=== PATIENT | male | born 1945 | race Caucasian/White ===

== ENCOUNTER 2016-07-08 08:44 | Inpatient (IN) | payer MEDICARE, MEDICAID ==
[~2016-07-08] VITALS: Ht 185.4 cm; Wt 68.0 kg
[2016-07-08 09:13] VITALS: BP 100/69
[2016-07-08 09:54] LABS: APPEARANCE,URINE CLEAR; KETONES,URINE NEGATIVE (NEGATIVE); NITRITE,URINE NEGATIVE (NEGATIVE); PH,URINE 6.5 (4.5-8.0); UROBILINOGEN,URINE 1 MG/DL (0.0-1.0)
[2016-07-08 09:57] LABS: MEAN CORPUSCULAR HEMOGLOBIN 32.7 PG (27.0-31.0); MEAN CORPUSCULAR VOLUME 99 FL (80-99); MEAN PLATELET VOLUME 7.4 FL (6.5-10.1); PLATELET COUNT 296 K/UL (150-450); RED BLOOD COUNT 4.84 M/UL (4.70-6.10); RED CELL DISTRIBUTION WIDTH 12.9 % (11.6-14.8); WHITE BLOOD COUNT 16.7 K/UL (4.8-10.8)
[2016-07-08 10:07] LABS: LEUKOCYTE ESTERASE ,URINE 1+ (NEGATIVE); PROTEIN,URINE 2+ (NEGATIVE)
[2016-07-08 10:08] LABS: ALANINE AMINOTRANSFERASE 11 U/L (3-41); ALBUMIN/GLOBULIN RATIO 1.1 (1.0-2.7); ANION GAP 20 (5-15); ASPARTATE AMINO TRANSFERASE 17 U/L (5-40); CARBON DIOXIDE 23 mEQ/L (20-30); CHLORIDE 99 mEQ/L (98-107); CREATININE 1.2 mg/dL (0.7-1.2); GLOMERULAR FILTRATION RATE > 60 mL/min (>60); HEMOLYSIS 62; POTASSIUM 4.2 mEQ/L (3.4-4.9); SODIUM 142 mEQ/L (135-145); VALPROIC ACID 16 ug/mL (50-100)
[2016-07-08 10:08] LABS: TROPONIN I < 0.30 ng/mL (<=0.30)
[2016-07-08 10:10] LABS: BACTERIA,URINE FEW /HPF; MUCUS,URINE FEW /LPF (NONE/OCC); REFLEX LACTIC ACID YES OR NO YES; SQUAMOUS EPITHELIAL CELL,UR OCCASIONAL /LPF (NONE/OCC)
[2016-07-08 10:11] LABS: HYALINE CASTS, URINE 0-2 /LPF
[2016-07-08] MEDS ORDERED: Valproate Sodium INJ 500 MG in NS 55 ML IV ONE (10:15)
[2016-07-08] MEDS ORDERED: Azithromycin 500 MG in NS 275 ML IV ONE (10:15)
[2016-07-08] MEDS ORDERED: Cefepime HCl 1 GM in NS 55 ML IV ONE (10:15)
--- NOTE | 2016-07-08 10:23 | Diagnostic Imaging Report ---
Indication: Shortness of breath Technique: Single portable AP view of the chest. Findings: Comparison: None. Linear density right lung base. Left lung clear. Aortic arch mildly calcified. The bones and extra pulmonary soft tissues, remainder of the cardiomediastinal silhouette, pulmonary vasculature, and pleural surfaces are unremarkable. IMPRESSION: Subsegmental atelectasis versus scarring right lung base Aortosclerosis Otherwise negative portable AP chest.
[2016-07-08] MEDS ORDERED: Cefepime 1gm vial ONE (10:39)
--- NOTE | 2016-07-08 10:45 | Emergency Room Report ---
History of Present Illness General Chief Complaint: Seizure Source: EMS Present Illness HPI 70-year-old male presents to ED for evaluation of seizure. Patient has history of seizures. Had a witnessed seizure at this facility today which lasted for several minutes. Given Versed with resolution of seizure. Upon arrival patient is lethargic and postictal. Unable to provide any additional history at this time. Patient takes Depakote and Dilantin for seizures. No reported fevers or chills. No reported cough. No reported chest pain shortness of breath. No other aggravating relieving factors. No other associated symptoms Allergies: Coded Allergies: No Known Allergies (Unverified , 07/08/16) Patient History Past Medical History: HTN, seizures Past Surgical History: none Pertinent Family History: none Social History: Denies: alcohol use, drug use, smoking Immunizations: UTD Reviewed Nursing Documentation: PMH: Agreed, PSxH: Agreed Nursing Documentation-PMH Past Medical History Deferred: Pt Cognitively Impaired Past Medical History: No History, Except For Hx Hypertension: Yes Hx Seizures: Yes Review of Systems All Other Systems: negative except mentioned in HPI Physical Exam Vital Signs Date Time Temp Pulse Resp B/P Pulse Ox O2 Delivery O2 Flow Rate FiO2 07/08/16 08:50 97.5 101 16 109/74 99 Room Air 07/08/16 09:15 2.0 Sp02 EP Interpretation: reviewed, normal General Appearance: lethargic, thin Head: normocephalic Eyes: bilateral eye PERRL, bilateral eye normal inspection ENT: normal ENT inspection Neck: normal inspection Respiratory: crackles Cardiovascular #1: regular rate, rhythm, no edema Gastrointestinal: normal bowel sounds, non tender, soft, non-distended, no guarding, no rebound Rectal: deferred Genitourinary: no CVA tenderness Musculoskeletal: normal inspection Neurologic: other - lethargic Psychiatric: other - lethargic Skin: normal inspection Lymphatic: normal inspection Medical Decision Making Diagnostic Impression: Primary Impression: Seizures Additional Impressions: Sepsis Qualified Codes: A41.9 - Sepsis, unspecified organism Pneumonia Qualified Codes: J18.9 - Pneumonia, unspecified organism ER Course Hospital Course 70-year-old M presents to ED status post seizure. Differential diagnosis includes- breakthrough seizure, alcohol abuse, noncompliance with medication Clinical course Patient placed on stretcher. Initial history and physical I ordered labs, IV fluids, EKG Labs-electrolytes okay, leukocytosis noted, hemoglobin/hematocrit stable. dilantin level therapeutic, depakote level low. lactate 5.9 EKG - NSR, no ischemic changes CXR - RLL atelectasis vs infiltrate Given loading dose of depakote. Given 30 mL per KG fluid bolus. Given antibiotics. Case discussed with Dr. Alston and he agreed to accept the patient to his service for further care and support. i. I feel this is a highly complex case requiring extensive working including EKG/Rhythm strip, Xray/CT/US, Blood/urine lab work, repeat exams while in ED, and administration of strong opiates/narcotics for pain control, admission to hospital or close patient follow up. Diagnosis - seizure, sepsis, pneumonia admitted to telemetry in serious condition Labs Test 07/08/16 09:15 07/08/16 09:30 White Blood Count 16.7 K/UL (4.8-10.8) Red Blood Count 4.84 M/UL (4.70-6.10) Hemoglobin 15.8 G/DL (14.2-18.0) Hematocrit 47.9 % (42.0-52.0) Mean Corpuscular Volume 99 FL (80-99) Mean Corpuscular Hemoglobin 32.7 PG (27.0-31.0) Mean Corpuscular Hemoglobin Concent 33.0 G/DL (32.0-36.0) Red Cell Distribution Width 12.9 % (11.6-14.8) Platelet Count 296 K/UL (150-450) Mean Platelet Volume 7.4 FL (6.5-10.1) Neutrophils (%) (Auto) % (45.0-75.0) Lymphocytes (%) (Auto) % (20.0-45.0) Monocytes (%) (Auto) % (1.0-10.0) Eosinophils (%) (Auto) % (0.0-3.0) Basophils (%) (Auto) % (0.0-2.0) Urine Color Yellow Urine Appearance Clear Urine pH 6.5 (4.5-8.0) Urine Specific [place] 1.015 (1.005-1.035) Urine Protein 2+ (NEGATIVE) Urine Glucose (UA) Negative (NEGATIVE) Urine Ketones Negative (NEGATIVE) Urine Occult Blood 1+ (NEGATIVE) Urine Nitrite Negative (NEGATIVE) Urine Bilirubin Negative (NEGATIVE) Urine Urobilinogen 1 MG/DL (0.0-1.0) Urine Leukocyte Esterase 1+ (NEGATIVE) Urine RBC 2-4 /HPF (0 - 0) Urine WBC 2-4 /HPF (0 - 0) Urine Squamous Epithelial Cells Occasional /LPF Urine Bacteria Few /HPF (NONE) Urine Hyaline Casts 0-2 /LPF (NONE) Urine Mucus Few /LPF (NONE/OCC) Sodium Level 142 mEQ/L (135-145) Potassium Level 4.2 mEQ/L (3.4-4.9) Chloride Level 99 mEQ/L (98-107) Carbon Dioxide Level 23 mEQ/L (20-30) Anion Gap 20 (5-15) Blood Urea Nitrogen 22 mg/dL (7-23) Creatinine 1.2 mg/dL (0.7-1.2) Estimat Glomerular Filtration Rate > 60 mL/min (>60) Glucose Level 125 mg/dL (74-106) Lactic Acid Level 5.90 mmol/L (0.66-2.22) Calcium Level 9.0 mg/dL (8.6-10.2) Total Bilirubin 0.3 mg/dL (0.0-1.2) Aspartate Amino Transf (AST/SGOT) 17 U/L (5-40) Alanine Aminotransferase (ALT/SGPT) 11 U/L (3-41) Alkaline Phosphatase 114 U/L (40-129) Total Creatine Kinase 70 U/L (38-174) Total Protein 7.0 g/dL (6.6-8.7) Albumin 3.8 g/dL (3.5-5.2) Globulin 3.2 g/dL Albumin/Globulin Ratio 1.1 (1.0-2.7) Phenytoin (Dilantin) Level 18.2 ug/mL (10-20) Valproic Acid (Depakene) Level 16 ug/mL (50-100) Troponin I < 0.30 ng/mL (<=0.30) EKG Diagnostic Results Rate: normal Rhythm: NSR ST Segments: no acute changes ASA given to the pt in ED: No Rhythm Strip Diag. Results EP Interpretation: yes Rhythm: NSR, no PVC's, no ectopy Chest X-Ray Diagnostic Results EP Interpretation: No Findings: no effusion, no pneumothorax, no acute cardiopulmonary disease, other - atelectasis vs infiltrate RLL Number of Views: 1 Last Vital Signs Date Time Temp Pulse Resp B/P Pulse Ox O2 Delivery O2 Flow Rate FiO2 07/08/16 09:15 24 97 Nasal Cannula 2.0 07/08/16 09:15 98.6 07/08/16 09:13 78 100/69 Status: improved Disposition: ADMITTED INPATIENT Condition: Serious Referrals: AMA ALSTON (PCP) OLE CABRERA M.D. Jul 08, 2016 10:45
[2016-07-08 10:55] LABS: BAND NEUTROPHILS % (MANUAL) 0 % (0-8); BASOPHILS % (MANUAL) 0 % (0-2); EOSINOPHILS % (MANUAL) 1 % (0-3); LYMPHOCYTES % (MANUAL) 2 % (20-45); NEUTROPHILS % (MANUAL) 94 % (45-75); PLATELET ESTIMATE ADEQUATE; PLATELET MORPHOLOGY NORMAL; TOTAL CELLS COUNTED 100
[2016-07-08 10:56] LABS: MACROCYTES 1+
[2016-07-08 10:58] LABS: CKMB 2.1 ng/mL (< 6.7)
[2016-07-08] MEDS ORDERED: LORazepam Inj 2mg/ml 1ml IV ONE (11:15)
[2016-07-08] MEDS ORDERED: Azithromycin Inj IV ONE (12:21)
[2016-07-08 14:00] VITALS: BP 125/75
[2016-07-08] MEDS ORDERED: PROMOD946 ML PO (14:27)
[2016-07-08] MEDS ORDERED: MULTIVITAMINS1 EAC8 ORAL (14:27)
[2016-07-08] MEDS ORDERED: LIPITOR20 MG ORAL (14:27)
[2016-07-08] MEDS ORDERED: PLAVIX75 MG ORAL (14:27)
[2016-07-08] MEDS ORDERED: DOCUSATE SODIU100 M2 ORAL (14:27)
[2016-07-08] MEDS ORDERED: QUETIAPINE FUMA25 MG ORAL (14:27)
[2016-07-08] MEDS ORDERED: BISACODYL10 M1 RC (14:27)
[2016-07-08] MEDS ORDERED: CRANBERRY425 MG PO (14:27)
[2016-07-08] MEDS ORDERED: FLEET ENEMA133 M1 RC (14:27)
[2016-07-08] MEDS ORDERED: VALPROIC A250 MG/5 M PO (14:27)
[2016-07-08] MEDS ORDERED: DILANTIN100 MG ORAL ×2 (14:27)
[2016-07-08] MEDS ORDERED: METOPROLOL SUCC50 MG ORAL (14:27)
[2016-07-08] MEDS ORDERED: MOM30 ML ORAL (14:27)
[2016-07-08] MEDS ORDERED: ISOSORBIDE MONO30 M1 PO (14:27)
[2016-07-08] MEDS ORDERED: Milk of Magnesia 30ml Ud ORAL PRN (14:30)
[2016-07-08] MEDS ORDERED: LORazepam Inj 2mg/ml 1ml IV PRN (14:30)
[2016-07-08] MEDS ORDERED: Fleet's Enema 133ml RECTAL PRN (14:30)
[2016-07-08] MEDS ORDERED: Vancomycin 1gm/D5W 275ml IVPB ONE ×2 (16:00)
[2016-07-08 16:01] VITALS: BP 120/77
[2016-07-08] MEDS: D5NS 1,000 ML IV SCH (16:48)
[2016-07-08 20:32] VITALS: BP 130/80
[2016-07-08] MEDS: Valproic Acid 250mg/5ml Liquid NG SCH (21:00)
[2016-07-08] MEDS ORDERED: Phenytoin 100mg cap ORAL SCH (21:00)
[2016-07-08] MEDS ORDERED: Piperacillin/Tazobactam 3.375 GM in D5W 110 ML IVPB SCH (22:00)
[2016-07-08] MEDS: Heparin 5000 units/ml inj SUBQ SCH (22:00)
[2016-07-08] MEDS: Phenytoin 100 MG in NS 55 ML IVPB SCH (23:38)
[2016-07-09] VITALS: BP 128/74
[2016-07-09] MEDS: Piperacillin/Tazobactam 3.375 GM in D5W 110 ML IVPB SCH ×3 (00:42→18:54)
[2016-07-09] MEDS ORDERED: Vancomycin 750mg Inj IVPB ONE (01:55)
[2016-07-09] MEDS: Vancomycin 750mg/D5W 275ml IVPB SCH ×4 (05:27→17:34)
--- NOTE | 2016-07-09 06:28 | History and Physical Report ---
DATE OF ADMISSION: 07/08/2016 DATE OF EVALUATION: This is a visit that was done on 07/08/2016. The patient was evaluated in the emergency room. HISTORY OF PRESENT ILLNESS: The patient is a 70-year-old male well known to me. He has a history of encephalopathy, seizure disorder, hypertension, anemia, chronic kidney disease, and stroke. He was transferred from a senior living facility and complaints of intractable seizures. The patient is confused at baseline. He is unable to provide any history. According to staff, he had been compliant with medications. On the day of transfer here was having recurrent seizures on evaluation in the emergency room. The patient received a dose of intravenous valproic acid. He was noted to have elevated white count of 16,000 and lactic acid level of 6. Initial workup for infection including a UA was unremarkable. Chest x-ray did show a possible left basilar infiltrate. The patient has been started on broad-spectrum IV antibiotics and intravenous fluids. He is now admitted for further evaluation and care. PAST MEDICAL HISTORY: As above. PAST SURGICAL HISTORY: None. CURRENT MEDICATIONS: Reconciled and reviewed. ALLERGIES: None. FAMILY HISTORY: Unknown. SOCIAL HISTORY: There is no known history of tobacco, ethanol, or drugs. REVIEW OF SYSTEMS: From the patient is unobtainable. PHYSICAL EXAMINATION: VITAL SIGNS: Temperature 97.5 degrees, blood pressure 109/74, pulse of 101, and respirations 16. GENERAL: The patient is a chronically ill-appearing male, in no apparent distress. He is somewhat combative and confused, but this is his baseline. NECK: Supple. There is no jugular venous distention. HEART: Regular rate and rhythm. LUNGS: Lungs are clear. ABDOMEN: Soft, nontender, and nondistended. EXTREMITIES: Without clubbing, cyanosis, or edema. The patient moves all four extremities. LABORATORY DATA: Showed a Dilantin level 18. Valproic acid level of 16. White count of 17,000, hemoglobin 15, lactic acid level 6. ASSESSMENT: This is an elderly male admitted with status epilepticus, sepsis, leukocytosis, acute on chronic encephalopathy, ischemic cardiomyopathy, and stroke. PLAN: So, the plan admit to monitored bed. Intravenous hydration and intravenous seizure medications. We will titrate as needed. Neurologic consultation will be obtained. Continue antiplatelet therapy. Broad-spectrum intravenous antibiotics. ID and Cardiology consultations. We will follow up cultures. As the patient's status is currently guarded. Jcarlos David M.D. DR: RUSLAN JOB#: [id number] CC:
[2016-07-09] MEDS: D5NS 1,000 ML IV SCH ×2 (06:32→18:10)
[2016-07-09 07:54] VITALS: BP 144/80
[2016-07-09] MEDS: Phenytoin 100 MG in NS 55 ML IVPB SCH ×2 (08:48→18:54)
[2016-07-09] MEDS: Multivitamin w/Minerals tab ORAL SCH ×2 (08:48→09:09)
[2016-07-09] MEDS: Imdur 30mg tab ORAL SCH ×2 (08:49→09:08)
[2016-07-09] MEDS: Docusate 100mg cap ORAL SCH ×2 (08:49→09:08)
[2016-07-09] MEDS: Valproic Acid 250mg/5ml Liquid NG SCH ×2 (08:49→09:10)
[2016-07-09 08:55] LABS: BASOPHILS % (AUTO) 0.6 % (0.0-2.0); EOSINOPHILS % (AUTO) 2.5 % (0.0-3.0); LYMPHOCYTES % (AUTO) 12.1 % (20.0-45.0); MEAN CORPUSCULAR HEMOGLOBIN 32.7 PG (27.0-31.0); MEAN CORPUSCULAR HGB CONC 33.9 G/DL (32.0-36.0); MEAN CORPUSCULAR VOLUME 97 FL (80-99); MEAN PLATELET VOLUME 7.2 FL (6.5-10.1); MONOCYTES % (AUTO) 5.6 % (1.0-10.0); NEUTROPHILS % (AUTO) 79.3 % (45.0-75.0); PLATELET COUNT 286 K/UL (150-450); RED BLOOD COUNT 4.53 M/UL (4.70-6.10); RED CELL DISTRIBUTION WIDTH 12.6 % (11.6-14.8); WHITE BLOOD COUNT 15.5 K/UL (4.8-10.8)
[2016-07-09] MEDS: Heparin 5000 units/ml inj SUBQ SCH ×2 (08:55→21:00)
[2016-07-09] MEDS ORDERED: Phenytoin 100mg cap ORAL SCH (09:00)
[2016-07-09 09:32] LABS: ALANINE AMINOTRANSFERASE 10 U/L (3-41); ALBUMIN/GLOBULIN RATIO 1.5 (1.0-2.7); ANION GAP 14 (5-15); ASPARTATE AMINO TRANSFERASE 17 U/L (5-40); CARBON DIOXIDE 26 mEQ/L (20-30); CHLORIDE 100 mEQ/L (98-107); CREATININE 0.9 mg/dL (0.7-1.2); GLOMERULAR FILTRATION RATE > 60 mL/min (>60); HEMOLYSIS 9; POTASSIUM 4.2 mEQ/L (3.4-4.9); SODIUM 140 mEQ/L (135-145); TOTAL PROTEIN 6.3 g/dL (6.6-8.7)
[2016-07-09] MEDS: LORazepam Inj 2mg/ml 1ml IV PRN ×2 (10:18→14:49)
[2016-07-09 11:23] VITALS: BP 107/69
--- NOTE | 2016-07-09 12:26 | General Progress Note ---
Assessment/Plan Problem List: (1) Acute encephalopathy ICD Codes: G93.40 - Encephalopathy, unspecified SNOMED: 9667199 (2) Seizure ICD Codes: R56.9 - Unspecified convulsions SNOMED: 87020051 (3) Sepsis ICD Codes: A41.9 - Sepsis, unspecified organism SNOMED: 38178257 Status: stable Assessment/Plan sz precautions monitor for szs sz rx neuro eval abx per id follow up cultures check swallow Subjective ROS Limited/Unobtainable: Yes Constitutional: Reports: malaise, weakness HEENT: Reports: no symptoms Cardiovascular: Reports: no symptoms Respiratory: Reports: no symptoms Gastrointestinal/Abdominal: Reports: difficulty swallowing Genitourinary: Reports: no symptoms Neurologic/Psychiatric: Reports: pre-existing deficit, seizure Endocrine: Reports: no symptoms Hematologic/Lymphatic: Reports: no symptoms Allergies: Coded Allergies: No Known Allergies (Unverified , 07/08/16) All Systems: reviewed and negative except above Subjective no szs noted by staff. remains confused. difficulty with taking po meds. on iv abx. cultures pending. appears nontoxic Objective Last 24 Hour Vital Signs Date Time Temp Pulse Resp B/P Pulse Ox O2 Delivery O2 Flow Rate FiO2 07/09/16 11:23 96.1 75 20 107/69 07/09/16 09:08 144/80 07/09/16 09:00 80 144/80 07/09/16 07:54 96.3 80 20 144/80 07/09/16 04:00 80 07/09/16 00:00 87 07/09/16 00:00 97.2 71 18 128/74 100 Room Air 07/08/16 20:32 98.1 60 18 130/80 97 Room Air 07/08/16 20:00 86 07/08/16 16:01 97.9 62 19 120/77 98 Room Air 07/08/16 16:00 83 07/08/16 14:00 97.7 82 20 125/75 98 Room Air 07/08/16 13:16 98.6 83 20 100/69 97 Nasal Cannula 2.0 Intake and Output 07/08/16 07/09/16 19:00 07:00 Intake Total 367.416 ml 802.0 ml Output Total 620 ml 300 ml Balance -252.584 ml 502.0 ml Intake Oral 0 ml IV Total 367.416 ml 802.0 ml Output Urine Total 620 ml 300 ml # Bowel Movements 1 3 Laboratory Tests 07/09/16 08:20: White Blood Count 15.5H, Red Blood Count 4.53L, Hemoglobin 14.8, Hematocrit 43.8 , Mean Corpuscular Volume 97, Mean Corpuscular Hemoglobin 32.7H, Mean Corpuscular Hemoglobin Concent 33.9, Red Cell Distribution Width 12.6, Platelet Count 286, Mean Platelet Volume 7.2, Neutrophils (%) (Auto) 79.3H, Lymphocytes ( %) (Auto) 12.1L, Monocytes (%) (Auto) 5.6, Eosinophils (%) (Auto) 2.5, Basophils (%) (Auto) 0.6, Sodium Level 140, Potassium Level 4.2, Chloride Level 100, Carbon Dioxide Level 26, Anion Gap 14, Blood Urea Nitrogen 19, Creatinine 0.9, Estimat Glomerular Filtration Rate > 60, Glucose Level 89, Calcium Level 9.0, Total Bilirubin 0.6, Aspartate Amino Transf (AST/SGOT) 17, Alanine Aminotransferase (ALT/SGPT) 10, Alkaline Phosphatase 109, Pro-B-Type Natriuretic Peptide 1246H, Total Protein 6.3L, Albumin 3.8, Globulin 2.5, Albumin/Globulin Ratio 1.5, Thyroid Stimulating Hormone (TSH) 1.760, Phenytoin ( Dilantin) Level 15.5, Valproic Acid (Depakene) Level 11L Height (Feet): 6 Height (Inches): 1.00 Weight (Pounds): 150 General Appearance: WD/WN, confused Neck: supple Cardiovascular: normal peripheral pulses, normal rate, regular rhythm Respiratory/Chest: chest wall non-tender, lungs clear, normal breath sounds, no respiratory distress, no accessory muscle use Abdomen: normal bowel sounds, non tender, soft, no organomegaly, no mass Edema: no edema noted Arm (L), no edema noted Arm (R), no edema noted Leg (L), no edema noted Leg (R), no edema noted Pedal (L), no edema noted Pedal (R), no edema noted Generalized Neurologic: responsive, disoriented, aphasia AMA ALSTON Jul 09, 2016 12:25
[2016-07-09 16:00] VITALS: BP 118/72
--- NOTE | 2016-07-09 17:28 | Consultation ---
DATE OF CONSULTATION: 07/09/2016 INFECTIOUS DISEASES CONSULTATION CONSULTING PHYSICIAN: Shawn Conteh M.D. REFERRING PHYSICIAN: Jcarlos David M.D. REASON FOR CONSULTATION: Leukocytosis. HISTORY OF PRESENTING ILLNESS: This is a 70-year-old gentleman with history of hypertension, chronic kidney disease, CVA, and seizures, who was transferred from a correction facility with recurrent seizures. He was found to have a leukocytosis and chest x-ray showed a pneumonia and Infectious Diseases consultation has been obtained for antibiotics. PAST MEDICAL HISTORY: 1. History of hypertension. 2. Seizure disorder. 3. Encephalopathy. 4. Anemia. 5. Chronic kidney disease. 6. CVA. MEDICATIONS: As an inpatient, the patient is on Plavix, Colace, Imdur, metoprolol, multivitamin, Ativan, vancomycin, Zosyn, Dilantin, subcutaneous heparin, atorvastatin, valproic acid, Seroquel, Dulcolax, and milk of magnesia. ALLERGIES: No known drug allergies. SOCIAL HISTORY: He does not smoke, drink, or use drugs. FAMILY HISTORY: Unknown. REVIEW OF SYSTEMS: Unable to obtain currently. PHYSICAL EXAMINATION: VITAL SIGNS: Temperature of 96.3 degrees, T-max of 98.6 degrees, pulse of 80, respiratory rate 20, blood pressure 144/80, and O2 saturation of 100%. HEENT: Pupils equally reactive to light and accommodation. Mouth appears clean without thrush. NECK: Supple. No adenopathy. No JVD. CARDIOVASCULAR: Regular rate and rhythm. No murmurs. LUNGS: Clear to auscultation bilaterally. No crackles. No wheezes. ABDOMEN: Soft and nontender. No organomegaly. EXTREMITIES: No cyanosis, no clubbing, and no edema. SKIN: Erythematous scratch zacarias noted. LABORATORY DATA: White count of 16.7 yesterday, white count of 15.5 today, hemoglobin 14.8, hematocrit 43.8, MCV 97, and platelet count of 286,000 with neutrophils of 79%. Sodium 140, potassium 4.2, chloride 100, bicarbonate 26, BUN 19, creatinine 0.9, glucose 89, and calcium 9. Total bilirubin 0.6. AST 17, ALT 10, and alkaline phosphatase 109. Beta natriuretic peptide 1246. Total protein 6.3. Albumin 3.8. UA is showing 2 to 4 white cells. Blood cultures are pending. Chest x-ray is showing subsegmental atelectasis versus scarring in the right lung base. ASSESSMENT: 1. This is a 70-year-old gentleman with history of seizures and encephalopathy, who comes in with leukocytosis and is found to have a possible aspiration pneumonia. 2. We would like to rule out sepsis as a possibility. 3. Seizures. 4. Hypertension. 5. We would like to rule out scabies as a possibility. PLAN: 1. Continue vancomycin and Zosyn. 2. We will order sputum for Gram stain and culture. 3. We will start the patient on permethrin. 4. Contact isolation. I would like to thank, Dr. David, for this consultation. Shawn Conteh M.D. DR: DIANE JOB#: [id number] CC: Jcarlos David M.D.
[2016-07-09 20:00] VITALS: BP 139/82
[2016-07-10 00:20] VITALS: BP 124/69
[2016-07-10] MEDS: Phenytoin 100 MG in NS 55 ML IVPB SCH ×3 (00:30→18:55)
[2016-07-10] MEDS: Piperacillin/Tazobactam 3.375 GM in D5W 110 ML IVPB SCH ×2 (01:55→10:29)
--- NOTE | 2016-07-10 03:38 | Progress Note ---
DATE: 07/09/2016 CARDIOLOGY PROGRESS NOTE SUBJECTIVE: The patient remains withdrawn and lethargic at times. Minimally interactive. He has not had any seizures. Monitored rhythm, sinus. OBJECTIVE: VITAL SIGNS: Blood pressure 118/72, pulse 56, and respirations 21. NECK: Supple. LUNGS: With coarse breath sounds and rhonchi. CARDIAC: Regular rhythm and rate. Normal S1 and S2. ABDOMEN: Soft. No edema. NEURO: right weakness LABORATORY AND DIAGNOSTIC DATA: Sodium 140 and potassium 4.2. Lactic acid is 2. BUN 19 and creatinine 0.9. TSH is 1.7. Pro-natriuretic peptide is 1246. White count 15.5 and hemoglobin 14.8. Dilantin level is 15.5. IMPRESSIONS: 1. Toxic metabolic encephalopathy. 2. Seizure disorder. 3. Abnormal electrocardiogram. 4. acute diastolic congestive heart failure. 5. Hypertensive heart disease. 6. Cerebrovascular disease. 7. Aspiration risk. 8. Asymptomatic sinus bradycardia on beta-xi therapy. PLAN: 1. Antibiotics. 2. Respiratory hygiene. 3. Antiplatelet therapy. 4. Titrate antihypertensives. 5. Decrease beta-xi if bradycardia is asymptomatic and progressive. 6. DVT prophylaxis. Augustus Gooden M.D. DR: RODERICK JOB#: [id number] CC: KELBY
[2016-07-10 04:21] VITALS: BP 122/75
[2016-07-10] MEDS: Vancomycin 750mg/D5W 275ml IVPB SCH ×4 (04:52→16:55)
[2016-07-10] MEDS: D5NS 1,000 ML IV SCH ×2 (05:00→20:50)
--- NOTE | 2016-07-10 05:08 | Consultation ---
DATE OF CONSULTATION: 07/08/2016 CARDIOLOGY CONSULTATION CONSULTING PHYSICIAN: Augustus Gooden M.D. REFERRING PHYSICIAN: Jcarlos David M.D. REASON FOR CONSULTATION: Abnormal electrocardiogram and bradycardia. HISTORY OF PRESENT ILLNESS: This is a 70-year-old male with underlying seizure disorder and cerebrovascular disease with prior cerebrovascular accident. He resides at a long-term facility and was transferred for evaluation of intractable seizures. He does have a baseline dementia and has been receiving medications regularly with compliance. In the emergency room, the patient was given intravenous valproic acid because of active seizures. He was noted to have an abnormal white blood count, lactic acid level, and an electrocardiogram. I have been asked to assist with further cardiovascular care. PAST MEDICAL HISTORY: Seizure disorder, cerebrovascular disease with cerebrovascular accident, hypertension, chronic anemia, and chronic kidney disease. ALLERGIES: None. FAMILY HISTORY: Not known. SOCIAL HISTORY: No record of smoking or alcohol use available. MEDICATIONS: Medications prior to admission were reviewed and reconciled. REVIEW OF SYSTEMS: Not obtainable from the patient. PHYSICAL EXAMINATION: VITAL SIGNS: Afebrile, blood pressure 109/74, pulse 101, and respirations 16. GENERAL: Ill appearing, confused, withdrawn, and lethargic. NECK: Jugular venous pressure is normal. HEENT: Dry mucous membranes. CARDIOVASCULAR: Regular rhythm and rate. Normal S1 and S2 with a fourth heart sound. LUNGS: Clear. ABDOMEN: Soft with no guarding or rebound. EXTREMITIES: Without edema. NEURO: right sided weakness. LABORATORY AND DIAGNOSTIC DATA: Monitored rhythm, sinus tachycardia with episodes of sinus bradycardia. Dilantin level 18. Lactic acid 6. Chest x-ray with left basilar infiltrates. EKG with sinus rhythm. Septal infarction of indeterminate age. Nonspecific ST changes. IMPRESSION: 1. Encephalopathy, multifactorial. 2. Probable sepsis. 3. Pneumonia. 4. Ischemic and hypertensive cardiomyopathy. 5. Beta-xi associated bradyarrhythmia. 6. Hemodynamically appropriate sinus tachycardia. 7. Status epilepticus, possibly precipitated by sepsis or acute cerebrovascular insult. CONDITION: Serious. PROGNOSIS: Guarded. PLAN: 1. Cardiac monitoring. 2. Saline hydration. 3. Panculture. 4. Broad-spectrum antibiotics. 5. Follow up lactic acid levels. 6. Respiratory hygiene. 7. Titrate antiseizure regimen. 8. DVT prophylaxis. 9. Titrate beta-xi dose based on cardiac monitoring and vitals. 10. Further cardiovascular workup depending on clinical course. Augustus Gooden M.D. DR: HEBERT JOB#: [id number] CC: KELBY
--- NOTE | 2016-07-10 08:25 | General Progress Note ---
Assessment/Plan Problem List: (1) Acute encephalopathy ICD Codes: G93.40 - Encephalopathy, unspecified SNOMED: 2283979 (2) Seizure ICD Codes: R56.9 - Unspecified convulsions SNOMED: 72333205 (3) Sepsis ICD Codes: A41.9 - Sepsis, unspecified organism SNOMED: 94073074 Status: stable, not improved Assessment/Plan sz precautions iv sz meds until able to take pos monitor for szs sz rx neuro eval pending abx per id follow up cultures check swallow haldol for agitation tele Subjective ROS Limited/Unobtainable: Yes Constitutional: Reports: weakness HEENT: Reports: no symptoms Cardiovascular: Reports: no symptoms Respiratory: Reports: no symptoms Gastrointestinal/Abdominal: Reports: difficulty swallowing Genitourinary: Reports: no symptoms Neurologic/Psychiatric: Reports: pre-existing deficit, seizure Endocrine: Reports: no symptoms Hematologic/Lymphatic: Reports: no symptoms Allergies: Coded Allergies: No Known Allergies (Unverified , 07/08/16) All Systems: reviewed and negative except above Subjective no szs noted by staff. remains confused. difficulty with taking po meds. on iv abx. combative with staff. Objective Last 24 Hour Vital Signs Date Time Temp Pulse Resp B/P Pulse Ox O2 Delivery O2 Flow Rate FiO2 07/10/16 04:21 98.7 80 19 122/75 98 Room Air 07/10/16 03:47 75 07/10/16 00:20 98.8 71 20 124/69 97 Room Air 07/10/16 00:02 57 07/09/16 20:00 98.1 66 21 139/82 96 Room Air 07/09/16 20:00 54 07/09/16 16:00 56 07/09/16 16:00 97.6 56 21 118/72 96 Room Air 07/09/16 12:03 58 07/09/16 12:00 63 07/09/16 11:23 96.1 75 20 107/69 07/09/16 09:08 144/80 07/09/16 09:00 80 144/80 Intake and Output 07/09/16 07/10/16 19:00 07:00 Intake Total 299.03 ml 802 ml Output Total 200 ml 400 ml Balance 99.03 ml 402 ml IV Total 299.03 ml 802 ml Output Urine Total 200 ml 400 ml # Bowel Movements 1 4 Laboratory Tests 3/1/17 03:20: Vancomycin Level Trough 16.0H Height (Feet): 6 Height (Inches): 1.00 Weight (Pounds): 150 General Appearance: WD/WN, alert, confused Neck: supple Cardiovascular: regular rhythm Respiratory/Chest: chest wall non-tender, lungs clear, normal breath sounds, no respiratory distress, no accessory muscle use Abdomen: normal bowel sounds, non tender, soft, no organomegaly Edema: no edema noted Arm (L), no edema noted Arm (R), no edema noted Leg (L), no edema noted Leg (R), no edema noted Pedal (L), no edema noted Pedal (R), no edema noted Generalized Neurologic: disoriented, aphasia Skin: normal pigmentation AMA ALSTON Jul 10, 2016 08:25
[2016-07-10] MEDS ORDERED: Haloperidol 5mg/ml Inj IM PRN (08:30)
[2016-07-10] MEDS: Heparin 5000 units/ml inj SUBQ SCH ×2 (09:10→22:37)
[2016-07-10] MEDS ORDERED: Valproate Sodium INJ 250 MG in D5W 55 ML IVPB SCH (10:00)
[2016-07-10 12:39] VITALS: BP 132/79
--- NOTE | 2016-07-10 15:00 | Infectious Diseases Prog Note ---
Assessment/Plan Assessment/Plan A: Pneumonia Seizure disorder Encephalopathy lactic acidosis MRSA colonization P; Continue Vancomycin & Zosyn will f/u cultures Subjective ROS Limited/Unobtainable: Yes Neurologic: Reports: confusion Allergies: Coded Allergies: No Known Allergies (Unverified , 07/08/16) Objective Vital Signs Last 24 Hour Vital Signs Date Time Temp Pulse Resp B/P Pulse Ox O2 Delivery O2 Flow Rate FiO2 07/10/16 12:39 98.0 72 20 132/79 95 Room Air 07/10/16 12:00 69 07/10/16 09:06 80 122/75 07/10/16 08:00 76 07/10/16 04:21 98.7 80 19 122/75 98 Room Air 07/10/16 03:47 75 07/10/16 00:20 98.8 71 20 124/69 97 Room Air 07/10/16 00:02 57 07/09/16 20:00 98.1 66 21 139/82 96 Room Air 07/09/16 20:00 54 07/09/16 16:00 56 07/09/16 16:00 97.6 56 21 118/72 96 Room Air Height (Feet): 6 Height (Inches): 1.00 Weight (Pounds): 150 General Appearance: no acute distress HEENT: mucous membranes moist Respiratory/Chest: lungs clear Cardiovascular: normal rate Abdomen: soft, non tender Extremities: no edema Neurologic/Psychiatric: alert, responsive Microbiology Date/Time Source Procedure Growth Status 07/08/16 09:30 Blood Blood Culture - Preliminary NO GROWTH AFTER 24 HOURS Resulted 07/08/16 09:15 Blood Blood Culture - Preliminary NO GROWTH AFTER 24 HOURS Resulted 07/08/16 09:15 Nasal Nares MRSA Culture - Final Staphylococcus Aureus - Mrsa Complete 07/08/16 09:15 Rectum VRE Culture - Final NO VANCOMYCIN RESISTANT ENTEROCOCCUS ... Complete Laboratory Tests Test 07/10/16 03:20 Vancomycin Level Trough 16.0 ug/mL (5.0-12.0) H Current Medications Medications (Trade) Dose Ordered Sig/Josephine Route PRN Reason Start Time Stop Time Status Last Admin Dose Admin Atorvastatin Calcium (Lipitor) 20 mg QHS ORAL 07/10/16 21:00 08/09/16 20:59 Bisacodyl (Dulcolax) 10 mg DAILYPRN PRN RECTAL Constipation 07/08/16 14:30 08/07/16 14:29 Clopidogrel Bisulfate (Plavix) 75 mg DAILY ORAL 07/09/16 09:00 08/08/16 08:59 Dextrose/Sodium Chloride (D5ns) 1,000 ml @ 75 mls/hr [id number] IV 07/08/16 15:30 08/07/16 15:29 07/10/16 05:00 Docusate Sodium (Colace) 100 mg DAILY ORAL 07/09/16 09:00 08/08/16 08:59 Haloperidol Lactate (Haldol) 1 mg Q6H PRN IM Agitation 07/10/16 08:30 08/09/16 08:29 07/10/16 09:04 Heparin Sodium (Porcine) 5000 units 5,000 units EVERY 12 HOURS SUBQ 07/08/16 22:00 08/07/16 21:59 07/10/16 09:10 Isosorbide Mononitrate (Imdur) 30 mg DAILY ORAL 07/09/16 09:00 08/08/16 08:59 Lorazepam 1 mg 1 mg Q4H PRN IV for seizure or agitiation 07/09/16 06:30 07/16/16 06:29 07/09/16 14:49 Magnesium Hydroxide (Mom) 30 ml TIDPRN PRN ORAL Constipation 07/08/16 14:30 08/07/16 14:29 Metoprolol Succinate (Toprol XL) 50 mg DAILY ORAL 07/09/16 09:00 08/08/16 08:59 07/10/16 09:06 Multivitamins Therapeutic (Therapeutic Multivitamin) 1 ea DAILY ORAL 07/09/16 09:00 08/08/16 08:59 Phenytoin 100 mg/ Sodium Chloride 57 ml @ 114 mls/hr Q8HR@0000,0800,1600 IVPB 07/09/16 00:00 08/08/16 00:00 07/10/16 09:03 Piperacillin Sod/ Tazobactam Sod/ Dextrose (Zosyn/D5W) 110 ml @ 27.5 mls/hr Q8HR@0100,0900,1700 IVPB 07/09/16 01:00 07/15/16 21:59 07/10/16 10:29 Quetiapine Fumarate 25 mg 25 mg BID ORAL 07/08/16 18:00 08/07/16 17:59 07/10/16 09:06 Sodium Phosphate (Fleet's Sodium Phosl Enema) 133 ml DAILYPRN PRN RECTAL Constipation 07/08/16 14:30 08/07/16 14:29 Valproate Sodium/ Dextrose (Depacon Inj/D5W) 57.5 ml @ 57.5 mls/hr Q12HR IVPB 07/10/16 10:00 08/09/16 09:59 07/10/16 11:06 Vancomycin HCl (Vanco rx to dose) 1 ea DAILY PRN MISC Per rx protocol 07/08/16 14:30 08/07/16 14:29 Vancomycin HCl/ Dextrose (Vancomycin/D5W) 275 ml @ 183.708 mls/hr Q12HR@0400,1600 IVPB 07/09/16 04:00 07/14/16 03:59 07/10/16 04:52 TRACY WOLF Jul 10, 2016 15:00
[2016-07-10 16:08] VITALS: BP 93/58
--- NOTE | 2016-07-10 18:47 | Neurology Progress Note ---
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 (3) Conjunctiva disorder Status: stable, not improved Recommendations #[id number] RANDAL GARSIA Jul 10, 2016 18:47
[2016-07-10 20:11] VITALS: BP 115/80
[2016-07-10] MEDS ORDERED: Atorvastatin 20mg tab ORAL SCH (21:00)
[2016-07-10] MEDS: Valproate Sodium INJ 1,000 MG in D5W 55 ML IVPB SCH (22:37)
--- NOTE | 2016-07-10 23:08 | Consultation ---
DATE OF CONSULTATION: 07/10/2016 NEUROLOGIC CONSULTATION REQUESTING PHYSICIAN: Jcarlos David M.D. HISTORY OF PRESENT ILLNESS: This is a 70-year-old man resident of a convalescent home with multiple medical issues and presented with exacerbation of seizure activities. The patient who has a chronic seizure disorder, was witnessed to have generalized clonic tonic activities. Paramedics were called to the scene. Versed was given and the seizure stopped, but he became lethargic. On arrival, vital signs included blood pressure 109/74 and temperature 97.9 degrees. His diagnostic studies include EKG, normal sinus rhythm. Chest x-ray, a right lower lobe infiltrate. Lab work was obtained revealing WBC of 16.7. Chemistry panel with glucose 125 and anion gap of 20. Elevated BNP at 1246. Normal TSH and liver function. Elevated lactic acid is 5.90. Toxicology panel, valproic acid on admission is 16, blood phenytoin 18.2. Following admission to present, there was no further seizure activities. The patient was reloaded with Depakote. PAST MEDICAL HISTORY: The patient has a history of dementia, previous strokes, chronic seizure disorder, and hypertension. MEDICATIONS: The patient's treatment includes Depakote 250 mg b.i.d., Seroquel 25 mg b.i.d., phenytoin 300 mg at bedtime, metoprolol, isosorbide, Plavix 75 mg daily and Lipitor 25 mg daily. ALLERGIES: None reported. SOCIAL HISTORY: The patient is a resident of nursing care facility. FAMILY HISTORY: Unavailable. REVIEW OF SYMPTOMS: Unable to obtain due to the patient's status. PHYSICAL EXAMINATION: GENERAL: Well-developed, ill-appearing and cachectic appearing man, not in acute distress. VITAL SIGNS: Stable. He is afebrile. Blood pressure 93/58 and respiration 18. HEENT: Head is normocephalic. There is a redness conjunctivitis and pus from the right eye and less so from the left eye. SKIN EXAMINATION: Scratches in his right shoulder. NECK: Supple. No neck rigidity in all directions. MUSCULOSKELETAL: Unremarkable except redness at distal aspect of both lower extremities. Peripheral pulses 1+. MENTAL STATUS: The patient is drowsy, but arousable. Mumbling and mostly incoherent. He follows only few simple commands. CRANIAL NERVE II: Pupils both responding to light and accommodation. Extraocular movement in full range. CRANIAL NERVE V: Normal corneal responses. CRANIAL NERVE VII: Droop right nasolabial fold. CRANIAL NERVE VIII: Decreased hearing. CRANIAL NERVE IX THROUGH XII: Tongue is in midline. MOTOR EXAMINATION: Spasticity in all limbs, but more mainly on the right side, able to lift left upper and left lower extremity against the gravity. Limited lifting. Limited flexion in the right upper and right lower extremity. Deep reflexes brisk 3+ on the right. Positive Babinski on the right. SENSORY EXAMINATION: Withdrawing to pin stimulation in both upper and lower extremities. Gait not tested. IMPRESSION: 1. This is a 70-year-old male with a history of strokes now presenting with a right hemiparesis, vascular dementia, and exacerbation of chronic seizure disorder probably breakthrough episode. 2. Conjunctivitis. 3. Rule out pneumonia. 4. Leukocytosis rule out sepsis. 5. Hypertension. RECOMMENDATION: 1. Get a CAT scan of the brain without contrast for baseline. 2. EEG. 3. Depakote increase to 1000 mg b.i.d. 4. Recheck blood level. Ativan 1 mg q.1 hour p.r.n. for breakthrough seizure. Get a vitamin D level, B12, folate TSH, and lipid panel. 5. Continue with IV fluids, antibiotics for underlying infection, and need antibiotic eyedrops. Thank you for allowing me to see this interesting patient in neurological consultation. Roc Zavala M.D. DR: ESTER JOB#: [id number] CC:
[2016-07-11] VITALS (8 sets, daily range): BP systolic 87–131; BP diastolic 51–80
[2016-07-11] MEDS: Piperacillin/Tazobactam 3.375 GM in D5W 110 ML IVPB SCH ×4 (00:35→20:50)
[2016-07-11] MEDS: Phenytoin 100 MG in NS 55 ML IVPB SCH ×3 (01:36→18:40)
--- NOTE | 2016-07-11 02:28 | Progress Note ---
DATE: 07/10/2016 CARDIOLOGY PROGRESS NOTE SUBJECTIVE: The patient remains agitated, confused, and unable to tolerate oral intake. His therapy remains and continues to be given by IV route. No new seizures noted. OBJECTIVE: VITAL SIGNS: Blood pressure 122/75, pulse 80, and respirations 19. LUNGS: Bilateral breath sounds. HEART: Regular rhythm and rate. Normal S1 and S2 with a fourth heart sound. ABDOMEN: Soft. EXTREMITIES: No edema. Slight right-sided weakness. IMPRESSION: 1. Status epilepticus. 2. Breakthrough seizure. 3. Possible acute cerebrovascular accident. 4. Hypertensive heart disease. 5. Atherosclerotic cardiovascular disease. 6. Urinary tract infection. 7. Bradyarrhythmias due to beta-xi, stable. PLAN: 1. Antibiotics. 2. Antiseizure therapy. 3. Imaging of the brain planned. 4. Anti-platelet therapy. 5. Titrate antihypertensive and anti-failure drugs. Augustus Gooden M.D. DR: RODERICK JOB#: [id number] CC:
[2016-07-11] MEDS: Vancomycin 750mg/D5W 275ml IVPB SCH ×4 (04:30→18:09)
[2016-07-11] MEDS: D5NS 1,000 ML IV SCH ×2 (06:21→12:20)
[2016-07-11 08:27] LABS: BASOPHILS % (AUTO) 0.6 % (0.0-2.0); EOSINOPHILS % (AUTO) 7.6 % (0.0-3.0); LYMPHOCYTES % (AUTO) 21.4 % (20.0-45.0); MEAN CORPUSCULAR HEMOGLOBIN 32.6 PG (27.0-31.0); MEAN CORPUSCULAR HGB CONC 33.8 G/DL (32.0-36.0); MEAN CORPUSCULAR VOLUME 97 FL (80-99); MEAN PLATELET VOLUME 7.7 FL (6.5-10.1); MONOCYTES % (AUTO) 9.1 % (1.0-10.0); NEUTROPHILS % (AUTO) 61.4 % (45.0-75.0); PLATELET COUNT 265 K/UL (150-450); RED BLOOD COUNT 4.24 M/UL (4.70-6.10); RED CELL DISTRIBUTION WIDTH 12.5 % (11.6-14.8)
--- NOTE | 2016-07-11 08:29 | Cardiology Report ---
APPROVED REPORT EKG Measurement Heart [id number] CO [id number] Sinus rhythm with 1st degree AV block Anterior infarct, age undetermined Abnormal ECG
[2016-07-11 08:44] LABS: ALANINE AMINOTRANSFERASE 11 U/L (3-41); ALBUMIN/GLOBULIN RATIO 1.1 (1.0-2.7); ANION GAP 14 (5-15); ASPARTATE AMINO TRANSFERASE 19 U/L (5-40); CALCIUM 8.2 mg/dL (8.6-10.2); CARBON DIOXIDE 28 mEQ/L (20-30); CHLORIDE 98 mEQ/L (98-107); CREATININE 0.8 mg/dL (0.7-1.2); GLOMERULAR FILTRATION RATE > 60 mL/min (>60); HEMOLYSIS 4; MAGNESIUM 1.8 mg/dL (1.7-2.5); POTASSIUM 3.2 mEQ/L (3.4-4.9); SODIUM 140 mEQ/L (135-145); TOTAL PROTEIN 6.3 g/dL (6.6-8.7)
--- NOTE | 2016-07-11 09:44 | Infectious Diseases Prog Note ---
Assessment/Plan Assessment/Plan A: Pneumonia Seizure disorder Encephalopathy lactic acidosis MRSA colonization P; Continue Vancomycin & Zosyn will f/u cultures Subjective ROS Limited/Unobtainable: Yes Neurologic: Reports: other - seizure decreased Allergies: Coded Allergies: No Known Allergies (Unverified , 07/08/16) Objective Vital Signs Last 24 Hour Vital Signs Date Time Temp Pulse Resp B/P Pulse Ox O2 Delivery O2 Flow Rate FiO2 07/11/16 07:25 97.2 80 20 97/56 94 Room Air 07/11/16 04:24 98.8 79 19 131/71 98 Room Air 07/11/16 04:14 72 07/11/16 00:41 97.8 81 20 114/80 96 Room Air 07/11/16 00:14 70 07/10/16 20:11 97.0 60 19 115/80 95 Room Air 07/10/16 16:08 97.9 65 18 93/58 98 Room Air 07/10/16 12:39 98.0 72 20 132/79 95 Room Air 07/10/16 12:00 69 Height (Feet): 6 Height (Inches): 1.00 Weight (Pounds): 150 General Appearance: no acute distress HEENT: mucous membranes moist Respiratory/Chest: lungs clear Cardiovascular: normal rate Abdomen: soft, non tender Extremities: no edema Neurologic/Psychiatric: responsive Laboratory Tests Test 07/11/16 07:35 White Blood Count 9.0 K/UL (4.8-10.8) Red Blood Count 4.24 M/UL (4.70-6.10) L Hemoglobin 13.8 G/DL (14.2-18.0) L Hematocrit 40.9 % (42.0-52.0) L Mean Corpuscular Volume 97 FL (80-99) Mean Corpuscular Hemoglobin 32.6 PG (27.0-31.0) H Mean Corpuscular Hemoglobin Concent 33.8 G/DL (32.0-36.0) Red Cell Distribution Width 12.5 % (11.6-14.8) Platelet Count 265 K/UL (150-450) Mean Platelet Volume 7.7 FL (6.5-10.1) Neutrophils (%) (Auto) 61.4 % (45.0-75.0) Lymphocytes (%) (Auto) 21.4 % (20.0-45.0) Monocytes (%) (Auto) 9.1 % (1.0-10.0) Eosinophils (%) (Auto) 7.6 % (0.0-3.0) H Basophils (%) (Auto) 0.6 % (0.0-2.0) Sodium Level 140 mEQ/L (135-145) Potassium Level 3.2 mEQ/L (3.4-4.9) L Chloride Level 98 mEQ/L (98-107) Carbon Dioxide Level 28 mEQ/L (20-30) Anion Gap 14 (5-15) Blood Urea Nitrogen 8 mg/dL (7-23) Creatinine 0.8 mg/dL (0.7-1.2) Estimat Glomerular Filtration Rate > 60 mL/min (>60) Glucose Level 98 mg/dL (74-106) Calcium Level 8.2 mg/dL (8.6-10.2) L Magnesium Level 1.8 mg/dL (1.7-2.5) Total Bilirubin 0.4 mg/dL (0.0-1.2) Aspartate Amino Transf (AST/SGOT) 19 U/L (5-40) Alanine Aminotransferase (ALT/SGPT) 11 U/L (3-41) Alkaline Phosphatase 103 U/L (40-129) Pro-B-Type Natriuretic Peptide 585 pg/mL (0-125) H Total Protein 6.3 g/dL (6.6-8.7) L Albumin 3.4 g/dL (3.5-5.2) L Globulin 2.9 g/dL Albumin/Globulin Ratio 1.1 (1.0-2.7) Phenytoin (Dilantin) Level 13.8 ug/mL (10-20) Valproic Acid (Depakene) Level 35 ug/mL (50-100) L Current Medications Medications (Trade) Dose Ordered Sig/Josephine Route PRN Reason Start Time Stop Time Status Last Admin Dose Admin Atorvastatin Calcium (Lipitor) 20 mg QHS ORAL 07/10/16 21:00 08/09/16 20:59 07/10/16 22:38 Bisacodyl (Dulcolax) 10 mg DAILYPRN PRN RECTAL Constipation 07/08/16 14:30 08/07/16 14:29 Clopidogrel Bisulfate (Plavix) 75 mg DAILY ORAL 07/09/16 09:00 08/08/16 08:59 Dextrose/Sodium Chloride (D5ns) 1,000 ml @ 75 mls/hr [id number] IV 07/08/16 15:30 08/07/16 15:29 07/10/16 05:00 Docusate Sodium (Colace) 100 mg DAILY ORAL 07/09/16 09:00 08/08/16 08:59 Haloperidol Lactate 1 mg 1 mg Q6H PRN IM Agitation 07/10/16 08:30 08/09/16 08:29 07/10/16 09:04 Heparin Sodium (Porcine) 5000 units 5,000 units EVERY 12 HOURS SUBQ 07/08/16 22:00 08/07/16 21:59 07/10/16 22:37 Isosorbide Mononitrate (Imdur) 30 mg DAILY ORAL 07/09/16 09:00 08/08/16 08:59 Lorazepam (Ativan 2mg/ml 1ml) 1 mg Q4H PRN IV for seizure or agitiation 07/09/16 06:30 07/16/16 06:29 07/09/16 14:49 Magnesium Hydroxide (Mom) 30 ml TIDPRN PRN ORAL Constipation 07/08/16 14:30 08/07/16 14:29 Metoprolol Succinate (Toprol XL) 50 mg DAILY ORAL 07/09/16 09:00 08/08/16 08:59 07/10/16 09:06 Multivitamins Therapeutic (Therapeutic Multivitamin) 1 ea DAILY ORAL 07/09/16 09:00 08/08/16 08:59 Phenytoin/Sodium Chloride (Dilantin/Sodium Chloride) 57 ml @ 114 mls/hr Q8HR@0000,0800,1600 IVPB 07/09/16 00:00 08/08/16 00:00 07/11/16 01:36 Piperacillin Sod/ Tazobactam Sod 3.375 gm/Dextrose 110 ml @ 220 mls/hr Q6H IVPB 07/10/16 21:00 07/17/16 20:59 07/11/16 03:30 Quetiapine Fumarate 25 mg 25 mg BID ORAL 07/08/16 18:00 08/07/16 17:59 07/10/16 18:55 Sodium Phosphate (Fleet's Sodium Phosl Enema) 133 ml DAILYPRN PRN RECTAL Constipation 07/08/16 14:30 08/07/16 14:29 Valproate Sodium/ Dextrose (Depacon Inj/D5W) 65 ml @ 57.5 mls/hr Q12HR@1000,2200 IVPB 07/10/16 22:00 08/09/16 21:59 07/10/16 22:37 Vancomycin HCl (Vanco rx to dose) 1 ea DAILY PRN MISC Per rx protocol 07/08/16 14:30 08/07/16 14:29 Vancomycin HCl/ Dextrose (Vancomycin/D5W) 275 ml @ 183.708 mls/hr Q12HR@0400,1600 IVPB 07/09/16 04:00 07/14/16 03:59 07/11/16 04:30 TRACY WOLF Jul 11, 2016 09:44
[2016-07-11] MEDS: Multivitamin w/Minerals tab ORAL SCH (10:02)
[2016-07-11] MEDS: Docusate 100mg cap ORAL SCH (10:02)
[2016-07-11] MEDS: Heparin 5000 units/ml inj SUBQ SCH ×2 (10:04→20:55)
[2016-07-11] MEDS: Imdur 30mg tab ORAL SCH (10:08)
--- NOTE | 2016-07-11 11:56 | Neurology Progress Note ---
Interim History Interim History ROS Limited/Unobtainable: Yes Complaints: nonverbal Events: 87/56, noted brief episode of arm shaking Objective Physical Exam Last Vital Signs Date Time Temp Pulse Resp B/P Pulse Ox O2 Delivery O2 Flow Rate FiO2 07/11/16 10:08 85 99/66 07/11/16 07:25 97.2 20 94 Room Air 07/08/16 13:16 2.0 Laboratory Tests Test 07/11/16 07:35 White Blood Count 9.0 K/UL (4.8-10.8) Red Blood Count 4.24 M/UL (4.70-6.10) L Hemoglobin 13.8 G/DL (14.2-18.0) L Hematocrit 40.9 % (42.0-52.0) L Mean Corpuscular Volume 97 FL (80-99) Mean Corpuscular Hemoglobin 32.6 PG (27.0-31.0) H Mean Corpuscular Hemoglobin Concent 33.8 G/DL (32.0-36.0) Red Cell Distribution Width 12.5 % (11.6-14.8) Platelet Count 265 K/UL (150-450) Mean Platelet Volume 7.7 FL (6.5-10.1) Neutrophils (%) (Auto) 61.4 % (45.0-75.0) Lymphocytes (%) (Auto) 21.4 % (20.0-45.0) Monocytes (%) (Auto) 9.1 % (1.0-10.0) Eosinophils (%) (Auto) 7.6 % (0.0-3.0) H Basophils (%) (Auto) 0.6 % (0.0-2.0) Sodium Level 140 mEQ/L (135-145) Potassium Level 3.2 mEQ/L (3.4-4.9) L Chloride Level 98 mEQ/L (98-107) Carbon Dioxide Level 28 mEQ/L (20-30) Anion Gap 14 (5-15) Blood Urea Nitrogen 8 mg/dL (7-23) Creatinine 0.8 mg/dL (0.7-1.2) Estimat Glomerular Filtration Rate > 60 mL/min (>60) Glucose Level 98 mg/dL (74-106) Calcium Level 8.2 mg/dL (8.6-10.2) L Magnesium Level 1.8 mg/dL (1.7-2.5) Total Bilirubin 0.4 mg/dL (0.0-1.2) Aspartate Amino Transf (AST/SGOT) 19 U/L (5-40) Alanine Aminotransferase (ALT/SGPT) 11 U/L (3-41) Alkaline Phosphatase 103 U/L (40-129) Pro-B-Type Natriuretic Peptide 585 pg/mL (0-125) H Total Protein 6.3 g/dL (6.6-8.7) L Albumin 3.4 g/dL (3.5-5.2) L Globulin 2.9 g/dL Albumin/Globulin Ratio 1.1 (1.0-2.7) Phenytoin (Dilantin) Level 13.8 ug/mL (10-20) Valproic Acid (Depakene) Level 35 ug/mL (50-100) L General: other - cachectic ill appearing Head: normocophalic Neck: other - rigid Neurologic Exam Mental Status: other - lethargy, mute Speech: other Language: other Cranial Nerve II: other Cranial Nerves III, IV, : EOMI, pupils Cranial Nerve V: normal facial sensations Cranial Nerve VII: no facial asymmetry Cranial Nerve VIII: no nystagmus Cranial Nerve IX: other - poor gag Cranial Nerve XI: other Motor System: other - R>L Sensory: other Deep Tendon Reflexes: 0 ankle (L), 0 ankle (R), 0 bicep (L), 0 bicep (R), 0 brachioradialis (L), 0 brachioradialis (R), 0 knee (L), 0 knee (R), 0 tricep (L) , 0 tricep (R) Reflexes: mute plantar (L), mute plantar (R) Impression/Recommendations Problems: (1) chronic seizure disorder, breakthru exacerbation (2) 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 (3) Conjunctiva disorder (4) Sepsis Status: stable, not improved Recommendations #[id number] depakote 1000 mg bid DPH 200mg bid cont iv f. RANDAL Ricardo Jul 11, 2016 11:56
[2016-07-11] MEDS: Valproate Sodium INJ 1,000 MG in D5W 55 ML IVPB SCH (12:15)
--- NOTE | 2016-07-11 14:28 | General Progress Note ---
Assessment/Plan Problem List: (1) Acute encephalopathy ICD Codes: G93.40 - Encephalopathy, unspecified SNOMED: 0914678 (2) Seizure ICD Codes: R56.9 - Unspecified convulsions SNOMED: 34261824 (3) Sepsis ICD Codes: A41.9 - Sepsis, unspecified organism SNOMED: 70306663 Status: stable, progressing Assessment/Plan sz precautions iv sz meds until able to take pos. will consider switching if compliant with po meds. monitor for szs sz rx neuro eval appreciated abx per id follow up cultures haldol for agitation Subjective ROS Limited/Unobtainable: Yes HEENT: Reports: no symptoms Cardiovascular: Reports: no symptoms Respiratory: Reports: no symptoms Gastrointestinal/Abdominal: Reports: no symptoms Genitourinary: Reports: no symptoms Neurologic/Psychiatric: Reports: pre-existing deficit, seizure Endocrine: Reports: no symptoms Hematologic/Lymphatic: Reports: no symptoms Allergies: Coded Allergies: No Known Allergies (Unverified , 07/08/16) All Systems: reviewed and negative except above Subjective ?arm shaking this am. remains confused and intermittently agitated. difficulty with taking po meds. on iv abx. combative with staff. has sitter. neuro noted. Objective Last 24 Hour Vital Signs Date Time Temp Pulse Resp B/P Pulse Ox O2 Delivery O2 Flow Rate FiO2 07/11/16 13:38 74 116/68 07/11/16 11:53 97.3 73 20 87/51 95 Room Air 07/11/16 10:08 85 99/66 07/11/16 10:08 80 97/56 07/11/16 10:08 97/56 07/11/16 07:25 97.2 80 20 97/56 94 Room Air 07/11/16 04:24 98.8 79 19 131/71 98 Room Air 07/11/16 04:14 72 07/11/16 00:41 97.8 81 20 114/80 96 Room Air 07/11/16 00:14 70 07/10/16 20:11 97.0 60 19 115/80 95 Room Air 07/10/16 16:08 97.9 65 18 93/58 98 Room Air Intake and Output 07/10/16 07/11/16 19:00 07:00 Intake Total 464.5 ml 1093 ml Output Total 300 ml 2300 ml Balance 164.5 ml -1207 ml Intake Oral 240 ml 240 ml IV Total 224.5 ml 853 ml Output Urine Total 300 ml 2300 ml # Bowel Movements 1 3 Laboratory Tests 07/11/16 07:35: White Blood Count 9.0, Red Blood Count 4.24L, Hemoglobin 13.8L, Hematocrit 40.9L , Mean Corpuscular Volume 97, Mean Corpuscular Hemoglobin 32.6H, Mean Corpuscular Hemoglobin Concent 33.8, Red Cell Distribution Width 12.5, Platelet Count 265, Mean Platelet Volume 7.7, Neutrophils (%) (Auto) 61.4, Lymphocytes (% ) (Auto) 21.4, Monocytes (%) (Auto) 9.1, Eosinophils (%) (Auto) 7.6H, Basophils (%) (Auto) 0.6, Sodium Level 140, Potassium Level 3.2L, Chloride Level 98, Carbon Dioxide Level 28, Anion Gap 14, Blood Urea Nitrogen 8, Creatinine 0.8, Estimat Glomerular Filtration Rate > 60, Glucose Level 98, Calcium Level 8.2L, Magnesium Level 1.8, Total Bilirubin 0.4, Aspartate Amino Transf (AST/SGOT) 19, Alanine Aminotransferase (ALT/SGPT) 11, Alkaline Phosphatase 103, Pro-B-Type Natriuretic Peptide 585H, Total Protein 6.3L, Albumin 3.4L, Globulin 2.9, Albumin/Globulin Ratio 1.1, Phenytoin (Dilantin) Level 13.8, Valproic Acid ( Depakene) Level 35L Height (Feet): 6 Height (Inches): 1.00 Weight (Pounds): 150 AMA ALSTON Jul 11, 2016 14:28
[2016-07-11] MEDS ORDERED: Haloperidol 5mg/ml Inj IM PRN (18:00)
[2016-07-11] MEDS ORDERED: Milk of Magnesia 30ml Ud ORAL PRN (18:00)
[2016-07-11] MEDS ORDERED: Fleet's Enema 133ml RECTAL PRN (18:00)
[2016-07-11] MEDS ORDERED: D5NS 1,000 ML IV SCH (18:00)
[2016-07-11] MEDS: LORazepam Inj 2mg/ml 1ml IV PRN (18:10)
[2016-07-11] MEDS ORDERED: Piperacillin/Tazobactam 3.375 GM in D5W 110 ML IVPB SCH (19:30)
[2016-07-11] MEDS: Depakote 500mg tab ORAL SCH (20:55)
[2016-07-11] MEDS ORDERED: Depakote 500mg tab ORAL SCH (21:00)
[2016-07-11] MEDS ORDERED: Atorvastatin 20mg tab ORAL SCH (21:00)
[2016-07-11] MEDS ORDERED: Valproate Sodium INJ 1,000 MG in D5W 55 ML IVPB PRN ×4 (21:00)
[2016-07-12] VITALS: BP 117/73
[2016-07-12] MEDS: Piperacillin/Tazobactam 3.375 GM in D5W 110 ML IVPB SCH ×2 (01:16→06:27)
[2016-07-12] MEDS ORDERED: Vancomycin 750mg/D5W 275ml IVPB SCH ×2 (02:00)
[2016-07-12] MEDS ORDERED: Vancomycin 750 MG in D5W 275 ML IVPB SCH ×2 (02:00→04:00)
[2016-07-12 04:00] VITALS: BP 110/70
[2016-07-12 07:26] LABS: ALANINE AMINOTRANSFERASE 8 U/L (3-41); ALBUMIN/GLOBULIN RATIO 1.1 (1.0-2.7); ANION GAP 14 (5-15); ASPARTATE AMINO TRANSFERASE 14 U/L (5-40); CALCIUM 8.2 mg/dL (8.6-10.2); CARBON DIOXIDE 26 mEQ/L (20-30); CHLORIDE 103 mEQ/L (98-107); CREATININE 0.7 mg/dL (0.7-1.2); GLOMERULAR FILTRATION RATE > 60 mL/min (>60); HEMOLYSIS 5; MAGNESIUM 1.8 mg/dL (1.7-2.5); POTASSIUM 3.8 mEQ/L (3.4-4.9); SODIUM 143 mEQ/L (135-145); TOTAL PROTEIN 5.4 g/dL (6.6-8.7)
[2016-07-12 08:00] VITALS: BP 136/73
--- NOTE | 2016-07-12 08:34 | General Progress Note ---
Assessment/Plan Problem List: (1) Acute encephalopathy ICD Codes: G93.40 - Encephalopathy, unspecified SNOMED: 9400057 (2) Seizure ICD Codes: R56.9 - Unspecified convulsions SNOMED: 46368809 (3) Sepsis ICD Codes: A41.9 - Sepsis, unspecified organism SNOMED: 98647676 Status: stable, progressing Assessment/Plan sz precautions iv sz meds until able to take pos. will consider switching if compliant with po meds. monitor for szs sz rx neuro eval appreciated abx per id follow up cultures haldol for agitation dc planning if taking po meds and compliant with care and no more szs Subjective ROS Limited/Unobtainable: Yes Constitutional: Reports: malaise, weakness HEENT: Reports: no symptoms Cardiovascular: Reports: no symptoms Respiratory: Reports: no symptoms Gastrointestinal/Abdominal: Reports: no symptoms Genitourinary: Reports: no symptoms Neurologic/Psychiatric: Reports: pre-existing deficit, seizure Endocrine: Reports: no symptoms Hematologic/Lymphatic: Reports: no symptoms Allergies: Coded Allergies: No Known Allergies (Unverified , 07/08/16) All Systems: reviewed and negative except above Subjective remains confused and intermittently agitated. difficulty with taking po meds. on iv abx. combative with staff. refused vitals this am. has sitter. neuro noted. Objective Last 24 Hour Vital Signs Date Time Temp Pulse Resp B/P Pulse Ox O2 Delivery O2 Flow Rate FiO2 07/12/16 04:00 96.4 81 20 110/70 98 Room Air 07/12/16 00:00 96.3 61 20 117/73 100 Room Air 07/11/16 20:00 97.3 59 16 96/58 98 Room Air 07/11/16 15:32 97.3 73 15 109/58 96 07/11/16 13:38 74 116/68 07/11/16 11:53 97.3 73 20 87/51 95 Room Air 07/11/16 10:08 85 99/66 07/11/16 10:08 80 97/56 07/11/16 10:08 97/56 Intake and Output 07/11/16 07/12/16 19:00 07:00 Intake Total 1058.208 ml 298.292 ml Output Total 800 ml 865 ml Balance 258.208 ml -566.708 ml Intake Oral 575 ml IV Total 483.208 ml 298.292 ml Output Urine Total 800 ml 865 ml # Bowel Movements 2 Laboratory Tests 07/12/16 05:35: Sodium Level 143, Potassium Level 3.8, Chloride Level 103, Carbon Dioxide Level 26, Anion Gap 14, Blood Urea Nitrogen 6L, Creatinine 0.7, Estimat Glomerular Filtration Rate > 60, Glucose Level 109H, Calcium Level 8.2L, Magnesium Level 1.8, Total Bilirubin 0.3, Aspartate Amino Transf (AST/SGOT) 14, Alanine Aminotransferase (ALT/SGPT) 8, Alkaline Phosphatase 86, Total Protein 5.4L, Albumin 2.9L, Globulin 2.5, Albumin/Globulin Ratio 1.1 Height (Feet): 6 Height (Inches): 1.00 Weight (Pounds): 150 AMA ALSTON Jul 12, 2016 08:34
[2016-07-12] MEDS: Phenytoin 100 MG in NS 55 ML IVPB SCH ×4 (08:49→17:04)
[2016-07-12] MEDS ORDERED: Multivitamin w/Minerals tab ORAL SCH (09:00)
[2016-07-12] MEDS ORDERED: Docusate 100mg cap ORAL SCH (09:00)
[2016-07-12] MEDS ORDERED: Imdur 30mg tab ORAL SCH (09:00)
--- NOTE | 2016-07-12 09:00 | Progress Note ---
DATE: 07/11/2016 CARDIOLOGY PROGRESS NOTE SUBJECTIVE: Some parts of the arm shaking this morning is described. Neurology has increased therapy. The patient's blood pressure range has been low throughout the day. The patient is confused and agitated at times. OBJECTIVE: VITAL SIGNS: Blood pressure 87/51 and 115/68, pulse 74, respirations 18, afebrile, room air oxygen saturation 95% to 98%. LUNGS: Clear. HEART: Regular. No murmur. ABDOMEN: Soft. EXTREMITIES: No edema. LABORATORY AND DIAGNOSTIC DATA: White count 9 and hemoglobin 13.8. Potassium is 3.2, BUN 8, and creatinine 0.8. Pro-natriuretic peptide decreased to 585. IMPRESSION: 1. Seizure. 2. Cerebrovascular disease. 3. Cerebrovascular accident. 4. Urinary tract infection. 5. Sepsis. 6. Toxic and metabolic encephalopathy. 7. Hypertension. 8. Hypokalemia. PLAN: 1. Continue volume support. 2. Replace potassium, check magnesium. 3. Discontinue on antihypertensives. 4. Titration of anti therapy. Augustus Gooden M.D. DR: Enrique JOB#: [id number] CC:
[2016-07-12] MEDS: Depakote 500mg tab ORAL SCH (09:54)
[2016-07-12] MEDS: Heparin 5000 units/ml inj SUBQ SCH (10:09)
--- NOTE | 2016-07-12 11:47 | Infectious Diseases Prog Note ---
Assessment/Plan Assessment/Plan antibiotics : vancomycin iv, zosyn A 1. pneumonia 2. seizures 3. scabies s/p rx 4. MRSA nasal colonization P 1. d/c vancomycin iv, zosyn 2. start and continue po doxycycline 2 more days 3. will follow up cultures Subjective ROS Limited/Unobtainable: Yes Allergies: Coded Allergies: No Known Allergies (Unverified , 07/08/16) Objective Vital Signs Last 24 Hour Vital Signs Date Time Temp Pulse Resp B/P Pulse Ox O2 Delivery O2 Flow Rate FiO2 07/12/16 10:06 82 136/73 07/12/16 10:06 136/73 07/12/16 04:00 96.4 81 20 110/70 98 Room Air 07/12/16 00:00 96.3 61 20 117/73 100 Room Air 07/11/16 20:00 97.3 59 16 96/58 98 Room Air 07/11/16 15:32 97.3 73 15 109/58 96 07/11/16 13:38 74 116/68 07/11/16 11:53 97.3 73 20 87/51 95 Room Air Height (Feet): 6 Height (Inches): 1.00 Weight (Pounds): 150 Respiratory/Chest: lungs clear Cardiovascular: normal rate, regular rhythm, no gallop/murmur Abdomen: soft, non tender Extremities: no edema Skin: rash - decreasing Laboratory Tests Test 07/12/16 05:35 Sodium Level 143 mEQ/L (135-145) Potassium Level 3.8 mEQ/L (3.4-4.9) Chloride Level 103 mEQ/L (98-107) Carbon Dioxide Level 26 mEQ/L (20-30) Anion Gap 14 (5-15) Blood Urea Nitrogen 6 mg/dL (7-23) L Creatinine 0.7 mg/dL (0.7-1.2) Estimat Glomerular Filtration Rate > 60 mL/min (>60) Glucose Level 109 mg/dL (74-106) H Calcium Level 8.2 mg/dL (8.6-10.2) L Magnesium Level 1.8 mg/dL (1.7-2.5) Total Bilirubin 0.3 mg/dL (0.0-1.2) Aspartate Amino Transf (AST/SGOT) 14 U/L (5-40) Alanine Aminotransferase (ALT/SGPT) 8 U/L (3-41) Alkaline Phosphatase 86 U/L (40-129) Total Protein 5.4 g/dL (6.6-8.7) L Albumin 2.9 g/dL (3.5-5.2) L Globulin 2.5 g/dL Albumin/Globulin Ratio 1.1 (1.0-2.7) MIGDALIA GEORGE Jul 12, 2016 11:47
[2016-07-12 12:00] VITALS: BP 132/64
[2016-07-12] MEDS ORDERED: LORAZEPAM2 MG/1 M3 IV (18:01)
[2016-07-12] MEDS ORDERED: HALOPERIDOL1 MG IM (18:03)
[2016-07-12] MEDS ORDERED: HALOPERIDOL1 MG IVP (18:03)
[2016-07-12] MEDS ORDERED: DEPAKOTE250 MG PO (18:05)
[2016-07-12] MEDS ORDERED: PHENYTOIN IV (18:11)
[2016-07-12] MEDS ORDERED: MOM30 ML ORAL (18:13)
[2016-07-12] MEDS ORDERED: HEPARIN SO5000 UNIT2 SUBQ (18:16)
[2016-07-12] MEDS ORDERED: DULCOLAX10 MG RC (18:18)
[2016-07-12] MEDS ORDERED: VALPROATE500 MG/5 M IVPB (18:21)
[2016-07-12] MEDS ORDERED: DILANTIN100 MG ORAL (18:33)
[2016-07-12] MEDS ORDERED: DIVALPROEX SOD500 MG PO (18:36)
[2016-07-12] MEDS ORDERED: VIBRAMYCIN100 MG ORAL ×2 (18:39→18:40)
[2016-07-12] MEDS: LORazepam Inj 2mg/ml 1ml IV PRN (19:13)
[2016-07-12] MEDS ORDERED: D5W 275ml ONE (19:29)
[2016-07-12] MEDS ORDERED: NS 550ML IV ONE ×2 (19:29→22:42)
[2016-07-12] MEDS ORDERED: NS 275ml ONE (19:29)
[2016-07-12] MEDS ORDERED: Tubing IV Secondary IV ONE (19:29)
[2016-07-12] MEDS ORDERED: D5NS 1000ml IV ONE ×3 (19:29→22:42)
[2016-07-12 20:07] VITALS: BP 117/72
--- NOTE | 2016-07-12 23:08 | Progress Note ---
Cardiology Progress Note July 12, 2016 SUBJECTIVE: The patient still has episodes of agitation and noncompliance with oral medications. He remains on IV antiseizure therapy at this time. No new seizures noted over the past 24 hours. Monitored rhythm sinus. OBJECTIVE: LUNGS: Bilateral breath sounds. Scattered rhonchi. HEART: Regular rhythm and rate. Normal S1, S2. No edema. weakness. VITAL SIGNS: Blood pressure 110/70, heart rate 81, respiratory rate 20, and no fever LABORATORY DATA: Potassium 3.8, BUN 6, creatinine 0.7, and albumin 2.9. IMPRESSION: 1. Seizure disorder. 2. Cerebrovascular disease with prior cerebrovascular accident. 3. Severe protein-calorie malnutrition. 4. Hypotension. 5. Recovering hypovolemic shock. 6. Pneumonia. 7. Sepsis. 8. Acute on chronic diastolic congestive heart failure, improved. PLAN: 1. Antibiotics. 2. Bronchodilators. 3. Antiseizure therapy. 4. Continue hydration. 5. Monitor volume status and cardiorenal parameters. Augustus Gooden M.D. DR: JOCELYNE JOB#: [id number] CC: KELBY
--- NOTE | 2016-07-15 10:58 | Discharge Summary ---
Discharge Summary Hospital Course Date of Admission Jul 08, 2016 at 09:21 Date of Discharge Jul 12, 2016 at 19:30 Admitting Diagnosis SEIZURE, SEPSIS HPI Martínez Dunham is a 70 year old male who was admitted on Jul 08, 2016 at 09:21 for Seizure, Sepsis Hospital Course dc summary #[id number] Discharge Medications Continued Medications: Atorvastatin Calcium* (Lipitor*) 20 Mg Tablet 20 MG ORAL DAILY, #30 TAB 0 Refills Bisacodyl (Bisacodyl) 10 Mg Supp.rect 10 MG RC DAILY PRN for Constipation, SUPP Clopidogrel Bisulfate* (Plavix*) 75 Mg Tablet 75 MG ORAL DAILY, TAB Divalproex Sodium (Divalproex Sodium) 500 Mg Tablet.dr 1000 MG PO Q12HR, TAB Docusate Sodium (Docusate Sodium) 100 Mg Tablet 100 MG ORAL DAILY, #30 TAB 0 Refills Doxycycline Hyclate* (Vibramycin*) 100 Mg Capsule 100 MG ORAL EVERY 12 HOURS for 2 Days, #14 CAP 0 Refills Haloperidol* (Haldol*) 1 Mg Tablet 1 MG IM EVERY 6 HOURS PRN for Agitation, #20 TAB 0 Refills Heparin Sod (Porcine) (Heparin Sodium*) 5 000/1 Ml Vial 5000 UNITS SUBQ EVERY 12 HOURS, VIAL Lorazepam (Lorazepam) 2 Mg/1 Ml Syringe 1 MG IV Q4H PRN for Agitation, EA Magnesium Hydroxide (Milk of Magnesia) 400 Mg/5 Ml Oral.susp 30 ML ORAL HS PRN for Constipation, ML Multivitamin With Minerals (Multivitamins With Minerals*) 1 Each Tablet 1 TAB ORAL DAILY, TAB Na Phos,M-B/Na Phos,Di-Ba (Fleet Enema) 133 Ml Enema 133 ML RC PRN PRN for Constipation, EA Phenytoin Sodium Extended* (Dilantin*) 100 Mg Capsule 100 MG ORAL Q8HR, #90 CAP 0 Refills Quetiapine Fumarate* (Seroquel*) 25 Mg Tablet 25 MG ORAL BID, TAB Discharge Condition Upon Discharge: stable Discharge Disposition Patient was discharged to SNF/Subacute Facility(03) Discharge Diagnoses: Discharge Instructions Discharge Instructions Special Instructions I have been assigned to complete a D/C Summary on this account. I was not involved in the patient management Tana Cespedes NP ([facility]) Jul 15, 2016 10:58
--- NOTE | 2016-07-16 02:28 | Discharge Summary 2 SIG ---
DATE OF ADMISSION: 07/08/2016 DATE OF DISCHARGE: 07/12/2016 REASON FOR ADMISSION: 70-year-old male was brought to the emergency room for evaluation of seizure. The patient had an underlying history of seizure and was witnessed seizure episode at the facility, which lasted few minutes. He was giving Versed and seizure subsided. Upon arrival to the emergency department, the patient was postictal and lethargic and unable to provide any information. The patient usually on Depakote and Dilantin for seizures. No reported fevers or chills. No reported cough. No reported chest pain or shortness of breath. Workup in the emergency department revealed leukocytosis, elevated lactic acid, low Depakote level, Dilantin level was stable. EKG showed normal sinus rhythm. No ischemic changes. Chest x-ray with atelectasis versus infiltrate, right lower lobe. Urinalysis, no evidence of infection. The patient was admitted for further management. ADMITTING DIAGNOSES: 1. Acute on chronic encephalopathy. 2. Possible pneumonia. 3. Sepsis. 4. History of cerebrovascular accident. HOSPITAL STAY: The patient admitted to telemetry floor. Cardiology consult, Infectious Disease consult, and Neurology consult were requested. The patient started on IV fluids and empiric antibiotics. Seizure precautions were maintained. Neurologist followed. Neurologist increased dose of Depakote. Continue current dose of Dilantin. TSH was within normal limits. Troponin was negative. Ativan as needed for seizure as ordered by neurologist. No further episodes of seizures. Initially the patient was lethargic and was unable to take seizure medication by oral route , therefore was on the IV antiepileptics. Repeated Depakote level showed improvement , still at the low side. EEG revealed evidence of encephalopathy. Leukocytosis resolved. The patient was on empiric antibiotics for pneumonia. Infectious Disease doctor followed. Urine analysis negative for evidence of urinary tract infection. Blood cultures were negative. Economic Consultant followed. Continue antiplatelets and statin . Potassium was replaced. Magnesium stable. Volume support provided. All antihypertensive medications were discontinued. Currently, prior to discharge was off of all antihypertensive, blood pressure was stable. Closely monitor blood pressure at the facility and resume antihypertensive only per MD decision, currently on hold. The patient noted to have scabies, status post treatment. Treatment needs to be repeated in seven days at the [facility] facility. All consultants cleared for discharge. DISCHARGE DIAGNOSES: 1. Exacerbation of chronic seizure disorder, likely breakthrough episode. 2. Acute toxic and metabolic encephalopathy on chronic dementia, improved. 3. Sepsis. 4. Pneumonia, likely aspiration pneumonia. 5. Hypovolemic shock-resolved 6. Scabies, status post treatment. 7. Hypokalemia, resolved 8. History of cerebrovascular accident. DISCHARGE MEDICATIONS: See medication reconciliation list. DISCHARGE INSTRUCTIONS: The patient discharged to the [facility] facility. FOLLOWUP: Follow up with medical doctor at the facility. Repeat treatment for scabies in seven days after initial treatment. Resume antihypertensive medication when cleared by primary medical doctor. Check Depakote level at [facility]. Jcarlos David M.D. I have been assigned to dictate discharge summary on this account and I was not involved in the patient's management. Tana Cespedes ([facility]) N.PImani DR: DELANO JOB#: [id number] CC: KELBY
--- NOTE | 2016-07-17 22:38 | Electroencephalogram ---
DATE OF PROCEDURE: 07/11/2016 ELECTROENCEPHALOGRAPHY REPORT: REQUESTING PHYSICIAN: Jcarlos David M.D. HISTORY: This is a 70 years old man with a history of chronic seizure disorder, presenting with exacerbation of seizure activities in presence of anticonvulsant, Depakote. The patient's current treatment include Haldol and vancomycin. The patient has old strokes, vascular dementia, sepsis, and hypertension. TECHNIQUE: During the recording, the patient described as being drowsy or asleep, but poorly cooperative. EEG was done using 18 electrodes, placed [id number], [id number] montages, according to 10/20 [employer] System. There were most wakeful portions of recording, background activity consists of well regulated 8 cycles per second, alpha activity, often over-rided by fast or low voltage beta-activities, intermittently appearance of left frontal central areas, polymorphic delta transients noted. There was no significant amplitude asymmetry. No spike or wave activities. IMPRESSION: Abnormal EEG in presence of generalized slowing with intermittent polymorphic delta activity, left frontal central area. COMMENT: Above abnormality indicate underlying structural abnormality in the left frontal central area. There is a mild global cerebral dysfunction as well. No ongoing epileptiform activity noted. Clinical correlation is necessary. Roc Zavala M.D. DR: Azul JOB#: [id number] CC:
== END 2016-07-12 19:30 | DRG 871 ==
LOC: EDBD 08:44 → EMR 09:04 → EDBEDREQ 09:18 → 2E 09:21 → EMR 13:18 → 4W 07-11 17:44
DX: A41.9 Sepsis, unspecified organism (principal); J18.9 Pneumonia, unspecified organism; I50.33 Acute on chronic diastolic (congestive) heart failure; G40.911 Epilepsy, unspecified, intractable, with status epilepticus; G92 Toxic encephalopathy; I69.351 Hemiplegia and hemiparesis following cerebral infarction affecting right dominant side; I13.0 Hypertensive heart and chronic kidney disease with heart failure and stage 1 through stage 4 chronic kidney disease, or unspecified chronic kidney disease; B86 Scabies; I25.5 Ischemic cardiomyopathy; E87.6 Hypokalemia; N18.9 Chronic kidney disease, unspecified; R00.1 Bradycardia, unspecified; F01.50 Vascular dementia, unspecified severity, without behavioral disturbance, psychotic disturbance, mood disturbance, and anxiety; H10.9 Unspecified conjunctivitis; Z22.322 Carrier or suspected carrier of Methicillin resistant Staphylococcus aureus
CPT/HCPCS: 36415; 71010; 80053; 80164; 80185; 80202; 81003; 82550; 82553; 83605; 83735; 83880; 84443; 84484; 85007; 85025; 87040; 87081; 93005; 95819; J1165; J8499

== ENCOUNTER 2017-12-22 15:27 | Inpatient (IN) | payer MEDICARE, MEDICAID ==
[~2017-12-22] VITALS: Ht 180.3 cm; Wt 70.8 kg
[~2017-12-22 15:27] MED LIST: BISACODYL10 M1 RC; CRANBERRY425 MG PO; DEPAKOTE250 MG PO; DILANTIN100 MG ORAL; DIVALPROEX SOD500 MG PO; DOCUSATE SODIU100 M2 ORAL; DULCOLAX10 MG RC; FLEET ENEMA133 M1 RC; HALOPERIDOL1 MG IM; HALOPERIDOL1 MG IVP; HEPARIN SO5000 UNIT2 SUBQ; ISOSORBIDE MONO30 M1 PO; LIPITOR20 MG ORAL; LORAZEPAM2 MG/1 M3 IV; METOPROLOL SUCC50 MG ORAL; MOM30 ML ORAL; MULTIVITAMINS1 EAC8 ORAL; PHENYTOIN IV; PLAVIX75 MG ORAL; PROMOD946 ML PO; QUETIAPINE FUMA25 MG ORAL; VALPROATE500 MG/5 M IVPB; VALPROIC A250 MG/5 M PO; VIBRAMYCIN100 MG ORAL
[2017-12-22] MEDS ORDERED: Vancomycin 1 GM in D5W 275 ML IVPB ONE (16:15)
[2017-12-22 16:21] VITALS: BP 94/54
[2017-12-22] MEDS ORDERED: LORazepam Inj 2mg/ml 1ml IM ONE (18:15)
[2017-12-22] MEDS ORDERED: LORazepam Inj 2mg/ml 1ml IV ONE (18:15)
[2017-12-22 18:28] LABS: ANION GAP 8 mmol/L (5-15); BASOPHILS % (AUTO) 1.1 % (0.0-2.0); BLOOD UREA NITROGEN 22 mg/dL (7-18); CALCIUM 8.3 MG/DL (8.5-10.1); CARBON DIOXIDE 32 MMOL/L (21-32); CHLORIDE 105 MMOL/L (98-107); CREATININE 0.7 MG/DL (0.55-1.30); EOSINOPHILS % (AUTO) 16.5 % (0.0-3.0); HEMOGLOBIN 12.3 G/DL (14.2-18.0); LYMPHOCYTES % (AUTO) 14.9 % (20.0-45.0); MEAN CORPUSCULAR VOLUME 99 FL (80-99); MONOCYTES % (AUTO) 10.7 % (1.0-10.0); NEUTROPHILS % (AUTO) 56.7 % (45.0-75.0); PLATELET COUNT 321 K/UL (150-450); POTASSIUM 4.3 MMOL/L (3.5-5.1); RED BLOOD COUNT 3.65 M/UL (4.70-6.10); RED CELL DISTRIBUTION WIDTH 12.3 % (11.6-14.8); SODIUM 145 MMOL/L (136-145); WHITE BLOOD COUNT 14.3 K/UL (4.8-10.8)
[2017-12-22 18:32] LABS: ALANINE AMINOTRANSFERASE 32 U/L (12-78); ALBUMIN 2.2 G/DL (3.4-5.0); ALBUMIN/GLOBULIN RATIO 0.5 (1.0-2.7); ALKALINE PHOSPHATASE 117 U/L (46-116); ASPARTATE AMINO TRANSFERASE 34 U/L (15-37); BILIRUBIN,TOTAL 0.3 MG/DL (0.2-1.0)
[2017-12-22 19:20] VITALS: BP 132/73
[2017-12-22] MEDS ORDERED: VITAMIN C500 M1 GT (19:34)
[2017-12-22] MEDS ORDERED: TYLENOL EXTRA500 MG ORAL (19:34)
[2017-12-22] MEDS ORDERED: LORAZEPAM1 MG GT (19:34)
[2017-12-22] MEDS ORDERED: ACETAMINOPHEN325 M1 GT (19:34)
[2017-12-22] MEDS ORDERED: KEPPRA1000 MG GT (19:34)
[2017-12-22] MEDS ORDERED: PHENYTOIN100 MG/4 M GT (19:34)
[2017-12-22] MEDS ORDERED: METOPROLOL TART50 MG ORAL (19:34)
[2017-12-22] MEDS ORDERED: Haloperidol 1mg tab GT PRN (20:00)
[2017-12-22] MEDS ORDERED: Fleet's Enema 133ml RECTAL PRN ×2 (20:00→20:28)
[2017-12-22] MEDS ORDERED: LORazepam Inj 2mg/ml 1ml IV PRN (20:00)
[2017-12-22] MEDS ORDERED: Milk of Magnesia 30ml Ud ORAL PRN (20:00)
[2017-12-22] MEDS ORDERED: Imdur 30mg tab ORAL PRN (20:00)
[2017-12-22 20:15] VITALS: BP 152/83
[2017-12-22 21:45] VITALS: BP 144/91
--- NOTE | 2017-12-22 21:52 | Emergency Room Report ---
History of Present Illness General Chief Complaint: Skin Rash/Abscess Present Illness HPI Mr. Dunham is a 72 yo patient with multiple co-morbidities. I did review electronic record. He presents with left upper back cellulitis and abscess. Patient was unable to give history. Allergies: Coded Allergies: No Known Allergies (Unverified , 07/08/16) Patient History Limited by: medical condition Past Medical History: old chart reviewed Past Surgical History: unable to obtain Nursing Documentation-PMH Hx Hypertension: Yes - CAD Hx Diabetes: Yes Hx Cancer: No Hx Cerebrovascular Accident: Yes - right side Hx Dementia: Yes Hx Seizures: Yes Review of Systems All Other Systems: limited - nonverbal status Physical Exam Vital Signs Date Time Temp Pulse Resp B/P (MAP) Pulse Ox O2 Delivery O2 Flow Rate FiO2 12/22/17 15:22 97.3 74 18 94/54 96 Room Air 97.3 Sp02 EP Interpretation: reviewed, normal General Appearance: no apparent distress, alert, GCS 15, non-toxic Head: normocephalic, atraumatic Eyes: bilateral eye normal inspection, bilateral eye PERRL ENT: hearing grossly normal, normal pharynx, no angioedema Neck: full range of motion, supple/symm/no masses Respiratory: chest non-tender, lungs clear, normal breath sounds, no respiratory distress, speaking full sentences Cardiovascular #1: regular rate, rhythm, no murmur Gastrointestinal: normal bowel sounds, non tender, soft, non-distended, no guarding Musculoskeletal: other - large indurated absess with cellulitis > 15 cm in diameter, no fluctuance Neurologic: alert, responsive - to pain, motor strength/tone normal Psychiatric: other - flat affect, agitated nonverbal Skin: rash - as above Medical Decision Making Diagnostic Impression: Primary Impression: Cellulitis Additional Impression: Abscess ER Course Mr. Dunham has large indurated area of cellulitis with likely abscess. Admitted for IV antibiotic therapy and further treatment. Labs Test 12/22/17 17:30 White Blood Count 14.3 K/UL (4.8-10.8) Red Blood Count 3.65 M/UL (4.70-6.10) Hemoglobin 12.3 G/DL (14.2-18.0) Hematocrit 36.0 % (42.0-52.0) Mean Corpuscular Volume 99 FL (80-99) Mean Corpuscular Hemoglobin 33.6 PG (27.0-31.0) Mean Corpuscular Hemoglobin Concent 34.1 G/DL (32.0-36.0) Red Cell Distribution Width 12.3 % (11.6-14.8) Platelet Count 321 K/UL (150-450) Mean Platelet Volume 7.5 FL (6.5-10.1) Neutrophils (%) (Auto) 56.7 % (45.0-75.0) Lymphocytes (%) (Auto) 14.9 % (20.0-45.0) Monocytes (%) (Auto) 10.7 % (1.0-10.0) Eosinophils (%) (Auto) 16.5 % (0.0-3.0) Basophils (%) (Auto) 1.1 % (0.0-2.0) Sodium Level 145 MMOL/L (136-145) Potassium Level 4.3 MMOL/L (3.5-5.1) Chloride Level 105 MMOL/L (98-107) Carbon Dioxide Level 32 MMOL/L (21-32) Anion Gap 8 mmol/L (5-15) Blood Urea Nitrogen 22 mg/dL (7-18) Creatinine 0.7 MG/DL (0.55-1.30) Estimat Glomerular Filtration Rate mL/min (>60) Glucose Level 81 MG/DL (74-106) Calcium Level 8.3 MG/DL (8.5-10.1) Total Bilirubin 0.3 MG/DL (0.2-1.0) Aspartate Amino Transf (AST/SGOT) 34 U/L (15-37) Alanine Aminotransferase (ALT/SGPT) 32 U/L (12-78) Alkaline Phosphatase 117 U/L (46-116) Total Protein 6.8 G/DL (6.4-8.2) Albumin 2.2 G/DL (3.4-5.0) Globulin 4.6 g/dL Albumin/Globulin Ratio 0.5 (1.0-2.7) Lab Results Impression elevated WBC Last Vital Signs Date Time Temp Pulse Resp B/P (MAP) Pulse Ox O2 Delivery O2 Flow Rate FiO2 12/22/17 20:15 97.3 80 16 152/83 96 Room Air 97.3 Disposition: ADMITTED INPATIENT Condition: Serious Referrals: Jcarlos David MD (PCP) NATALIE NAJERA Dec 22, 2017 21:52
[2017-12-22] MEDS: Piperacillin/Tazobactam 3.375 GM in D5W 110 ML IVPB SCH (22:57)
[2017-12-22] MEDS: levETIRAcetam 500mg/5ml Liquid GT SCH (23:03)
[2017-12-22] MEDS: Depakote 500mg tab ORAL SCH (23:03)
[2017-12-22] MEDS: Heparin 5000 units/ml inj SUBQ SCH (23:24)
[2017-12-23] VITALS: BP 128/75
[2017-12-23 04:00] VITALS: BP 118/71
[2017-12-23] MEDS: Vancomycin 750mg/NS 250ml IVPB SCH ×2 (05:29→17:15)
[2017-12-23 05:53] VITALS: BP 118/71
[2017-12-23 07:16] LABS: BASOPHILS % (AUTO) 0.7 % (0.0-2.0); EOSINOPHILS % (AUTO) 19.6 % (0.0-3.0); HEMATOCRIT 35.3 % (42.0-52.0); HEMOGLOBIN 12.1 G/DL (14.2-18.0); LYMPHOCYTES % (AUTO) 14.2 % (20.0-45.0); MEAN CORPUSCULAR VOLUME 97 FL (80-99); MONOCYTES % (AUTO) 8.5 % (1.0-10.0); PLATELET COUNT 304 K/UL (150-450); RED BLOOD COUNT 3.64 M/UL (4.70-6.10); WHITE BLOOD COUNT 10.9 K/UL (4.8-10.8)
[2017-12-23 07:25] LABS: ALANINE AMINOTRANSFERASE 24 U/L (12-78); ALBUMIN 2.1 G/DL (3.4-5.0); ALBUMIN/GLOBULIN RATIO 0.5 (1.0-2.7); ALKALINE PHOSPHATASE 114 U/L (46-116); ANION GAP 6 mmol/L (5-15); ASPARTATE AMINO TRANSFERASE 25 U/L (15-37); BILIRUBIN,TOTAL 0.3 MG/DL (0.2-1.0); BLOOD UREA NITROGEN 18 mg/dL (7-18); CARBON DIOXIDE 32 MMOL/L (21-32); CHLORIDE 103 MMOL/L (98-107); CREATININE 0.7 MG/DL (0.55-1.30); POTASSIUM 3.2 MMOL/L (3.5-5.1); SODIUM 141 MMOL/L (136-145)
[2017-12-23 09:00] VITALS: BP 133/76
[2017-12-23] MEDS: Piperacillin/Tazobactam 3.375 GM in D5W 110 ML IVPB SCH ×3 (11:38→21:13)
[2017-12-23] MEDS: Docusate 100mg cap ORAL SCH (11:38)
[2017-12-23] MEDS: Atorvastatin 20mg tab ORAL SCH (11:39)
[2017-12-23] MEDS: levETIRAcetam 500mg/5ml Liquid GT SCH ×2 (11:39→20:59)
[2017-12-23] MEDS: Metoprolol Tartrate 50mg tab ORAL SCH (11:39)
[2017-12-23] MEDS: Multivitamin w/Minerals tab ORAL SCH (11:39)
[2017-12-23] MEDS: Phenytoin Susp 100mg/4ml GT SCH ×2 (11:40→17:15)
[2017-12-23] MEDS: Ascorbic Acid 500mg tab GT SCH (11:40)
[2017-12-23] MEDS: Depakote 500mg tab ORAL SCH ×2 (11:40→21:00)
[2017-12-23] MEDS: Heparin 5000 units/ml inj SUBQ SCH ×2 (11:48→21:21)
--- NOTE | 2017-12-23 13:02 | Consultation ---
History of Present Illness General Date patient seen: Dec 23, 2017 Chief Complaint: Skin Rash/Abscess Reason for Consultation: back abscess Present Illness HPI 72 year old male with multiple medical comorbidities presented to ED from [facility] for evaluation of back abscess. Patient has history of CVA, seizures, HTN and is currently non communicative. He does follow commands but does not communicate verbally. upon admission noted to have back abscess and skin rash. surgery called to evaluate back abscess. patient seen, chart reviewed, patient examined. Allergies: Coded Allergies: No Known Allergies (Unverified , 07/08/16) Medication History Scheduled Acetaminophen* (Acetaminophen 325MG Tablet*), 650 MG GT DAILY, (Reported) Ascorbic Acid* (Vitamin C*), 500 MG GT DAILY, (Reported) Atorvastatin Calcium* (Lipitor*), 20 MG ORAL DAILY, (Reported) Clopidogrel Bisulfate* (Plavix*), 75 MG ORAL DAILY, (Reported) Cranberry Extract (Cranberry), 425 MG PO DAILY, (Reported) Divalproex Sodium (Divalproex Sodium), 1,000 MG PO Q12HR, (Reported) Divalproex Sodium* (Depakote*), 1,000 MG PO Q12HR, (Reported) Docusate Sodium (Docusate Sodium), 100 MG ORAL DAILY, (Reported) Doxycycline Hyclate* (Vibramycin*), 100 MG ORAL EVERY 12 HOURS, (Reported) Doxycycline Hyclate* (Vibramycin*), 100 MG ORAL EVERY 12 HOURS, (Reported) Heparin Sod (Porcine) (Heparin Sodium*), 5,000 UNITS SUBQ EVERY 12 HOURS, ( Reported) Levetiracetam (Keppra), 1,000 MG GT BID, (Reported) Lorazepam* (Lorazepam*), 1 MG GT EVERY 4 HOURS, (Reported) Metoprolol Tartrate* (Metoprolol Tartrate*), 50 MG ORAL DAILY, (Reported) Multivitamin With Minerals (Multivitamins With Minerals*), 1 TAB ORAL DAILY, ( Reported) Phenytoin (Phenytoin*), 300 MG GT BID, (Reported) Phenytoin Sodium (Phenytoin Sodium), 100 MG IV Q8HR, (Reported) Phenytoin Sodium Extended* (Dilantin*), 200 MG ORAL DAILY, (Reported) Phenytoin Sodium Extended* (Dilantin*), 300 MG ORAL BEDTIME, (Reported) Phenytoin Sodium Extended* (Dilantin*), 100 MG ORAL Q8HR, (Reported) Protein Supplement (Promod), 30 ML PO DAILY, (Reported) Quetiapine Fumarate* (Seroquel*), 25 MG ORAL BID, (Reported) Valproate Sodium (Valproic Acid), 250 MG PO EVERY 12 HOURS, (Reported) Valproate Sodium (Valproate Sodium), 1,000 MG IVPB EVERY 12 HOURS, (Reported) Scheduled PRN Acetaminophen* (Tylenol Extra Strength*), 1,000 MG ORAL Q4HR PRN for Mild Pain/ Temp > 100.5, (Reported) Bisacodyl (Bisacodyl), 10 MG RC DAILY PRN for Constipation, (Reported) Bisacodyl (Dulcolax), 10 MG RC DAILY PRN for Constipation, (Reported) Haloperidol* (Haldol*), 1 MG IVP EVERY 6 HOURS PRN for Agitation, (Reported) Haloperidol* (Haldol*), 1 MG IM EVERY 6 HOURS PRN for Agitation, (Reported) Isosorbide Mononitrate (Isosorbide Mononitrate Er), 30 MG PO DAILY PRN for For Pain, (Reported) Lorazepam (Lorazepam), 1 MG IV Q4H PRN for Agitation, (Reported) Magnesium Hydroxide (Milk of Magnesia), 30 ML ORAL HS PRN for Constipation, ( Reported) Magnesium Hydroxide (Milk of Magnesia), 30 ML ORAL PRN PRN for Constipation, ( Reported) Na Phos,M-B/Na Phos,Di-Ba (Fleet Enema), 133 ML RC PRN PRN for Constipation, ( Reported) Patient History Limited by: medical condition History Provided By: Medical Record, PMD Healthcare decision maker Resuscitation status Full Code Advanced Directive on File Past Medical/Surgical History Past Medical/Surgical History: (1) Seizure (2) Sepsis (3) Acute encephalopathy (4) Conjunctiva disorder (5) chronic seizure disorder, breakthru exacerbation (6) 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 (7) Abscess (8) Cellulitis Review of Systems ROS Narrative cannot obtain given medical condition Physical Exam General Appearance: no apparent distress Lines, tubes and drains: peripheral HEENT: normocephalic, atraumatic, mucous membranes moist Neck: normal inspection Respiratory/Chest: normal breath sounds, no respiratory distress, no accessory muscle use Cardiovascular/Chest: normal peripheral pulses, normal rate Abdomen: normal bowel sounds, non tender, soft, no organomegaly Extremities: non-tender, normal inspection Skin Exam: normal pigmentation, other - see below Neurologic: alert Physical Exam Narrative right mid back area of prior abscess noted with what seems to be incision for drainage done prior. wound healing slowly. no purulent drainage. mild cellulitis. left upper back with chronic skin rash Last 24 Hour Vital Signs Date Time Temp Pulse Resp B/P (MAP) Pulse Ox O2 Delivery O2 Flow Rate FiO2 12/23/17 11:39 70 138/76 12/23/17 09:00 97.6 70 20 133/76 (95) 96 97.6 12/23/17 04:00 97.8 70 18 118/71 (87) 93 97.8 12/23/17 00:00 98.9 79 20 128/75 (92) 97 98.9 12/22/17 23:53 Room Air 12/22/17 21:45 99.0 79 19 144/91 (108) 96 99.0 12/22/17 20:15 97.3 80 16 152/83 96 Room Air 97.3 12/22/17 20:15 97.3 80 16 152/83 96 Room Air 207.1 12/22/17 19:20 80 16 132/73 97 Room Air 12/22/17 16:21 97.3 18 94/54 96 Room Air 97.3 12/22/17 15:22 97.3 74 18 94/54 96 Room Air 97.3 Intake and Output 12/22/17 12/23/17 19:00 07:00 Intake Total 130 ml Balance 130 ml Intake Oral 0 ml Free Water 40 ml Tube Feeding 90 ml # Voids 5 # Bowel Movements 3 Laboratory Tests Test 12/22/17 17:30 12/23/17 05:50 White Blood Count 14.3 K/UL (4.8-10.8) H 10.9 K/UL (4.8-10.8) H Red Blood Count 3.65 M/UL (4.70-6.10) L 3.64 M/UL (4.70-6.10) L Hemoglobin 12.3 G/DL (14.2-18.0) L 12.1 G/DL (14.2-18.0) L Hematocrit 36.0 % (42.0-52.0) L 35.3 % (42.0-52.0) L Mean Corpuscular Volume 99 FL (80-99) 97 FL (80-99) Mean Corpuscular Hemoglobin 33.6 PG (27.0-31.0) H 33.3 PG (27.0-31.0) H Mean Corpuscular Hemoglobin Concent 34.1 G/DL (32.0-36.0) 34.3 G/DL (32.0-36.0) Red Cell Distribution Width 12.3 % (11.6-14.8) 12.0 % (11.6-14.8) Platelet Count 321 K/UL (150-450) 304 K/UL (150-450) Mean Platelet Volume 7.5 FL (6.5-10.1) 8.1 FL (6.5-10.1) Neutrophils (%) (Auto) 56.7 % (45.0-75.0) 57.0 % (45.0-75.0) Lymphocytes (%) (Auto) 14.9 % (20.0-45.0) L 14.2 % (20.0-45.0) L Monocytes (%) (Auto) 10.7 % (1.0-10.0) H 8.5 % (1.0-10.0) Eosinophils (%) (Auto) 16.5 % (0.0-3.0) H 19.6 % (0.0-3.0) H Basophils (%) (Auto) 1.1 % (0.0-2.0) 0.7 % (0.0-2.0) Sodium Level 145 MMOL/L (136-145) 141 MMOL/L (136-145) Potassium Level 4.3 MMOL/L (3.5-5.1) 3.2 MMOL/L (3.5-5.1) L Chloride Level 105 MMOL/L (98-107) 103 MMOL/L (98-107) Carbon Dioxide Level 32 MMOL/L (21-32) 32 MMOL/L (21-32) Anion Gap 8 mmol/L (5-15) 6 mmol/L (5-15) Blood Urea Nitrogen 22 mg/dL (7-18) H 18 mg/dL (7-18) Creatinine 0.7 MG/DL (0.55-1.30) 0.7 MG/DL (0.55-1.30) Estimat Glomerular Filtration Rate mL/min (>60) mL/min (>60) Glucose Level 81 MG/DL (74-106) 89 MG/DL (74-106) Calcium Level 8.3 MG/DL (8.5-10.1) L 8.0 MG/DL (8.5-10.1) L Total Bilirubin 0.3 MG/DL (0.2-1.0) 0.3 MG/DL (0.2-1.0) Aspartate Amino Transf (AST/SGOT) 34 U/L (15-37) 25 U/L (15-37) Alanine Aminotransferase (ALT/SGPT) 32 U/L (12-78) 24 U/L (12-78) Alkaline Phosphatase 117 U/L (46-116) H 114 U/L (46-116) Total Protein 6.8 G/DL (6.4-8.2) 6.5 G/DL (6.4-8.2) Albumin 2.2 G/DL (3.4-5.0) L 2.1 G/DL (3.4-5.0) L Globulin 4.6 g/dL 4.4 g/dL Albumin/Globulin Ratio 0.5 (1.0-2.7) L 0.5 (1.0-2.7) L Phenytoin (Dilantin) Level 1.7 ug/mL (10-20) L Valproic Acid (Depakene) Level 31 MCG/ML (50-100) L Microbiology Date/Time Source Procedure Growth Status 12/22/17 18:55 Rectum Received Height (Feet): 5 Height (Inches): 11.00 Weight (Pounds): 145 Medications Current Medications Medications (Trade) Dose Ordered Sig/Josephine Route PRN Reason Start Time Stop Time Status Last Admin Dose Admin Acetaminophen (Tylenol) 650 mg Q4H PRN ORAL Prn Headache/Temp > 101 12/22/17 20:00 01/21/18 19:59 Ascorbic Acid (Vitamin C) 500 mg DAILY GT 12/23/17 09:00 01/22/18 08:59 12/23/17 11:40 Atorvastatin Calcium (Lipitor) 20 mg DAILY ORAL 12/23/17 09:00 01/22/18 08:59 12/23/17 11:39 Bisacodyl (Dulcolax) 10 mg DAILYPRN PRN RECTAL Constipation 12/22/17 20:00 01/21/18 19:59 Clopidogrel Bisulfate (Plavix) 75 mg DAILY ORAL 12/23/17 09:00 01/22/18 08:59 12/23/17 11:38 Divalproex Sodium (Depakote) 1,000 mg Q12HR ORAL 12/22/17 21:00 01/21/18 20:59 12/23/17 11:40 Docusate Sodium (Colace) 100 mg DAILY ORAL 12/23/17 09:00 01/22/18 08:59 12/23/17 11:38 Haloperidol (Haldol) 1 mg Q6H PRN GT Agitation 12/22/17 20:48 01/21/18 19:59 Heparin Sodium (Porcine) (Heparin 5000 units/ml) 5,000 units EVERY 12 HOURS SUBQ 12/22/17 21:00 01/21/18 20:59 12/23/17 11:48 Levetiracetam (Keppra) 1,000 mg Q12HR GT 12/22/17 21:00 01/21/18 20:59 12/23/17 11:39 Lorazepam (Ativan 2mg/ml 1ml) 1 mg Q4H PRN IV Agitation 12/22/17 20:48 12/29/17 19:59 Magnesium Hydroxide (Mom) 30 ml TIDPRN PRN ORAL Constipation 12/22/17 20:00 01/21/18 19:59 Metoprolol Tartrate (Lopressor) 50 mg DAILY ORAL 12/23/17 09:00 01/22/18 08:59 12/23/17 11:39 Multivitamins Therapeutic (Therapeutic Multivitamin) 1 ea DAILY ORAL 12/23/17 09:00 01/22/18 08:59 12/23/17 11:39 Phenytoin (Dilantin) 300 mg BID GT 12/23/17 09:00 01/22/18 08:59 12/23/17 11:40 Piperacillin Sod/ Tazobactam Sod 3.375 gm/Dextrose 110 ml @ 27.5 mls/hr EVERY 8 HOURS IVPB 12/22/17 22:00 12/27/17 21:59 12/23/17 11:38 Quetiapine Fumarate (SEROquel) 25 mg BID ORAL 12/23/17 09:00 01/22/18 08:59 12/23/17 11:40 Sodium Phosphate (Fleet's Sodium Phosl Enema) 133 ml PRN PRN RECTAL Constipation 12/22/17 20:28 01/21/18 19:59 Vancomycin HCl (Vanco rx to dose) 1 ea DAILY PRN MISC Per rx protocol 12/22/17 20:00 01/21/18 19:59 Vancomycin/Sodium Chloride 250 ml @ 166.667 mls/hr Q12H IVPB 12/23/17 05:00 12/28/17 04:59 12/23/17 05:29 Assessment/Plan Problem List: (1) Abscess Assessment & Plan: right mid back area of prior abscess noted with what seems to be incision for drainage done prior. wound healing slowly. no purulent drainage. mild cellulitis. ICD Codes: L02.91 - Cutaneous abscess, unspecified SNOMED: [id number] (2) Cellulitis Assessment & Plan: right mid back area of prior abscess noted with what seems to be incision for drainage done prior. wound healing slowly. no purulent drainage. mild cellulitis. ICD Codes: L03.90 - Cellulitis, unspecified SNOMED: 068146910 (3) Sepsis Assessment & Plan: possibly related to cellulitis from back. prior drainage adequate and cellulitis improving. cont with IV Abx wound care with dressings. wound too small for packing needs nutritional optimization. likely etiology of slow wound healing. will monitor while in hospital. thank you for this consultation. ICD Codes: A41.9 - Sepsis, unspecified organism SNOMED: [id number] Status: stable Merlin Mckinley Dec 23, 2017 13:02
[2017-12-23 20:00] VITALS: BP 140/86
--- NOTE | 2017-12-23 20:16 | History and Physical Report ---
DATE OF ADMISSION: 12/22/2017 CHIEF COMPLAINT: Back cellulitis, possible abscess. HISTORY OF PRESENT ILLNESS: The patient is a 72-year-old male with a history of seizure disorder, dementia, and prior stroke. He has a history of dysphagia and status post G-tube placement. He has a history of severe schizophrenia. He was transferred from a shelter facility with complaints of cellulitis involving the right upper back. He has been on antibiotic therapy, but had no improvement. In light of his failure to respond to outpatient antibiotics, he is now admitted for further evaluation and care. The patient is confused at baseline and is unable to provide any history. PAST MEDICAL HISTORY: As above. PAST SURGICAL HISTORY: Prior history of G-tube. CURRENT MEDICATIONS: Reconciled and reviewed. ALLERGIES: None. FAMILY HISTORY: None. SOCIAL HISTORY: There is no known history of tobacco, ethanol, or drugs. REVIEW OF SYSTEMS: From the patient is unobtainable, as he is confused at baseline. PHYSICAL EXAMINATION: VITAL SIGNS: Temperature 99 degrees, pulse was 79, respirations 19, and blood pressure 144/91. GENERAL: The patient is a chronically ill-appearing male, in no apparent distress. HEART: Regular rate and rhythm. LUNGS: Clear. ABDOMEN: Soft, nontender, and nondistended. EXTREMITIES: Without clubbing, cyanosis, or edema. BACK: Over the left back, the skin is red, warm, and indurated and hard to touch. LABORATORY DATA: White count of 14,000, hemoglobin 12, hematocrit 36, and platelets of 321. Sodium 145, potassium 4.3, and creatinine is 0.7. ASSESSMENT: This is an unfortunate elderly male with a history of stroke, seizure disorder, encephalopathy, and schizophrenia, admitted with cellulitis and possible abscess involving the back. PLAN: Continue broad-spectrum IV antibiotic therapy. ID and Surgical consultations. We will consider CT scan and imaging of the back to rule out abscess. Continue seizure medications. Antiplatelet therapy. Continue G-tube feeds. Jcarlos David M.D. DR: YAEL JOB#: [id number] CC:
[2017-12-24] VITALS: BP_SYST 121; BP_SYST 133; BP_DIAS 64; BP_DIAS 78
[2017-12-24 04:00] VITALS: BP 138/79
[2017-12-24 04:38] LABS: HEMATOCRIT 40.5 % (42.0-52.0); HEMOGLOBIN 13.4 G/DL (14.2-18.0); MEAN CORPUSCULAR VOLUME 96 FL (80-99); PLATELET COUNT 338 K/UL (150-450); RED BLOOD COUNT 4.22 M/UL (4.70-6.10); RED CELL DISTRIBUTION WIDTH 12.2 % (11.6-14.8); WHITE BLOOD COUNT 9.2 K/UL (4.8-10.8)
[2017-12-24 04:56] LABS: ALANINE AMINOTRANSFERASE 22 U/L (12-78); ALBUMIN 2.3 G/DL (3.4-5.0); ALBUMIN/GLOBULIN RATIO 0.5 (1.0-2.7); ALKALINE PHOSPHATASE 132 U/L (46-116); ANION GAP 5 mmol/L (5-15); BILIRUBIN,TOTAL 0.3 MG/DL (0.2-1.0); BLOOD UREA NITROGEN 16 mg/dL (7-18); CALCIUM 8.2 MG/DL (8.5-10.1); CARBON DIOXIDE 32 MMOL/L (21-32); CHLORIDE 105 MMOL/L (98-107); CREATININE 0.6 MG/DL (0.55-1.30); POTASSIUM 3.2 MMOL/L (3.5-5.1); SODIUM 142 MMOL/L (136-145)
[2017-12-24] MEDS: Vancomycin 750mg/NS 250ml IVPB SCH (05:00)
[2017-12-24] MEDS: Vancomycin 1.5gm/D5W 250ml 250 ML IVPB SCH ×2 (05:47→18:27)
[2017-12-24 06:06] LABS: ASPARTATE AMINO TRANSFERASE 22 U/L (15-37)
[2017-12-24 08:00] VITALS: BP 153/85
--- NOTE | 2017-12-24 08:39 | General Progress Note ---
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 Status: stable, progressing Assessment/Plan iv abx wound/skin care sz rx Subjective ROS Limited/Unobtainable: No Constitutional: Reports: malaise, weakness HEENT: Reports: no symptoms Cardiovascular: Reports: no symptoms Respiratory: Reports: no symptoms Gastrointestinal/Abdominal: Reports: no symptoms Genitourinary: Reports: no symptoms Neurologic/Psychiatric: Reports: no symptoms Endocrine: Reports: no symptoms Hematologic/Lymphatic: Reports: no symptoms Allergies: Coded Allergies: No Known Allergies (Unverified , 07/08/16) All Systems: reviewed and negative except above Subjective no events. w/o complaints. confused. cellulitis improving. very confused. intermittently agitated. Objective Last 24 Hour Vital Signs Date Time Temp Pulse Resp B/P (MAP) Pulse Ox O2 Delivery O2 Flow Rate FiO2 12/24/17 04:00 97.4 68 18 138/79 (98) 99 97.4 12/24/17 00:00 97.7 75 19 133/78 (96) 100 97.7 12/23/17 21:00 Room Air 12/23/17 20:00 98.8 73 20 140/86 (104) 93 98.8 12/23/17 11:39 70 138/76 12/23/17 09:00 97.6 70 20 133/76 (95) 96 97.6 12/23/17 09:00 Room Air Intake and Output 12/23/17 12/24/17 19:00 07:00 Intake Total 589.047 ml 843.334 ml Balance 589.047 ml 843.334 ml Free Water 80 ml 100 ml IV Total 359.047 ml 443.334 ml Tube Feeding 150 ml 300 ml # Voids 2 2 # Bowel Movements 1 Laboratory Tests 12/24/17 04:00: White Blood Count 9.2, Red Blood Count 4.22L, Hemoglobin 13.4L, Hematocrit 40.5L , Mean Corpuscular Volume 96, Mean Corpuscular Hemoglobin 31.8H, Mean Corpuscular Hemoglobin Concent 33.1, Red Cell Distribution Width 12.2, Platelet Count 338, Mean Platelet Volume 7.8, Neutrophils (%) (Auto) , Lymphocytes (%) ( Auto) , Monocytes (%) (Auto) , Eosinophils (%) (Auto) , Basophils (%) (Auto) , Differential Total Cells Counted 100, Neutrophils % (Manual) 53, Lymphocytes % ( Manual) 14L, Monocytes % (Manual) 11H, Eosinophils % (Manual) 21H, Basophils % ( Manual) 0, Band Neutrophils 1, Platelet Estimate Adequate, Platelet Morphology Normal, Red Blood Cell Morphology Normal, Sodium Level 142, Potassium Level 3.2L , Chloride Level 105, Carbon Dioxide Level 32, Anion Gap 5, Blood Urea Nitrogen 16, Creatinine 0.6, Estimat Glomerular Filtration Rate , Glucose Level 83, Calcium Level 8.2L, Total Bilirubin 0.3, Aspartate Amino Transf (AST/SGOT) 22, Alanine Aminotransferase (ALT/SGPT) 22, Alkaline Phosphatase 132H, Total Protein 6.9, Albumin 2.3L, Globulin 4.6, Albumin/Globulin Ratio 0.5L, Vancomycin Level Trough 5.6 Height (Feet): 5 Height (Inches): 11.00 Weight (Pounds): 156 General Appearance: WD/WN, alert Neck: normal alignment, supple Cardiovascular: normal rate, regular rhythm Respiratory/Chest: chest wall non-tender, lungs clear, normal breath sounds Abdomen: normal bowel sounds, non tender, soft, no organomegaly Edema: no edema noted Arm (L), no edema noted Arm (R), no edema noted Leg (L), no edema noted Leg (R), no edema noted Pedal (L), no edema noted Pedal (R), no edema noted Generalized Neurologic: alert, disoriented Jcarlos David MD Dec 24, 2017 08:39
[2017-12-24] MEDS: Piperacillin/Tazobactam 3.375 GM in D5W 110 ML IVPB SCH ×3 (08:59→22:00)
[2017-12-24] MEDS: levETIRAcetam 500mg/5ml Liquid GT SCH ×2 (08:59→21:20)
[2017-12-24] MEDS: Phenytoin Susp 100mg/4ml GT SCH ×2 (09:00→18:27)
[2017-12-24] MEDS: Metoprolol Tartrate 50mg tab ORAL SCH (09:00)
[2017-12-24] MEDS: Ascorbic Acid 500mg tab GT SCH (09:01)
[2017-12-24] MEDS: Atorvastatin 20mg tab ORAL SCH (09:01)
[2017-12-24] MEDS: Multivitamin w/Minerals tab ORAL SCH (09:01)
[2017-12-24] MEDS: Docusate 100mg cap ORAL SCH (09:01)
[2017-12-24] MEDS: Depakote 500mg tab ORAL SCH ×2 (09:01→21:20)
[2017-12-24] MEDS: Heparin 5000 units/ml inj SUBQ SCH ×2 (09:06→21:20)
[2017-12-24 12:00] VITALS: BP 137/87
[2017-12-24 16:00] VITALS: BP 146/63
[2017-12-24 20:00] VITALS: BP 138/84
--- NOTE | 2017-12-24 23:59 | General Surgery Progress Note ---
General Surgery-Progress Note Subjective Symptoms: improved Additional Comments no acute events. comfortable. no n/v/f/c. more responsive today Objective Last 24 Hour Vital Signs Date Time Temp Pulse Resp B/P (MAP) Pulse Ox O2 Delivery O2 Flow Rate FiO2 12/24/17 21:48 Room Air 12/24/17 20:00 98.1 74 20 138/84 (102) 92 98.1 12/24/17 16:00 97.0 75 20 146/63 (90) 97 97.0 12/24/17 12:00 97.1 106 20 137/87 (104) 95 97.1 12/24/17 09:00 Room Air 12/24/17 09:00 87 153/85 12/24/17 08:00 96.6 68 18 153/85 (107) 100 96.6 12/24/17 04:00 97.4 68 18 138/79 (98) 99 97.4 12/24/17 00:00 97.7 75 19 133/78 (96) 100 97.7 I&O Intake and Output 12/23/17 12/24/17 19:00 07:00 Intake Total 589.047 ml 843.334 ml Balance 589.047 ml 843.334 ml Free Water 80 ml 100 ml IV Total 359.047 ml 443.334 ml Tube Feeding 150 ml 300 ml # Voids 2 2 # Bowel Movements 1 Wound: clean, dry Drains: other Cardiovascular: RSR Respiratory: clear Abdomen: soft, flat, non-tender, present bowel sounds Extremities: no tenderness Laboratory Tests Test 12/24/17 04:00 White Blood Count 9.2 K/UL (4.8-10.8) Red Blood Count 4.22 M/UL (4.70-6.10) L Hemoglobin 13.4 G/DL (14.2-18.0) L Hematocrit 40.5 % (42.0-52.0) L Mean Corpuscular Volume 96 FL (80-99) Mean Corpuscular Hemoglobin 31.8 PG (27.0-31.0) H Mean Corpuscular Hemoglobin Concent 33.1 G/DL (32.0-36.0) Red Cell Distribution Width 12.2 % (11.6-14.8) Platelet Count 338 K/UL (150-450) Mean Platelet Volume 7.8 FL (6.5-10.1) Neutrophils (%) (Auto) % (45.0-75.0) Lymphocytes (%) (Auto) % (20.0-45.0) Monocytes (%) (Auto) % (1.0-10.0) Eosinophils (%) (Auto) % (0.0-3.0) Basophils (%) (Auto) % (0.0-2.0) Differential Total Cells Counted 100 Neutrophils % (Manual) 53 % (45-75) Lymphocytes % (Manual) 14 % (20-45) L Monocytes % (Manual) 11 % (1-10) H Eosinophils % (Manual) 21 % (0-3) H Basophils % (Manual) 0 % (0-2) Band Neutrophils 1 % (0-8) Platelet Estimate Adequate Platelet Morphology Normal Red Blood Cell Morphology Normal Sodium Level 142 MMOL/L (136-145) Potassium Level 3.2 MMOL/L (3.5-5.1) L Chloride Level 105 MMOL/L (98-107) Carbon Dioxide Level 32 MMOL/L (21-32) Anion Gap 5 mmol/L (5-15) Blood Urea Nitrogen 16 mg/dL (7-18) Creatinine 0.6 MG/DL (0.55-1.30) Estimat Glomerular Filtration Rate mL/min (>60) Glucose Level 83 MG/DL (74-106) Calcium Level 8.2 MG/DL (8.5-10.1) L Total Bilirubin 0.3 MG/DL (0.2-1.0) Aspartate Amino Transf (AST/SGOT) 22 U/L (15-37) Alanine Aminotransferase (ALT/SGPT) 22 U/L (12-78) Alkaline Phosphatase 132 U/L (46-116) H Total Protein 6.9 G/DL (6.4-8.2) Albumin 2.3 G/DL (3.4-5.0) L Globulin 4.6 g/dL Albumin/Globulin Ratio 0.5 (1.0-2.7) L Vancomycin Level Trough 5.6 ug/mL (5.0-12.0) Plan Problems: (1) Abscess Assessment & Plan: right mid back area of prior abscess noted with what seems to be incision for drainage done prior. wound healing slowly. no purulent drainage. mild cellulitis. improving (2) Cellulitis Assessment & Plan: right mid back area of prior abscess noted with what seems to be incision for drainage done prior. wound healing slowly. no purulent drainage. mild cellulitis. improving (3) Sepsis Assessment & Plan: possibly related to cellulitis from back. prior drainage adequate and cellulitis improving. cont with IV Abx wound care with dressings. wound too small for packing needs nutritional optimization. likely etiology of slow wound healing. will monitor while in hospital. thank you for this consultation. Merlin Mckinley Dec 24, 2017 23:58
[2017-12-25 00:22] VITALS: BP 135/77
[2017-12-25] MEDS: Piperacillin/Tazobactam 3.375 GM in D5W 110 ML IVPB SCH ×3 (02:05→18:12)
[2017-12-25 04:49] VITALS: BP 140/78
[2017-12-25] MEDS: Vancomycin 1.5gm/D5W 250ml 250 ML IVPB SCH (06:16)
[2017-12-25 07:27] LABS: HEMATOCRIT 37.9 % (42.0-52.0); MEAN CORPUSCULAR VOLUME 94 FL (80-99); PLATELET COUNT 371 K/UL (150-450); RED BLOOD COUNT 4.01 M/UL (4.70-6.10); RED CELL DISTRIBUTION WIDTH 12.1 % (11.6-14.8); WHITE BLOOD COUNT 8.1 K/UL (4.8-10.8)
[2017-12-25 07:41] LABS: ANION GAP 4 mmol/L (5-15); BLOOD UREA NITROGEN 14 mg/dL (7-18); CALCIUM 8.6 MG/DL (8.5-10.1); CARBON DIOXIDE 32 MMOL/L (21-32); CHLORIDE 105 MMOL/L (98-107); CREATININE 0.7 MG/DL (0.55-1.30); POTASSIUM 3.4 MMOL/L (3.5-5.1); SODIUM 141 MMOL/L (136-145)
[2017-12-25 08:00] VITALS: BP 128/82
[2017-12-25] MEDS: levETIRAcetam 500mg/5ml Liquid GT SCH ×2 (09:48→21:18)
[2017-12-25] MEDS: Phenytoin Susp 100mg/4ml GT SCH ×2 (09:49→18:11)
[2017-12-25] MEDS: Depakote 500mg tab ORAL SCH (09:49)
[2017-12-25] MEDS: Metoprolol Tartrate 50mg tab ORAL SCH (09:50)
[2017-12-25] MEDS: Ascorbic Acid 500mg tab GT SCH (09:50)
[2017-12-25] MEDS: Multivitamin w/Minerals tab ORAL SCH (09:50)
[2017-12-25] MEDS: Atorvastatin 20mg tab ORAL SCH (09:50)
[2017-12-25] MEDS: Docusate 100mg cap ORAL SCH (09:50)
[2017-12-25] MEDS: Heparin 5000 units/ml inj SUBQ SCH ×2 (09:51→21:19)
[2017-12-25 12:00] VITALS: BP 112/76
--- NOTE | 2017-12-25 14:56 | General Surgery Progress Note ---
General Surgery-Progress Note Subjective Symptoms: improved, pain absent Additional Comments wound improving. Objective Last 24 Hour Vital Signs Date Time Temp Pulse Resp B/P (MAP) Pulse Ox O2 Delivery O2 Flow Rate FiO2 12/25/17 12:00 97.2 76 20 112/76 (88) 92 97.2 12/25/17 09:50 86 128/82 12/25/17 09:00 Room Air 12/25/17 08:00 97.9 86 20 128/82 (97) 92 97.9 12/25/17 04:49 98.7 70 20 140/78 (98) 92 98.7 12/25/17 00:22 98.4 75 19 135/77 (96) 94 98.4 12/24/17 21:48 Room Air 12/24/17 20:00 98.1 74 20 138/84 (102) 92 98.1 12/24/17 16:00 97.0 75 20 146/63 (90) 97 97.0 I&O Intake and Output 12/24/17 12/25/17 19:00 07:00 Intake Total 333.333 ml 417.5 ml Balance 333.333 ml 417.5 ml Free Water 60 ml IV Total 303.333 ml 27.5 ml Tube Feeding 30 ml 330 ml # Voids 5 Dressing: dry Wound: clean, dry Drains: none Cardiovascular: RSR Respiratory: clear Abdomen: soft, flat, non-tender, present bowel sounds Extremities: no edema, no tenderness, no cyanosis Laboratory Tests Test 12/25/17 07:15 White Blood Count 8.1 K/UL (4.8-10.8) Red Blood Count 4.01 M/UL (4.70-6.10) L Hemoglobin 13.0 G/DL (14.2-18.0) L Hematocrit 37.9 % (42.0-52.0) L Mean Corpuscular Volume 94 FL (80-99) Mean Corpuscular Hemoglobin 32.4 PG (27.0-31.0) H Mean Corpuscular Hemoglobin Concent 34.3 G/DL (32.0-36.0) Red Cell Distribution Width 12.1 % (11.6-14.8) Platelet Count 371 K/UL (150-450) Mean Platelet Volume 7.5 FL (6.5-10.1) Neutrophils (%) (Auto) % (45.0-75.0) Lymphocytes (%) (Auto) % (20.0-45.0) Monocytes (%) (Auto) % (1.0-10.0) Eosinophils (%) (Auto) % (0.0-3.0) Basophils (%) (Auto) % (0.0-2.0) Differential Total Cells Counted 100 Neutrophils % (Manual) 44 % (45-75) L Lymphocytes % (Manual) 22 % (20-45) Monocytes % (Manual) 7 % (1-10) Eosinophils % (Manual) 26 % (0-3) H Basophils % (Manual) 1 % (0-2) Band Neutrophils 0 % (0-8) Platelet Estimate Adequate Platelet Morphology Normal Red Blood Cell Morphology Normal Sodium Level 141 MMOL/L (136-145) Potassium Level 3.4 MMOL/L (3.5-5.1) L Chloride Level 105 MMOL/L (98-107) Carbon Dioxide Level 32 MMOL/L (21-32) Anion Gap 4 mmol/L (5-15) L Blood Urea Nitrogen 14 mg/dL (7-18) Creatinine 0.7 MG/DL (0.55-1.30) Estimat Glomerular Filtration Rate mL/min (>60) Glucose Level 108 MG/DL (74-106) H Calcium Level 8.6 MG/DL (8.5-10.1) Plan Problems: (1) Abscess Assessment & Plan: right mid back area of prior abscess noted with what seems to be incision for drainage done prior. wound healing slowly. no purulent drainage. mild cellulitis. improving (2) Cellulitis Assessment & Plan: right mid back area of prior abscess noted with what seems to be incision for drainage done prior. wound healing slowly. no purulent drainage. mild cellulitis. improving (3) Sepsis Assessment & Plan: possibly related to cellulitis from back. prior drainage adequate and cellulitis improving. cont with IV Abx wound care with dressings. wound too small for packing needs nutritional optimization. likely etiology of slow wound healing. will monitor while in hospital. thank you for this consultation. Merlin Mckinley Dec 25, 2017 14:56
[2017-12-25 15:41] VITALS: BP 127/86
[2017-12-25] MEDS ORDERED: VANCOMYCIN1 GM/200 M IV (16:32)
[2017-12-25] MEDS: LORazepam Inj 2mg/ml 1ml IV PRN (18:13)
[2017-12-25 20:00] VITALS: BP 144/83
--- NOTE | 2017-12-25 21:47 | General Progress Note ---
Assessment/Plan Assessment/Plan GI CONSULT ATSP for dislodged GT Unable to replace at bedside - site closed Will contact family re new PEG placement Thank you Mackenzie Carlos MD Subjective Allergies: Coded Allergies: No Known Allergies (Unverified , 07/08/16) Objective Last 24 Hour Vital Signs Date Time Temp Pulse Resp B/P (MAP) Pulse Ox O2 Delivery O2 Flow Rate FiO2 12/25/17 20:00 97.3 66 16 144/83 (103) 99 97.3 12/25/17 15:41 98.6 82 20 127/86 (100) 92 98.6 12/25/17 12:00 97.2 76 20 112/76 (88) 92 97.2 12/25/17 09:50 86 128/82 12/25/17 09:00 Room Air 12/25/17 08:00 97.9 86 20 128/82 (97) 92 97.9 12/25/17 04:49 98.7 70 20 140/78 (98) 92 98.7 12/25/17 00:22 98.4 75 19 135/77 (96) 94 98.4 12/24/17 21:48 Room Air Intake and Output 12/24/17 12/25/17 19:00 07:00 Intake Total 333.333 ml 417.5 ml Balance 333.333 ml 417.5 ml Free Water 60 ml IV Total 303.333 ml 27.5 ml Tube Feeding 30 ml 330 ml # Voids 5 Laboratory Tests 12/25/17 07:15: White Blood Count 8.1, Red Blood Count 4.01L, Hemoglobin 13.0L, Hematocrit 37.9L , Mean Corpuscular Volume 94, Mean Corpuscular Hemoglobin 32.4H, Mean Corpuscular Hemoglobin Concent 34.3, Red Cell Distribution Width 12.1, Platelet Count 371, Mean Platelet Volume 7.5, Neutrophils (%) (Auto) , Lymphocytes (%) ( Auto) , Monocytes (%) (Auto) , Eosinophils (%) (Auto) , Basophils (%) (Auto) , Differential Total Cells Counted 100, Neutrophils % (Manual) 44L, Lymphocytes % (Manual) 22, Monocytes % (Manual) 7, Eosinophils % (Manual) 26H, Basophils % ( Manual) 1, Band Neutrophils 0, Platelet Estimate Adequate, Platelet Morphology Normal, Red Blood Cell Morphology Normal, Sodium Level 141, Potassium Level 3.4L , Chloride Level 105, Carbon Dioxide Level 32, Anion Gap 4L, Blood Urea Nitrogen 14, Creatinine 0.7, Estimat Glomerular Filtration Rate , Glucose Level 108H, Calcium Level 8.6 12/25/17 16:10: Vancomycin Level Trough 26.6H Height (Feet): 5 Height (Inches): 11.00 Weight (Pounds): 156 Yuridia Carlos MD Dec 25, 2017 21:47
[2017-12-25] MEDS ORDERED: Depakote 125mg Sprinkles GT SCH (22:00)
[2017-12-25] MEDS: Valproic Acid 500mg/10ml liquid GT SCH (23:14)
[2017-12-25] MEDS: D5 1/2NS 1,000 ML IV SCH (23:15)
[2017-12-26] VITALS: BP 143/86
--- NOTE | 2017-12-26 00:15 | Discharge Summary ---
DATE OF ADMISSION: 12/22/2017 DATE OF DISCHARGE: 12/25/2017 ADMISSION DIAGNOSES: 1. Cellulitis. 2. Back abscess, status post incision and drainage. 3. Encephalopathy. 4. Sepsis. 5. Stroke. DISCHARGE DIAGNOSES: 1. Cellulitis. 2. Back abscess, status post incision and drainage. 3. Encephalopathy. 4. Sepsis. 5. Stroke. HOSPITAL COURSE: The patient is an unfortunate male with a history of encephalopathy, CVA, stroke, and seizure disorder. He was admitted with complaints of cellulitis and abscess to the back. The abscess drained spontaneously. Surgery was consulted. No I and D was required. He received broad-spectrum IV antibiotic therapy. Cultures grew out MRSA. He will be discharged back to snf facility to complete intravenous antibiotic therapy. DISCHARGE MEDICATIONS: Please see discharge medication list for discharge medications. DIET: G-tube feedings. ACTIVITIES: Ad-nilda. FOLLOWUP: The patient will follow up in one to two days in the snf facility. Jcarlos David M.D. DR: LUIS JOB#: [id number] CC:
[2017-12-26] MEDS: Haloperidol 1mg tab GT PRN (02:19)
[2017-12-26] MEDS: Piperacillin/Tazobactam 3.375 GM in D5W 110 ML IVPB SCH ×3 (02:57→17:12)
[2017-12-26 04:00] VITALS: BP 140/90
[2017-12-26 08:00] VITALS: BP 130/87
[2017-12-26] MEDS: D5 1/2NS 1,000 ML IV SCH ×2 (08:35→18:05)
[2017-12-26] MEDS: Atorvastatin 20mg tab ORAL SCH (08:35)
[2017-12-26] MEDS: Metoprolol Tartrate 50mg tab ORAL SCH (08:36)
[2017-12-26] MEDS: Ascorbic Acid 500mg tab GT SCH (08:36)
[2017-12-26] MEDS: levETIRAcetam 500mg/5ml Liquid GT SCH ×2 (08:36→20:50)
[2017-12-26] MEDS: Phenytoin Susp 100mg/4ml GT SCH ×2 (08:36→20:50)
[2017-12-26] MEDS: Multivitamin w/Minerals tab ORAL SCH (08:36)
[2017-12-26] MEDS: Valproic Acid 500mg/10ml liquid GT SCH ×2 (08:36→20:50)
[2017-12-26] MEDS: LORazepam Inj 2mg/ml 1ml IV PRN ×2 (08:37→17:12)
[2017-12-26] MEDS: Docusate 100mg cap ORAL SCH (08:37)
[2017-12-26] MEDS: Heparin 5000 units/ml inj SUBQ SCH ×2 (08:37→20:51)
--- NOTE | 2017-12-26 11:13 | General Surgery Progress Note ---
General Surgery-Progress Note Subjective Symptoms: improved, pain absent, tolerating diet, passing flatus Objective Last 24 Hour Vital Signs Date Time Temp Pulse Resp B/P (MAP) Pulse Ox O2 Delivery O2 Flow Rate FiO2 12/26/17 08:36 82 130/87 12/26/17 08:00 98.0 82 17 130/87 (101) 98 98.0 12/26/17 04:00 97.7 69 17 140/90 (107) 98 97.7 12/26/17 00:00 97.6 73 18 143/86 (105) 98 97.6 12/25/17 21:00 Room Air 12/25/17 20:00 97.3 66 16 144/83 (103) 99 97.3 12/25/17 15:41 98.6 82 20 127/86 (100) 92 98.6 12/25/17 12:00 97.2 76 20 112/76 (88) 92 97.2 I&O Intake and Output 12/25/17 12/26/17 19:00 07:00 Intake Total 417.5 ml 465.0 ml Balance 417.5 ml 465.0 ml IV Total 27.5 ml 465.0 ml Tube Feeding 390 ml # Voids 4 3 Wound: clean, dry Drains: none Cardiovascular: RSR Respiratory: clear Abdomen: soft, flat, non-tender Extremities: no edema, no tenderness, no cyanosis Laboratory Tests Test 12/25/17 16:10 12/26/17 06:30 Vancomycin Level Trough 26.6 ug/mL (5.0-12.0) H Random Vancomycin Level 15.0 ug/mL Plan Problems: (1) Abscess Assessment & Plan: right mid back area of prior abscess noted with what seems to be incision for drainage done prior. wound healing slowly. no purulent drainage. mild cellulitis. improving (2) Cellulitis Assessment & Plan: right mid back area of prior abscess noted with what seems to be incision for drainage done prior. wound healing slowly. no purulent drainage. mild cellulitis. improving (3) Sepsis Assessment & Plan: possibly related to cellulitis from back. prior drainage adequate and cellulitis improving. cont with IV Abx wound care with dressings. wound too small for packing needs nutritional optimization. likely etiology of slow wound healing. will monitor while in hospital. thank you for this consultation. Merlin Mckinley Dec 26, 2017 11:13
[2017-12-26 12:00] VITALS: BP 125/72
[2017-12-26] MEDS: Vancomycin 1gm in D5W 275ml IVPB SCH ×2 (12:34→23:45)
[2017-12-26 16:00] VITALS: BP 118/72
--- NOTE | 2017-12-26 16:09 | General Progress Note ---
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 Status: stable, progressing Assessment/Plan iv abx wound/skin care sz rx ivf pt needs urgent gt replacement. unable to reach family. patient is noncompliant with meds and diet. pt is at risk for dehydration and seizures(due to refusal to take po meds.) Subjective ROS Limited/Unobtainable: No Constitutional: Reports: malaise, weakness HEENT: Reports: no symptoms Cardiovascular: Reports: no symptoms Respiratory: Reports: no symptoms Gastrointestinal/Abdominal: Reports: difficulty swallowing Genitourinary: Reports: no symptoms Neurologic/Psychiatric: Reports: pre-existing deficit, seizure Endocrine: Reports: no symptoms Hematologic/Lymphatic: Reports: no symptoms Allergies: Coded Allergies: No Known Allergies (Unverified , 07/08/16) All Systems: reviewed and negative except above Subjective w/o complaints. confused. cellulitis improving. very confused/agitated. pt pulled out gt. given plavix so cannot be safely replaced until Friday per GI Objective Last 24 Hour Vital Signs Date Time Temp Pulse Resp B/P (MAP) Pulse Ox O2 Delivery O2 Flow Rate FiO2 12/26/17 12:00 97.9 89 17 125/72 (89) 98 97.9 12/26/17 09:00 Room Air 12/26/17 08:36 82 130/87 12/26/17 08:00 98.0 82 17 130/87 (101) 98 98.0 12/26/17 04:00 97.7 69 17 140/90 (107) 98 97.7 12/26/17 00:00 97.6 73 18 143/86 (105) 98 97.6 12/25/17 21:00 Room Air 12/25/17 20:00 97.3 66 16 144/83 (103) 99 97.3 Intake and Output 12/25/17 12/26/17 19:00 07:00 Intake Total 417.5 ml 465.0 ml Balance 417.5 ml 465.0 ml IV Total 27.5 ml 465.0 ml Tube Feeding 390 ml # Voids 4 3 Laboratory Tests 12/25/17 16:10: Vancomycin Level Trough 26.6H 12/26/17 06:30: Random Vancomycin Level 15.0 Height (Feet): 5 Height (Inches): 11.00 Weight (Pounds): 156 Objective General Appearance: WD/WN, alert Neck: normal alignment, supple Cardiovascular: normal rate, regular rhythm Respiratory/Chest: chest wall non-tender, lungs clear, normal breath sounds Abdomen: normal bowel sounds, non tender, soft, no organomegaly Edema: no edema noted Arm (L), no edema noted Arm (R), no edema noted Leg (L), no edema noted Leg (R), no edema noted Pedal (L), no edema noted Pedal (R), no edema noted Generalized Neurologic: alert, disoriented Jcarlos David MD Dec 26, 2017 16:09
--- NOTE | 2017-12-26 17:15 | Consultation ---
DATE OF CONSULTATION: 12/25/2017 NOTE: POOR AUDIO/MULTIPLE BLANKS GASTROLOGY CONSULTATION CONSULTING PHYSICIAN: Yuridia Carlos M.D. CHIEF COMPLAINT: I was asked to see this patient by Dr. Jcarlos David for the gastrostomy tube dysfunction. HISTORY OF PRESENT ILLNESS: The patient is an unfortunate 72-year-old white man with a history of stroke, dementia and agitation, who has a long-term gastrostomy tube for nutritional support, who is in the hospital for treatment of cellulitis. The gastrostomy tube fell out earlier today and I was called to replace it. In examining the patient, the nursing staff supports and despite multiple times both with a Enriquez catheter, the gastrostomy catheter replacement was not possible. The tract appeared to be closed. The patient is rather confused and unable to provide any history. Most of the information is only available from the chart. PAST MEDICAL HISTORY: Dementia, seizure disorder, history of prior stroke, agitation and confusion, dysphasia status post gastrostomy tube placement, history of schizophrenia and cellulitis on back and diffuse recurring rash. ALLERGIES: None. MEDICATIONS: See chart list for details. FAMILY HISTORY: Unavailable. SOCIAL HISTORY: The patient is from a detention and has had no recent history of smoking or drinking. REVIEW OF SYSTEMS: Unobtainable. PHYSICAL EXAMINATION: GENERAL: Elderly white man, who was seen in his room. HEENT: Normocephalic and atraumatic. Dentition is poor. NECK: Supple. CHEST: Clear to auscultation. CARDIOVASCULAR: Revealed regular rate. ABDOMEN: Soft with a closed gastrostomy site. EXTREMITIES: Revealed no edema. NEUROLOGIC: Notable for confusion and dementia. SKIN: Revealed diffuse rash and tenderness as well as cellulitis in the back. ASSESSMENT: The patient's gastrostomy site is closed. Catheter could not be replaced. I have tried to contact the patient's family at the available numbers on the case sheet, but there is no one to sweet pickled fruit maker and I am unable leave a message to this number. I asked the addiction social worker to find location of the family members as I can discuss with them the procedure of placing a new gastrostomy tube. In the meantime, the patient can be given IV fluids for hydration and antibiotics can be given intravenously. Should the patient require oral medication, then nasogastric tube will be necessary, although may not be feasible. RECOMMENDATIONS: 1. Begin IV fluids. 2. Antibiotics. 3. Locate and discuss the options with family members. Thank you for asking me to participate in the care of this patient. Yuridia Carlos M.D. DR: KAYE JOB#: [id number] CC: KELBY
[2017-12-26 20:00] VITALS: BP 153/79
--- NOTE | 2017-12-26 20:52 | General Progress Note ---
Assessment/Plan Assessment/Plan Assessment - dislodged GT, unable to replace due to tract closure - Seizure disorder - h/o refusal to take meds - OBS - skin infection Recommendations - Hold plavix - last dose Friday am - push po diet and meds over weekend - will consider PEG Friday at 0700 if fails to eat and take meds Subjective Allergies: Coded Allergies: No Known Allergies (Unverified , 07/08/16) Subjective d/w Dr. David patient has had no family contacts for several years GT placed due to seizures and his refusal to take seizure meds passed swallow study and ate dinner today Objective Last 24 Hour Vital Signs Date Time Temp Pulse Resp B/P (MAP) Pulse Ox O2 Delivery O2 Flow Rate FiO2 12/26/17 20:00 97.0 61 18 153/79 (103) 94 97.0 12/26/17 16:00 97.9 81 17 118/72 (87) 98 97.9 12/26/17 12:00 97.9 89 17 125/72 (89) 98 97.9 12/26/17 09:00 Room Air 12/26/17 08:36 82 130/87 12/26/17 08:00 98.0 82 17 130/87 (101) 98 98.0 12/26/17 04:00 97.7 69 17 140/90 (107) 98 97.7 12/26/17 00:00 97.6 73 18 143/86 (105) 98 97.6 12/25/17 21:00 Room Air Intake and Output 12/25/17 12/26/17 19:00 07:00 Intake Total 417.5 ml 465.0 ml Balance 417.5 ml 465.0 ml IV Total 27.5 ml 465.0 ml Tube Feeding 390 ml # Voids 4 3 Laboratory Tests 12/26/17 06:30: Random Vancomycin Level 15.0 Height (Feet): 5 Height (Inches): 11.00 Weight (Pounds): 156 Objective confused WM NCAT supple CTA RRR Soft flat no edema OBS Yuridia Carlos MD Dec 26, 2017 20:52
[2017-12-27] VITALS: BP 153/87
[2017-12-27] MEDS: Piperacillin/Tazobactam 3.375 GM in D5W 110 ML IVPB SCH ×3 (01:34→17:36)
[2017-12-27 04:00] VITALS: BP 154/80
[2017-12-27] MEDS: D5 1/2NS 1,000 ML IV SCH ×2 (04:30→14:51)
[2017-12-27 08:00] VITALS: BP 148/80
--- NOTE | 2017-12-27 08:03 | General Progress Note ---
Assessment/Plan Assessment/Plan Assessment - dislodged GT, unable to replace due to tract closure - Seizure disorder - h/o refusal to take meds - OBS - skin infection Recommendations - Hold plavix - last dose Friday am - push po diet and meds over weekend - will consider PEG Friday at 0700 if fails to eat and take meds Subjective ROS Limited/Unobtainable: No Allergies: Coded Allergies: No Known Allergies (Unverified , 07/08/16) Objective Last 24 Hour Vital Signs Date Time Temp Pulse Resp B/P (MAP) Pulse Ox O2 Delivery O2 Flow Rate FiO2 12/27/17 04:00 98.0 73 18 154/80 (104) 94 98.0 12/27/17 00:00 97.7 70 18 153/87 (109) 93 97.7 12/26/17 21:00 Room Air 12/26/17 20:00 97.0 61 18 153/79 (103) 94 97.0 12/26/17 16:00 97.9 81 17 118/72 (87) 98 97.9 12/26/17 12:00 97.9 89 17 125/72 (89) 98 97.9 12/26/17 09:00 Room Air 12/26/17 08:36 82 130/87 Intake and Output 12/26/17 12/27/17 19:00 07:00 Intake Total 260 ml 585.000 ml Balance 260 ml 585.000 ml IV Total 585.000 ml Other 260 ml # Voids 3 2 Height (Feet): 5 Height (Inches): 11.00 Weight (Pounds): 156 General Appearance: no apparent distress EENT: normal ENT inspection Neck: supple Cardiovascular: normal rate Respiratory/Chest: decreased breath sounds Abdomen: normal bowel sounds, non tender, soft Extremities: non-tender Julio Cesar Stone MD Dec 27, 2017 08:03
[2017-12-27] MEDS: Ascorbic Acid 500mg tab GT SCH (09:18)
[2017-12-27] MEDS: Docusate 100mg cap ORAL SCH (09:18)
[2017-12-27] MEDS: Multivitamin w/Minerals tab ORAL SCH (09:18)
[2017-12-27] MEDS: Atorvastatin 20mg tab ORAL SCH (09:19)
[2017-12-27] MEDS: Metoprolol Tartrate 50mg tab ORAL SCH (09:19)
[2017-12-27] MEDS: levETIRAcetam 500mg/5ml Liquid GT SCH ×2 (09:20→20:45)
[2017-12-27] MEDS: Phenytoin Susp 100mg/4ml GT SCH ×2 (09:21→20:45)
[2017-12-27] MEDS: Heparin 5000 units/ml inj SUBQ SCH ×2 (09:23→20:55)
[2017-12-27] MEDS: Valproic Acid 500mg/10ml liquid GT SCH ×2 (09:36→20:45)
[2017-12-27] MEDS ORDERED: Tubing IV Secondary IV ONE (11:26)
[2017-12-27] MEDS ORDERED: NS 275ml ONE (11:26)
--- NOTE | 2017-12-27 11:46 | General Progress Note ---
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 Status: stable, progressing Assessment/Plan iv abx wound/skin care sz rx ivf pt needs urgent gt replacement. unable to reach family. patient is noncompliant with meds and diet. pt is at risk for dehydration and seizures(due to refusal to take po meds.) Subjective ROS Limited/Unobtainable: No Constitutional: Reports: malaise, weakness HEENT: Reports: no symptoms Cardiovascular: Reports: no symptoms Respiratory: Reports: no symptoms Gastrointestinal/Abdominal: Reports: difficulty swallowing Genitourinary: Reports: no symptoms Neurologic/Psychiatric: Reports: seizure Endocrine: Reports: no symptoms Hematologic/Lymphatic: Reports: no symptoms Allergies: Coded Allergies: No Known Allergies (Unverified , 07/08/16) All Systems: reviewed and negative except above Subjective no change. no szs. on iv sz meds. noncompliant with po meds. Objective Last 24 Hour Vital Signs Date Time Temp Pulse Resp B/P (MAP) Pulse Ox O2 Delivery O2 Flow Rate FiO2 12/27/17 09:19 90 148/80 12/27/17 09:00 Room Air 12/27/17 08:00 98.0 90 20 148/80 (102) 94 98.0 12/27/17 04:00 98.0 73 18 154/80 (104) 94 98.0 12/27/17 00:00 97.7 70 18 153/87 (109) 93 97.7 12/26/17 21:00 Room Air 12/26/17 20:00 97.0 61 18 153/79 (103) 94 97.0 12/26/17 16:00 97.9 81 17 118/72 (87) 98 97.9 12/26/17 12:00 97.9 89 17 125/72 (89) 98 97.9 Intake and Output 12/26/17 12/27/17 19:00 07:00 Intake Total 260 ml 585.000 ml Balance 260 ml 585.000 ml IV Total 585.000 ml Other 260 ml # Voids 3 2 Height (Feet): 5 Height (Inches): 11.00 Weight (Pounds): 156 Objective General Appearance: WD/WN, alert Neck: normal alignment, supple Cardiovascular: normal rate, regular rhythm Respiratory/Chest: chest wall non-tender, lungs clear, normal breath sounds Abdomen: normal bowel sounds, non tender, soft, no organomegaly Edema: no edema noted Arm (L), no edema noted Arm (R), no edema noted Leg (L), no edema noted Leg (R), no edema noted Pedal (L), no edema noted Pedal (R), no edema noted Generalized Neurologic: alert, disoriented Jcarlos David MD Dec 27, 2017 11:46
[2017-12-27 12:00] VITALS: BP 142/84
--- NOTE | 2017-12-27 14:25 | General Surgery Progress Note ---
General Surgery-Progress Note Subjective Additional Comments patient refuses to eat. wound stable but needs better nutrition to ensure good healing Objective Last 24 Hour Vital Signs Date Time Temp Pulse Resp B/P (MAP) Pulse Ox O2 Delivery O2 Flow Rate FiO2 12/27/17 12:00 98.3 96 18 142/84 (103) 96 98.3 12/27/17 09:19 90 148/80 12/27/17 09:00 Room Air 12/27/17 08:00 98.0 90 20 148/80 (102) 94 98.0 12/27/17 04:00 98.0 73 18 154/80 (104) 94 98.0 12/27/17 00:00 97.7 70 18 153/87 (109) 93 97.7 12/26/17 21:00 Room Air 12/26/17 20:00 97.0 61 18 153/79 (103) 94 97.0 12/26/17 16:00 97.9 81 17 118/72 (87) 98 97.9 I&O Intake and Output 12/26/17 12/27/17 19:00 07:00 Intake Total 260 ml 585.000 ml Balance 260 ml 585.000 ml IV Total 585.000 ml Other 260 ml # Voids 3 2 Wound: clean, dry Drains: none Cardiovascular: RSR Respiratory: clear Abdomen: soft, flat, non-tender, present bowel sounds Extremities: no cyanosis Plan Problems: (1) Abscess Assessment & Plan: right mid back area of prior abscess noted with what seems to be incision for drainage done prior. wound healing slowly. no purulent drainage. mild cellulitis. improving (2) Cellulitis Assessment & Plan: right mid back area of prior abscess noted with what seems to be incision for drainage done prior. wound healing slowly. no purulent drainage. mild cellulitis. improving (3) Sepsis Assessment & Plan: possibly related to cellulitis from back. prior drainage adequate and cellulitis improving. cont with IV Abx wound care with dressings. wound too small for packing needs nutritional optimization. likely etiology of slow wound healing. will need feeding access -appreciate GI input will monitor while in hospital. thank you for this consultation. Merlin Mckinley Dec 27, 2017 14:25
[2017-12-27] MEDS: Vancomycin 1gm in D5W 275ml IVPB SCH (14:44)
[2017-12-27 16:00] VITALS: BP 154/89
[2017-12-27 20:00] VITALS: BP 149/89
[2017-12-28] VITALS: BP 154/88
[2017-12-28] MEDS: D5 1/2NS 1,000 ML IV SCH ×3 (00:30→22:03)
[2017-12-28] MEDS: Piperacillin/Tazobactam 3.375 GM in D5W 110 ML IVPB SCH ×3 (02:14→18:01)
[2017-12-28 04:00] VITALS: BP 157/79
--- NOTE | 2017-12-28 07:08 | General Progress Note ---
Assessment/Plan Assessment/Plan Assessment - dislodged GT, unable to replace due to tract closure - Seizure disorder - h/o refusal to take meds - OBS - skin infection Recommendations patient eating 100% dc PEG plans resume plavix Subjective ROS Limited/Unobtainable: Yes Allergies: Coded Allergies: No Known Allergies (Unverified , 07/08/16) Objective Last 24 Hour Vital Signs Date Time Temp Pulse Resp B/P (MAP) Pulse Ox O2 Delivery O2 Flow Rate FiO2 12/28/17 04:00 98.3 61 19 157/79 (105) 88 98.3 12/28/17 00:00 99.0 76 20 154/88 (110) 99 99.0 12/27/17 21:00 Room Air 12/27/17 20:00 98.3 76 19 149/89 (109) 94 98.3 12/27/17 16:00 96.0 70 18 154/89 (110) 99 96.0 12/27/17 12:00 98.3 96 18 142/84 (103) 96 98.3 12/27/17 09:19 90 148/80 12/27/17 09:00 Room Air 12/27/17 08:00 98.0 90 20 148/80 (102) 94 98.0 Intake and Output 12/27/17 12/28/17 19:00 07:00 Intake Total 507.5 ml 665.0 ml Balance 507.5 ml 665.0 ml Intake Oral 480 ml IV Total 27.5 ml 665.0 ml # Voids 8 2 Laboratory Tests 12/27/17 23:10: Vancomycin Level Trough 23.2H Height (Feet): 5 Height (Inches): 11.00 Weight (Pounds): 156 General Appearance: no apparent distress EENT: normal ENT inspection Neck: supple Cardiovascular: normal rate Respiratory/Chest: decreased breath sounds Abdomen: normal bowel sounds, non tender, soft Extremities: non-tender Julio Cesar Stone MD Dec 28, 2017 07:08
[2017-12-28 08:00] VITALS: BP 142/86
[2017-12-28] MEDS: Phenytoin Susp 100mg/4ml GT SCH ×2 (10:39→22:02)
[2017-12-28] MEDS: levETIRAcetam 500mg/5ml Liquid GT SCH ×2 (10:40→22:02)
[2017-12-28] MEDS: Multivitamin w/Minerals tab ORAL SCH (10:40)
[2017-12-28] MEDS: Valproic Acid 500mg/10ml liquid GT SCH ×2 (10:40→22:02)
[2017-12-28] MEDS: Atorvastatin 20mg tab ORAL SCH (10:41)
[2017-12-28] MEDS: Metoprolol Tartrate 50mg tab ORAL SCH (10:41)
[2017-12-28] MEDS: Ascorbic Acid 500mg tab GT SCH (10:41)
[2017-12-28] MEDS: Docusate 100mg cap ORAL SCH (10:42)
[2017-12-28] MEDS: Heparin 5000 units/ml inj SUBQ SCH ×2 (10:45→22:06)
[2017-12-28] MEDS: Vancomycin 500mg in D5W 275ml IVPB SCH ×2 (11:02→22:06)
--- NOTE | 2017-12-28 11:34 | General Progress Note ---
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 Status: stable Assessment/Plan iv abx wound/skin care sz rx iv ivf pt needs urgent gt replacement. unable to reach family. patient is noncompliant with meds and diet. pt is at risk for dehydration and seizures(due to refusal to take po meds.) Subjective ROS Limited/Unobtainable: Yes Constitutional: Reports: malaise, weakness HEENT: Reports: no symptoms Cardiovascular: Reports: no symptoms Respiratory: Reports: no symptoms Gastrointestinal/Abdominal: Reports: no symptoms Genitourinary: Reports: no symptoms Neurologic/Psychiatric: Reports: pre-existing deficit, seizure Endocrine: Reports: no symptoms Hematologic/Lymphatic: Reports: no symptoms Allergies: Coded Allergies: No Known Allergies (Unverified , 07/08/16) All Systems: reviewed and negative except above Subjective no change. no szs. on iv sz meds. noncompliant with po meds. Objective Last 24 Hour Vital Signs Date Time Temp Pulse Resp B/P (MAP) Pulse Ox O2 Delivery O2 Flow Rate FiO2 12/28/17 10:41 73 142/86 12/28/17 08:00 96.7 73 18 142/86 (104) 98 96.7 12/28/17 04:00 98.3 61 19 157/79 (105) 88 98.3 12/28/17 00:00 99.0 76 20 154/88 (110) 99 99.0 12/27/17 21:00 Room Air 12/27/17 20:00 98.3 76 19 149/89 (109) 94 98.3 12/27/17 16:00 96.0 70 18 154/89 (110) 99 96.0 12/27/17 12:00 98.3 96 18 142/84 (103) 96 98.3 Intake and Output 12/27/17 12/28/17 19:00 07:00 Intake Total 507.5 ml 665.0 ml Balance 507.5 ml 665.0 ml Intake Oral 480 ml IV Total 27.5 ml 665.0 ml # Voids 8 2 Laboratory Tests 12/27/17 23:10: Vancomycin Level Trough 23.2H Height (Feet): 5 Height (Inches): 11.00 Weight (Pounds): 156 Objective General Appearance: WD/WN, alert Neck: normal alignment, supple Cardiovascular: normal rate, regular rhythm Respiratory/Chest: chest wall non-tender, lungs clear, normal breath sounds Abdomen: normal bowel sounds, non tender, soft, no organomegaly Edema: no edema noted Arm (L), no edema noted Arm (R), no edema noted Leg (L), no edema noted Leg (R), no edema noted Pedal (L), no edema noted Pedal (R), no edema noted Generalized Neurologic: alert, disoriented Jcarlos David MD Dec 28, 2017 11:34
[2017-12-28 12:00] VITALS: BP 140/84
--- NOTE | 2017-12-28 13:08 | General Surgery Progress Note ---
General Surgery-Progress Note Subjective Additional Comments still refusing meds and intake. combative at times. Objective Last 24 Hour Vital Signs Date Time Temp Pulse Resp B/P (MAP) Pulse Ox O2 Delivery O2 Flow Rate FiO2 12/28/17 10:41 73 142/86 12/28/17 08:00 96.7 73 18 142/86 (104) 98 96.7 12/28/17 04:00 98.3 61 19 157/79 (105) 88 98.3 12/28/17 00:00 99.0 76 20 154/88 (110) 99 99.0 12/27/17 21:00 Room Air 12/27/17 20:00 98.3 76 19 149/89 (109) 94 98.3 12/27/17 16:00 96.0 70 18 154/89 (110) 99 96.0 I&O Intake and Output 12/27/17 12/28/17 19:00 07:00 Intake Total 507.5 ml 665.0 ml Balance 507.5 ml 665.0 ml Intake Oral 480 ml IV Total 27.5 ml 665.0 ml # Voids 8 2 Dressing: dry Wound: clean, dry Drains: none Cardiovascular: RSR Respiratory: clear Abdomen: soft, flat, non-tender Extremities: no edema, no tenderness Laboratory Tests Test 12/27/17 23:10 Vancomycin Level Trough 23.2 ug/mL (5.0-12.0) H Plan Problems: (1) Abscess Assessment & Plan: right mid back area of prior abscess noted with what seems to be incision for drainage done prior. wound healing slowly. no purulent drainage. mild cellulitis. improving (2) Cellulitis Assessment & Plan: right mid back area of prior abscess noted with what seems to be incision for drainage done prior. wound healing slowly. no purulent drainage. mild cellulitis. improving (3) Sepsis Assessment & Plan: possibly related to cellulitis from back. prior drainage adequate and cellulitis improving. cont with IV Abx wound care with dressings. wound too small for packing needs nutritional optimization. likely etiology of slow wound healing. will need feeding access -appreciate GI input will monitor while in hospital. thank you for this consultation. Merlin Mckinley Dec 28, 2017 13:08
[2017-12-28 16:00] VITALS: BP 139/91
[2017-12-28] MEDS: Haloperidol 1mg tab GT PRN (18:46)
[2017-12-28 20:00] VITALS: BP 137/78
[2017-12-28] MEDS: LORazepam Inj 2mg/ml 1ml IV PRN (22:10)
[2017-12-29] VITALS: BP 138/83
[2017-12-29] MEDS: Piperacillin/Tazobactam 3.375 GM in D5W 110 ML IVPB SCH ×2 (01:35→11:44)
[2017-12-29 04:00] VITALS: BP 144/84
[2017-12-29] MEDS: D5 1/2NS 1,000 ML IV SCH (06:24)
[2017-12-29 07:42] LABS: HEMATOCRIT 42.6 % (42.0-52.0); HEMOGLOBIN 14.7 G/DL (14.2-18.0); MEAN CORPUSCULAR VOLUME 97 FL (80-99); PLATELET COUNT 363 K/UL (150-450); RED BLOOD COUNT 4.38 M/UL (4.70-6.10); RED CELL DISTRIBUTION WIDTH 12.7 % (11.6-14.8)
[2017-12-29 07:51] LABS: ANION GAP 9 mmol/L (5-15); BLOOD UREA NITROGEN 9 mg/dL (7-18); CARBON DIOXIDE 31 MMOL/L (21-32); CHLORIDE 107 MMOL/L (98-107); CREATININE 0.7 MG/DL (0.55-1.30); SODIUM 146 MMOL/L (136-145)
[2017-12-29 07:53] LABS: POTASSIUM 2.7 MMOL/L (3.5-5.1)
[2017-12-29 08:00] VITALS: BP 158/90
--- NOTE | 2017-12-29 08:34 | General Progress Note ---
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 Status: stable Assessment/Plan iv abx wound/skin care sz rx iv ivf replace lytes patient previously had GT placement due to poor po intake and refusal of meds( prompting multiple hospital admission for seizures) pt needs urgent gt replacement. unable to reach family. patient is noncompliant with meds and diet. pt is at risk for dehydration and seizures(due to refusal to take po meds.) Subjective ROS Limited/Unobtainable: No Constitutional: Reports: malaise, weakness HEENT: Reports: no symptoms Cardiovascular: Reports: no symptoms Respiratory: Reports: no symptoms Gastrointestinal/Abdominal: Reports: no symptoms Genitourinary: Reports: no symptoms Neurologic/Psychiatric: Reports: pre-existing deficit, seizure Endocrine: Reports: no symptoms Hematologic/Lymphatic: Reports: no symptoms Allergies: Coded Allergies: No Known Allergies (Unverified , 07/08/16) All Systems: reviewed and negative except above Subjective no change. no szs. on iv sz meds. noncompliant with po meds. eating OK. low k noted. Objective Last 24 Hour Vital Signs Date Time Temp Pulse Resp B/P (MAP) Pulse Ox O2 Delivery O2 Flow Rate FiO2 12/29/17 04:00 97.0 64 18 144/84 (104) 99 97.0 12/29/17 00:00 97.2 67 19 138/83 (101) 99 97.2 12/28/17 21:00 Room Air 12/28/17 20:00 98.1 73 19 137/78 (97) 98 98.1 12/28/17 16:00 97.9 68 19 139/91 (107) 97 97.9 12/28/17 12:00 97.3 77 18 140/84 (102) 97 97.3 12/28/17 10:41 73 142/86 12/28/17 09:00 Room Air Intake and Output 12/28/17 12/29/17 19:00 07:00 Intake Total 1145.0 ml 785.0 ml Balance 1145.0 ml 785.0 ml Intake Oral 360 ml IV Total 785.0 ml 785.0 ml # Voids 6 3 Laboratory Tests 12/29/17 06:45: White Blood Count 8.0, Red Blood Count 4.38L, Hemoglobin 14.7, Hematocrit 42.6, Mean Corpuscular Volume 97, Mean Corpuscular Hemoglobin 33.6H, Mean Corpuscular Hemoglobin Concent 34.6, Red Cell Distribution Width 12.7, Platelet Count 363, Mean Platelet Volume 6.8, Neutrophils (%) (Auto) , Lymphocytes (%) (Auto) , Monocytes (%) (Auto) , Eosinophils (%) (Auto) , Basophils (%) (Auto) , Differential Total Cells Counted 100, Neutrophils % (Manual) 48, Lymphocytes % ( Manual) 21, Monocytes % (Manual) 6, Eosinophils % (Manual) 25H, Basophils % ( Manual) 0, Band Neutrophils 0, Platelet Estimate Adequate, Platelet Morphology Normal, Red Blood Cell Morphology Normal, Sodium Level 146H, Potassium Level 2.7 *L, Chloride Level 107, Carbon Dioxide Level 31, Anion Gap 9, Blood Urea Nitrogen 9, Creatinine 0.7, Estimat Glomerular Filtration Rate , Glucose Level 86, Calcium Level 9.0 Height (Feet): 5 Height (Inches): 11.00 Weight (Pounds): 156 Objective General Appearance: WD/WN, alert Neck: normal alignment, supple Cardiovascular: normal rate, regular rhythm Respiratory/Chest: chest wall non-tender, lungs clear, normal breath sounds Abdomen: normal bowel sounds, non tender, soft, no organomegaly Edema: no edema noted Arm (L), no edema noted Arm (R), no edema noted Leg (L), no edema noted Leg (R), no edema noted Pedal (L), no edema noted Pedal (R), no edema noted Generalized Neurologic: alert, disoriented [place],Jcarlos M. MD Dec 29, 2017 08:34
[2017-12-29] MEDS: Heparin 5000 units/ml inj SUBQ SCH (08:55)
[2017-12-29] MEDS: Valproic Acid 500mg/10ml liquid GT SCH (09:22)
[2017-12-29] MEDS: Docusate 100mg cap ORAL SCH (09:22)
[2017-12-29] MEDS: Ascorbic Acid 500mg tab GT SCH (09:22)
[2017-12-29] MEDS: Atorvastatin 20mg tab ORAL SCH (09:22)
[2017-12-29] MEDS: levETIRAcetam 500mg/5ml Liquid GT SCH (09:22)
[2017-12-29] MEDS: Phenytoin Susp 100mg/4ml GT SCH (09:22)
[2017-12-29] MEDS: Metoprolol Tartrate 50mg tab ORAL SCH (09:23)
[2017-12-29] MEDS: Multivitamin w/Minerals tab ORAL SCH (09:23)
[2017-12-29] MEDS: Vancomycin 500mg in D5W 275ml IVPB SCH (09:56)
--- NOTE | 2017-12-29 10:13 | General Surgery Progress Note ---
General Surgery-Progress Note Subjective Additional Comments no acute events. Objective Last 24 Hour Vital Signs Date Time Temp Pulse Resp B/P (MAP) Pulse Ox O2 Delivery O2 Flow Rate FiO2 12/29/17 09:23 62 158/90 12/29/17 08:00 97.5 62 18 158/90 (112) 99 97.5 12/29/17 04:00 97.0 64 18 144/84 (104) 99 97.0 12/29/17 00:00 97.2 67 19 138/83 (101) 99 97.2 12/28/17 21:00 Room Air 12/28/17 20:00 98.1 73 19 137/78 (97) 98 98.1 12/28/17 16:00 97.9 68 19 139/91 (107) 97 97.9 12/28/17 12:00 97.3 77 18 140/84 (102) 97 97.3 12/28/17 10:41 73 142/86 I&O Intake and Output 12/28/17 12/29/17 19:00 07:00 Intake Total 1145.0 ml 785.0 ml Balance 1145.0 ml 785.0 ml Intake Oral 360 ml IV Total 785.0 ml 785.0 ml # Voids 6 3 Wound: clean, dry Cardiovascular: RSR Respiratory: clear Abdomen: soft, flat, non-tender, present bowel sounds Extremities: no cyanosis Laboratory Tests Test 12/29/17 06:45 White Blood Count 8.0 K/UL (4.8-10.8) Red Blood Count 4.38 M/UL (4.70-6.10) L Hemoglobin 14.7 G/DL (14.2-18.0) Hematocrit 42.6 % (42.0-52.0) Mean Corpuscular Volume 97 FL (80-99) Mean Corpuscular Hemoglobin 33.6 PG (27.0-31.0) H Mean Corpuscular Hemoglobin Concent 34.6 G/DL (32.0-36.0) Red Cell Distribution Width 12.7 % (11.6-14.8) Platelet Count 363 K/UL (150-450) Mean Platelet Volume 6.8 FL (6.5-10.1) Neutrophils (%) (Auto) % (45.0-75.0) Lymphocytes (%) (Auto) % (20.0-45.0) Monocytes (%) (Auto) % (1.0-10.0) Eosinophils (%) (Auto) % (0.0-3.0) Basophils (%) (Auto) % (0.0-2.0) Differential Total Cells Counted 100 Neutrophils % (Manual) 48 % (45-75) Lymphocytes % (Manual) 21 % (20-45) Monocytes % (Manual) 6 % (1-10) Eosinophils % (Manual) 25 % (0-3) H Basophils % (Manual) 0 % (0-2) Band Neutrophils 0 % (0-8) Platelet Estimate Adequate Platelet Morphology Normal Red Blood Cell Morphology Normal Sodium Level 146 MMOL/L (136-145) H Potassium Level 2.7 MMOL/L (3.5-5.1) *L Chloride Level 107 MMOL/L (98-107) Carbon Dioxide Level 31 MMOL/L (21-32) Anion Gap 9 mmol/L (5-15) Blood Urea Nitrogen 9 mg/dL (7-18) Creatinine 0.7 MG/DL (0.55-1.30) Estimat Glomerular Filtration Rate mL/min (>60) Glucose Level 86 MG/DL (74-106) Calcium Level 9.0 MG/DL (8.5-10.1) Plan Problems: (1) Abscess Assessment & Plan: right mid back area of prior abscess noted with what seems to be incision for drainage done prior. wound healing slowly. no purulent drainage. mild cellulitis. improving (2) Cellulitis Assessment & Plan: right mid back area of prior abscess noted with what seems to be incision for drainage done prior. wound healing slowly. no purulent drainage. mild cellulitis. improving (3) Sepsis Assessment & Plan: possibly related to cellulitis from back. prior drainage adequate and cellulitis improving. cont with IV Abx wound care with dressings. wound too small for packing needs nutritional optimization. likely etiology of slow wound healing. will need feeding access -appreciate GI input will monitor while in hospital. thank you for this consultation. Merlin Mckinley Dec 29, 2017 10:13
--- NOTE | 2017-12-29 11:18 | General Progress Note ---
Assessment/Plan Assessment/Plan Assessment - dislodged GT, unable to replace due to tract closure - Seizure disorder - h/o refusal to take meds - OBS - skin infection Recommendations - resume plavix - push po diet and meds - d/c planning - will consider PEG placement if fails po trial Subjective Allergies: Coded Allergies: No Known Allergies (Unverified , 07/08/16) Subjective d/w RN patient given plavix yesterday confused, non communicative Objective Last 24 Hour Vital Signs Date Time Temp Pulse Resp B/P (MAP) Pulse Ox O2 Delivery O2 Flow Rate FiO2 12/29/17 09:23 62 158/90 12/29/17 09:00 Room Air 12/29/17 08:00 97.5 62 18 158/90 (112) 99 97.5 12/29/17 04:00 97.0 64 18 144/84 (104) 99 97.0 12/29/17 00:00 97.2 67 19 138/83 (101) 99 97.2 12/28/17 21:00 Room Air 12/28/17 20:00 98.1 73 19 137/78 (97) 98 98.1 12/28/17 16:00 97.9 68 19 139/91 (107) 97 97.9 12/28/17 12:00 97.3 77 18 140/84 (102) 97 97.3 Intake and Output 12/28/17 12/29/17 19:00 07:00 Intake Total 1145.0 ml 785.0 ml Balance 1145.0 ml 785.0 ml Intake Oral 360 ml IV Total 785.0 ml 785.0 ml # Voids 6 3 Laboratory Tests 12/29/17 06:45: White Blood Count 8.0, Red Blood Count 4.38L, Hemoglobin 14.7, Hematocrit 42.6, Mean Corpuscular Volume 97, Mean Corpuscular Hemoglobin 33.6H, Mean Corpuscular Hemoglobin Concent 34.6, Red Cell Distribution Width 12.7, Platelet Count 363, Mean Platelet Volume 6.8, Neutrophils (%) (Auto) , Lymphocytes (%) (Auto) , Monocytes (%) (Auto) , Eosinophils (%) (Auto) , Basophils (%) (Auto) , Differential Total Cells Counted 100, Neutrophils % (Manual) 48, Lymphocytes % ( Manual) 21, Monocytes % (Manual) 6, Eosinophils % (Manual) 25H, Basophils % ( Manual) 0, Band Neutrophils 0, Platelet Estimate Adequate, Platelet Morphology Normal, Red Blood Cell Morphology Normal, Sodium Level 146H, Potassium Level 2.7 *L, Chloride Level 107, Carbon Dioxide Level 31, Anion Gap 9, Blood Urea Nitrogen 9, Creatinine 0.7, Estimat Glomerular Filtration Rate , Glucose Level 86, Calcium Level 9.0 Height (Feet): 5 Height (Inches): 11.00 Weight (Pounds): 156 Objective confused WM NCAT supple CTA RRR Soft flat no edema OBS Yuridia Carlos MD Dec 29, 2017 11:18
[2017-12-29 11:51] VITALS: BP 158/90
[2017-12-29] MEDS ORDERED: Vancomycin 500 MG in D5W 110 ML IVPB SCH (21:00)
== END 2017-12-29 15:37 | DRG 871 ==
LOC: EDBD 15:27 → EMR 16:00 → 4E 17:01 → EDBEDREQ 18:08
DX: A41.9 Sepsis, unspecified organism (principal); G93.40 Encephalopathy, unspecified; I69.351 Hemiplegia and hemiparesis following cerebral infarction affecting right dominant side; L02.212 Cutaneous abscess of back [any part, except buttock and flank]; L03.312 Cellulitis of back [any part except buttock and flank]; K94.23 Gastrostomy malfunction; G40.909 Epilepsy, unspecified, not intractable, without status epilepticus; F20.9 Schizophrenia, unspecified; H11.9 Unspecified disorder of conjunctiva; B95.62 Methicillin resistant Staphylococcus aureus infection as the cause of diseases classified elsewhere; R13.10 Dysphagia, unspecified; Y83.3 Surgical operation with formation of external stoma as the cause of abnormal reaction of the patient, or of later complication, without mention of misadventure at the time of the procedure; F01.50 Vascular dementia, unspecified severity, without behavioral disturbance, psychotic disturbance, mood disturbance, and anxiety
CPT/HCPCS: 36415; 80048; 80053; 80164; 80185; 80202; 85007; 85025; 87070; 87081; 87181; 87205; J8499

== ENCOUNTER 2018-05-05 17:52 | Inpatient (IN) | payer MEDICARE, MEDICAID ==
[~2018-05-05] VITALS: Ht 162.6 cm; Wt 68.0 kg
[~2018-05-05 17:52] MED LIST changes: +ACETAMINOPHEN325 M1 GT; +CRANBERRY425 MG GT; -CRANBERRY425 MG PO; +KEPPRA1000 MG PO; +LORAZEPAM1 MG PO; +METOPROLOL TART50 MG ORAL; +PHENYTOIN100 MG/4 M GT; +PLAVIX75 MG GT; -PLAVIX75 MG ORAL; +TYLENOL EXTRA500 MG ORAL; +VANCOMYCIN1 GM/200 M IV; +VITAMIN C500 M1 GT
--- NOTE | 2018-05-05 18:08 | NUR ---
ED Nurse Note: Pt came from [facility] [place][Note 2]. due to pt desating. According to EMS, pt was unarousable and was sating at 85% via nonrebreather mask. EMS tried him on room air and he was sating atb 94%. Pt is nonvrbal. Skin warm to touch. Contractures noticed on bilateral legs. Pt is sating at 96% in room air.
[2018-05-05 18:09] VITALS: BP 80/49
[2018-05-05] MEDS ORDERED: Sodium Chloride 500ML 500 ML IV ONE (18:14)
[2018-05-05] MEDS ORDERED: Ipratropium 0.02% Inh Soln 2.5ml UD HHN ONE (18:15)
[2018-05-05] MEDS ORDERED: Albuterol ud Inhalation HHN ONE (18:15)
--- NOTE | 2018-05-05 18:26 | NUR ---
ED Nurse Note: Blood has been drawn and urine has been collected. Sent to lab. Awaiting results. Rt at the bedside.
--- NOTE | 2018-05-05 18:32 | NUR ---
ED Nurse Note: CXR currently being done at the bedside.
--- NOTE | 2018-05-05 18:47 | NUR ---
ED Nurse Note: Influenza swab done and sent to lab.
[2018-05-05 18:56] LABS: APPEARANCE,URINE CLOUDY; BILIRUBIN, URINE NEGATIVE (NEGATIVE); COLOR,URINE BROWN; GLUCOSE, URINE (UA) NEGATIVE (NEGATIVE); KETONES,URINE 1+ (NEGATIVE); LEUKOCYTE ESTERASE ,URINE 3+ (NEGATIVE); NITRITE,URINE NEGATIVE (NEGATIVE); PH,URINE 5 (4.5-8.0); PROTEIN,URINE 3+ (NEGATIVE); UROBILINOGEN,URINE 1 MG/DL (0.0-1.0)
--- NOTE | 2018-05-05 19:06 | NUR ---
HAND-OFF: Report given to MARGARITA Garcia.
[2018-05-05 19:08] LABS: BASOPHILS % (AUTO) 0.6 % (0.0-2.0); EOSINOPHILS % (AUTO) 3.2 % (0.0-3.0); HEMATOCRIT 39.1 % (42.0-52.0); HEMOGLOBIN 12.1 G/DL (14.2-18.0); LYMPHOCYTES % (AUTO) 19.3 % (20.0-45.0); MEAN CORPUSCULAR VOLUME 104 FL (80-99); MONOCYTES % (AUTO) 7.8 % (1.0-10.0); NEUTROPHILS % (AUTO) 69.1 % (45.0-75.0); PLATELET COUNT 169 K/UL (150-450); RED BLOOD COUNT 3.75 M/UL (4.70-6.10); RED CELL DISTRIBUTION WIDTH 16.2 % (11.6-14.8); WHITE BLOOD COUNT 9.4 K/UL (4.8-10.8)
--- NOTE | 2018-05-05 19:10 | NUR ---
ED Nurse Note: Received Pt and report from day shift. Knowing Pt will admit to Tele, await for the bed.
--- NOTE | 2018-05-05 19:14 | Emergency Room Report ---
History of Present Illness General Chief Complaint: Dyspnea/Respdistress Source: Medical Record, EMS Present Illness HPI 72-year-old male presents ED for evaluation. Patient was found to be more altered than baseline, hypoxic. O2 sats low. Placed on nonrebreather at longterm facility. Upon arrival patient is nonverbal at baseline. Denies no reported fevers or chills or chest pain. No other aggravating relieving factors. Denies any other associated symptoms Allergies: Coded Allergies: No Known Allergies (Unverified , 07/08/16) Patient History Past Medical History: DM, CAD, CVA/TIA, dementia, seizures Pertinent Family History: none Social History: Denies: smoking, alcohol use, drug use Immunizations: UTD Reviewed Nursing Documentation: PMH: Agreed; PSxH: Agreed Nursing Documentation-PMH Past Medical History: No History, Except For Hx Hypertension: Yes - CAD Hx Diabetes: Yes Hx Cancer: No Hx Cerebrovascular Accident: Yes - right side Hx Dementia: Yes Hx Seizures: Yes Hx Epilepsy: Yes Review of Systems All Other Systems: limited Physical Exam Vital Signs Date Time Temp Pulse Resp B/P (MAP) Pulse Ox O2 Delivery O2 Flow Rate FiO2 05/05/18 17:52 97.5 67 18 99/66 94 Non-Rebreather 15.0 05/05/18 18:09 96 Sp02 EP Interpretation: reviewed, normal General Appearance: cachetic, lethargic, thin Head: normocephalic Eyes: bilateral eye normal inspection, bilateral eye PERRL ENT: normal ENT inspection Neck: normal inspection Respiratory: decreased breath sounds, accessory muscle use, crackles Cardiovascular #1: regular rate, rhythm, no edema Gastrointestinal: normal inspection Rectal: deferred Genitourinary: no CVA tenderness Musculoskeletal: normal inspection Neurologic: other - lethargic Psychiatric: other - lethargic Skin: normal inspection Lymphatic: normal inspection Procedures Critical Care Time Critical Care Time i. I feel this is a highly complex case requiring extensive working including EKG/Rhythm strip, Xray/CT/US, Blood/urine lab work, repeat exams while in ED, and administration of strong opiates/narcotics for pain control, admission to hospital or close patient follow up. Total time: 45 min bedside evaluation and treatment excludes procedures (EKG). Reason for critical care: Respiratory distress, hypernatremia, renal failure, UTI Possible complications: hypotension, hypertension, AL, shock, arrhythmias, metabolic acidosis, end organ damage, respiratory failure. Interventions: Labs, IV fluids, EKG, chest x-ray, ABG, nebs. Continued IV hydration. Antibiotics. Course: Patient presenting with increased lethargy. Hypoxic. Hypotensive. Sodium 177, creatinine 4.1, UA grossly positive. Patient given IV hydration. Given broad-spectrum antibiotics. Discussed case with hospitalist for ICU admission Consultations: nursing staff, EMS, family Performed by: Dr King Tolerated well condition = critical j. because of unstable vital signs this patient had a condition that could potentially threaten life or limb. I feel this is a critical patient who required my full attention while patient was considered critical. Total Critical Care Time excluding procedures was greater than 35 minutes Medical Decision Making Diagnostic Impression: Primary Impression: Respiratory distress Additional Impressions: UTI (urinary tract infection) Qualified Codes: N39.0 - Urinary tract infection, site not specified Renal failure Qualified Codes: N17.9 - Acute kidney failure, unspecified Hypernatremia ER Course Hospital Course 72 yo M presents to ED with increased lethargy, weakness, hypoxic and hypotensive Differential diagnoses include: Pneumonia, UTI, sepsis, dehydration, AL/ unstable angina Clinical course Patient placed on stretcher. On media monitor with hypotension and hypoxia. After initial history and physical, I ordered labs, IV fluids, EKG, chest x-ray , blood cultures, UA. I ordered nebs Labs - BUN/Cr markedly elevated, no leukocytosis, Na 177, troponins negative, UA grossly positive for UTI, lactate ok EKG - NSR, no acute ischemic changes interpreted by me CXR - no acute process broad spectrum Abx given. IV hydration continued. Case discussed with Dr David and they agreed to admit patient to their service for further care and support I feel this is a highly complex case requiring extensive working including EKG/ Rhythm strip, Xray/CT/US, Blood/urine lab work, repeat exams while in ED, and administration of strong opiates/narcotics for pain control, admission to hospital or close patient follow up. Diagnosis - respiratory distress, UTI, renal failure, hypernatremia Patient admitted to ICU in critical condition Labs Test 05/05/18 18:07 White Blood Count 9.4 K/UL (4.8-10.8) Red Blood Count 3.75 M/UL (4.70-6.10) Hemoglobin 12.1 G/DL (14.2-18.0) Hematocrit 39.1 % (42.0-52.0) Mean Corpuscular Volume 104 FL (80-99) Mean Corpuscular Hemoglobin 32.4 PG (27.0-31.0) Mean Corpuscular Hemoglobin Concent 31.1 G/DL (32.0-36.0) Red Cell Distribution Width 16.2 % (11.6-14.8) Platelet Count 169 K/UL (150-450) Mean Platelet Volume 8.2 FL (6.5-10.1) Neutrophils (%) (Auto) 69.1 % (45.0-75.0) Lymphocytes (%) (Auto) 19.3 % (20.0-45.0) Monocytes (%) (Auto) 7.8 % (1.0-10.0) Eosinophils (%) (Auto) 3.2 % (0.0-3.0) Basophils (%) (Auto) 0.6 % (0.0-2.0) Urine Color Brown Urine Appearance Cloudy Urine pH 5 (4.5-8.0) Urine Specific [place] 1.015 (1.005-1.035) Urine Protein 3+ (NEGATIVE) Urine Glucose (UA) Negative (NEGATIVE) Urine Ketones 1+ (NEGATIVE) Urine Blood 3+ (NEGATIVE) Urine Nitrite Negative (NEGATIVE) Urine Bilirubin Negative (NEGATIVE) Urine Urobilinogen 1 MG/DL (0.0-1.0) Urine Leukocyte Esterase 3+ (NEGATIVE) Urine RBC 2-4 /HPF (0 - 0) Urine WBC Tntc /HPF (0 - 0) Urine Squamous Epithelial Cells None /LPF (NONE/OCC) Urine Bacteria Many /HPF (NONE) Sodium Level 177 MMOL/L (136-145) Potassium Level 3.9 MMOL/L (3.5-5.1) Chloride Level 135 MMOL/L (98-107) Carbon Dioxide Level 27 MMOL/L (21-32) Anion Gap 16 mmol/L (5-15) Blood Urea Nitrogen 104 mg/dL (7-18) Creatinine 4.1 MG/DL (0.55-1.30) Estimat Glomerular Filtration Rate mL/min (>60) Glucose Level 124 MG/DL (74-106) Lactic Acid Level 1.70 mmol/L (0.4-2.0) Calcium Level 8.3 MG/DL (8.5-10.1) Total Bilirubin 0.5 MG/DL (0.2-1.0) Aspartate Amino Transf (AST/SGOT) 15 U/L (15-37) Alanine Aminotransferase (ALT/SGPT) 10 U/L (12-78) Alkaline Phosphatase 111 U/L (46-116) Total Creatine Kinase 114 U/L (26-308) Creatine Kinase MB 1.4 NG/ML (0.0-3.6) Creatine Kinase MB Relative Index 1.2 Troponin I 0.004 ng/mL (0.000-0.056) Pro-B-Type Natriuretic Peptide 2312 pg/mL (0-125) Total Protein 7.1 G/DL (6.4-8.2) Albumin 2.0 G/DL (3.4-5.0) Globulin 5.1 g/dL Albumin/Globulin Ratio 0.4 (1.0-2.7) EKG Diagnostic Results Rate: normal Rhythm: NSR ST Segments: no acute changes ASA given to the pt in ED: No Rhythm Strip Diag. Results EP Interpretation: yes Rhythm: NSR, no PVC's, no ectopy Chest X-Ray Diagnostic Results Chest X-Ray Diagnostic Results : Chest X-Ray Ordered: Yes # of Views/Limited/Complete: 1 View Indication: Shortness of Breath EP Interpretation: Yes Interpretation: no consolidation, no effusion, no pneumothorax, no acute cardiopulmonary disease Impression: No acute disease Electronically Signed by: Electronically signed by Cameron King MD Last Vital Signs Date Time Temp Pulse Resp B/P (MAP) Pulse Ox O2 Delivery O2 Flow Rate FiO2 05/05/18 18:48 65 18 100 Room Air 21 05/05/18 18:09 97.5 80/49 05/05/18 17:52 15.0 Status: improved Disposition: ADMITTED INPATIENT Condition: Serious Referrals: Jcarlos David MD (PCP) Cameron King MD May 05, 2018 19:14
[2018-05-05 19:15] LABS: ALANINE AMINOTRANSFERASE 10 U/L (12-78); ALBUMIN/GLOBULIN RATIO 0.4 (1.0-2.7); ALKALINE PHOSPHATASE 111 U/L (46-116); ANION GAP 16 mmol/L (5-15); ASPARTATE AMINO TRANSFERASE 15 U/L (15-37); BILIRUBIN,TOTAL 0.5 MG/DL (0.2-1.0); BLOOD UREA NITROGEN 104 mg/dL (7-18); CALCIUM 8.3 MG/DL (8.5-10.1); CARBON DIOXIDE 27 MMOL/L (21-32); CHLORIDE 135 MMOL/L (98-107); CKMB 1.4 NG/ML (0.0-3.6); CREATINE KINASE 114 U/L (26-308); CREATININE 4.1 MG/DL (0.55-1.30); POTASSIUM 3.9 MMOL/L (3.5-5.1)
--- NOTE | 2018-05-05 19:15 | NUR ---
ED Nurse Note: Pt is restless and O2 sat 87%, provide N/C 2L.
[2018-05-05 19:16] LABS: SODIUM 177 MMOL/L (136-145)
--- NOTE | 2018-05-05 19:30 | NUR ---
ED Nurse Note: Pt will admit to ICU, await for the bed.
[2018-05-05 20:50] VITALS: BP 96/64
--- NOTE | 2018-05-05 20:55 | NUR ---
ED Nurse Note: Message left to Dr David, await for admit order back.
[2018-05-05 21:00] VITALS: BP 90/60
[2018-05-05] MEDS ORDERED: Haloperidol 1mg tab ORAL PRN (21:00)
--- NOTE | 2018-05-05 21:00 | NUR ---
NURSE NOTES: Received report and pt from MARGARITA Garcia from ER. Pt's admitted to ICU due to SOB and hypotensive, not on any pressor, was given NS bolus in ER. In no acute distress, Current BP 90/60, HR65, R24, O2 sat 98% on 2L/NC. SR on aerotriangulation specialist. 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 Pt's nonverbal, unable to follow commands, response to light pain, eyes open spontaneously. NPO at this time, initiated condom cath. Noted small laceration on Right hip and right knee, wound care initiated, SPR mattress applied. Pt has Left FA 20G intact and patent. Seizure precaution initiated. HOB kept elevated, bed in low and locked position. Awaiting for MD orders. Will continue to monitor.
--- NOTE | 2018-05-05 21:10 | NUR ---
ED Nurse Note: Admit Pt to ICU room 246-F. Pt is AO x 1 time, VSS, on 2L N/C no distress. Belongings and skin check with floor nurse. Report given to MARGARITA Serrano.
--- NOTE | 2018-05-05 21:15 | NUR ---
ED Nurse Note: Inform floor RN Dr David insert the admit orders.
[2018-05-05] MEDS: Zosyn 2.25 gm in D5W 55ml IV SCH (21:52)
[2018-05-05 22:00] VITALS: BP 93/65
[2018-05-05] MEDS ORDERED: Piperacillin/Tazobactam 3.375 GM in NS 110 ML IVPB SCH (22:00)
[2018-05-05] MEDS ORDERED: D5 1/2NS w/KCL 10meq 1,000 ML IV SCH (22:00)
[2018-05-05] MEDS: D5 1/2NS w/KCL 10meq 1,000 ML IV SCH (22:00)
[2018-05-05] MEDS: Heparin 5000 units/ml inj SUBQ SCH (22:13)
[2018-05-05 23:00] VITALS: BP 93/58
--- NOTE | 2018-05-05 23:00 | NUR ---
NURSE NOTES: Pt's resting in bed, in no acute distress. VS stable. Will continue to monitor.
--- NOTE | 2018-05-05 23:15 | Consultation ---
DATE OF CONSULTATION: 05/05/2018 CARDIOLOGY CONSULTATION CONSULTING PHYSICIAN: Augustus Gooden M.D. REFERRING PHYSICIAN: Jcarlos David M.D. REASON FOR CONSULTATION: Elevated natriuretic peptide assay in the setting of hypovolemia and shock. HISTORY OF PRESENT ILLNESS: This is a 72-year-old male, who resides at a alf facility. He has a baseline dementia, seizure disorder, and encephalopathy but was noted to be increasingly withdrawn, lethargic and altered from that baseline. He was also hypoxic and placed on a non-rebreather oxygen mask, transferred to this emergency room where workup was notable for significant lab abnormalities prompting admission to the intensive care unit and this consultation. PAST MEDICAL HISTORY: 1. Type 2 diabetes mellitus. 2. Coronary artery disease. 3. Cerebrovascular disease. 4. History of cerebrovascular accident. 5. Dementia. 6. Seizure disorder. ALLERGIES: None. MEDICATIONS: Prior to admission, reviewed and reconciled. SOCIAL HISTORY: No record of smoking, alcohol, or substance abuse. FAMILY HISTORY: Not known. REVIEW OF SYSTEMS: Presently not obtainable from the patient. Pertinent data from review of records and prior hospital stays as outlined above. PHYSICAL EXAMINATION: VITAL SIGNS: Afebrile. Blood pressure 99/66, pulse 67, and respirations 18. Saturating 94% on a non-rebreather mask. GENERAL: Withdrawn, lethargic, cachectic, temporal wasting. HEENT: Pale conjunctivae. Dry mucous membranes. Oropharynx is clear with no thrush. NECK: Supple. Jugular venous pressure is normal. CHEST: There is some accessory muscle use. Lungs with coarse breath sounds and rhonchi. CARDIAC: Regular rhythm and rate. Normal S1, S2 with a fourth heart sound. ABDOMEN: Soft and nontender. No guarding or rebound. EXTREMITIES: Good pulses. No edema. Decreased capillary refill. DIAGNOSTIC DATA: EKG reveals sinus rhythm with no acute ST-T wave changes. Chest x-ray with no acute process. White count 9.4, hemoglobin 12.1. Sodium 177, potassium 3.9, chloride 135, bicarb 27, BUN 104, and creatinine 4.1. Glucose 124. Lactic acid 1.7. Liver function normal. Troponin negative. Pro-natriuretic peptide 2312. Albumin 2.0. IMPRESSION: 1. Critical condition with guarded prognosis. 2. Metabolic encephalopathy. 3. Severe dehydration. 4. Severe hypernatremia. 5. Severe hyperchloremia. 6. Acute on chronic renal failure. 7. Underlying cerebrovascular disease with dementia. 8. Encephalopathy and seizure disorder. 9. Chronic diastolic congestive heart failure. 10. Severe protein-calorie malnutrition. 11. Possible aspiration pneumonia PLAN: 1. ICU monitoring. 2. Aggressive hypotonic fluid hydration. 3. Antiseizure therapy. 4. NPO. 5. Insulin coverage by sliding scale. 6. Monitor volume status and electrolytes as well as cardiorenal function. 7. DVT and stress ulcer prophylaxes. 8. Empiric antibiotics. 9. Oxygenation. Augustus Gooden M.D. DR: IBETH JOB#: [id number] CC:
[2018-05-06] VITALS (24 sets, daily range): BP systolic 88–127; BP diastolic 28–100
--- NOTE | 2018-05-06 | NUR ---
NURSE NOTES: Inserted Right UA 20G peripheral line, intact and patent, pt's resting in bed with eyes closed, in no acute distress. VS stable. will continue to monitor.
[2018-05-06] MEDS: NS IVPB SCH ×3 (00:16→19:29)
[2018-05-06] MEDS: PHENYTOIN IVPB SCH ×3 (00:16→19:29)
[2018-05-06] MEDS: levETIRAcetam 500mg/NS100ml 100 ML IVPB SCH ×3 (00:16→23:17)
--- NOTE | 2018-05-06 02:00 | NUR ---
NURSE NOTES: Pt's resting in bed, in no acute distress. VS stable. Will continue to monitor.
--- NOTE | 2018-05-06 04:00 | NUR ---
NURSE NOTES: Pt's resting in bed, in no acute distress. VS stable. Will continue to monitor.
[2018-05-06 05:15] LABS: ALANINE AMINOTRANSFERASE 8 U/L (12-78); ALBUMIN 1.8 G/DL (3.4-5.0); ALBUMIN/GLOBULIN RATIO 0.3 (1.0-2.7); ALKALINE PHOSPHATASE 101 U/L (46-116); ANION GAP 16 mmol/L (5-15); ASPARTATE AMINO TRANSFERASE 12 U/L (15-37); BILIRUBIN,TOTAL 0.4 MG/DL (0.2-1.0); BLOOD UREA NITROGEN 99 mg/dL (7-18); CALCIUM 7.5 MG/DL (8.5-10.1); CARBON DIOXIDE 24 MMOL/L (21-32); CHLORIDE 132 MMOL/L (98-107)
[2018-05-06] MEDS: D5 1/2NS w/KCL 10meq 1,000 ML IV SCH ×4 (05:29→18:45)
[2018-05-06 05:34] LABS: SODIUM 171 MMOL/L (136-145)
--- NOTE | 2018-05-06 06:00 | NUR ---
NURSE NOTES: Pt's resting in bed, in no acute distress. VS stable. Will continue to monitor.
[2018-05-06] MEDS: Zosyn 2.25 gm in D5W 55ml IV SCH ×3 (06:13→21:42)
--- NOTE | 2018-05-06 07:20 | NUR ---
HAND-OFF: Report given to MARGARITA Rush.
--- NOTE | 2018-05-06 07:25 | NUR ---
NURSE NOTES: Report received from MARGARITA Serrano. Patient observed to be nonverbal, does not follow commands, does not open eyes spontaneously however does respond to stimulus. Patient does not appear in any acute distress, is free from facial grimacing. Patient is being monitored on the alarm security or surveillance monitor VS 116/50, HR 52, RR 23 SPO2 99%. Patient is currently on 3L NC. Patient is contracted BLE and RUE however his LUE is not and is 4/5 in strength. Patient did pull at his mask. Will monitor for his need for restraints. Patient is currently NPO. Patient has a condom catheter draining urine to gravity however there is no UOP. Patient has two peripheral IV sites LFA 20G and POOJA 20G running D5 1/2 NS with 10 mEq at 125 ml/hr. Safety measures are in place with bed locked in lowest position with side rails up x 3 closest to the nurses station HOB elevated. Will continue to monitor and follow plan of care.
[2018-05-06] MEDS: Pantoprazole Inj IVP SCH (08:29)
[2018-05-06] MEDS: Heparin 5000 units/ml inj SUBQ SCH ×2 (08:35→21:16)
--- NOTE | 2018-05-06 10:30 | NUR ---
NURSE NOTES: Spoke to Dr Hayes. Orders were placed. Will continue to monitor patient and follow plan of care.
--- NOTE | 2018-05-06 10:55 | NUR ---
CASE MANAGEMENT: REVIEW 72/M BIBA FROM [facility] [place] CC: DYSPNEA . RESP DISTRESS SI: SOB . HYPERNATREMIA . ALOC T 97.5 HR 69 RR 16 BP 80/49 SAT 94% ROOM NON-REBREATHER 15.0 NA 177 BUN 104 CR 4.1 TROPONIN I 0.004 IS: NS IVF BOLUS X1 ATROVENT HHN X1 ALBUTEROL HHN X1 LEVOFLOXACIN IV X1 INTERQUAL CRITERIA MET: PATIENT ADMITTED TO ICU 05/05/2018 DCP: PATIENT IS FROM [facility] [place] CASE MANAGEMENT: REVIEW SI: SOB . HYPERNATREMIA . ALOC T 99.2 HR 51 RR 36 BP 92/45 SAT 98% NC/3L NA 171 BUN 99 CR 4.0 IS: D5 1/2 w/KCl 10mEq IVF @200ML/HR PROTONIX IV QD DILANTIN IV Q8HR KEPPRA IV Q12HR ZOSYN IV Q8HR ICU STATUS DCP: PATIENT IS FROM [facility] [place]
--- NOTE | 2018-05-06 11:30 | Diagnostic Imaging Report ---
Indication: Shortness of breath Technique: XRAY Chest 1v Comparison: 07/08/2016 Findings: Heart size is stable. There is elevation of the right hemidiaphragm. There is streaky opacities at the right base. Left lung is essentially clear. No pleural effusion or pneumothorax. There is osteopenia. There is prominent nonspecific likely colonic bowel gas noted in the upper abdomen for which dedicated imaging to be obtained as clinically indicated. IMPRESSION: Elevation of the right hemidiaphragm with adjacent streaky opacities at the right base which may be related to subsegmental atelectasis or scarring. The possibility of developing pneumonia should be excluded clinically. Additional findings as above. Study obtained via the emergency department however patient admitted to the hospital at time of dictation of the final report.
--- NOTE | 2018-05-06 11:37 | NUR ---
ST NOTE: BEDSIDE SWALLOW EVAL RECEIVED BEDSIDE SWALLOW EVAL ORDER CHART REVIEWED PRIOR THE EVALUATION PT IS A 72-YEAR-OLD MALE WHO WAS ADMITTED DUE TO SHORTNESS OF BREATH. DYSPHAGIA RISK FACTORS: H/O CVA W/RSW. DEMENTIA, DMII, H/O PNA, SEIZURE, SCHIZOAFFECTIVE(PT IS ON HALDOL AND ATIVAN), H/O DYSPHAGIA, H/O G-TUBE, WEIGHT LOSS PLOF: PT RESIDES AT SNF. PER CHART, PT WAS ON PUREE WITH MILDLY THICKENED LIQUIDS(NECTAR THICK) AND PT WAS ALSO ON HIGH CALORIE SUPPLEMENT. PER PT'S CHART, PT IS FULL CODE AND OKAY FOR LONG-TERM ARTIFICIAL NUTRITION, INCLUDING FEEDING TUBES. PER BEDSIDE SWALLOW EVAL ON 12/26/16: DYSPHAGIA RISK FACTORS FOR THIS 72 YEAR OLD GENTLEMAN: HISTORY OF DYSPHAGIA, DEMENTIA WITH BEHAVIORAL DISTURBANCE, COPD, SCHIZOAFFECTIVE D/O ON SEROQUEL/ATIVAN/HALDOL, BORDERLINE HTN/DM. OPPOSITIONAL TO P.O. INTAKE/REFUSAL TO EAT/WEIGHT LOSS, DECREASED MENTATION FULL CODE PER CHART, PEG PLACEMENT PENDING (PATIENT SELF/EXTUBATED PRIOR PEG 30 PRIOR PLANNED DISCHARGE FROM THIS FACILITY), AT SNF, PATIENT COMBATIVE, REFUSING P.O., ESSENTIALLY NON/VERBAL WITH LIMITED P.O. TRIALS OF PUREE, PATIENT SPIT OUT FOOD AND BEGAN TO REFUSE REMAINING P.O. OFFERED. RECOMMENDATIONS: 1. RESUME P.O. WITH PUREE/NECTAR THICK LIQUIDS/NO STRAWS FOR THE INTERIM UNTIL PEG CAN BE REPLACED FRIDAY. IT IS DOUBTFUL PATIENT WOULD TOLERATE NG TUBE OR TPN FOR THAT MATTER DUE TO HIS DECREASED MENTATION/COMBATIVE/OPPOSITIONAL BEHAVIOR. 2. TOTAL ASSIST WITH MEALS 3. CRUSH CRUSHABLE MEDS/PRESENT IN PUREE 4. ASPIRATION PRECAUTIONS POSTED AT BEDSIDE. 5. ST TX AND MANAGEMENT CURRENT STATUS:PT SEEN AT BEDSIDE IN AM. AWAKE, NONVERBAL, MOAN WHEN THERE IS PAIN, DECREASED MENTATION, COMBATIVE WITH CARE, NC(3L), RESP RATE: HIGH 20s TO LOW 30s GIVEN PO TRIALS:NECTAR THICK(TSP X 1 ONLY) INITIAL IMPRESSION: SIGNIFICANT OROPHARYNGEAL DYSPHAGIA LABIAL LEAKAGE ON THE L-SIDE. SUSPECTED ORAL APRAXIA. MODERATELY INCREASED ORAL TRANSIT TIME(6 TO 7 SECS) AND OROPHARYNGEAL TRANSIT TIME, DECREASED/INADEQUATE LARYNGEAL ELEVATION, QUESTIONABLE PT SWALLOWED THE NECTAR THICK LIQUIDS. NO FURTHER PO TRIAL WAS GIVEN AT THIS TIME DUE TO PT DECREASED MENTATION. ORAL SUCTION WAS COMPLETED. DRY MOUTH AND DRY MUCUS WAS NOTED ORALLY AND THE BACK OF THE TONGUE. PT IS AT HIGH RISK FOR (SILENT) ASPIRATION, MALNUTRITION AND DEHYDRATION COMPOUNDED OF COGNITIVE IMPAIRMENT. RECOMMENDATIONS: 1. KEEP PT NPO FOR NOW 2. QUESTIONABLE PT IS ABLE TO TOLERATE NGT(PT WILL PULL OUT THE NGT), EVEN IT IS RECOMMENDED TO MEET NUTRITION AND HYDRATION NEEDS. 3. LONG-TERM NONORAL FEEDING MEANS SHOULD BE CONSIDERED DUE TO SIGNIFICANT WEIGHT LOSS AND OPPOSITIONAL TO P.O. 4. SKILLED ST TO FOLLOW UP. 5. VIDEOSWALLOW STUDY IF NEEDED. D/W RNSANDIP. POSTED NPO SIGN.
--- NOTE | 2018-05-06 12:00 | Diagnostic Imaging Report ---
Indication: Chest pain, shortness of breath Technique: XRAY Chest 1v Comparison: None Findings: Heart size and mediastinal contours stable. There are increasing patchy opacities at the right base. There is interval increased haziness of the pulmonary vascularity. No pneumothorax or pleural effusion. Unchanged elevation of the right hemidiaphragm. Prominent colonic gas again noted. Impression: Interval increased haziness of the pulmonary vascularity suggesting mild fluid overload/congestive changes. Increased hazy opacities at the right base.
--- NOTE | 2018-05-06 12:20 | NUR ---
NURSE NOTES: Patient observed bedside. Patient is nonverbal, open eyes spontaneously however does not follow commands and is very resistive to care and restless. Patient does not appear in any acute distress, is free from facial grimacing. Patient is being monitored on the youth nutritional monitor VSS. 107/58, HR 52, RR 23 SPO2 98%. Patient is now on a venti mask 40% at 8L due to low saturations. Now improved. Patient with BL wrist restraints due to impulsivity and patient found to be banging at the side of his bed. Patient is actively pulling at his lines and requires BL soft wrist restraints. Pulses are palpable and skin is intact. Patient continues to be NPO. Patient has newly placed Enriquez Catheter draining to draining gravity with dark oswaldo urine. Patient has two peripheral IV sites LFA 20G and POOJA 20G running D5 1/2 NS with 10 mEq at 200 ml/hr. Safety measures are in place with bed locked in lowest position with side rails up x 3 closest to the nurses station HOB elevated. Will continue to monitor and follow plan of care.
--- NOTE | 2018-05-06 12:31 | Diagnostic Imaging Report ---
Indication: Renal insufficiency Technique: Kidney and bladder ultrasound Comparison: None Findings: There is limited evaluation as per the fastener technologist patient combative and not cooperate with exam positioning. Within these limitations: Renal echogenicity appears within normal limits. No definite evidence of right-sided hydronephrosis There is mild left-sided hydronephrosis. A simple appearing cysts noted on the left measures up to 7 cm. The bladder is distended. There is echogenic debris versus mass within the bladder, layering more to the left, an expected area of the left ureterovesicular junction. IMPRESSION: Limited evaluation as per the fastener technologist patient combative and not cooperate with exam positioning. Within these limitations: Distended bladder. Echogenic material in the dependent portions of the left posterior bladder. Some images demonstrate a somewhat rounded contour this material in the possibility of mass is not excluded. Correlation with urinalysis/urine cytology recommended. Direct visualization with cystoscopy can also be considered. Dilatation of the left-sided collecting system likely related to a degree of obstruction of the left ureterovesicular junction from the above-described echogenic structure.
--- NOTE | 2018-05-06 13:09 | NUR ---
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 2) Increased kcal and protein needs r/t wound healing as evidenced by stage 2 rt hip wound. CURRENT DIET:NPO PO DIET RECOMMENDATIONS: IF SAFE FOR PO -> CCHO MED, LOW NA/ texture per PROCESSOR SOLID PROPELLANT ENTERAL NUTRITION RECOMMENDATIONS: GLUCERNA 1.2 @ 60ml/hr x 24 hrs to provide 1440ml, 1728kcal, 86g prot, 1181ml free water - WITH GI ACCESS, initiate Glucerna 1.2 @ 20ml/hr x 6 hrs, advance 10ml q 4- 6hrs as tolerated to goal rate. - Flush per MD/ HOB over 30 degrees ADDITIONAL RECOMMENDATIONS: - Monitor for safety of PO diet vs nonoral feeds -PROCESSOR SOLID PROPELLANT recommends NPO at this time - Recalibrate bed scale for accurate CBW - Monitor renal fxn and lytes - WC eval of rt hip wound -Daniel 1pkt BID w/ GI access
[2018-05-06] MEDS ORDERED: NS 275ml ONE (14:42)
[2018-05-06] MEDS ORDERED: Tubing IV Secondary IV ONE (14:42)
--- NOTE | 2018-05-06 16:00 | History and Physical Report ---
DATE OF ADMISSION: 05/05/2018 CHIEF COMPLAINT: Encephalopathy, sepsis, acute renal failure, history of seizure disorder, stroke and diabetes. HISTORY OF PRESENT ILLNESS: The patient is an unfortunate 72-year-old male well known to me. He has history of dementia, schizophrenia, chronic kidney disease, diabetes, hypertension, stroke as well as seizure disorder. He was transferred from a care home facility after he was found unresponsive. He was noted to be slightly hypotensive. There are no reports of any fevers or chills. No nausea or vomiting at the skilled nursing. He was transferred by paramedics to [facility]. On evaluation there, his blood pressure was more stable. Laboratories were significant for sodium of 177 and a creatinine of 4.1. He also had evidence of urinary tract infection. He has been started on IV hydration and fluids. He is now admitted for further evaluation and care. PAST MEDICAL HISTORY: As above. PAST SURGICAL HISTORY: Includes a prior history of G-tube. CURRENT MEDICATIONS: Reconciled and reviewed. ALLERGIES: None. FAMILY HISTORY: None. SOCIAL HISTORY: There is no known history of tobacco, ethanol, or drugs. REVIEW OF SYSTEMS: Unobtainable as the patient is nonverbal. PHYSICAL EXAMINATION: VITAL SIGNS: Temperature 98, pulse 53, respirations 24, blood pressure 100/60. GENERAL: The patient is a chronically ill-appearing thin male, no apparent distress. HEART: Regular rate and rhythm. LUNGS: Clear. ABDOMEN: Soft, nontender, and nondistended. EXTREMITIES: Without clubbing, cyanosis, or edema. NEUROLOGIC: The patient is poorly responsive and confused at baseline. LABORATORY DATA: White cell count 9, hemoglobin 12, hematocrit 39, platelet count 169. Sodium 177, potassium 3.9, chloride 135, bicarb 27, BUN of 104 with creatinine 4.1. Lactic acid level was 1.7. Natriuretic peptide level was 2400. UA showed too numerous to count wbc's. ASSESSMENT: This is an unfortunate male with history of schizophrenia, seizure disorder, stroke, hypertension diabetes admitted with acute renal failure likely secondary to dehydration. 1. Acute renal failure. 2. History of seizure disorder. 3. Stroke. 4. . 5. Chronic obstructive pulmonary disease. 6. History of congestive heart failure. 7. History of anemia. 8. Prior history of dysphagia. PLAN: 1. Aggressive fluid resuscitation. 2. Correction of patient's sodium level. 3. Renal and Cardiology evaluation obtained. 4. Empiric antibiotic therapy for urinary tract infection and sepsis. 5. We will follow pending cultures. 6. Monitor laboratories closely. 7. Check renal ultrasound. 8. We will continue the patient's seizure medicine. 9. We will also check swallow evaluation. Jcarlos David M.D. DR: Julian JOB#: [id number] CC:
--- NOTE | 2018-05-06 16:12 | NUR ---
NURSE NOTES: Patient observed to be nonverbal, does not follow commands, does not open eyes spontaneously however does respond to stimulus and is very restless. Patient does not appear in any acute distress, is free from facial grimacing. Patient is being monitored on the hospital monitor VSS. 113/94, HR 49, RR 32 SPO2 100%. Patient is now on a venti mask 40% at 8L. Patient is contracted BLE and RUE however his LUE is not and is 4/5 in strength. Patient has been pulling at his lines and requires BL soft wrist restraints. Pulses are palpable and skin is intact. Patient continues to be NPO. Patient has a Enriquez Catheter draining to draining gravity with dark oswaldo urine. Patient has two peripheral IV sites LFA 20G and POOJA 20G running D5 1/2 NS with 10 mEq at 200 ml/hr. Safety measures are in place with bed locked in lowest position with side rails up x 3 closest to the nurses station HOB elevated. Will continue to monitor and follow plan of care.
--- NOTE | 2018-05-06 17:00 | NUR ---
NURSE NOTES: Spoke to Dr Gooden regarding hypotension and SB. Per MD, insert PICC line, however, no consent could be obtained. Requested dictated note from MD however MD faxed a note to the unit. The note was insufficient for IR/Radiology to obtain consent with a dictated note or two MD signature. Neither was obtained by MD. If necessary and it becomes necessary, will do it by emergency placement. Will endorse to PM RN.
--- NOTE | 2018-05-06 17:30 | NUR ---
NURSE NOTES: Dr Hayes assessed patient bedside. New Orders placed. Discussed UOP and SB . Will continue to monitor patient and follow MD plan of care
--- NOTE | 2018-05-06 18:40 | NUR ---
NURSE NOTES: Called Pharmacy. No Insulin Pen earlier and No Dilantin in the bin. Now there is an Insulin Pen however no Dilantin in the bin. Waiting for the IV to hang.
[2018-05-06] MEDS: NovoLOG Insulin Flexpen SUBQ SCH ×2 (18:56→21:00)
--- NOTE | 2018-05-06 19:30 | NUR ---
NURSE NOTES: Received report and pt from MARGARTIA Rush. Pt's resting in bed, in no acute distress, non verbal, Current BP 94/60, HR 51, R24, O2 sat 98% on Venti Mask 40% with 8L. SB on monitoring analyst. NPO at this time, Enriquez 16Fr inserted this AM for urinary retention, patent, draining dark yellow urine. SPR mattress applied. Pt has Left FA 20G, Right UA 20G intact and patent. Running D5 1/2NS with 10meq KCL at 150ml/hr. Restrain noted for LEFT wrist, no adverse reactions. Pt was observed removing his lines, wires. Seizure precaution initiated. HOB kept elevated, bed in low and locked position. Awaiting for MD orders. Will continue to monitor.
--- NOTE | 2018-05-06 20:00 | Consultation ---
DATE OF CONSULTATION: NEPHROLOGY CONSULTATION REFERRING PHYSICIAN: Jcarlos David M.D. REASON FOR CONSULTATION: Hypernatremia and azotemia. HISTORY OF PRESENT ILLNESS: The patient is a 72-year-old, resident of an [facility], who is unable to give a history. He has a history of prior strokes, dementia, malnutrition, and apparently chronic kidney disease. He also has diabetes and schizophrenia. The patient is contracted and unable to give a history. He presents with abnormal laboratories and hypotension from an ECF. Sodium was 177 and creatinine 4.1 on admission. PAST SURGICAL HISTORY: Prior surgeries include gastrostomy. SYSTEM REVIEW: The patient is unable. MEDICATIONS: From the [facility] are reviewed includes the following. Review of medications from the F include atorvastatin, Plavix, cranberry, divalproex, DSS, Dulcolax, Fleet p.r.n., subcutaneous heparin, hydroxyzine, isosorbide, Keppra, lorazepam, metoprolol, milk of magnesia, multivitamins, Dilantin, Seroquel, Tylenol, and apparently recently had vancomycin. PHYSICAL EXAMINATION: GENERAL: The patient is lying in bed, cachectic in a contracted position. VITAL SIGNS: Blood pressure 94/71, pulse ox 98% on 3 liters, temperature 98.9, heart rate 48. HEAD, EYES, EARS, AND NOSE: Edentulous. Oral mucosa is dry. NECK: No adenopathy. LUNGS: Distant breath sounds. HEART: Regular rhythm. Bradycardic. I hear no murmur. ABDOMEN: Without organomegaly. EXTREMITIES: Severe contractions and muscle wasting. NEUROLOGIC: The patient opens his eyes, looks above, but is not verbal. PERTINENT LABORATORY DATA: Show white count of 9.4, hemoglobin 12.1, sodium 171, potassium 4, BUN 99, creatinine is 4, and the glucose 193. Albumin 1.8. Urinalysis shows too numerous to count white cells, 3+ protein. IMPRESSION: 1. Severe dehydration. 2. Acute kidney injury. 3. Some history of chronic kidney disease, baseline unclear. 4. Urinary retention 650 mL, will receive when the Enriquez is placed. 5. Echogenic kidneys. 6. Mild left hydronephrosis possibly from urinary retention. 7. Pyuria and likely urinary tract infection. 8. Severe cachexia. PLAN: The patient will be hydrated with hypotonic fluids for gradual correction of his sodium. He is being treated with broad-spectrum antibiotics. His overall prognosis is very poor with a very low albumin and severe cachexia. Dony Hayes M.D. DR: NEREIDA JOB#: [id number] CC:
--- NOTE | 2018-05-06 21:00 | NUR ---
NURSE NOTES: Pt's resting in bed, in no acute distress. VS stable. Will continue to monitor.
--- NOTE | 2018-05-06 23:00 | NUR ---
NURSE NOTES: Pt's resting in bed, in no acute distress. VS stable. Will continue to monitor.
[2018-05-07] VITALS (24 sets, daily range): BP systolic 82–131; BP diastolic 19–77
[2018-05-07] MEDS: D5 1/2NS w/KCL 10meq 1,000 ML IV SCH ×2 (00:10→01:23)
[2018-05-07] MEDS: NS IVPB SCH ×4 (00:11→23:40)
[2018-05-07] MEDS: PHENYTOIN IVPB SCH ×4 (00:11→23:40)
--- NOTE | 2018-05-07 01:00 | NUR ---
NURSE NOTES: Pt's resting in bed with eyes closed, in no acute distress, Vs stable. Will continue to monitor.
--- NOTE | 2018-05-07 01:30 | Progress Note ---
DATE: 05/06/2018 CARDIOLOGY PROGRESS NOTE SUBJECTIVE: Condition has not improved. The patient remains critical and guarded in the intensive care unit. Despite aggressive fluid challenges and hydration, he remains hypotensive. Poor intravenous access peripherally is noted as well. The patient was started on dopamine. He has episodes of sinus bradycardia. PHYSICAL EXAMINATION: LUNGS: Good breath sounds. HEART: Regular rhythm and rate. Normal S1, S2. ABDOMEN: Soft. EXTREMITIES: No edema. LABORATORY DATA: Gram-negative bacillus in the urine. Sodium 171, potassium 4, bicarb 24, chloride 132, BUN 99, and creatinine 4. Albumin 1.8. TSH 2.9. ABG, pH 7.4, pCO2 33, and pO2 62. IMPRESSION: 1. Shock. 2. Sepsis. 3. Hypovolemia. 4. Severe dehydration. 5. Severe hyperchloremia. 6. Metabolic encephalopathy. 7. Sinus bradycardia. PLAN: 1. Intensive care unit care. 2. No indication for pacemaker. 3. Aggressive volume support. 4. Hypotonic IV fluids. 5. Pressors as needed. 6. DVT and stress ulcer prophylaxis. 7. Antiseizure therapy by IV route. 8. Nutrition by NG-tube. 9. Needs life-sustaining central access for intravenous hydration. PICC line is recommended. Consent cannot be given by the patient and no family members could be contacted. Augustus Gooden M.D. DR: QI JOB#: [id number] CC:
[2018-05-07] MEDS: LORazepam Inj 2mg/ml 1ml IV PRN (02:28)
--- NOTE | 2018-05-07 03:00 | NUR ---
NURSE NOTES: Pt's resting in bed, in no acute distress. VS stable. Will continue to monitor.
--- NOTE | 2018-05-07 05:00 | NUR ---
NURSE NOTES: Pt's resting in bed, in no distress. VS stable. Will continue to monitor.
[2018-05-07 05:54] LABS: ALANINE AMINOTRANSFERASE 7 U/L (12-78); ALBUMIN 1.9 G/DL (3.4-5.0); ALBUMIN/GLOBULIN RATIO 0.4 (1.0-2.7); ALKALINE PHOSPHATASE 97 U/L (46-116); ANION GAP 20 mmol/L (5-15); ASPARTATE AMINO TRANSFERASE 19 U/L (15-37); BILIRUBIN,TOTAL 0.3 MG/DL (0.2-1.0); BLOOD UREA NITROGEN 97 mg/dL (7-18); CALCIUM 7.6 MG/DL (8.5-10.1); CARBON DIOXIDE 18 MMOL/L (21-32); CHLORIDE 132 MMOL/L (98-107); CREATININE 3.8 MG/DL (0.55-1.30); POTASSIUM 4.2 MMOL/L (3.5-5.1)
[2018-05-07 06:02] LABS: SODIUM 170 MMOL/L (136-145)
[2018-05-07] MEDS: Zosyn 2.25 gm in D5W 55ml IV SCH (06:14)
[2018-05-07] MEDS: NovoLOG Insulin Flexpen SUBQ SCH ×4 (06:16→21:22)
--- NOTE | 2018-05-07 07:30 | NUR ---
HAND-OFF: Report given to MARGARITA Rush.
--- NOTE | 2018-05-07 07:35 | NUR ---
NURSE NOTES: Report received from MARGARITA Serrano. Patient observed to be nonverbal, does not follow commands, does not open eyes spontaneously however does respond to stimulus. Patient does not appear in any acute distress, is free from facial grimacing. Patient is being monitored on the cardiac cath lab manager VS 102/51, HR 46, RR 22 SPO2 100%. Patient is currently on Venti Mask 8L on 40%. Oral care was performed and patient was suctioned. Patient is contracted BLE and RUE however his LUE is not and is 4/5 in strength. When patient had his restraints removed, patient immediately grabs at his lines and gown. Patient has soft restraints on LH only. Pulses are palpable and skin is intact. Patient continues to be NPO. Patient has a Enriquez catheter draining dark tea colored urine to gravity with good urine output. Patient has two peripheral IV sites LFA 20G and POOJA 20G running D5 1/2 NS with 10 mEq at 150 ml/hr. Safety measures are in place with bed locked in lowest position with side rails up x 3 closest to the nurses station HOB elevated. Will continue to monitor and follow plan of care.
--- NOTE | 2018-05-07 08:09 | General Progress Note ---
Assessment/Plan Problem List: (1) Seizure ICD Codes: R56.9 - Unspecified convulsions SNOMED: 65044756 (2) Sepsis ICD Codes: A41.9 - Sepsis, unspecified organism SNOMED: 97429512 (3) Acute encephalopathy ICD Codes: G93.40 - Encephalopathy, unspecified SNOMED: 2540401 (4) Hypernatremia ICD Codes: E87.0 - Hyperosmolality and hypernatremia SNOMED: 42741274 (5) Renal failure ICD Codes: N19 - Unspecified kidney failure SNOMED: 04549321 Qualifiers: Qualified Codes: N17.9 - Acute kidney failure, unspecified (6) Respiratory distress ICD Codes: R06.03 - Acute respiratory distress SNOMED: 422032584 (7) Dehydration ICD Codes: E86.0 - Dehydration SNOMED: 47201170 (8) SOB (shortness of breath) ICD Codes: R06.02 - Shortness of breath SNOMED: 651519397 (9) UTI (urinary tract infection) ICD Codes: N39.0 - Urinary tract infection, site not specified SNOMED: 23663326 Qualifiers: Qualified Codes: N39.0 - Urinary tract infection, site not specified Status: not improved Assessment/Plan IVF adjusted to d5w repeat bmp later today picc line for pressors- may need dopamine for low hr and shock unable to contact . needs emergent picc line to run pressors which may be life saving. ID eval o2 resp rx monitor cxr ngt GI eval- for gt Subjective ROS Limited/Unobtainable: No Constitutional: Reports: malaise, weakness HEENT: Reports: no symptoms Cardiovascular: Reports: no symptoms Respiratory: Reports: no symptoms Gastrointestinal/Abdominal: Reports: difficulty swallowing Genitourinary: Reports: no symptoms Neurologic/Psychiatric: Reports: pre-existing deficit, seizure Endocrine: Reports: no symptoms Hematologic/Lymphatic: Reports: anemia Allergies: Coded Allergies: No Known Allergies (Unverified , 07/08/16) All Systems: reviewed and negative except above Subjective hypoxic and bradycardic. hypotensive at times. no fever or chills. +uop. 650 post void after newsome placed Objective Last 24 Hour Vital Signs Date Time Temp Pulse Resp B/P (MAP) Pulse Ox O2 Delivery O2 Flow Rate FiO2 12/27/18 07:00 98.7 47 22 102/51 (68) 100 05/07/18 06:00 47 22 97/23 (47) 100 05/07/18 05:00 47 22 94/33 (53) 100 05/07/18 04:00 Nasal Cannula 3.0 05/07/18 04:00 47 05/07/18 04:00 47 23 116/77 (90) 100 05/07/18 03:00 49 22 110/70 (83) 100 05/07/18 02:00 49 22 100/72 (81) 100 05/07/18 01:00 98.8 54 23 131/43 (72) 98 05/07/18 00:00 52 23 87/72 (77) 98 05/07/18 00:00 Nasal Cannula 3.0 05/07/18 00:00 50 05/06/18 23:00 53 23 115/100 (105) 98 05/06/18 22:00 52 23 102/35 (57) 98 05/06/18 21:00 52 23 116/76 (89) 98 05/06/18 20:00 50 23 95/54 (68) 98 05/06/18 20:00 54 05/06/18 20:00 Nasal Cannula 3.0 05/06/18 19:47 100 Venturi Mask 12.0 50 05/06/18 19:47 Venturi Mask 12.0 50 05/06/18 19:00 51 23 90/40 (57) 98 05/06/18 18:00 54 17 105/54 (71) 98 05/06/18 17:00 49 18 115/39 (64) 98 05/06/18 16:00 Nasal Cannula 3.0 05/06/18 16:00 48 05/06/18 16:00 98.9 48 24 94/71 (79) 98 05/06/18 15:00 50 24 121/28 (59) 100 05/06/18 14:00 50 24 89/45 (60) 99 05/06/18 13:00 51 24 88/50 (63) 98 05/06/18 12:00 99.0 53 23 127/51 (76) 93 05/06/18 12:00 Nasal Cannula 3.0 05/06/18 12:00 41 05/06/18 11:00 52 25 103/40 (61) 99 05/06/18 10:00 52 25 103/40 (61) 99 05/06/18 09:00 52 23 116/86 (96) 99 Intake and Output 05/06/18 05/07/18 19:00 07:00 Intake Total 2174 ml 2067 ml Output Total 1010 ml 380 ml Balance 1164 ml 1687 ml Intake Oral 0 ml 0 ml IV Total 2174 ml 2067 ml Output Urine Total 1010 ml 380 ml Laboratory Tests 05/06/18 16:18: Arterial Blood pH 7.400, Arterial Blood Partial Pressure CO2 33.5L, Arterial Blood Partial Pressure O2 62.1L, Arterial Blood HCO3 20.4L, Arterial Blood Oxygen Saturation 90.8L, Arterial Blood Base Excess -3.6L, Larry Test Positive 05/07/18 04:30: Sodium Level 170*H, Potassium Level 4.2, Chloride Level 132H, Carbon Dioxide Level 18L, Anion Gap 20H, Blood Urea Nitrogen 97H, Creatinine 3.8H, Estimat Glomerular Filtration Rate , Glucose Level 168H, Calcium Level 7.6L, Total Bilirubin 0.3, Aspartate Amino Transf (AST/SGOT) 19, Alanine Aminotransferase ( ALT/SGPT) 7L, Alkaline Phosphatase 97, Total Protein 7.3, Albumin 1.9L, Globulin 5.4, Albumin/Globulin Ratio 0.4L Height (Feet): 5 Height (Inches): 4.00 Weight (Pounds): 135 General Appearance: WD/WN, lethargic, confused Neck: supple Cardiovascular: regular rhythm Respiratory/Chest: chest wall non-tender, lungs clear, normal breath sounds Abdomen: normal bowel sounds, non tender, soft, no organomegaly Edema: no edema noted Arm (L), no edema noted Arm (R), no edema noted Leg (L), no edema noted Leg (R), no edema noted Pedal (L), no edema noted Pedal (R), no edema noted Generalized Neurologic: disoriented, unresponsive, aphasia Jcarlos David MD May 07, 2018 08:09
[2018-05-07] MEDS ORDERED: Heparin 2000 units/Ns 1000ml INJ PRN (08:15)
[2018-05-07] MEDS ORDERED: Lidocaine 1% Plain 30 ml INJ PRN (08:15)
--- NOTE | 2018-05-07 08:15 | NUR ---
NURSE NOTES: Dr David assessed the patient. Orders were placed as well as a note dictated to reflect an urgent consent for a PICC line for the patient to be placed. Discussed the patient's SB, per MD will continue to monitor.
[2018-05-07] MEDS: Pantoprazole Inj IVP SCH (08:35)
[2018-05-07] MEDS: Acetaminophen 650 MG SUPP RECTAL SCH (08:36)
[2018-05-07] MEDS: Heparin 5000 units/ml inj SUBQ SCH ×2 (08:51→21:20)
--- NOTE | 2018-05-07 10:56 | NUR ---
RADIOLOGY DEPT CHEST AND ABDOMEN (KUB) X-RAYS PERFORMED.-P.DYE
[2018-05-07] MEDS: levETIRAcetam 500mg/NS100ml 100 ML IVPB SCH ×2 (11:27→23:41)
--- NOTE | 2018-05-07 11:50 | NUR ---
NURSE NOTES: OGT was inserted per MD order. Patient tolerated placement. Currently clamped until confirmation of placement as well as advancement of diet from NPO from MD. Will continue to monitor.
--- NOTE | 2018-05-07 11:54 | Cardiology Report ---
APPROVED REPORT EKG Measurement Heart [id number] [id number] Normal sinus rhythm Nonspecific T wave abnormality Abnormal ECG
--- NOTE | 2018-05-07 11:57 | Diagnostic Imaging Report ---
Indication: Nasogastric tube placement Technique: XRAY Abdomen 1v Comparison: None FINDINGS/IMPRESSION: Nasogastric tube tip in the proximal stomach. Gaseous distention of colonic loops noted. Significant stool noted in the midline, likely in the rectosigmoid colon. Correlate clinically to exclude fecal impaction. No definite evidence of free intraperitoneal air however sensitivity is limited without erect/upright view. Degenerative changes of the spine. No acute osseous normality.
--- NOTE | 2018-05-07 12:10 | NUR ---
NURSE NOTES: Patient observed bedside. Patient is resting and not in any acute distress. Patient is nonverbal, does not follow commands, opens eyes spontaneously and responds to stimulus. Patient is being monitored on the ekg monitor tech with VSS except that patient is SB. Patient is currently on Venti Mask 8L on 40%. Oral care was performed and patient was suctioned. Patient has soft restraints on LH only. Pulses are palpable and skin is intact. Patient continues to be NPO however patient now has OGT that is clamped. Patient has a Enriquez catheter draining dark tea colored urine to gravity with good urine output. Patient has two peripheral IV sites LFA 20G and POOJA 20G running D5W at 150 ml/hr. Safety measures are in place with bed locked in lowest position with side rails up x 3 closest to the nurses station HOB elevated. Will continue to monitor and follow plan of care.
--- NOTE | 2018-05-07 12:53 | Diagnostic Imaging Report ---
Indication: Dyspnea Technique: XRAY Chest 1v Comparison: 05/06/2018 Findings: Heart size and mediastinal contours stable. Interval placement of a enteric tube, tip in the proximal stomach. There is elevation of the right hemidiaphragm. Some patchy opacities noted at the right base. No definite pneumothorax or radiographic appreciable pleural effusion. Osseous structures stable. Prominent colonic gas again noted. Impression: Interval placement of enteric tube, tip in the proximal stomach. Elevation of the right hemidiaphragm and right basilar opacities again noted. Prominent colonic gas
--- NOTE | 2018-05-07 13:29 | Cardiology Report ---
APPROVED REPORT EXAM: Two-dimensional and M-mode echocardiogram with Doppler and color Doppler. INDICATION Shortness of breath M-Mode DIMENSIONS Technically difficult and limited study due to poor acoustic windows. Study quality precludes accurate assessment of regional wall motion. M-mode measurements of left ventricle not obtainable due to cardiac position (angle). Normal left ventricular chamber size, systolic function and wall motion to extent visualized. Left ventricular ejection fraction estimated to be grossly normal. There appears to be no evidence of left ventricular hypertrophy. No evidence of pericardial effusion. All other cardiac chamber sizes appear to be within normal limits. Mild focal aortic valve sclerosis with adequate cusp excursion. Mildly thickened mitral valve leaflets with normal excursion. Mild mitral annulus and aortic root calcification. Pulmonic valve not visualized. Normal tricuspid valve structure. IVC is normal in size with physiological collapse. A color flow and spectral Doppler study was performed and revealed: No aortic insufficiency. No mitral regurgitation. Normal left ventricular diastolic function. No tricuspid regurgitation. Tricuspid systolic velocities suggests peak right ventricular systolic pressure of 10 mmHg.
--- NOTE | 2018-05-07 13:55 | Nephrology Progress Note ---
Assessment/Plan Problem List: (1) UTI (urinary tract infection) (2) History of ESBL E. coli infection (3) Dehydration (4) EBEN (acute kidney injury) (5) Hypernatremia (6) UTI (urinary tract infection) (7) Sepsis (8) Acute encephalopathy Plan continue iv fluids, gradual correction Na, antibiotcs Subjective ROS Limited/Unobtainable: Yes Objective Objective Last 24 Hour Vital Signs Date Time Temp Pulse Resp B/P (MAP) Pulse Ox O2 Delivery O2 Flow Rate FiO2 05/07/18 12:00 Nasal Cannula 3.0 05/07/18 12:00 97.0 48 28 100/19 (46) 90 05/07/18 11:00 50 23 95/20 (45) 94 05/07/18 10:00 48 23 112/47 (68) 94 05/07/18 09:00 47 23 93/32 (52) 96 05/07/18 08:00 Nasal Cannula 3.0 05/07/18 08:00 98.7 46 25 109/36 (60) 100 05/07/18 07:45 100 Venturi Mask 12.0 50 05/07/18 07:45 Venturi Mask 12.0 50 05/07/18 07:00 98.7 47 22 102/51 (68) 100 05/07/18 06:00 47 22 97/23 (47) 100 05/07/18 05:00 47 22 94/33 (53) 100 05/07/18 04:00 Nasal Cannula 3.0 05/07/18 04:00 47 05/07/18 04:00 47 23 116/77 (90) 100 05/07/18 03:00 49 22 110/70 (83) 100 05/07/18 02:00 49 22 100/72 (81) 100 05/07/18 01:00 98.8 54 23 131/43 (72) 98 05/07/18 00:00 52 23 87/72 (77) 98 05/07/18 00:00 Nasal Cannula 3.0 05/07/18 00:00 50 05/06/18 23:00 53 23 115/100 (105) 98 05/06/18 22:00 52 23 102/35 (57) 98 05/06/18 21:00 52 23 116/76 (89) 98 05/06/18 20:00 50 23 95/54 (68) 98 05/06/18 20:00 54 05/06/18 20:00 Nasal Cannula 3.0 05/06/18 19:47 100 Venturi Mask 12.0 50 05/06/18 19:47 Venturi Mask 12.0 50 05/06/18 19:00 51 23 90/40 (57) 98 05/06/18 18:00 54 17 105/54 (71) 98 05/06/18 17:00 49 18 115/39 (64) 98 05/06/18 16:00 Nasal Cannula 3.0 05/06/18 16:00 48 05/06/18 16:00 98.9 48 24 94/71 (79) 98 05/06/18 15:00 50 24 121/28 (59) 100 05/06/18 14:00 50 24 89/45 (60) 99 Intake and Output 05/06/18 05/07/18 19:00 07:00 Intake Total 2174 ml 2067 ml Output Total 1010 ml 380 ml Balance 1164 ml 1687 ml Intake Oral 0 ml 0 ml IV Total 2174 ml 2067 ml Output Urine Total 1010 ml 380 ml Laboratory Tests 05/06/18 16:18: Arterial Blood pH 7.400, Arterial Blood Partial Pressure CO2 33.5L, Arterial Blood Partial Pressure O2 62.1L, Arterial Blood HCO3 20.4L, Arterial Blood Oxygen Saturation 90.8L, Arterial Blood Base Excess -3.6L, Larry Test Positive 05/07/18 04:30: Sodium Level 170*H, Potassium Level 4.2, Chloride Level 132H, Carbon Dioxide Level 18L, Anion Gap 20H, Blood Urea Nitrogen 97H, Creatinine 3.8H, Estimat Glomerular Filtration Rate , Glucose Level 168H, Calcium Level 7.6L, Total Bilirubin 0.3, Aspartate Amino Transf (AST/SGOT) 19, Alanine Aminotransferase ( ALT/SGPT) 7L, Alkaline Phosphatase 97, Total Protein 7.3, Albumin 1.9L, Globulin 5.4, Albumin/Globulin Ratio 0.4L Height (Feet): 5 Height (Inches): 4.00 Weight (Pounds): 135 General Appearance: cachetic EENT: other - dry mouth Neck: non-tender Cardiovascular: normal rate Respiratory/Chest: decreased breath sounds Abdomen: non tender Extremities: other - contracted no edema Neurologic: disoriented Dony Hayes MD May 07, 2018 13:55
--- NOTE | 2018-05-07 14:11 | NUR ---
NURSE NOTES: Patient is being prepared for PICC line. Patient continues to be SB. Primary and Cards MD are aware. No further orders have been given other than close monitoring. Patient was cleaned, repositioned and had a partial linen change for comfort prior to procedure. Will continue to monitor and follow plan of care.
--- NOTE | 2018-05-07 15:22 | Diagnostic Imaging Report ---
Indications: Needs long-term IV access Technique: Patient unable to consent for himself. No family or definite healthcare proxy available. Emergent need for the procedure documented in the electronic medical record by 2 physicians. Procedure performed at bedside. Procedural timeout performed. Ultrasound confirms patent compressible left basilic vein. Total sterile technique, including sterile probe cover and sterile gel, sterile gloves, hand hygiene, hat, mask,, sterile gown, large sterile drape, and preparation with 2% chlorhexidine utilized. Local anesthesia with 1% lidocaine. Under real-time ultrasound guidance, puncture was vein using 21-gauge needle, passage 0.018 guidewire, exchange for 5 Yemeni peel-away sheath. 5 Yemeni dual-lumen power PICC cut to 40 cm. It was inserted through the peel-away sheath. Peel-away sheath and guidewire removed. Catheter fixed to the skin. Both catheter ports aspirated and flushed. Patient tolerated procedure well, without immediate complication. Followup chest x-ray obtained, documents catheter tip position at the left innominate vein/superior vena cava confluence. Additional findings unchanged compared to prior chest radiograph. IMPRESSION: Successful bedside placement of 5 Yemeni double-lumen PICC under sonographic guidance, as described above. Catheter cleared for immediate use.
--- NOTE | 2018-05-07 16:15 | Consultation ---
DATE OF CONSULTATION: 05/07/2018 INFECTIOUS DISEASES CONSULTATION This consult is for coverage of Dr. Conteh CONSULTING PHYSICIAN: Rik Mansfield M.D. PRIMARY ATTENDING PHYSICIAN: Jcarlos David M.D. REASON FOR CONSULTATION: UTI. HISTORY OF PRESENT ILLNESS: The patient is a 72-year-old white male who is a [facility] resident admitted on 05/05/2018 because of altered mental status. He was found to have hypoxemia, bradycardia, hypotension, urinary retention and after Enriquez catheter placement 650 mL of urine came out, has hypernatremia, and renal failure. Urine culture is becoming positive. PAST MEDICAL HISTORY: Diabetes mellitus dementia, COPD, anemia, chronic kidney disease. ALLERGIES: No known drug allergy. MEDICATIONS: Tylenol, heparin, Novolin insulin, Protonix, phenytoin, Keppra, Zosyn, haloperidol, Ativan, heparin. SOCIAL HISTORY: long term resident. No other history obtainable by the patient. The patient is single. PHYSICAL EXAMINATION: VITAL SIGNS: Temperature 98.7, pulse 46, blood pressure 109/36. GENERAL APPEARANCE: Seems to be thin on restrains, sedated. HEAD AND NECK: Getting oxygen by Venturi mask, has NG tube. HEART: Bradycardic. LUNGS: Clear ABDOMEN: Soft. EXTREMITIES: No edema. LABORATORY AND DIAGNOSTIC DATA: WBC 9.4, hemoglobin 12.1, hematocrit 39.1, and platelets is 169. Sodium 170, potassium 4.2, chloride 132, carbon dioxide 18, BUN 97, creatinine 3.8, glucose 168. Chest x-ray showed congestion and increased hazy opacity in right lung base that may be scarring or atelectasis. Renal ultrasound showed distended bladder, echogenic material in the dependent portion of the left posterior bladder. Urine culture growing E. coli ESBL. Blood culture x2 is negative. Influenza test was negative. IMPRESSION: 1. UTI that seems to be complicated with E.coli ESBL. 2. Dehydration and hypernatremia. 3. Chronic kidney disease and acute renal failure. 4. Diabetes mellitus. 5. Seizure disorder. 6. Hypoxemic respiratory failure. 7. Bradycardia. RECOMMENDATION: We will change Zosyn to meropenem. We will follow up the cultures. At the end of my exam, I thank Dr. David, for involving me in the care of this patient. Rik Mansfield M.D. DR: Abdiel JOB#: [id number] CC:
--- NOTE | 2018-05-07 16:30 | NUR ---
NURSE NOTES: Patient observed bedside to be SB. Patient is resting with his eyes closed and is not in any acute distress. Patient is being monitored on the equipment monitor phototypesetting with VSS except that patient is SB. Patient is currently on Venti Mask 8L on 40% and saturating at 100%. Oral care was performed and patient was suctioned. Patient has soft restraints on LH only. Pulses are palpable and skin is intact. Patient continues to be NPO however patient now has OGT that is clamped. Patient has a Enriquez catheter draining dark tea colored urine with sediment to gravity with good urine output. Patient's Enriquez catheter is anchored to patient's left leg. Patient has two peripheral IV sites LFA 20G and POOJA 20G running D5W at 150 ml/hr. Safety measures are in place with bed locked in lowest position with side rails up x 3 and side rails padded for sz precautions and HOB elevated. Will continue to monitor and follow plan of care.
--- NOTE | 2018-05-07 17:15 | NUR ---
CASE MANAGEMENT: REVIEW SI: SOB . HYPERNATREMIA . ALOC T 97.0 HR 46 R 25 BP 93/32 SAT 94% NC/3L NA 170 BUN 97 CR 3.8 IS: MEROPENEM IV Q12HR D5 W IVF @150ML/HR PROTONIX PO QD KEPPRA IV Q12HR DILANTIN IV Q8HR ICU STATUS DCP: PATIENT IS FROM [facility]
[2018-05-07 17:54] LABS: ANION GAP 16 mmol/L (5-15); BLOOD UREA NITROGEN 95 mg/dL (7-18); CALCIUM 7.6 MG/DL (8.5-10.1); CARBON DIOXIDE 19 MMOL/L (21-32); CHLORIDE 128 MMOL/L (98-107); POTASSIUM 3.6 MMOL/L (3.5-5.1)
[2018-05-07 17:58] LABS: SODIUM 166 MMOL/L (136-145)
--- NOTE | 2018-05-07 19:24 | NUR ---
HAND-OFF: Report given to MARGARITA Gu. Patient with VSS and not in any acute distress.
--- NOTE | 2018-05-07 19:30 | NUR ---
NURSE NOTES: Recvd.on 40% Vm Resp.slight labored on exertion.Lungs scatt.Rales/Rh.P.Ox-98-100%.Suctioned Tk.Beige/Yellowish sec.Cont.on 40%VM.Observed for S/S of Resp.Distress.Cont.P.Ox.V/S monitored.Cont.Ca.monitoring.NPO as ordered.IV Thera.in progress.
[2018-05-07] MEDS: Dyna-Hex 2% Top Sol 2oz TOPIC SCH (19:56)
[2018-05-07] MEDS: Meropenem 500 MG in NS 55 ML IVPB SCH (21:16)
--- NOTE | 2018-05-07 21:30 | Consultation ---
DATE OF CONSULTATION: 05/07/2018 CONSULTING PHYSICIAN: Niranjan Tellez M.D. REFERRING PHYSICIAN: Jcarlos David M.D. REASON FOR CONSULTATION: Urinary retention. HISTORY OF PRESENT ILLNESS: This is a 72-year-old male, a resident of retirement. He was admitted to the hospital because of responsiveness but he was found in the retirement. He was also and was concerned for sepsis. He was noted to have acute renal failure also, he has urinary tract infection. Apparently yesterday he was in retention and a Enriquez catheter was placed over 500 mL of residual urine. Urology evaluation was requested. Most of the history was obtained from the chart. PAST MEDICAL HISTORY: Significant for above, history of encephalopathy, history of seizure disorder, stroke, diabetes, schizophrenia, chronic kidney disease. PAST SURGICAL HISTORY: G-tube placement. Other surgeries are unknown. CURRENT MEDICATIONS: In the hospital, the patient is on meropenem, Tylenol, lidocaine, heparin, insulin, pantoprazole, phenytoin, levetiracetam, Haldol, Ativan, heparin. ALLERGIES: No known drug allergies. SOCIAL HISTORY: He is a resident of a retirement. FAMILY HISTORY: Unable to obtain. REVIEW OF SYSTEMS: Unable to obtain. PHYSICAL EXAMINATION: GENERAL: Elderly male. VITAL SIGNS: Temperature 97.2, blood pressure is 127/49, pulse is 48, respirations 22. HEENT: Normocephalic. NECK: Supple. ABDOMEN: Soft. G-tube in place. Enriquez catheter is in place. Urine is cloudy, oswaldo. LABORATORY DATA: UA on admission show 2 to 4 rbc's, too numerous to count wbc's, many bacteria, 3+ protein. White count is 9.4, hemoglobin 12.1, and platelets are 169. BUN 95, creatinine is 3.0. He did have a creatinine of 4.0 yesterday. Urine culture from 05/05/2018 showing E. coli with ESBL sensitivities noted. DIAGNOSTIC IMAGING STUDIES: The patient had a renal ultrasound yesterday. There was mention of mild left-sided hydronephrosis, simple appearing renal cyst. The bladder was distended. There was echogenic debris gallbladder within the bladder. IMPRESSION: 1. Urinary retention. 2. Benign prostatic hypertrophy. 3. Probable neurogenic bladder. 4. Renal insufficiency, acute on chronic. 5. Urinary tract infection. 6. Hematuria. 7. Proteinuria. 8. Hydronephrosis. 9. Renal cysts. PLAN AND DISCUSSION: The patient is to continue with antibiotics as ordered. The Enriquez will remain indwelling and his renal function to be monitored. His creatinine is improving. We will consider obtaining a CT scan once he is more stable. He will also need to have cystoscopy at some point. I will also recommend adding Flomax and finasteride once he is able to take p.o. through the G-tube and consider voiding trial once he is more medically stable. Thank you, Dr. David for asking me to participate in this consultation. Niranjan Tellez M.D. DR: Michelle JOB#: [id number] CC:
--- NOTE | 2018-05-07 21:30 | Progress Note ---
DATE: 05/07/2018 CARDIOLOGY PROGRESS NOTE SUBJECTIVE: The patient remains in the intensive care unit in critical condition with guarded prognosis. He continues to have episodes of junctional bradycardia in the high 40s. His blood pressure remains in the 90 to 110 range systolic. OBJECTIVE: GENERAL: Withdrawn and lethargic. LUNGS: Coarse breath sounds. HEART: Regular rhythm. Slow rate. Normal S1, S2. ABDOMEN: Soft. EXTREMITIES: No edema. DIAGNOSTIC DATA: Echocardiogram reveals no significant pathology. Chemistry panel notable for sodium 166, potassium 3.6, chloride 128, bicarb 19, BUN 95, and creatinine 3.0. Chest x-ray reveals right basilar opacity and prominent colonic gas. IMPRESSION: 1. Bradyarrhythmia. 2. Urinary tract infection with sepsis. 3. Metabolic encephalopathy. 4. Severe dehydration. 5. Hypovolemia and hypernatremia. 6. Septic and hypovolemic shock. 7. Cerebrovascular disease with dementia and seizure disorder. 8. Increased vagal tone due to colon distention may be exacerbating bradyarrhythmia. PLAN: 1. Antimicrobials. 2. Volume resuscitation. 3. Hypotonic fluids. 4. Cardiac monitoring. 5. Recheck thyroid function if not done recently. 6. Check cortisol level. 7. No emergent indication for pacemaker at this time. 8. Intensive care unit care. Augustus Gooden M.D. DR: QI JOB#: [id number] CC:
--- NOTE | 2018-05-07 22:00 | NUR ---
NURSE NOTES: HS Care rendered.Pos.chg.Backrub with lotion.Suctioned.Due meds.admin.Neuro status same.Soft wrist restraints on prev.self-injury.F/Cath.intact patent,diuresis well.
--- NOTE | 2018-05-07 23:10 | General Progress Note ---
Assessment/Plan Assessment/Plan GI CONSULT Assessment - Hypernatremia, free water deficit - Azotemia - OBS/Encephalopathy - failed swallow evaluation - past h/o PEG placement - G tube has been removed in the past, GT site sealed and closed - Epistaxis at time of NGT trial --> OGT placed - Bradycardia Recommendations - Check x rays and begin OGT feeds - Aspiration precautions - elevate HOB - Free water replacement - Follow labs and mental status - Not candidate for PEG placement at this time Subjective Allergies: Coded Allergies: No Known Allergies (Unverified , 07/08/16) Objective Last 24 Hour Vital Signs Date Time Temp Pulse Resp B/P (MAP) Pulse Ox O2 Delivery O2 Flow Rate FiO2 05/07/18 22:01 46 27 98/48 (65) 100 05/07/18 21:00 45 26 106/31 (56) 100 05/07/18 20:00 47 05/07/18 20:00 Venturi Mask 05/07/18 20:00 97.6 48 28 107/44 (65) 100 05/07/18 19:00 47 25 103/40 (61) 100 05/07/18 18:00 48 22 127/49 (75) 100 05/07/18 17:00 47 23 82/32 (49) 100 05/07/18 16:00 97.2 47 23 120/59 (79) 99 05/07/18 16:00 Venturi Mask 3.0 05/07/18 16:00 47 05/07/18 15:00 47 23 105/29 (54) 99 05/07/18 14:00 47 24 103/22 (49) 92 05/07/18 13:00 49 24 98/41 (60) 90 05/07/18 12:00 Venturi Mask 3.0 05/07/18 12:00 48 05/07/18 12:00 97.0 48 28 100/19 (46) 90 05/07/18 11:00 50 23 95/20 (45) 94 05/07/18 10:00 48 23 112/47 (68) 94 05/07/18 09:00 47 23 93/32 (52) 96 05/07/18 08:00 Nasal Cannula 3.0 05/07/18 08:00 98.7 46 25 109/36 (60) 100 05/07/18 08:00 45 05/07/18 07:45 100 Venturi Mask 12.0 50 05/07/18 07:45 Venturi Mask 12.0 50 05/07/18 07:00 98.7 47 22 102/51 (68) 100 05/07/18 06:00 47 22 97/23 (47) 100 05/07/18 05:00 47 22 94/33 (53) 100 05/07/18 04:00 Nasal Cannula 3.0 05/07/18 04:00 47 05/07/18 04:00 47 23 116/77 (90) 100 05/07/18 03:00 49 22 110/70 (83) 100 05/07/18 02:00 49 22 100/72 (81) 100 05/07/18 01:00 98.8 54 23 131/43 (72) 98 05/07/18 00:00 52 23 87/72 (77) 98 05/07/18 00:00 Nasal Cannula 3.0 05/07/18 00:00 50 Intake and Output 05/06/18 05/07/18 18:59 06:59 Intake Total 2284 ml 2012 ml Output Total 970 ml 390 ml Balance 1314 ml 1622 ml Intake Oral 0 ml 0 ml IV Total 2284 ml 2012 ml Output Urine Total 970 ml 390 ml Laboratory Tests 05/07/18 04:30: Sodium Level 170*H, Potassium Level 4.2, Chloride Level 132H, Carbon Dioxide Level 18L, Anion Gap 20H, Blood Urea Nitrogen 97H, Creatinine 3.8H, Estimat Glomerular Filtration Rate , Glucose Level 168H, Calcium Level 7.6L, Total Bilirubin 0.3, Aspartate Amino Transf (AST/SGOT) 19, Alanine Aminotransferase ( ALT/SGPT) 7L, Alkaline Phosphatase 97, Total Protein 7.3, Albumin 1.9L, Globulin 5.4, Albumin/Globulin Ratio 0.4L 05/07/18 17:06: Sodium Level 166*H, Potassium Level 3.6, Chloride Level 128H, Carbon Dioxide Level 19L, Anion Gap 16H, Blood Urea Nitrogen 95H, Creatinine 3.0H, Estimat Glomerular Filtration Rate , Glucose Level 131H, Calcium Level 7.6L Height (Feet): 5 Height (Inches): 4.00 Weight (Pounds): 135 Yuridia Carlos MD May 07, 2018 23:10
[2018-05-08] VITALS (31 sets, daily range): BP systolic 53–144; BP diastolic 28–93
--- NOTE | 2018-05-08 00:13 | NUR ---
NURSE NOTES: Repositioned,kept comfortable.Suctioned.See V/S.Scope rhythm same.No Distress.
--- NOTE | 2018-05-08 02:48 | NUR ---
NURSE NOTES: Pos. chg.Cont.to req.freq.suctioning.P.Ox.98-100%.Kept comfortable.Cont.Ca. monotoring.
--- NOTE | 2018-05-08 04:00 | NUR ---
NURSE NOTES: Vito Segovia Linen chg.Blood drawn for bmp/folic acid and vit.b12 spec.to lab.
--- NOTE | 2018-05-08 04:15 | Consultation ---
DATE OF CONSULTATION: 05/07/2018 GASTROLOGY CONSULTATION CONSULTING PHYSICIAN: Yuridia Carlos M.D. CHIEF COMPLAINT: I was asked to see this patient by Dr. Jcarlos David for evaluation of infection and possible feeding tube placement. HISTORY OF PRESENT ILLNESS: The patient is a debilitated 72-year-old white man from a skilled nursing, who was brought in to the hospital due to poor oral intake, abnormal laboratories, and hypotension. He had significant disease of hypernatremia and azotemia on admission. The patient had medical intensive treatments including multiple acute coronary evaluation and treatments. He was unable to provide any history and most of the information is only available from the chart. He failed swallow evaluation and therefore an orogastric tube has been placed. For this, a nasogastric tube was inserted, but this resulted in some difficulty in placement and epistaxis. The patient reportedly has had initially gastrostomy tube placement in the past, but this tube was pulled out some time ago. The scar is now well healed. PAST MEDICAL HISTORY: Dementia, history of chronic kidney disease, diabetes, schizophrenia, and history of gastrostomy tube placement and removal. FAMILY HISTORY: Unobtainable and noncontributory. SOCIAL HISTORY: The patient is from the skilled nursing, otherwise has an unknown social history. REVIEW OF SYSTEMS: Unobtainable at this time. PHYSICAL EXAMINATION: GENERAL: Debilitated white man, seen in the ICU. HEENT: Normocephalic and atraumatic. Dentition was poor. NECK: Supple. CHEST: Revealed coarse breath sounds. CARDIOVASCULAR: Revealed regular rate. ABDOMEN: Soft and flat. Good bowel sounds. There is no organomegaly. EXTREMITIES: Revealed no edema. LABORATORY DATA: Noted. ASSESSMENT: This patient has dysphagia and has failed swallow evaluation. However, at this time, he is not a candidate for gastrostomy tube placement due to his multiple active medical issues including bradycardia. The patient does have an orogastric tube secured and therefore feeding can be started at this time without any delay. He also should receive if he want any strength replacement to reduce his sodium level. A proper gastrostomy tube replacement can then be considered to navigate tube feeds. RECOMMENDATIONS: Per above discussion and per orders written in the chart. Thank you for asking me to participate in the care of this patient. Yuridia Carlos M.D. DR: SHARON JOB#: [id number] CC:
[2018-05-08] MEDS: NovoLOG Insulin Flexpen SUBQ SCH ×4 (05:57→21:00)
[2018-05-08 07:04] LABS: ANION GAP 22 mmol/L (5-15); BLOOD UREA NITROGEN 93 mg/dL (7-18); CALCIUM 7.8 MG/DL (8.5-10.1); CARBON DIOXIDE 15 MMOL/L (21-32); CHLORIDE 127 MMOL/L (98-107); CREATININE 2.9 MG/DL (0.55-1.30); POTASSIUM 4.5 MMOL/L (3.5-5.1)
[2018-05-08 07:05] LABS: SODIUM 163 MMOL/L (136-145)
--- NOTE | 2018-05-08 07:17 | NUR ---
HAND-OFF: Report given to Essence AVILA.
[2018-05-08] MEDS: Pantoprazole Inj IVP SCH (08:13)
[2018-05-08] MEDS: Acetaminophen 650 MG SUPP RECTAL SCH (08:15)
--- NOTE | 2018-05-08 08:15 | NUR ---
NURSE NOTES: Report received from MARGARITA Gu. Patient awake, easily arousal to tactile stimuli, non verbal. On venti mask at 40% and saturation 96% at this time. Patient has soft left wrist restraints with no skin impairment ,observed removing devices .Picc line OMAR running D5W @ 150cc/hr. Line patent with dressing clean dry and intact. OGT feeding tube in place but NPO at this time.Pt noted with diminished lungs sounds and large amount yellow thick mucus upon suction. Afebrile at this time.HOB elevated to prevent aspiration. LFA/20 and POOJA/20 gauge saline lock patent.Enriquez catheter in place draining cloudy yellow straw urine with apparent sediments. On contact isolation for ESBL urine, good handwashing done before and after care.Will continue to monitor.
[2018-05-08] MEDS: Heparin 5000 units/ml inj SUBQ SCH ×2 (08:16→20:42)
[2018-05-08] MEDS: Meropenem 500 MG in NS 55 ML IVPB SCH ×2 (08:41→20:42)
[2018-05-08] MEDS: PHENYTOIN IVPB SCH ×2 (08:51→16:17)
[2018-05-08] MEDS: NS IVPB SCH ×2 (08:51→16:17)
--- NOTE | 2018-05-08 09:11 | General Progress Note ---
Assessment/Plan Problem List: (1) Seizure ICD Codes: R56.9 - Unspecified convulsions SNOMED: 68361578 (2) Sepsis ICD Codes: A41.9 - Sepsis, unspecified organism SNOMED: 07205817 (3) Acute encephalopathy ICD Codes: G93.40 - Encephalopathy, unspecified SNOMED: 1319621 (4) Hypernatremia ICD Codes: E87.0 - Hyperosmolality and hypernatremia SNOMED: 52421352 (5) Renal failure ICD Codes: N19 - Unspecified kidney failure SNOMED: 39562408 Qualifiers: Qualified Codes: N17.9 - Acute kidney failure, unspecified (6) Respiratory distress ICD Codes: R06.03 - Acute respiratory distress SNOMED: 820411050 (7) Dehydration ICD Codes: E86.0 - Dehydration SNOMED: 04989368 (8) SOB (shortness of breath) ICD Codes: R06.02 - Shortness of breath SNOMED: 048502458 (9) UTI (urinary tract infection) ICD Codes: N39.0 - Urinary tract infection, site not specified SNOMED: 13557069 Qualifiers: Qualified Codes: N39.0 - Urinary tract infection, site not specified Status: stable, progressing Assessment/Plan IVF repeat bmp tomorrow bictra water flushes ID/GI/ eval appreciated o2 resp rx monitor cxr ogt Subjective ROS Limited/Unobtainable: Yes Constitutional: Reports: malaise, weakness HEENT: Reports: no symptoms Cardiovascular: Reports: no symptoms Respiratory: Reports: cough, shortness of breath, sputum Gastrointestinal/Abdominal: Reports: difficulty swallowing Genitourinary: Reports: no symptoms Neurologic/Psychiatric: Reports: pre-existing deficit, seizure Endocrine: Reports: no symptoms Hematologic/Lymphatic: Reports: anemia Allergies: Coded Allergies: No Known Allergies (Unverified , 07/08/16) All Systems: reviewed and negative except above Subjective remains kell. congested. na improving. low bicarb noted. no fevers. has OGT Objective Last 24 Hour Vital Signs Date Time Temp Pulse Resp B/P (MAP) Pulse Ox O2 Delivery O2 Flow Rate FiO2 05/08/18 07:24 96 Venturi Mask 12.0 50 05/08/18 07:24 Venturi Mask 12.0 50 05/08/18 07:00 51 30 95/63 (74) 99 12/28/18 06:00 54 30 120/52 (74) 99 05/08/18 05:00 51 25 129/72 (91) 100 05/08/18 04:00 Venturi Mask 05/08/18 04:00 97.6 50 25 106/54 (71) 97 05/08/18 03:00 49 30 125/76 (92) 100 05/08/18 02:00 48 27 138/81 (100) 99 05/08/18 01:00 48 24 101/45 (63) 97 05/08/18 00:00 Venturi Mask 05/08/18 00:00 97.0 47 28 115/42 (66) 100 05/07/18 23:00 46 24 112/39 (63) 100 05/07/18 22:01 46 27 98/48 (65) 100 05/07/18 21:00 45 26 106/31 (56) 100 05/07/18 20:50 Venturi Mask 12.0 50 05/07/18 20:50 100 Venturi Mask 12.0 50 05/07/18 20:00 47 05/07/18 20:00 Venturi Mask 05/07/18 20:00 97.6 48 28 107/44 (65) 100 05/07/18 19:00 47 25 103/40 (61) 100 05/07/18 18:00 48 22 127/49 (75) 100 05/07/18 17:00 47 23 82/32 (49) 100 05/07/18 16:00 97.2 47 23 120/59 (79) 99 05/07/18 16:00 Venturi Mask 3.0 05/07/18 16:00 47 05/07/18 15:00 47 23 105/29 (54) 99 05/07/18 14:00 47 24 103/22 (49) 92 05/07/18 13:00 49 24 98/41 (60) 90 05/07/18 12:00 Venturi Mask 3.0 05/07/18 12:00 48 05/07/18 12:00 97.0 48 28 100/19 (46) 90 05/07/18 11:00 50 23 95/20 (45) 94 05/07/18 10:00 48 23 112/47 (68) 94 Intake and Output 05/07/18 05/08/18 19:00 07:00 Intake Total 2628 ml 2012 ml Output Total 990 ml 560 ml Balance 1638 ml 1452 ml Intake Oral 0 ml 0 ml IV Total 2628 ml 2011 ml Output Urine Total 990 ml 560 ml # Bowel Movements 1 Laboratory Tests 05/07/18 17:06: Sodium Level 166*H, Potassium Level 3.6, Chloride Level 128H, Carbon Dioxide Level 19L, Anion Gap 16H, Blood Urea Nitrogen 95H, Creatinine 3.0H, Estimat Glomerular Filtration Rate , Glucose Level 131H, Calcium Level 7.6L 05/08/18 03:50: Sodium Level 163*H, Potassium Level 4.5, Chloride Level 127H, Carbon Dioxide Level 15L, Anion Gap 22H, Blood Urea Nitrogen 93H, Creatinine 2.9H, Estimat Glomerular Filtration Rate , Glucose Level 111H, Calcium Level 7.8L, Vitamin B12 Level 1609H, Folate 6.1L Height (Feet): 5 Height (Inches): 4.00 Weight (Pounds): 133 Objective General Appearance: WD/WN, lethargic, confused Neck: supple Cardiovascular: regular rhythm Respiratory/Chest: chest wall non-tender, lungs clear, normal breath sounds Abdomen: normal bowel sounds, non tender, soft, no organomegaly Edema: no edema noted Arm (L), no edema noted Arm (R), no edema noted Leg (L), no edema noted Leg (R), no edema noted Pedal (L), no edema noted Pedal (R), no edema noted Generalized Neurologic: disoriented, unresponsive, aphasia Jcarlos David MD May 08, 2018 09:11
--- NOTE | 2018-05-08 09:39 | Urology Progress Note ---
Assessment/Plan Assessment/Plan 1. Urinary retention. 2. Benign prostatic hypertrophy. 3. Probable neurogenic bladder. 4. Renal insufficiency, acute on chronic. 5. Urinary tract infection. 6. Hematuria. 7. Proteinuria. 8. Hydronephrosis. 9. Renal cysts. keep newsome indwelling hand irrigated and do PRN, patent abx as ordered f/u on blood cx monitor renal fxn consider CT scan cysto later Subjective Allergies: Coded Allergies: No Known Allergies (Unverified , 07/08/16) Subjective all noted Objective Last 24 Hour Vital Signs Date Time Temp Pulse Resp B/P (MAP) Pulse Ox O2 Delivery O2 Flow Rate FiO2 05/08/18 07:24 96 Venturi Mask 12.0 50 05/08/18 07:24 Venturi Mask 12.0 50 05/08/18 07:00 51 30 95/63 (74) 99 05/08/18 06:00 54 30 120/52 (74) 99 05/08/18 05:00 51 25 129/72 (91) 100 05/08/18 04:00 Venturi Mask 05/08/18 04:00 97.6 50 25 106/54 (71) 97 05/08/18 03:00 49 30 125/76 (92) 100 05/08/18 02:00 48 27 138/81 (100) 99 05/08/18 01:00 48 24 101/45 (63) 97 05/08/18 00:00 Venturi Mask 05/08/18 00:00 97.0 47 28 115/42 (66) 100 05/07/18 23:00 46 24 112/39 (63) 100 05/07/18 22:01 46 27 98/48 (65) 100 05/07/18 21:00 45 26 106/31 (56) 100 05/07/18 20:50 Venturi Mask 12.0 50 05/07/18 20:50 100 Venturi Mask 12.0 50 05/07/18 20:00 47 05/07/18 20:00 Venturi Mask 05/07/18 20:00 97.6 48 28 107/44 (65) 100 05/07/18 19:00 47 25 103/40 (61) 100 05/07/18 18:00 48 22 127/49 (75) 100 05/07/18 17:00 47 23 82/32 (49) 100 12/27/18 16:00 97.2 47 23 120/59 (79) 99 05/07/18 16:00 Venturi Mask 3.0 05/07/18 16:00 47 05/07/18 15:00 47 23 105/29 (54) 99 05/07/18 14:00 47 24 103/22 (49) 92 05/07/18 13:00 49 24 98/41 (60) 90 05/07/18 12:00 Venturi Mask 3.0 05/07/18 12:00 48 05/07/18 12:00 97.0 48 28 100/19 (46) 90 05/07/18 11:00 50 23 95/20 (45) 94 05/07/18 10:00 48 23 112/47 (68) 94 Intake and Output 05/07/18 05/08/18 19:00 07:00 Intake Total 2628 ml 2012 ml Output Total 990 ml 560 ml Balance 1638 ml 1452 ml Intake Oral 0 ml 0 ml IV Total 2628 ml 2012 ml Output Urine Total 990 ml 560 ml # Bowel Movements 1 Microbiology Date/Time Source Procedure Growth Status 05/05/18 17:57 Blood Blood Culture - Preliminary NO GROWTH AFTER 48 HOURS Resulted 05/05/18 20:00 Nose MRSA Culture - Final Staphylococcus Aureus - Mrsa Complete 05/05/18 18:07 Urine,Clean Catch Urine Culture - Final Escherichia Coli - Esbl Complete 05/05/18 20:30 Rectum - Final NO CARBAPENEM-RESISTANT ENTEROBACTERI... Complete Current Medications Medications (Trade) Dose Ordered Sig/Josephine Route PRN Reason Start Time Stop Time Status Last Admin Dose Admin Acetaminophen (Tylenol) 650 mg DAILY RECTAL 05/07/18 09:00 06/06/18 08:59 05/08/18 08:15 Chlorhexidine Gluconate (Kayla-Hex 2%) 1 applic DAILY@2000 TOPIC 05/07/18 20:00 06/06/18 19:59 05/07/18 19:56 Dextrose 1,000 ml @ 150 mls/hr Q6H40M IV 05/07/18 13:58 06/06/18 13:57 05/08/18 04:52 Dextrose (Dextrose 50%) 25 ml Q30M PRN IV Hypoglycemia 05/06/18 13:30 06/05/18 13:29 Dextrose (Dextrose 50%) 50 ml Q30M PRN IV Hypoglycemia 05/06/18 13:30 06/05/18 13:29 Docusate Sodium (Colace) 250 mg TWICE A DAY ORAL 05/08/18 10:30 06/07/18 10:29 Haloperidol (Haldol) 1 mg Q6H PRN ORAL Agitation 05/05/18 21:00 06/04/18 20:59 Heparin Sodium (Porcine) (Heparin 5000 units/ml) 5,000 units EVERY 12 HOURS SUBQ 05/05/18 21:00 06/04/18 20:59 05/08/18 08:16 Insulin Aspart (NovoLOG) BEFORE MEALS AND HS SUBQ 05/06/18 16:30 06/05/18 16:29 05/08/18 05:57 Levetiracetam 100 ml @ 400 mls/hr Q12H IVPB 05/05/18 23:00 06/04/18 22:59 05/07/18 23:41 Lorazepam (Ativan 2mg/ml 1ml) 1 mg Q4H PRN IV Agitation 05/05/18 21:00 05/12/18 20:59 05/07/18 02:28 Meropenem 500 mg/ Sodium Chloride 55 ml @ 110 mls/hr EVERY 12 HOURS IVPB 05/07/18 21:00 05/12/18 20:59 05/08/18 08:41 Pantoprazole (Protonix) 40 mg DAILY IVP 05/06/18 09:00 06/05/18 08:59 05/08/18 08:13 Phenytoin 100 mg/ Sodium Chloride 57 ml @ 114 mls/hr [id number] PHENYTOIN IVPB 05/06/18 00:00 06/05/18 00:00 05/08/18 08:51 Sodium Bicarbonate (NaHCO3) 650 mg BID ORAL 05/08/18 10:30 06/07/18 10:29 Laboratory Tests 05/07/18 17:06: Sodium Level 166*H, Potassium Level 3.6, Chloride Level 128H, Carbon Dioxide Level 19L, Anion Gap 16H, Blood Urea Nitrogen 95H, Creatinine 3.0H, Estimat Glomerular Filtration Rate , Glucose Level 131H, Calcium Level 7.6L 05/08/18 03:50: Sodium Level 163*H, Potassium Level 4.5, Chloride Level 127H, Carbon Dioxide Level 15L, Anion Gap 22H, Blood Urea Nitrogen 93H, Creatinine 2.9H, Estimat Glomerular Filtration Rate , Glucose Level 111H, Calcium Level 7.8L, Vitamin B12 Level 1609H, Folate 6.1L Height (Feet): 5 Height (Inches): 4.00 Weight (Pounds): 133 Objective exam stable, urine oswaldo/cloudy Niranjan Tellez MD May 08, 2018 09:39
--- NOTE | 2018-05-08 10:12 | NUR ---
NURSE NOTES: pt turned and repositioned, was seen by Dr David with new order to start pt on Nepro feeding at 20cc/hr. will follow up with other orders.Kept clean dry and comfortable, will continue to monitor.
[2018-05-08] MEDS: Sodium Bicarbonate 650mg Tab ORAL SCH ×2 (11:14→17:46)
[2018-05-08] MEDS: levETIRAcetam 500mg/NS100ml 100 ML IVPB SCH ×2 (11:14→23:00)
[2018-05-08] MEDS: Docusate 250mg cap ORAL SCH ×2 (11:14→17:46)
--- NOTE | 2018-05-08 12:19 | NUR ---
NURSE NOTES: Mouth care done, patient turned and repositioned. Tolerate well feeding.No residual at this time.Kept clean dry and comfortable.
--- NOTE | 2018-05-08 12:57 | NUR ---
NURSE NOTES: Seen by Dr Hayes will follow up with new orders
--- NOTE | 2018-05-08 13:03 | Nephrology Progress Note ---
Assessment/Plan Problem List: (1) UTI (urinary tract infection) (2) History of ESBL E. coli infection (3) Dehydration (4) EBEN (acute kidney injury) (5) Hypernatremia (6) UTI (urinary tract infection) (7) Sepsis (8) Acute encephalopathy Plan continue iv fluids, gradual correction Na, antibiotcs baseline creatinine 0.84 Subjective ROS Limited/Unobtainable: Yes Objective Objective Last 24 Hour Vital Signs Date Time Temp Pulse Resp B/P (MAP) Pulse Ox O2 Delivery O2 Flow Rate FiO2 05/08/18 12:00 97.8 52 28 115/38 (63) 95 05/08/18 12:00 Venturi Mask 05/08/18 11:00 53 28 109/48 (68) 100 05/08/18 10:00 50 30 102/45 (64) 100 05/08/18 09:00 52 30 105/55 (72) 95 05/08/18 08:45 97.4 05/08/18 08:00 97.0 52 28 97/52 (67) 96 05/08/18 08:00 Venturi Mask 05/08/18 07:24 96 Venturi Mask 12.0 50 05/08/18 07:24 Venturi Mask 12.0 50 05/08/18 07:00 51 30 95/63 (74) 99 05/08/18 06:00 54 30 120/52 (74) 99 05/08/18 05:00 51 25 129/72 (91) 100 05/08/18 04:00 Venturi Mask 05/08/18 04:00 97.6 50 25 106/54 (71) 97 05/08/18 03:00 49 30 125/76 (92) 100 05/08/18 02:00 48 27 138/81 (100) 99 05/08/18 01:00 48 24 101/45 (63) 97 05/08/18 00:00 Venturi Mask 05/08/18 00:00 97.0 47 28 115/42 (66) 100 05/07/18 23:00 46 24 112/39 (63) 100 05/07/18 22:01 46 27 98/48 (65) 100 05/07/18 21:00 45 26 106/31 (56) 100 05/07/18 20:50 Venturi Mask 12.0 50 05/07/18 20:50 100 Venturi Mask 12.0 50 05/07/18 20:00 47 05/07/18 20:00 Venturi Mask 05/07/18 20:00 97.6 48 28 107/44 (65) 100 05/07/18 19:00 47 25 103/40 (61) 100 05/07/18 18:00 48 22 127/49 (75) 100 05/07/18 17:00 47 23 82/32 (49) 100 05/07/18 16:00 97.2 47 23 120/59 (79) 99 05/07/18 16:00 Venturi Mask 3.0 05/07/18 16:00 47 05/07/18 15:00 47 23 105/29 (54) 99 05/07/18 14:00 47 24 103/22 (49) 92 Intake and Output 05/07/18 05/08/18 19:00 07:00 Intake Total 2628 ml 2012 ml Output Total 990 ml 560 ml Balance 1638 ml 1452 ml Intake Oral 0 ml 0 ml IV Total 2628 ml 2012 ml Output Urine Total 990 ml 560 ml # Bowel Movements 1 Laboratory Tests 05/07/18 17:06: Sodium Level 166*H, Potassium Level 3.6, Chloride Level 128H, Carbon Dioxide Level 19L, Anion Gap 16H, Blood Urea Nitrogen 95H, Creatinine 3.0H, Estimat Glomerular Filtration Rate , Glucose Level 131H, Calcium Level 7.6L 05/08/18 03:50: Sodium Level 163*H, Potassium Level 4.5, Chloride Level 127H, Carbon Dioxide Level 15L, Anion Gap 22H, Blood Urea Nitrogen 93H, Creatinine 2.9H, Estimat Glomerular Filtration Rate , Glucose Level 111H, Calcium Level 7.8L, Vitamin B12 Level 1609H, Folate 6.1L Height (Feet): 5 Height (Inches): 4.00 Weight (Pounds): 133 General Appearance: lethargic, thin EENT: other - edent Neck: normal alignment Cardiovascular: normal rate Respiratory/Chest: decreased breath sounds Abdomen: non tender Extremities: other - contracted Neurologic: unresponsive Dony Hayes MD May 08, 2018 13:03
--- NOTE | 2018-05-08 13:25 | Infectious Diseases Prog Note ---
Assessment/Plan Assessment/Plan A: 1. UTI , complicated with E.coli ESBL. 2. Dehydration and hypernatremia. improving 3. Chronic kidney disease and acute renal failure. improving 4. Diabetes mellitus. 5. Seizure disorder. 6. Hypoxemic respiratory failure. 7. Bradycardia. P: 1. Continue Meropenem Subjective ROS Limited/Unobtainable: Yes Neurologic: Reports: confusion, other - on restraint Allergies: Coded Allergies: No Known Allergies (Unverified , 07/08/16) Objective Vital Signs Last 24 Hour Vital Signs Date Time Temp Pulse Resp B/P (MAP) Pulse Ox O2 Delivery O2 Flow Rate FiO2 05/08/18 12:00 97.8 52 28 115/38 (63) 95 05/08/18 12:00 Venturi Mask 05/08/18 11:00 53 28 109/48 (68) 100 05/08/18 10:00 50 30 102/45 (64) 100 05/08/18 09:00 52 30 105/55 (72) 95 05/08/18 08:45 97.4 05/08/18 08:00 97.0 52 28 97/52 (67) 96 05/08/18 08:00 Venturi Mask 05/08/18 07:24 96 Venturi Mask 12.0 50 05/08/18 07:24 Venturi Mask 12.0 50 05/08/18 07:00 51 30 95/63 (74) 99 05/08/18 06:00 54 30 120/52 (74) 99 05/08/18 05:00 51 25 129/72 (91) 100 05/08/18 04:00 Venturi Mask 05/08/18 04:00 97.6 50 25 106/54 (71) 97 05/08/18 03:00 49 30 125/76 (92) 100 05/08/18 02:00 48 27 138/81 (100) 99 05/08/18 01:00 48 24 101/45 (63) 97 05/08/18 00:00 Venturi Mask 05/08/18 00:00 97.0 47 28 115/42 (66) 100 05/07/18 23:00 46 24 112/39 (63) 100 05/07/18 22:01 46 27 98/48 (65) 100 05/07/18 21:00 45 26 106/31 (56) 100 05/07/18 20:50 Venturi Mask 12.0 50 05/07/18 20:50 100 Venturi Mask 12.0 50 05/07/18 20:00 47 05/07/18 20:00 Venturi Mask 05/07/18 20:00 97.6 48 28 107/44 (65) 100 05/07/18 19:00 47 25 103/40 (61) 100 05/07/18 18:00 48 22 127/49 (75) 100 05/07/18 17:00 47 23 82/32 (49) 100 05/07/18 16:00 97.2 47 23 120/59 (79) 99 05/07/18 16:00 Venturi Mask 3.0 05/07/18 16:00 47 05/07/18 15:00 47 23 105/29 (54) 99 05/07/18 14:00 47 24 103/22 (49) 92 Height (Feet): 5 Height (Inches): 4.00 Weight (Pounds): 133 HEENT: other - oxygen by mask Respiratory/Chest: lungs clear Cardiovascular: bradycardia Abdomen: soft, non tender, other - orogatric feeding Extremities: no edema Neurologic/Psychiatric: disoriented Microbiology Date/Time Source Procedure Growth Status 05/05/18 17:57 Blood Blood Culture - Preliminary NO GROWTH AFTER 48 HOURS Resulted 05/05/18 17:57 Blood Blood Culture - Preliminary NO GROWTH AFTER 48 HOURS Resulted 05/05/18 20:00 Nose MRSA Culture - Final Staphylococcus Aureus - Mrsa Complete 05/05/18 18:00 Nasal Nares Influenza Types A,B Antigen (JAELYN) - Final Complete 05/05/18 18:07 Urine,Clean Catch Urine Culture - Final Escherichia Coli - Esbl Complete 05/05/18 20:30 Rectum - Final NO CARBAPENEM-RESISTANT ENTEROBACTERI... Complete 05/05/18 20:30 Rectum VRE Culture - Final NO VANCOMYCIN RESISTANT ENTEROCOCCUS ... Complete Laboratory Tests Test 05/07/18 17:06 05/08/18 03:50 Sodium Level 166 MMOL/L (136-145) *H 163 MMOL/L (136-145) *H Potassium Level 3.6 MMOL/L (3.5-5.1) 4.5 MMOL/L (3.5-5.1) Chloride Level 128 MMOL/L (98-107) H 127 MMOL/L (98-107) H Carbon Dioxide Level 19 MMOL/L (21-32) L 15 MMOL/L (21-32) L Anion Gap 16 mmol/L (5-15) H 22 mmol/L (5-15) H Blood Urea Nitrogen 95 mg/dL (7-18) H 93 mg/dL (7-18) H Creatinine 3.0 MG/DL (0.55-1.30) H 2.9 MG/DL (0.55-1.30) H Estimat Glomerular Filtration Rate mL/min (>60) mL/min (>60) Glucose Level 131 MG/DL (74-106) H 111 MG/DL (74-106) H Calcium Level 7.6 MG/DL (8.5-10.1) L 7.8 MG/DL (8.5-10.1) L Vitamin B12 Level 1609 PG/ML (193-986) H Folate 6.1 NG/ML (8.6-58.9) L Current Medications Medications (Trade) Dose Ordered Sig/Josephine Route PRN Reason Start Time Stop Time Status Last Admin Dose Admin Acetaminophen (Tylenol) 650 mg DAILY RECTAL 05/07/18 09:00 06/06/18 08:59 05/08/18 08:15 Chlorhexidine Gluconate (Kayla-Hex 2%) 1 applic DAILY@2000 TOPIC 05/07/18 20:00 06/06/18 19:59 05/07/18 19:56 Dextrose 1,000 ml @ 150 mls/hr Q6H40M IV 05/07/18 13:58 06/06/18 13:57 05/08/18 11:15 Dextrose (Dextrose 50%) 25 ml Q30M PRN IV Hypoglycemia 05/06/18 13:30 06/05/18 13:29 Dextrose (Dextrose 50%) 50 ml Q30M PRN IV Hypoglycemia 05/06/18 13:30 06/05/18 13:29 Docusate Sodium (Colace) 250 mg TWICE A DAY ORAL 05/08/18 10:30 06/07/18 10:29 05/08/18 11:14 Haloperidol (Haldol) 1 mg Q6H PRN ORAL Agitation 05/05/18 21:00 06/04/18 20:59 05/08/18 09:39 Heparin Sodium (Porcine) (Heparin 5000 units/ml) 5,000 units EVERY 12 HOURS SUBQ 05/05/18 21:00 06/04/18 20:59 05/08/18 08:16 Insulin Aspart (NovoLOG) BEFORE MEALS AND HS SUBQ 05/06/18 16:30 06/05/18 16:29 05/08/18 05:57 Levetiracetam 100 ml @ 400 mls/hr Q12H IVPB 05/05/18 23:00 06/04/18 22:59 05/08/18 11:14 Lorazepam (Ativan 2mg/ml 1ml) 1 mg Q4H PRN IV Agitation 05/05/18 21:00 05/12/18 20:59 05/07/18 02:28 Meropenem 500 mg/ Sodium Chloride 55 ml @ 110 mls/hr EVERY 12 HOURS IVPB 05/07/18 21:00 05/12/18 20:59 05/08/18 08:41 Pantoprazole (Protonix) 40 mg DAILY IVP 05/06/18 09:00 06/05/18 08:59 05/08/18 08:13 Phenytoin 100 mg/ Sodium Chloride 57 ml @ 114 mls/hr Q8PL-JM PHENYTOIN IVPB 05/06/18 00:00 06/05/18 00:00 05/08/18 08:51 Sodium Bicarbonate (NaHCO3) 650 mg BID ORAL 05/08/18 10:30 06/07/18 10:29 05/08/18 11:14 Rik Mansfield MD May 08, 2018 13:25
--- NOTE | 2018-05-08 14:03 | NUR ---
NURSE NOTES: Pt turned and repositioned. HOb elevated at 35 degree to prevent aspiration.Kept clean and dry. Will continue to monitor
--- NOTE | 2018-05-08 16:08 | NUR ---
NURSE NOTES: Pt awake, turned and repositioned.Kept clean and dry. Tolerate well feeding.No residual at this time. Will continue to monitor
[2018-05-08] MEDS: LORazepam Inj 2mg/ml 1ml IV PRN (16:17)
--- NOTE | 2018-05-08 16:55 | NUR ---
CASE MANAGEMENT: REVIEW SI: SOB . HYPERNATREMIA . ALOC T 97.8 HR 50 RR 30 BP 89/59 SAT 95% VENTURI MASK NA 163 BUN 93 CR 2.9 IS: MEROPENEM IV Q12HR SODIUM BICARB PO BID PROTONIX PO QD KEPPRA IV Q12HR DILANTIN IV Q8HR OROGASTRIC TUBE FEEDING NEPRO 20ML/HR ICU STATUS DCP: PATIENT IS FROM [facility]
--- NOTE | 2018-05-08 18:22 | NUR ---
NURSE NOTES: Seen by Dr Gooden, aware bradycardia.Will follow up with new orders.Mouth care done.Turned and repositioned. Kept clean dry and comfortable.will continue to monitor. Addendum: 05/08/18 at 1845 by Serena Laughlin RN Pt switched to nasal cannula at 2LPM.Tolerate well with saturation at 100% at this time
[2018-05-08 18:25] LABS: ANION GAP 16 mmol/L (5-15); BLOOD UREA NITROGEN 86 mg/dL (7-18); CALCIUM 7.3 MG/DL (8.5-10.1); CARBON DIOXIDE 19 MMOL/L (21-32); CHLORIDE 122 MMOL/L (98-107); CREATININE 2.6 MG/DL (0.55-1.30); POTASSIUM 3.3 MMOL/L (3.5-5.1); SODIUM 156 MMOL/L (136-145)
--- NOTE | 2018-05-08 18:45 | NUR ---
NURSE NOTES: Seen by Dr Tellez, will follow up with new orders. Addendum: 05/08/18 at 1921 by Serena Laughlin RN Seen also by Dr Breaux,will follow up with new orders
--- NOTE | 2018-05-08 19:00 | NUR ---
NURSE NOTES: Report received from MARGARITA Lyons. Patient awake, easily arousal to tactile stimuli, non verbal. On NC 2L and saturation 96% at this time. Patient has soft left wrist restraints with no skin impairment ,observed removing devices .Picc line OMAR running D5W @ 150cc/hr. Line patent with dressing clean dry and intact. OGT feeding tube in place but NPO at this time.Pt noted with diminished lungs sounds and large amount yellow thick mucus upon suction. Afebrile at this time.HOB elevated to prevent aspiration. LFA/20 and POOJA/20 gauge saline lock patent.Enriquez catheter in place draining cloudy yellow straw urine with apparent sediments. On contact isolation for ESBL urine, good handwashing done before and after care.Will continue to monitor.
--- NOTE | 2018-05-08 19:20 | NUR ---
HAND-OFF: Report given to MARGARITA Gu.
[2018-05-08] MEDS: Dyna-Hex 2% Top Sol 2oz TOPIC SCH (20:41)
--- NOTE | 2018-05-08 20:46 | General Progress Note ---
Assessment/Plan Assessment/Plan Assessment - Hypernatremia - improving - Azotemia - improving - OBS/Encephalopathy - failed swallow evaluation - past h/o PEG placement - G tube has been removed in the past, GT site sealed and closed - Epistaxis at time of NGT trial --> OGT placed - Bradycardia - UTi Recommendations - OGT feeds - Aspiration precautions - elevate HOB - Free water replacement - Abx - Follow labs and mental status - PEG once medically stable Subjective Allergies: Coded Allergies: No Known Allergies (Unverified , 07/08/16) Subjective non verbal d/w RN tolerating OGT feeds still bradycardic Objective Last 24 Hour Vital Signs Date Time Temp Pulse Resp B/P (MAP) Pulse Ox O2 Delivery O2 Flow Rate FiO2 05/08/18 19:00 44 28 89/40 (56) 100 05/08/18 18:00 44 28 91/44 (60) 100 05/08/18 17:00 45 18 85/42 (56) 100 05/08/18 16:00 Venturi Mask 05/08/18 16:00 97.6 51 28 106/54 (71) 95 05/08/18 15:00 59 18 89/59 (69) 100 05/08/18 14:00 50 18 121/52 (75) 100 05/08/18 13:00 55 25 125/82 (96) 100 05/08/18 12:00 97.8 52 28 115/38 (63) 95 05/08/18 12:00 Venturi Mask 05/08/18 11:00 53 28 109/48 (68) 100 05/08/18 10:00 50 30 102/45 (64) 100 05/08/18 09:00 52 30 105/55 (72) 95 05/08/18 08:45 97.4 05/08/18 08:00 97.0 52 28 97/52 (67) 96 05/08/18 08:00 Venturi Mask 05/08/18 07:24 96 Venturi Mask 12.0 50 05/08/18 07:24 Venturi Mask 12.0 50 05/08/18 07:00 51 30 95/63 (74) 99 05/08/18 06:00 54 30 120/52 (74) 99 05/08/18 05:00 51 25 129/72 (91) 100 05/08/18 04:00 Venturi Mask 05/08/18 04:00 97.6 50 25 106/54 (71) 97 05/08/18 03:00 49 30 125/76 (92) 100 05/08/18 02:00 48 27 138/81 (100) 99 05/08/18 01:00 48 24 101/45 (63) 97 05/08/18 00:00 Venturi Mask 05/08/18 00:00 97.0 47 28 115/42 (66) 100 05/07/18 23:00 46 24 112/39 (63) 100 05/07/18 22:01 46 27 98/48 (65) 100 05/07/18 21:00 45 26 106/31 (56) 100 05/07/18 20:50 Venturi Mask 12.0 50 05/07/18 20:50 100 Venturi Mask 12.0 50 Intake and Output 05/07/18 05/08/18 19:00 07:00 Intake Total 2628 ml 2012 ml Output Total 990 ml 560 ml Balance 1638 ml 1452 ml Intake Oral 0 ml 0 ml IV Total 2628 ml 2012 ml Output Urine Total 990 ml 560 ml # Bowel Movements 1 Laboratory Tests 05/08/18 03:50: Sodium Level 163*H, Potassium Level 4.5, Chloride Level 127H, Carbon Dioxide Level 15L, Anion Gap 22H, Blood Urea Nitrogen 93H, Creatinine 2.9H, Estimat Glomerular Filtration Rate , Glucose Level 111H, Calcium Level 7.8L, Vitamin B12 Level 1609H, Folate 6.1L 05/08/18 18:00: Sodium Level 156H, Potassium Level 3.3L, Chloride Level 122H, Carbon Dioxide Level 19L, Anion Gap 16H, Blood Urea Nitrogen 86H, Creatinine 2.6H, Estimat Glomerular Filtration Rate , Glucose Level 178H, Calcium Level 7.3L Height (Feet): 5 Height (Inches): 4.00 Weight (Pounds): 133 Objective Thin WM NCAT Supple CTA bradycardic abd Yuridia Ryder MD May 08, 2018 20:46
[2018-05-08] MEDS ORDERED: DOPamine 400mg/250ml 250 ML IV ONE (21:14)
--- NOTE | 2018-05-08 21:30 | NUR ---
NURSE NOTES: PATIENT HAD AN EPISODE OF HYPOTENSION, RANGING SYSTOLICALLY IN THE 50S AND 60S, WITH LAST LOW BP OF 59/29. SPO2 WAS ALSO RANGING AROUND THE 70's on 2 L NC. PATIENT HR WAS 37 SB. PATIENT WAS PLACED ON NON-REBREATHER AT 100% O2, DOPAMINE GTT WAS STARTED, PATIENT HAS PICC LINE, 1L FLUID BOLUS WAS GIVEN AND STAT ABG WAS ALSO DONE. AFTER GTT PATIENTS HR WENT UP TO THE 50S AND 60S, SINUS AND BP ALSO WENT UP TO NORMOTENSIVE RANGE. BREATHING PATTERN GOT BETTER AFTER NON REBREATHER WAS PLACED. WILL CONTINUE TO MONITOR PATIENTS PROGRESS.
[2018-05-08] MEDS: DOPamine 400mg/250ml 250 ML IV SCH (21:36)
--- NOTE | 2018-05-08 22:00 | NUR ---
NURSE NOTES: Dopamine gtt ongoing, BP better looking better, Spo2 100%, breathing pattern looks shallow. MD aware. Will continue to monitor.
--- NOTE | 2018-05-08 23:15 | Progress Note ---
DATE: 05/08/2018 CARDIOLOGY PROGRESS NOTE SUBJECTIVE: The patient's condition remains critical. Prognosis guarded. He is in the intensive care unit. His blood pressure has dropped to the 70 systolic range. He remains in junctional bradycardia in the 40s. OBJECTIVE: LUNGS: Bilateral breath sounds with rhonchi. HEART: Regular rhythm. Slow rate. Normal S1, S2. ABDOMEN: Soft. EXTREMITIES: Trace edema. LABORATORY DATA: Urine cultures, ESBL E. coli. Sodium 156, potassium 3.3, bicarbonate 19, BUN 86, creatinine 2.6. Folate 6.1. B12 of 1609. IMPRESSION: 1. E. coli urinary tract infection with sepsis and shock. 2. Advanced heart block. 3. Seizure disorder. 4. Encephalopathy. 5. Folic acid deficiency. 6. Severe protein-calorie malnutrition. 7. Severe dehydration and hypernatremia, improving. 8. Hyperchloremia. 9. Acute on chronic renal failure, improving. PLAN: 1. ICU care. 2. Pressor support initiated. 3. EP consult for possible pacemaker. 4. Check drug levels. 5. Continue hydration with hypotonic fluids. 6. Vitamin supplementation based on laboratory studies. Augustus Gooden M.D. DR: Danita JOB#: [id number] CC:
[2018-05-09] VITALS (51 sets, daily range): BP systolic 59–135; BP diastolic 14–104
--- NOTE | 2018-05-09 | NUR ---
NURSE NOTES: Patient repositioned and oral care provided. Blood pressure has remained stable while on dopamine gtt. Spo2 at 100% while on non-rebreather. HR ranging 40s and 50s, Sinus. Will continue to monitor.
--- NOTE | 2018-05-09 02:00 | NUR ---
NURSE NOTES: Patient repositioned, Vitals continue to be stable, remains on dopamine gtt. HR 50 SB. Dressing changed. Will continue to monitor.
--- NOTE | 2018-05-09 04:00 | NUR ---
NURSE NOTES: Patient repositioned, oral care performed, Dressings changed. Enriquez was irrigated. Fluids running new feeding hung.
[2018-05-09 05:13] LABS: HEMATOCRIT 36.5 % (42.0-52.0); HEMOGLOBIN 11.7 G/DL (14.2-18.0); MEAN CORPUSCULAR VOLUME 102 FL (80-99); PLATELET COUNT 86 K/UL (150-450); RED BLOOD COUNT 3.57 M/UL (4.70-6.10); RED CELL DISTRIBUTION WIDTH 15.8 % (11.6-14.8)
[2018-05-09 05:27] LABS: ALANINE AMINOTRANSFERASE 12 U/L (12-78); ALBUMIN 1.6 G/DL (3.4-5.0); ALBUMIN/GLOBULIN RATIO 0.3 (1.0-2.7); ALKALINE PHOSPHATASE 114 U/L (46-116); ANION GAP 15 mmol/L (5-15); ASPARTATE AMINO TRANSFERASE 26 U/L (15-37); BILIRUBIN,TOTAL 0.5 MG/DL (0.2-1.0); BLOOD UREA NITROGEN 76 mg/dL (7-18); CALCIUM 7.5 MG/DL (8.5-10.1); CARBON DIOXIDE 22 MMOL/L (21-32); CHLORIDE 119 MMOL/L (98-107); CREATININE 2.4 MG/DL (0.55-1.30); SODIUM 155 MMOL/L (136-145)
[2018-05-09 05:47] LABS: POTASSIUM 2.7 MMOL/L (3.5-5.1)
--- NOTE | 2018-05-09 06:00 | NUR ---
NURSE NOTES: Called MD regarding Potassium of 2.7. Order for 60mEq potassium PO via GT X 1 was ordered, continues to be on dopa gt, will continue to monitor.
[2018-05-09] MEDS: NovoLOG Insulin Flexpen SUBQ SCH ×4 (06:32→21:00)
[2018-05-09] MEDS: DOPamine 400mg/250ml 250 ML IV SCH ×3 (07:00→16:20)
--- NOTE | 2018-05-09 07:00 | NUR ---
HAND-OFF: Report given to Sunitha AVILA.
--- NOTE | 2018-05-09 07:15 | NUR ---
NURSE NOTES: Report received from Soto AVILA. Pt awake, eyes open without tracking. Pt obtunded, does not follow commands. Pt on cardiac care nurse, SB. Pt on 2 L O2 via NC, saturating 100%. OGT with Nepro 20 cc/hr. Enriquez noted draining urine with sediment. Pt on SPR mattress. OMAR PICC noted with Dopamine at 8 mcg/kg/min and IVF d5. Safety measures in place with bed locked and in lowest position, side rails x3 up and bed alarm activated. Will continue to monitor and continue plan of care.
--- NOTE | 2018-05-09 07:18 | NUR ---
RD ASSESSMENT & RECOMMENDATIONS SEE CARE ACTIVITY FOR COMPLETE ASSESSMENT DAILY ESTIMATED NEEDS: Needs based on Wound, CKD, DM 63kg 25-30 kcals/kg 3004-2529 total kcals 1-1.5 g protein/kg 63-95 g total protein 25-30 mL/kg 8413-7012 total fluid mLs NUTRITION DIAGNOSIS: 1) Swallowing difficulty R/T dysphagia as evidenced by h/o CVA h/o PEG, as evidenced by SENIOR PYTHON DEVELOPER recommends NPO at this time, on pureed moist texture, NTL DIRECTOR TEEN POST, s/p OGT insertion, on OGT feeds at this time. . 2) Increased kcal and protein needs r/t wound healing as evidenced by stage 2 rt hip wound. 3) Altered nutrition related lab values R/T dehydration, EBEN, DM, clinical condition as evidenced by elev creat (4.1->2.7 trend down), elev Na (177*->155 trend down), critically low K (2.7), low mag (1.6), elev BGs (174 178). 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 (RENAL FORMULA IS UNNECESSARY) - Initiate Glucerna 1.2 @ 20ml/hr x 6 hrs, advance 10ml q 4- 6hrs as tolerated to goal rate. - Flush per MD/ HOB over 30 degrees WITHOUT HEMODYNAMIC STABILITY, RECOMMEND TROPHIC FEEDING OF GLUCERNA 1.2 @ 20ML/HR X 24 HRS ADDITIONAL RECOMMENDATIONS: - RECALIBRATED BEDSCALE WT FOR ACCURATE CBW - Monitor renal fxn and lytes : Replete lytes (critically low K and low mag at this time) - WC eval of rt hip wound : add Daniel 1pkt BID .
[2018-05-09] MEDS: PHENYTOIN IVPB SCH ×4 (07:23→16:00)
[2018-05-09] MEDS: NS IVPB SCH ×4 (07:23→16:00)
[2018-05-09] MEDS: Heparin 5000 units/ml inj SUBQ SCH ×2 (08:04→21:03)
[2018-05-09] MEDS: Meropenem 500 MG in NS 55 ML IVPB SCH ×2 (08:37→21:02)
[2018-05-09] MEDS: Pantoprazole Inj IVP SCH (08:38)
[2018-05-09] MEDS: Docusate 250mg cap ORAL SCH ×2 (08:38→18:00)
[2018-05-09] MEDS: Sodium Bicarbonate 650mg Tab ORAL SCH ×2 (08:38→18:55)
[2018-05-09] MEDS: Acetaminophen 650 MG SUPP RECTAL SCH (08:39)
[2018-05-09] MEDS ORDERED: D5W IV SCH (09:00)
[2018-05-09] MEDS ORDERED: FOLIC ACID IV SCH (09:00)
--- NOTE | 2018-05-09 09:17 | Urology Progress Note ---
Assessment/Plan Assessment/Plan 1. Urinary retention. 2. Benign prostatic hypertrophy. 3. Probable neurogenic bladder. 4. Renal insufficiency, acute on chronic. 5. Urinary tract infection. 6. Hematuria. 7. Proteinuria. 8. Hydronephrosis. 9. Renal cysts. keep newsome indwelling hand irrigated and do PRN, patent abx as ordered f/u on blood cx monitor renal fxn consider CT scan cysto later Subjective Allergies: Coded Allergies: No Known Allergies (Unverified , 07/08/16) Subjective all noted Objective Last 24 Hour Vital Signs Date Time Temp Pulse Resp B/P (MAP) Pulse Ox O2 Delivery O2 Flow Rate FiO2 05/09/18 08:00 Nasal Cannula 2.0 05/09/18 07:00 103/62 05/09/18 07:00 48 31 89/62 (71) 100 05/09/18 06:59 89/62 05/09/18 06:30 48 28 87/55 (66) 100 05/09/18 06:00 49 31 103/62 (76) 100 05/09/18 06:00 103/62 05/09/18 05:30 50 28 111/28 (55) 100 05/09/18 05:00 111/28 05/09/18 05:00 48 24 110/60 (77) 100 05/09/18 04:30 48 28 125/55 (78) 100 05/09/18 04:00 Nasal Cannula 2.0 05/09/18 04:00 111/61 05/09/18 04:00 97.5 46 27 111/61 (78) 100 05/09/18 03:30 52 27 81/50 (60) 100 05/09/18 03:00 53 26 115/90 (98) 100 05/09/18 03:00 115/90 05/09/18 02:30 51 28 110/78 (89) 100 05/09/18 02:00 49 29 98/58 (71) 100 05/09/18 02:00 98/58 05/09/18 01:30 49 30 98/59 (72) 100 05/09/18 01:00 105/56 05/09/18 01:00 52 26 135/56 (82) 100 05/09/18 00:30 49 29 115/65 (82) 100 05/09/18 00:00 Non-Rebreather 15.0 05/09/18 00:00 98.4 47 27 106/59 (75) 100 05/09/18 00:00 103/65 05/08/18 23:30 60 26 135/74 (94) 100 05/08/18 23:00 61 29 134/33 (66) 100 05/08/18 23:00 134/33 05/08/18 22:30 63 31 144/72 (96) 100 05/08/18 22:15 63 31 104/38 (60) 100 05/08/18 22:00 Non-Rebreather 15.0 05/08/18 22:00 62 30 110/87 (95) 100 05/08/18 22:00 54/41 05/08/18 21:36 55/29 05/08/18 21:30 60 29 105/93 (97) 99 05/08/18 21:15 72 28 78/37 (51) 84 05/08/18 21:00 40 21 53/29 (37) 79 05/08/18 20:45 40 21 71/28 (42) 88 05/08/18 20:30 38 22 73/38 (50) 96 05/08/18 20:00 Nasal Cannula 2.0 05/08/18 20:00 96 Nasal Cannula 2.0 28 05/08/18 20:00 Nasal Cannula 2.0 05/08/18 20:00 98.3 43 22 63/30 (41) 98 05/08/18 19:00 44 28 89/40 (56) 100 05/08/18 18:00 44 28 91/44 (60) 100 05/08/18 17:00 45 18 85/42 (56) 100 05/08/18 16:00 Venturi Mask 05/08/18 16:00 97.6 51 28 106/54 (71) 95 05/08/18 15:00 59 18 89/59 (69) 100 05/08/18 14:00 50 18 121/52 (75) 100 05/08/18 13:00 55 25 125/82 (96) 100 05/08/18 12:00 97.8 52 28 115/38 (63) 95 05/08/18 12:00 Venturi Mask 05/08/18 11:00 53 28 109/48 (68) 100 05/08/18 10:00 50 30 102/45 (64) 100 Intake and Output 05/08/18 05/09/18 19:00 07:00 Intake Total 2456.5 ml 2934.225 ml Output Total 415 ml 1870 ml Balance 2041.5 ml 1064.225 ml Intake Oral 0 ml Free Water 300 ml 200 ml IV Total 1956.5 ml 2494.225 ml Tube Feeding 200 ml 240 ml Output Urine Total 415 ml 1870 ml # Bowel Movements 1 Microbiology Date/Time Source Procedure Growth Status 05/05/18 17:57 Blood Blood Culture - Preliminary NO GROWTH AFTER 72 HOURS Resulted 05/05/18 20:00 Nose MRSA Culture - Final Staphylococcus Aureus - Mrsa Complete 05/05/18 18:07 Urine,Clean Catch Urine Culture - Final Escherichia Coli - Esbl Complete 05/05/18 20:30 Rectum - Final NO CARBAPENEM-RESISTANT ENTEROBACTERI... Complete Current Medications Medications (Trade) Dose Ordered Sig/Josephine Route PRN Reason Start Time Stop Time Status Last Admin Dose Admin Acetaminophen (Tylenol) 650 mg DAILY RECTAL 05/07/18 09:00 06/06/18 08:59 05/08/18 08:15 Chlorhexidine Gluconate (Kayla-Hex 2%) 1 applic DAILY@2000 TOPIC 05/07/18 20:00 06/06/18 19:59 05/08/18 20:41 Dextrose 1,000 ml @ 150 mls/hr Q6H40M IV 05/07/18 13:58 06/06/18 13:57 05/09/18 06:00 Dextrose (Dextrose 50%) 25 ml Q30M PRN IV Hypoglycemia 05/06/18 13:30 06/05/18 13:29 Dextrose (Dextrose 50%) 50 ml Q30M PRN IV Hypoglycemia 05/06/18 13:30 06/05/18 13:29 Docusate Sodium (Colace) 250 mg TWICE A DAY ORAL 05/08/18 10:30 06/07/18 10:29 05/08/18 17:46 Dopamine HCl/ Dextrose 250 ml @ 0 mls/hr Q24H IV 05/08/18 21:15 06/07/18 21:14 05/09/18 07:00 Folic Acid 1 mg/ Dextrose 1,000.2 ml @ 150 mls/ hr DAILY IV 05/09/18 09:00 06/08/18 08:59 05/09/18 09:03 Haloperidol (Haldol) 1 mg Q6H PRN ORAL Agitation 05/05/18 21:00 06/04/18 20:59 05/08/18 09:39 Heparin Sodium (Porcine) (Heparin 5000 units/ml) 5,000 units EVERY 12 HOURS SUBQ 05/05/18 21:00 06/04/18 20:59 05/08/18 20:42 Insulin Aspart (NovoLOG) BEFORE MEALS AND HS SUBQ 05/06/18 16:30 06/05/18 16:29 05/09/18 06:32 Levetiracetam 100 ml @ 400 mls/hr Q12H IVPB 05/05/18 23:00 06/04/18 22:59 05/08/18 23:00 Lorazepam (Ativan 2mg/ml 1ml) 1 mg Q4H PRN IV Agitation 05/05/18 21:00 05/12/18 20:59 05/08/18 16:17 Meropenem 500 mg/ Sodium Chloride 55 ml @ 110 mls/hr EVERY 12 HOURS IVPB 05/07/18 21:00 05/12/18 20:59 05/09/18 08:37 Pantoprazole (Protonix) 40 mg DAILY IVP 05/06/18 09:00 06/05/18 08:59 05/09/18 08:38 Phenytoin 100 mg/ Sodium Chloride 57 ml @ 114 mls/hr [id number] PHENYTOIN IVPB 05/06/18 00:00 06/05/18 00:00 05/09/18 00:00 Sodium Bicarbonate (NaHCO3) 650 mg BID ORAL 05/08/18 10:30 06/07/18 10:29 05/09/18 08:38 Laboratory Tests 05/08/18 18:00: Sodium Level 156H, Potassium Level 3.3L, Chloride Level 122H, Carbon Dioxide Level 19L, Anion Gap 16H, Blood Urea Nitrogen 86H, Creatinine 2.6H, Estimat Glomerular Filtration Rate , Glucose Level 178H, Calcium Level 7.3L 05/08/18 21:07: Arterial Blood pH 7.471H, Arterial Blood Partial Pressure CO2 22.5*L, Arterial Blood Partial Pressure O2 155.8H, Arterial Blood HCO3 16.0*L, Arterial Blood Oxygen Saturation 98.7, Arterial Blood Base Excess -6.0L, Larry Test Positive 05/09/18 04:00: Sodium Level 155H, Potassium Level 2.7*L, Chloride Level 119H, Carbon Dioxide Level 22, Anion Gap 15, Blood Urea Nitrogen 76H, Creatinine 2.4H, Estimat Glomerular Filtration Rate , Glucose Level 174H, Calcium Level 7.5L, White Blood Count 9.0, Red Blood Count 3.57L, Hemoglobin 11.7L, Hematocrit 36.5L, Mean Corpuscular Volume 102H, Mean Corpuscular Hemoglobin 32.8H, Mean Corpuscular Hemoglobin Concent 32.1, Red Cell Distribution Width 15.8H, Platelet Count 86L, Mean Platelet Volume 9.0, Neutrophils (%) (Auto) , Lymphocytes (%) (Auto) , Monocytes (%) (Auto) , Eosinophils (%) (Auto) , Basophils (%) (Auto) , Differential Total Cells Counted 100, Neutrophils % ( Manual) 67, Lymphocytes % (Manual) 11L, Monocytes % (Manual) 1, Eosinophils % ( Manual) 1, Basophils % (Manual) 0, Band Neutrophils 20H, Nucleated Red Blood Cells 1, Platelet Estimate DecreasedL, Platelet Morphology Normal, Anisocytosis 1+, Macrocytosis 1+, Magnesium Level 1.6L, Total Bilirubin 0.5, Aspartate Amino Transf (AST/SGOT) 26, Alanine Aminotransferase (ALT/SGPT) 12, Alkaline Phosphatase 114, Troponin I 0.001, Total Protein 6.4, Albumin 1.6L, Globulin 4.8 , Albumin/Globulin Ratio 0.3L, Phenytoin (Dilantin) Level 34.7*H Height (Feet): 5 Height (Inches): 4.00 Weight (Pounds): 129 Objective exam stable, urine oswaldo/cloudy Bamshad,Niranjan Soliz MD May 09, 2018 09:16
[2018-05-09] MEDS ORDERED: D5NS 1000ml IV ONE (10:12)
[2018-05-09] MEDS ORDERED: NS 275ml ONE ×2 (10:12→17:28)
[2018-05-09] MEDS ORDERED: Tubing IV Secondary IV ONE (10:12)
--- NOTE | 2018-05-09 10:30 | NUR ---
NURSE NOTES: Dr David here to see pt. said plan was to place pacemaker in pt. Will continue to monitor.
[2018-05-09] MEDS: levETIRAcetam 500mg/NS100ml 100 ML IVPB SCH ×2 (10:41→23:52)
--- NOTE | 2018-05-09 10:59 | Nephrology Progress Note ---
Assessment/Plan Problem List: (1) UTI (urinary tract infection) (2) History of ESBL E. coli infection (3) Dehydration (4) EBEN (acute kidney injury) (5) Hypernatremia (6) UTI (urinary tract infection) (7) Sepsis (8) Acute encephalopathy Plan continue iv fluids, gradual correction Na, antibiotcs baseline creatinine 0.84 K replacement Subjective ROS Limited/Unobtainable: Yes Objective Objective Last 24 Hour Vital Signs Date Time Temp Pulse Resp B/P (MAP) Pulse Ox O2 Delivery O2 Flow Rate FiO2 05/09/18 10:00 54 28 82/61 (68) 93 05/09/18 09:30 54 29 82/65 (71) 100 05/09/18 09:00 54 29 86/58 (67) 100 05/09/18 08:30 53 31 100/60 (73) 100 05/09/18 08:00 Nasal Cannula 2.0 05/09/18 08:00 97.0 52 30 98/65 (76) 100 05/09/18 07:00 103/62 05/09/18 07:00 48 31 89/62 (71) 100 05/09/18 06:59 89/62 05/09/18 06:30 48 28 87/55 (66) 100 05/09/18 06:00 49 31 103/62 (76) 100 05/09/18 06:00 103/62 05/09/18 05:30 50 28 111/28 (55) 100 05/09/18 05:00 111/28 05/09/18 05:00 48 24 110/60 (77) 100 05/09/18 04:30 48 28 125/55 (78) 100 05/09/18 04:00 Nasal Cannula 2.0 05/09/18 04:00 111/61 05/09/18 04:00 97.5 46 27 111/61 (78) 100 05/09/18 03:30 52 27 81/50 (60) 100 05/09/18 03:00 53 26 115/90 (98) 100 05/09/18 03:00 115/90 05/09/18 02:30 51 28 110/78 (89) 100 05/09/18 02:00 49 29 98/58 (71) 100 05/09/18 02:00 98/58 05/09/18 01:30 49 30 98/59 (72) 100 05/09/18 01:00 105/56 05/09/18 01:00 52 26 135/56 (82) 100 05/09/18 00:30 49 29 115/65 (82) 100 05/09/18 00:00 Non-Rebreather 15.0 05/09/18 00:00 98.4 47 27 106/59 (75) 100 05/09/18 00:00 103/65 05/08/18 23:30 60 26 135/74 (94) 100 05/08/18 23:00 61 29 134/33 (66) 100 05/08/18 23:00 134/33 05/08/18 22:30 63 31 144/72 (96) 100 05/08/18 22:15 63 31 104/38 (60) 100 05/08/18 22:00 Non-Rebreather 15.0 05/08/18 22:00 62 30 110/87 (95) 100 05/08/18 22:00 54/41 05/08/18 21:36 55/29 05/08/18 21:30 60 29 105/93 (97) 99 05/08/18 21:15 72 28 78/37 (51) 84 05/08/18 21:00 40 21 53/29 (37) 79 05/08/18 20:45 40 21 71/28 (42) 88 05/08/18 20:30 38 22 73/38 (50) 96 05/08/18 20:00 Nasal Cannula 2.0 05/08/18 20:00 96 Nasal Cannula 2.0 28 05/08/18 20:00 Nasal Cannula 2.0 05/08/18 20:00 98.3 43 22 63/30 (41) 98 05/08/18 19:00 44 28 89/40 (56) 100 05/08/18 18:00 44 28 91/44 (60) 100 05/08/18 17:00 45 18 85/42 (56) 100 05/08/18 16:00 Venturi Mask 05/08/18 16:00 97.6 51 28 106/54 (71) 95 05/08/18 15:00 59 18 89/59 (69) 100 05/08/18 14:00 50 18 121/52 (75) 100 05/08/18 13:00 55 25 125/82 (96) 100 05/08/18 12:00 97.8 52 28 115/38 (63) 95 05/08/18 12:00 Venturi Mask 05/08/18 11:00 53 28 109/48 (68) 100 Intake and Output 05/08/18 05/09/18 19:00 07:00 Intake Total 2456.5 ml 2934.225 ml Output Total 415 ml 1870 ml Balance 2041.5 ml 1064.225 ml Intake Oral 0 ml Free Water 300 ml 200 ml IV Total 1956.5 ml 2494.225 ml Tube Feeding 200 ml 240 ml Output Urine Total 415 ml 1870 ml # Bowel Movements 1 Laboratory Tests 05/08/18 18:00: Sodium Level 156H, Potassium Level 3.3L, Chloride Level 122H, Carbon Dioxide Level 19L, Anion Gap 16H, Blood Urea Nitrogen 86H, Creatinine 2.6H, Estimat Glomerular Filtration Rate , Glucose Level 178H, Calcium Level 7.3L 05/08/18 21:07: Arterial Blood pH 7.471H, Arterial Blood Partial Pressure CO2 22.5*L, Arterial Blood Partial Pressure O2 155.8H, Arterial Blood HCO3 16.0*L, Arterial Blood Oxygen Saturation 98.7, Arterial Blood Base Excess -6.0L, Larry Test Positive 05/09/18 04:00: Sodium Level 155H, Potassium Level 2.7*L, Chloride Level 119H, Carbon Dioxide Level 22, Anion Gap 15, Blood Urea Nitrogen 76H, Creatinine 2.4H, Estimat Glomerular Filtration Rate , Glucose Level 174H, Calcium Level 7.5L, White Blood Count 9.0, Red Blood Count 3.57L, Hemoglobin 11.7L, Hematocrit 36.5L, Mean Corpuscular Volume 102H, Mean Corpuscular Hemoglobin 32.8H, Mean Corpuscular Hemoglobin Concent 32.1, Red Cell Distribution Width 15.8H, Platelet Count 86L, Mean Platelet Volume 9.0, Neutrophils (%) (Auto) , Lymphocytes (%) (Auto) , Monocytes (%) (Auto) , Eosinophils (%) (Auto) , Basophils (%) (Auto) , Differential Total Cells Counted 100, Neutrophils % ( Manual) 67, Lymphocytes % (Manual) 11L, Monocytes % (Manual) 1, Eosinophils % ( Manual) 1, Basophils % (Manual) 0, Band Neutrophils 20H, Nucleated Red Blood Cells 1, Platelet Estimate DecreasedL, Platelet Morphology Normal, Anisocytosis 1+, Macrocytosis 1+, Magnesium Level 1.6L, Total Bilirubin 0.5, Aspartate Amino Transf (AST/SGOT) 26, Alanine Aminotransferase (ALT/SGPT) 12, Alkaline Phosphatase 114, Troponin I 0.001, Total Protein 6.4, Albumin 1.6L, Globulin 4.8 , Albumin/Globulin Ratio 0.3L, Phenytoin (Dilantin) Level 34.7*H Height (Feet): 5 Height (Inches): 4.00 Weight (Pounds): 129 General Appearance: lethargic, cachetic EENT: normal ENT inspection Neck: supple Cardiovascular: regular rhythm Respiratory/Chest: accessory muscle use Abdomen: non tender Neurologic: unresponsive Dony Hayes MD May 09, 2018 10:59
--- NOTE | 2018-05-09 11:02 | Infectious Diseases Prog Note ---
Assessment/Plan Assessment/Plan antibiotics : meropenem A 1. e.coli UTI 2. shock 3. renal failure improving 4. seizures 5. diabetes mellitus P 1. continue meropenem 2. will follow up cultures Subjective ROS Limited/Unobtainable: Yes Allergies: Coded Allergies: No Known Allergies (Unverified , 07/08/16) Objective Vital Signs Last 24 Hour Vital Signs Date Time Temp Pulse Resp B/P (MAP) Pulse Ox O2 Delivery O2 Flow Rate FiO2 05/09/18 10:00 54 28 82/61 (68) 93 05/09/18 09:30 54 29 82/65 (71) 100 05/09/18 09:00 54 29 86/58 (67) 100 05/09/18 08:30 53 31 100/60 (73) 100 05/09/18 08:00 Nasal Cannula 2.0 05/09/18 08:00 97.0 52 30 98/65 (76) 100 05/09/18 07:00 103/62 05/09/18 07:00 48 31 89/62 (71) 100 05/09/18 06:59 89/62 05/09/18 06:30 48 28 87/55 (66) 100 05/09/18 06:00 49 31 103/62 (76) 100 05/09/18 06:00 103/62 05/09/18 05:30 50 28 111/28 (55) 100 05/09/18 05:00 111/28 05/09/18 05:00 48 24 110/60 (77) 100 05/09/18 04:30 48 28 125/55 (78) 100 05/09/18 04:00 Nasal Cannula 2.0 05/09/18 04:00 111/61 05/09/18 04:00 97.5 46 27 111/61 (78) 100 05/09/18 03:30 52 27 81/50 (60) 100 05/09/18 03:00 53 26 115/90 (98) 100 05/09/18 03:00 115/90 05/09/18 02:30 51 28 110/78 (89) 100 05/09/18 02:00 49 29 98/58 (71) 100 05/09/18 02:00 98/58 05/09/18 01:30 49 30 98/59 (72) 100 05/09/18 01:00 105/56 05/09/18 01:00 52 26 135/56 (82) 100 05/09/18 00:30 49 29 115/65 (82) 100 05/09/18 00:00 Non-Rebreather 15.0 05/09/18 00:00 98.4 47 27 106/59 (75) 100 05/09/18 00:00 103/65 05/08/18 23:30 60 26 135/74 (94) 100 05/08/18 23:00 61 29 134/33 (66) 100 05/08/18 23:00 134/33 05/08/18 22:30 63 31 144/72 (96) 100 05/08/18 22:15 63 31 104/38 (60) 100 05/08/18 22:00 Non-Rebreather 15.0 05/08/18 22:00 62 30 110/87 (95) 100 05/08/18 22:00 54/41 05/08/18 21:36 55/29 05/08/18 21:30 60 29 105/93 (97) 99 05/08/18 21:15 72 28 78/37 (51) 84 05/08/18 21:00 40 21 53/29 (37) 79 05/08/18 20:45 40 21 71/28 (42) 88 05/08/18 20:30 38 22 73/38 (50) 96 05/08/18 20:00 Nasal Cannula 2.0 05/08/18 20:00 96 Nasal Cannula 2.0 28 05/08/18 20:00 Nasal Cannula 2.0 05/08/18 20:00 98.3 43 22 63/30 (41) 98 05/08/18 19:00 44 28 89/40 (56) 100 05/08/18 18:00 44 28 91/44 (60) 100 05/08/18 17:00 45 18 85/42 (56) 100 05/08/18 16:00 Venturi Mask 05/08/18 16:00 97.6 51 28 106/54 (71) 95 05/08/18 15:00 59 18 89/59 (69) 100 05/08/18 14:00 50 18 121/52 (75) 100 05/08/18 13:00 55 25 125/82 (96) 100 05/08/18 12:00 97.8 52 28 115/38 (63) 95 05/08/18 12:00 Venturi Mask 05/08/18 11:00 53 28 109/48 (68) 100 Height (Feet): 5 Height (Inches): 4.00 Weight (Pounds): 129 Respiratory/Chest: lungs clear Cardiovascular: normal rate, regular rhythm, no gallop/murmur Abdomen: soft, non tender Extremities: other - + edema, left arm PICC Laboratory Tests Test 05/08/18 18:00 05/08/18 21:07 05/09/18 04:00 Sodium Level 156 MMOL/L (136-145) H 155 MMOL/L (136-145) H Potassium Level 3.3 MMOL/L (3.5-5.1) L 2.7 MMOL/L (3.5-5.1) *L Chloride Level 122 MMOL/L (98-107) H 119 MMOL/L (98-107) H Carbon Dioxide Level 19 MMOL/L (21-32) L 22 MMOL/L (21-32) Anion Gap 16 mmol/L (5-15) H 15 mmol/L (5-15) Blood Urea Nitrogen 86 mg/dL (7-18) H 76 mg/dL (7-18) H Creatinine 2.6 MG/DL (0.55-1.30) H 2.4 MG/DL (0.55-1.30) H Estimat Glomerular Filtration Rate mL/min (>60) mL/min (>60) Glucose Level 178 MG/DL (74-106) H 174 MG/DL (74-106) H Calcium Level 7.3 MG/DL (8.5-10.1) L 7.5 MG/DL (8.5-10.1) L Arterial Blood pH 7.471 (7.350-7.450) Arterial Blood Partial Pressure CO2 22.5 mmHg (35.0-45.0) *L Arterial Blood Partial Pressure O2 155.8 mmHg (75.0-100.0) H Arterial Blood HCO3 16.0 mmol/L (22.0-26.0) *L Arterial Blood Oxygen Saturation 98.7 % (95-100) Arterial Blood Base Excess -6.0 (-2-2) L Larry Test Positive White Blood Count 9.0 K/UL (4.8-10.8) Red Blood Count 3.57 M/UL (4.70-6.10) L Hemoglobin 11.7 G/DL (14.2-18.0) L Hematocrit 36.5 % (42.0-52.0) L Mean Corpuscular Volume 102 FL (80-99) H Mean Corpuscular Hemoglobin 32.8 PG (27.0-31.0) H Mean Corpuscular Hemoglobin Concent 32.1 G/DL (32.0-36.0) Red Cell Distribution Width 15.8 % (11.6-14.8) H Platelet Count 86 K/UL (150-450) L Mean Platelet Volume 9.0 FL (6.5-10.1) Neutrophils (%) (Auto) % (45.0-75.0) Lymphocytes (%) (Auto) % (20.0-45.0) Monocytes (%) (Auto) % (1.0-10.0) Eosinophils (%) (Auto) % (0.0-3.0) Basophils (%) (Auto) % (0.0-2.0) Differential Total Cells Counted 100 Neutrophils % (Manual) 67 % (45-75) Lymphocytes % (Manual) 11 % (20-45) L Monocytes % (Manual) 1 % (1-10) Eosinophils % (Manual) 1 % (0-3) Basophils % (Manual) 0 % (0-2) Band Neutrophils 20 % (0-8) H Nucleated Red Blood Cells 1 /100 WBC Platelet Estimate Decreased L Platelet Morphology Normal Anisocytosis 1+ Macrocytosis 1+ Magnesium Level 1.6 MG/DL (1.8-2.4) L Total Bilirubin 0.5 MG/DL (0.2-1.0) Aspartate Amino Transf (AST/SGOT) 26 U/L (15-37) Alanine Aminotransferase (ALT/SGPT) 12 U/L (12-78) Alkaline Phosphatase 114 U/L (46-116) Troponin I 0.001 ng/mL (0.000-0.056) Total Protein 6.4 G/DL (6.4-8.2) Albumin 1.6 G/DL (3.4-5.0) L Globulin 4.8 g/dL Albumin/Globulin Ratio 0.3 (1.0-2.7) L Phenytoin (Dilantin) Level 34.7 ug/mL (10-20) *H Current Medications Medications (Trade) Dose Ordered Sig/Josephine Route PRN Reason Start Time Stop Time Status Last Admin Dose Admin Acetaminophen (Tylenol) 650 mg DAILY RECTAL 05/07/18 09:00 06/06/18 08:59 05/08/18 08:15 Chlorhexidine Gluconate (Kayla-Hex 2%) 1 applic DAILY@2000 TOPIC 05/07/18 20:00 06/06/18 19:59 05/08/18 20:41 Dextrose 1,000 ml @ 150 mls/hr Q6H40M IV 05/07/18 13:58 06/06/18 13:57 05/09/18 06:00 Dextrose (Dextrose 50%) 25 ml Q30M PRN IV Hypoglycemia 05/06/18 13:30 06/05/18 13:29 Dextrose (Dextrose 50%) 50 ml Q30M PRN IV Hypoglycemia 05/06/18 13:30 06/05/18 13:29 Docusate Sodium (Colace) 250 mg TWICE A DAY ORAL 05/08/18 10:30 06/07/18 10:29 05/08/18 17:46 Dopamine HCl/ Dextrose 250 ml @ 0 mls/hr Q24H IV 05/08/18 21:15 06/07/18 21:14 05/09/18 07:00 Folic Acid 1 mg/ Dextrose 1,000.2 ml @ 150 mls/ hr DAILY IV 05/09/18 09:00 06/08/18 08:59 05/09/18 09:03 Haloperidol (Haldol) 1 mg Q6H PRN ORAL Agitation 05/05/18 21:00 06/04/18 20:59 05/08/18 09:39 Heparin Sodium (Porcine) (Heparin 5000 units/ml) 5,000 units EVERY 12 HOURS SUBQ 05/05/18 21:00 06/04/18 20:59 05/08/18 20:42 Insulin Aspart (NovoLOG) BEFORE MEALS AND HS SUBQ 05/06/18 16:30 06/05/18 16:29 05/09/18 06:32 Levetiracetam 100 ml @ 400 mls/hr Q12H IVPB 05/05/18 23:00 06/04/18 22:59 05/09/18 10:41 Lorazepam (Ativan 2mg/ml 1ml) 1 mg Q4H PRN IV Agitation 05/05/18 21:00 05/12/18 20:59 05/08/18 16:17 Meropenem 500 mg/ Sodium Chloride 55 ml @ 110 mls/hr EVERY 12 HOURS IVPB 05/07/18 21:00 05/12/18 20:59 05/09/18 08:37 Pantoprazole (Protonix) 40 mg DAILY IVP 05/06/18 09:00 06/05/18 08:59 05/09/18 08:38 Phenytoin 100 mg/ Sodium Chloride 57 ml @ 114 mls/hr [id number] PHENYTOIN IVPB 05/06/18 00:00 06/05/18 00:00 05/09/18 00:00 Sodium Bicarbonate (NaHCO3) 650 mg BID ORAL 05/08/18 10:30 06/07/18 10:29 05/09/18 08:38 Shawn Conteh MD May 09, 2018 11:02
--- NOTE | 2018-05-09 11:30 | NUR ---
NURSE NOTES: Accucheck BS was 46, d5w given. Will re-assess.
--- NOTE | 2018-05-09 12:00 | NUR ---
NURSE NOTES: Accucheck post d50 was 118
--- NOTE | 2018-05-09 15:12 | NUR ---
NURSE NOTES: Dr Tellez here to see pt. No new orders. Will continue to monitor.
--- NOTE | 2018-05-09 16:02 | General Progress Note ---
Assessment/Plan Problem List: (1) Seizure ICD Codes: R56.9 - Unspecified convulsions SNOMED: 88333603 (2) Sepsis ICD Codes: A41.9 - Sepsis, unspecified organism SNOMED: 41675703 (3) Acute encephalopathy ICD Codes: G93.40 - Encephalopathy, unspecified SNOMED: 9321795 (4) Hypernatremia ICD Codes: E87.0 - Hyperosmolality and hypernatremia SNOMED: 23995661 (5) Renal failure ICD Codes: N19 - Unspecified kidney failure SNOMED: 52044973 Qualifiers: Qualified Codes: N17.9 - Acute kidney failure, unspecified (6) Respiratory distress ICD Codes: R06.03 - Acute respiratory distress SNOMED: 699628965 (7) Dehydration ICD Codes: E86.0 - Dehydration SNOMED: 78362377 (8) SOB (shortness of breath) ICD Codes: R06.02 - Shortness of breath SNOMED: 214910688 (9) UTI (urinary tract infection) ICD Codes: N39.0 - Urinary tract infection, site not specified SNOMED: 70087383 Qualifiers: Qualified Codes: N39.0 - Urinary tract infection, site not specified Status: stable Assessment/Plan IVF per renal replace k repeat bmp tomorrow bictra water flushes dopamine EP eval feeds ID/GI/ eval appreciated o2 resp rx monitor cxr ogt Subjective ROS Limited/Unobtainable: Yes Constitutional: Reports: malaise, weakness HEENT: Reports: no symptoms Cardiovascular: Reports: no symptoms Respiratory: Reports: cough, shortness of breath, SOB with excertion Gastrointestinal/Abdominal: Reports: difficulty swallowing Genitourinary: Reports: no symptoms Neurologic/Psychiatric: Reports: pre-existing deficit, seizure Endocrine: Reports: no symptoms Hematologic/Lymphatic: Reports: anemia Allergies: Coded Allergies: No Known Allergies (Unverified , 07/08/16) All Systems: reviewed and negative except above Subjective hypotensive and bradycardic last night. now on dopamine for low bp and hr. briefly on bipap for resp distress. remains on ivf. renal fxn and cr improving Objective Last 24 Hour Vital Signs Date Time Temp Pulse Resp B/P (MAP) Pulse Ox O2 Delivery O2 Flow Rate FiO2 05/09/18 14:24 89/49 05/09/18 14:00 56 28 89/49 (62) 99 05/09/18 13:30 56 27 105/64 (78) 99 05/09/18 13:00 55 30 96 05/09/18 12:30 56 30 102/59 (73) 92 05/09/18 12:00 Nasal Cannula 2.0 05/09/18 12:00 97.8 54 31 115/66 (82) 92 05/09/18 11:30 55 33 121/73 (89) 93 05/09/18 11:00 55 30 76/60 (65) 93 05/09/18 10:30 54 29 86/69 (75) 92 05/09/18 10:00 54 28 82/61 (68) 93 05/09/18 10:00 82/61 05/09/18 09:30 54 29 82/65 (71) 100 05/09/18 09:00 54 29 86/58 (67) 100 05/09/18 09:00 86/58 05/09/18 08:30 53 31 100/60 (73) 100 05/09/18 08:00 Nasal Cannula 2.0 05/09/18 08:00 98/65 05/09/18 08:00 97.0 52 30 98/65 (76) 100 05/09/18 07:00 103/62 05/09/18 07:00 48 31 89/62 (71) 100 05/09/18 06:59 89/62 05/09/18 06:30 48 28 87/55 (66) 100 05/09/18 06:00 49 31 103/62 (76) 100 05/09/18 06:00 103/62 05/09/18 05:30 50 28 111/28 (55) 100 05/09/18 05:00 111/28 05/09/18 05:00 48 24 110/60 (77) 100 05/09/18 04:30 48 28 125/55 (78) 100 05/09/18 04:00 Nasal Cannula 2.0 05/09/18 04:00 111/61 05/09/18 04:00 97.5 46 27 111/61 (78) 100 05/09/18 03:30 52 27 81/50 (60) 100 05/09/18 03:00 53 26 115/90 (98) 100 05/09/18 03:00 115/90 05/09/18 02:30 51 28 110/78 (89) 100 05/09/18 02:00 49 29 98/58 (71) 100 05/09/18 02:00 98/58 05/09/18 01:30 49 30 98/59 (72) 100 05/09/18 01:00 105/56 05/09/18 01:00 52 26 135/56 (82) 100 05/09/18 00:30 49 29 115/65 (82) 100 05/09/18 00:00 Non-Rebreather 15.0 05/09/18 00:00 98.4 47 27 106/59 (75) 100 05/09/18 00:00 103/65 05/08/18 23:30 60 26 135/74 (94) 100 05/08/18 23:00 61 29 134/33 (66) 100 05/08/18 23:00 134/33 05/08/18 22:30 63 31 144/72 (96) 100 05/08/18 22:15 63 31 104/38 (60) 100 05/08/18 22:00 Non-Rebreather 15.0 05/08/18 22:00 62 30 110/87 (95) 100 05/08/18 22:00 54/41 05/08/18 21:36 55/29 05/08/18 21:30 60 29 105/93 (97) 99 05/08/18 21:15 72 28 78/37 (51) 84 05/08/18 21:00 40 21 53/29 (37) 79 05/08/18 20:45 40 21 71/28 (42) 88 05/08/18 20:30 38 22 73/38 (50) 96 05/08/18 20:00 Nasal Cannula 2.0 05/08/18 20:00 96 Nasal Cannula 2.0 28 05/08/18 20:00 Nasal Cannula 2.0 05/08/18 20:00 98.3 43 22 63/30 (41) 98 05/08/18 19:00 44 28 89/40 (56) 100 05/08/18 18:00 44 28 91/44 (60) 100 05/08/18 17:00 45 18 85/42 (56) 100 Intake and Output 05/08/18 05/09/18 19:00 07:00 Intake Total 2456.5 ml 2934.225 ml Output Total 415 ml 1870 ml Balance 2041.5 ml 1064.225 ml Intake Oral 0 ml Free Water 300 ml 200 ml IV Total 1956.5 ml 2494.225 ml Tube Feeding 200 ml 240 ml Output Urine Total 415 ml 1870 ml # Bowel Movements 1 Laboratory Tests 05/08/18 18:00: Sodium Level 156H, Potassium Level 3.3L, Chloride Level 122H, Carbon Dioxide Level 19L, Anion Gap 16H, Blood Urea Nitrogen 86H, Creatinine 2.6H, Estimat Glomerular Filtration Rate , Glucose Level 178H, Calcium Level 7.3L 05/08/18 21:07: Arterial Blood pH 7.471H, Arterial Blood Partial Pressure CO2 22.5*L, Arterial Blood Partial Pressure O2 155.8H, Arterial Blood HCO3 16.0*L, Arterial Blood Oxygen Saturation 98.7, Arterial Blood Base Excess -6.0L, Larry Test Positive 05/09/18 04:00: Sodium Level 155H, Potassium Level 2.7*L, Chloride Level 119H, Carbon Dioxide Level 22, Anion Gap 15, Blood Urea Nitrogen 76H, Creatinine 2.4H, Estimat Glomerular Filtration Rate , Glucose Level 174H, Calcium Level 7.5L, White Blood Count 9.0, Red Blood Count 3.57L, Hemoglobin 11.7L, Hematocrit 36.5L, Mean Corpuscular Volume 102H, Mean Corpuscular Hemoglobin 32.8H, Mean Corpuscular Hemoglobin Concent 32.1, Red Cell Distribution Width 15.8H, Platelet Count 86L, Mean Platelet Volume 9.0, Neutrophils (%) (Auto) , Lymphocytes (%) (Auto) , Monocytes (%) (Auto) , Eosinophils (%) (Auto) , Basophils (%) (Auto) , Differential Total Cells Counted 100, Neutrophils % ( Manual) 67, Lymphocytes % (Manual) 11L, Monocytes % (Manual) 1, Eosinophils % ( Manual) 1, Basophils % (Manual) 0, Band Neutrophils 20H, Nucleated Red Blood Cells 1, Platelet Estimate DecreasedL, Platelet Morphology Normal, Anisocytosis 1+, Macrocytosis 1+, Magnesium Level 1.6L, Total Bilirubin 0.5, Aspartate Amino Transf (AST/SGOT) 26, Alanine Aminotransferase (ALT/SGPT) 12, Alkaline Phosphatase 114, Troponin I 0.001, Total Protein 6.4, Albumin 1.6L, Globulin 4.8 , Albumin/Globulin Ratio 0.3L, Phenytoin (Dilantin) Level 34.7*H Height (Feet): 5 Height (Inches): 4.00 Weight (Pounds): 129 Objective General Appearance: WD/WN, lethargic, confused Neck: supple Cardiovascular: regular rhythm Respiratory/Chest: chest wall non-tender, lungs clear, normal breath sounds Abdomen: normal bowel sounds, non tender, soft, no organomegaly Edema: no edema noted Arm (L), no edema noted Arm (R), no edema noted Leg (L), no edema noted Leg (R), no edema noted Pedal (L), no edema noted Pedal (R), no edema noted Generalized Neurologic: disoriented, unresponsive, aphasia Jcarlos David MD May 09, 2018 16:02
--- NOTE | 2018-05-09 16:47 | General Progress Note ---
Assessment/Plan Assessment/Plan Assessment - Hypernatremia - improving - hypokalemia - Azotemia - OBS/Encephalopathy - failed swallow evaluation - past h/o PEG placement - G tube has been removed in the past, GT site sealed and closed - Epistaxis at time of NGT trial --> OGT placed - Bradycardia - UTi Recommendations - OGT feeds - Aspiration precautions - elevate HOB - Free water replacement - Abx - Follow labs and mental status - PEG once medically stable Subjective Allergies: Coded Allergies: No Known Allergies (Unverified , 07/08/16) Subjective non verbal d/w RN tolerating OGT feeds still bradycardic Objective Last 24 Hour Vital Signs Date Time Temp Pulse Resp B/P (MAP) Pulse Ox O2 Delivery O2 Flow Rate FiO2 05/09/18 16:20 83/60 05/09/18 16:00 97.0 57 30 126/104 (111) 100 05/09/18 16:00 Nasal Cannula 2.0 05/09/18 15:30 56 28 97/28 (51) 97 05/09/18 15:00 55 25 59/22 (34) 99 05/09/18 14:24 89/49 05/09/18 14:00 56 28 89/49 (62) 99 05/09/18 13:30 56 27 105/64 (78) 99 05/09/18 13:00 55 30 96 05/09/18 12:30 56 30 102/59 (73) 92 05/09/18 12:00 Nasal Cannula 2.0 05/09/18 12:00 97.8 54 31 115/66 (82) 92 05/09/18 11:30 55 33 121/73 (89) 93 05/09/18 11:00 55 30 76/60 (65) 93 05/09/18 10:30 54 29 86/69 (75) 92 05/09/18 10:00 54 28 82/61 (68) 93 05/09/18 10:00 82/61 05/09/18 09:30 54 29 82/65 (71) 100 05/09/18 09:00 54 29 86/58 (67) 100 05/09/18 09:00 86/58 05/09/18 08:30 53 31 100/60 (73) 100 05/09/18 08:00 Nasal Cannula 2.0 05/09/18 08:00 98/65 05/09/18 08:00 97.0 52 30 98/65 (76) 100 05/09/18 07:00 103/62 05/09/18 07:00 48 31 89/62 (71) 100 05/09/18 06:59 89/62 05/09/18 06:30 48 28 87/55 (66) 100 05/09/18 06:00 49 31 103/62 (76) 100 05/09/18 06:00 103/62 05/09/18 05:30 50 28 111/28 (55) 100 05/09/18 05:00 111/28 05/09/18 05:00 48 24 110/60 (77) 100 05/09/18 04:30 48 28 125/55 (78) 100 05/09/18 04:00 Nasal Cannula 2.0 05/09/18 04:00 111/61 05/09/18 04:00 97.5 46 27 111/61 (78) 100 05/09/18 03:30 52 27 81/50 (60) 100 05/09/18 03:00 53 26 115/90 (98) 100 05/09/18 03:00 115/90 05/09/18 02:30 51 28 110/78 (89) 100 05/09/18 02:00 49 29 98/58 (71) 100 05/09/18 02:00 98/58 05/09/18 01:30 49 30 98/59 (72) 100 05/09/18 01:00 105/56 05/09/18 01:00 52 26 135/56 (82) 100 05/09/18 00:30 49 29 115/65 (82) 100 05/09/18 00:00 Non-Rebreather 15.0 05/09/18 00:00 98.4 47 27 106/59 (75) 100 05/09/18 00:00 103/65 05/08/18 23:30 60 26 135/74 (94) 100 05/08/18 23:00 61 29 134/33 (66) 100 05/08/18 23:00 134/33 05/08/18 22:30 63 31 144/72 (96) 100 05/08/18 22:15 63 31 104/38 (60) 100 05/08/18 22:00 Non-Rebreather 15.0 05/08/18 22:00 62 30 110/87 (95) 100 05/08/18 22:00 54/41 05/08/18 21:36 55/29 05/08/18 21:30 60 29 105/93 (97) 99 05/08/18 21:15 72 28 78/37 (51) 84 05/08/18 21:00 40 21 53/29 (37) 79 05/08/18 20:45 40 21 71/28 (42) 88 05/08/18 20:30 38 22 73/38 (50) 96 05/08/18 20:00 Nasal Cannula 2.0 05/08/18 20:00 96 Nasal Cannula 2.0 28 05/08/18 20:00 Nasal Cannula 2.0 05/08/18 20:00 98.3 43 22 63/30 (41) 98 05/08/18 19:00 44 28 89/40 (56) 100 05/08/18 18:00 44 28 91/44 (60) 100 05/08/18 17:00 45 18 85/42 (56) 100 Intake and Output 05/08/18 05/09/18 19:00 07:00 Intake Total 2456.5 ml 2934.225 ml Output Total 415 ml 1870 ml Balance 2041.5 ml 1064.225 ml Intake Oral 0 ml Free Water 300 ml 200 ml IV Total 1956.5 ml 2494.225 ml Tube Feeding 200 ml 240 ml Output Urine Total 415 ml 1870 ml # Bowel Movements 1 Laboratory Tests 05/08/18 18:00: Sodium Level 156H, Potassium Level 3.3L, Chloride Level 122H, Carbon Dioxide Level 19L, Anion Gap 16H, Blood Urea Nitrogen 86H, Creatinine 2.6H, Estimat Glomerular Filtration Rate , Glucose Level 178H, Calcium Level 7.3L 05/08/18 21:07: Arterial Blood pH 7.471H, Arterial Blood Partial Pressure CO2 22.5*L, Arterial Blood Partial Pressure O2 155.8H, Arterial Blood HCO3 16.0*L, Arterial Blood Oxygen Saturation 98.7, Arterial Blood Base Excess -6.0L, Larry Test Positive 05/09/18 04:00: Sodium Level 155H, Potassium Level 2.7*L, Chloride Level 119H, Carbon Dioxide Level 22, Anion Gap 15, Blood Urea Nitrogen 76H, Creatinine 2.4H, Estimat Glomerular Filtration Rate , Glucose Level 174H, Calcium Level 7.5L, White Blood Count 9.0, Red Blood Count 3.57L, Hemoglobin 11.7L, Hematocrit 36.5L, Mean Corpuscular Volume 102H, Mean Corpuscular Hemoglobin 32.8H, Mean Corpuscular Hemoglobin Concent 32.1, Red Cell Distribution Width 15.8H, Platelet Count 86L, Mean Platelet Volume 9.0, Neutrophils (%) (Auto) , Lymphocytes (%) (Auto) , Monocytes (%) (Auto) , Eosinophils (%) (Auto) , Basophils (%) (Auto) , Differential Total Cells Counted 100, Neutrophils % ( Manual) 67, Lymphocytes % (Manual) 11L, Monocytes % (Manual) 1, Eosinophils % ( Manual) 1, Basophils % (Manual) 0, Band Neutrophils 20H, Nucleated Red Blood Cells 1, Platelet Estimate DecreasedL, Platelet Morphology Normal, Anisocytosis 1+, Macrocytosis 1+, Magnesium Level 1.6L, Total Bilirubin 0.5, Aspartate Amino Transf (AST/SGOT) 26, Alanine Aminotransferase (ALT/SGPT) 12, Alkaline Phosphatase 114, Troponin I 0.001, Total Protein 6.4, Albumin 1.6L, Globulin 4.8 , Albumin/Globulin Ratio 0.3L, Phenytoin (Dilantin) Level 34.7*H Height (Feet): 5 Height (Inches): 4.00 Weight (Pounds): 129 Objective Thin WM NCAT Supple CTA bradycardic abd soft Yuridia Carlos MD May 09, 2018 16:47
[2018-05-09] MEDS ORDERED: Sterile Water Irrig 1000ml IRRIG ONE (17:28)
[2018-05-09] MEDS ORDERED: NS 500ML ONE (17:28)
--- NOTE | 2018-05-09 19:00 | NUR ---
NURSE NOTES: Report received from Sunitha AVILA. Pt awake, eyes open without tracking. Pt obtunded, does not follow commands. Pt on pacu nurse, SB. Pt on 2 L O2 via NC, saturating 100%. OGT with Nepro 20 cc/hr. Enriquez noted draining urine with sediment. Pt on SPR mattress. OMAR PICC noted with Dopamine at 14 mcg/kg/min and IVF d5. BP 94/58. Safety measures in place with bed locked and in lowest position, side rails x3 up and bed alarm activated. Will continue to monitor and continue plan of care.
--- NOTE | 2018-05-09 19:28 | NUR ---
HAND-OFF: Report given to Soto AVILA.
--- NOTE | 2018-05-09 19:30 | NUR ---
NURSE NOTES: Recvd.quiet in bed Aphasic occ. moans/groans.Stiff and contracted does'nt follows command.See Neuro/Phy.assessment.Resp.Slight Labored on exertion.Lungs scatt.rales/Rh.P.O 98-100% on 3L/NC.See V/S.Dopa.drip in progress TiT.to BRS>90.Scope SR-SB.Pos. chg.Suctioned.OGT intact-Nephro fdng.in progress at 20cc/hr.Res.-o.F/Cath.patent diuresis well.See I/O.Cont.on IV Thera.
[2018-05-09] MEDS: Dyna-Hex 2% Top Sol 2oz TOPIC SCH (21:01)
--- NOTE | 2018-05-09 22:00 | NUR ---
NURSE NOTES: HS Care rendered.Pos chg.Backrub with lotion.Suctioned.Due meds admin.See V/S Dopa.Drip inc.to 20mcg/kg/min.Cont.on IV Hydration.Neuro status same.
--- NOTE | 2018-05-09 22:20 | Consultation ---
Consult Note Consult Note Cardiac EP Full consult dictated #[id number] Susi Coburn MD May 09, 2018 22:20
--- NOTE | 2018-05-09 23:15 | Consultation ---
DATE OF CONSULTATION: 05/09/2018 CARDIAC ELECTROPHYSIOLOGY CONSULTATION CONSULTING PHYSICIAN: Susi Coburn M.D. REQUESTING PHYSICIAN: Augustus Gooden M.D. REASON FOR CONSULT: Bradycardia. HISTORY OF PRESENT ILLNESS: History is obtained from the chart as the patient is unable to give any history. The patient is a 72-year-old white male, convalescent home resident with history of dementia, diabetes, COPD, and chronic kidney disease who was admitted on 05/05/2018 with altered mental status. He was noted to be hypotensive and bradycardic with heart rates to the 50s, intermittent junctional rhythm has also been recorded with rates in the 40s. He became sinus, rates were in the 50s with intermittent junctional rhythm to the 40s. He is currently in the intensive care unit. He is lethargic and poorly responsive. He is hypotensive on dopamine and receiving intravenous fluids. Culture of urine grew E. coli and blood cultures have been negative. MEDICATIONS: Currently potassium supplementation, intravenous dopamine titrated to blood pressure, Colace 250 mg per NG tube twice daily, sodium bicarbonate 650 mg twice daily per NG tube, meropenem intravenously 500 mg q.12 h., Tylenol p.r.n., insulin sliding, Keppra q.12 h. intravenously, Haldol 1 mg q.6 h. p.r.n., and Ativan 1 mg q.4 h. p.r.n. ALLERGIES: No known drug allergies. PAST MEDICAL HISTORY: As noted above. SOCIAL HISTORY: Not obtainable from the patient or chart. REVIEW OF SYSTEMS: Not obtainable from the patient or chart. PHYSICAL EXAMINATION: VITAL SIGNS: Blood pressure is 88/36, pulse 58 and regular, respirations 27, and afebrile. GENERAL: Lethargic, chronically ill-appearing white male, who is minimally responsive and tachypneic. HEENT: Pupils are equal, round, and reactive to light. NG tube in place. Oral mucosa moist. NECK: Supple. There is no jugular venous distention. LUNGS: Bilateral rhonchi. Fair air movement. HEART: Bradycardic, regular S1 and S2 with no murmurs, S3 or S4 appreciated. ABDOMEN: Soft and nontender. No palpable mass. EXTREMITIES: Bilateral lower extremities flexion contractures. LABORATORY DATA: Hemoglobin 11.7, hematocrit 36.5, white blood count 9000, and platelets 86,000. EKG shows sinus rhythm at a rate of 70 beats per minute, diffuse T-wave flattening, and axis +60 degrees (EKG from 05/05/2018). Telemetry strips over the past few days have shown sinus rhythm, sinus bradycardia to the 40s, and intermittent junctional bradycardia rates in the 40s. Hemoglobin 11.7, white blood count 9000 with 20 bands, and platelets 86,000. Potassium 2.7, sodium 155, BUN 76, and creatinine 2.4. Troponin 0.001. TSH 2.94. Chest x-ray shows patchy opacities at the right base. Cultures - urine culture positive for E. coli ESBL and blood culture is negative. ASSESSMENT AND RECOMMENDATIONS: The patient is a 72-year-old man with multiple chronic medical problems, who was admitted with altered mental status, hypoxia, hypotension, bradycardia, and is diagnosed with urinary tract infection. He may also have pneumonia. He is severely hypernatremic and hypotension is likely due to intravascular volume depletion as well as possible sepsis. He is bradycardic in this setting possibly due to metabolic factors. At this point, he is not a candidate for pacemaker placement due to infection and overall functional status. I would recommend avoidance of any negative chronotropic and dromotropic agents and would support heart rate if necessary with intravenous dopamine. 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 Thank you for allowing me to evaluate this patient. I will follow him with you for any arrhythmia issues that arise. Susi Coburn M.D. DR: DIDIER JOB#: [id number] CC:
[2018-05-10] VITALS (47 sets, daily range): BP systolic 61–157; BP diastolic 11–116
--- NOTE | 2018-05-10 00:10 | NUR ---
NURSE NOTES: Repositioned,suctioned.See V/S.Scope rhythm same.No Distress.
--- NOTE | 2018-05-10 02:00 | NUR ---
NURSE NOTES: Suctioned,Pos.changed.Pediatric B/P cuff on Pt. chg.to regular BP cuff and was given a diff.Reading.Levo drip at 10 mcg/kg/min.
--- NOTE | 2018-05-10 04:00 | NUR ---
NURSE NOTES: Jillian Padron chg.blood drawn for bmp/mg/phos and oracio.level.spec. to lab.V/s cont. to monitor.Levo to taper off when bp stable.
--- NOTE | 2018-05-10 05:15 | Progress Note ---
DATE: 05/09/2018 CARDIOLOGY PROGRESS NOTE SUBJECTIVE: Condition remains critical. Prognosis guarded. Intensive care unit ___. OBJECTIVE: VITAL SIGNS: Blood pressure 82/61, pulse 54, and respiratory rate 18. Junctional rhythm. GENERAL: Poorly responsive. LUNGS: Diminished breath sounds. HEART: Regular rhythm. Slow rate. Normal S1 and S2. ABDOMEN: Soft. EXTREMITIES: Trace edema. LABORATORY DATA: Sodium 155, potassium 2.7, bicarbonate 22, BUN 76, and creatinine 2.4. White count 9 and hemoglobin 11.7. IMPRESSION: 1. Sepsis, shock, and bradyarrhythmia. 2. Hypovolemia. 3. Dehydration. 4. Hypernatremia. 5. Hyperchloremia. 6. Acute on chronic renal failure. PLAN: 1. Volume support. 2. Hypotonic IV fluids. 3. Antimicrobials. 4. Respiratory hygiene. 5. Pressors with taper as able. 6. EP consult for possible pacemaker. 7. Check drug levels pending so far for antiseizure drug including phenytoin and cortisol level. 8. Remains critical and guarded. Augustus Gooden M.D. DR: RISSA JOB#: [id number] CC:
[2018-05-10] MEDS: NovoLOG Insulin Flexpen SUBQ SCH ×4 (06:30→21:00)
[2018-05-10 07:07] LABS: ANION GAP 11 mmol/L (5-15); BLOOD UREA NITROGEN 64 mg/dL (7-18); CALCIUM 7.6 MG/DL (8.5-10.1); CARBON DIOXIDE 17 MMOL/L (21-32); CHLORIDE 117 MMOL/L (98-107); CREATININE 2.1 MG/DL (0.55-1.30); PHOSPHORUS 4.3 MG/DL (2.5-4.9); POTASSIUM 4.8 MMOL/L (3.5-5.1); SODIUM 145 MMOL/L (136-145)
[2018-05-10] MEDS: DOPamine 400mg/250ml 250 ML IV SCH ×4 (07:37→23:00)
--- NOTE | 2018-05-10 07:39 | NUR ---
HAND-OFF: Report given to MARGARITA OROPEZA.
--- NOTE | 2018-05-10 07:40 | NUR ---
NURSE NOTES: Received patient. Patient is observed to be contracted, resting bedside, does not follow commands and is non verbal. Patient is 3L/NC Patient has rhonchi heard throughout and with copious secretions. Oral suctioning was performed and oral care was performed. OGT is running Nephro at 20 ml/hr. Patient has OMAR PICC with Dopamine running 8 mcgs. Patient has a Enriquez draining dark oswaldo urine to gravity. Safety measures are in place with bed locked in the lowest position with side rails padded for seizure precautions. Will continue to monitor and follow plan of care.
[2018-05-10] MEDS: Docusate 250mg cap ORAL SCH ×2 (09:00→18:00)
[2018-05-10] MEDS: Heparin 5000 units/ml inj SUBQ SCH ×2 (09:00→19:56)
[2018-05-10] MEDS ORDERED: FOLIC ACID IV SCH (09:00)
[2018-05-10] MEDS ORDERED: POTASSIUM CHLORIDE IV SCH (09:00)
[2018-05-10] MEDS ORDERED: D5W IV SCH (09:00)
[2018-05-10] MEDS: Acetaminophen 650 MG SUPP RECTAL SCH (09:00)
--- NOTE | 2018-05-10 09:27 | Infectious Diseases Prog Note ---
Assessment/Plan Assessment/Plan A: 1. complicated UTI with E.coli ESBL. 2. Dehydration and hypernatremia. improving 3. Chronic kidney disease and acute renal failure. improving 4. Diabetes mellitus. 5. Seizure disorder. 6. Hypoxemic respiratory failure. 7. Bradycardia. P: 1. Continue Meropenem Subjective ROS Limited/Unobtainable: Yes Constitutional: Reports: no symptoms Allergies: Coded Allergies: No Known Allergies (Unverified , 07/08/16) Objective Vital Signs Last 24 Hour Vital Signs Date Time Temp Pulse Resp B/P (MAP) Pulse Ox O2 Delivery O2 Flow Rate FiO2 05/10/18 07:37 92/34 05/10/18 07:00 62 27 92/32 (52) 99 05/10/18 06:00 62 27 131/76 (94) 99 05/10/18 05:30 65 22 128/66 (86) 99 05/10/18 05:00 65 28 102/34 (56) 99 05/10/18 04:30 67 30 109/76 (87) 98 05/10/18 04:00 97.2 67 32 132/92 (105) 98 05/10/18 04:00 Nasal Cannula 2.0 05/10/18 03:30 68 33 101/70 (80) 98 05/10/18 03:13 98 Venturi Mask 12.0 50 05/10/18 03:13 Nasal Cannula 2.0 05/10/18 03:00 62 30 102/45 (64) 98 05/10/18 02:30 61 31 98/41 (60) 99 05/10/18 02:00 59 29 112/60 (77) 98 05/10/18 01:30 61 25 147/85 (105) 98 05/10/18 01:00 64 35 129/63 (85) 98 05/10/18 00:30 64 32 105/49 (67) 98 05/10/18 00:00 Nasal Cannula 2.0 05/10/18 00:00 97.4 63 31 103/42 (62) 98 05/09/18 23:30 63 28 100/52 (68) 98 05/09/18 23:00 63 27 105/68 (80) 98 05/09/18 22:30 62 33 117/59 (78) 98 05/09/18 22:15 62 31 81/62 (68) 98 05/09/18 22:00 61 30 78/48 (58) 99 05/09/18 21:45 62 30 78/60 (66) 98 05/09/18 21:40 Nasal Cannula 2.0 05/09/18 21:40 96 Nasal Cannula 2.0 28 05/09/18 21:30 61 26 89/69 (76) 99 05/09/18 21:15 61 28 69/48 (55) 98 05/09/18 21:00 60 30 93/66 (75) 99 05/09/18 21:00 93/66 05/09/18 20:45 61 31 96/72 (80) 99 05/09/18 20:30 61 27 94/67 (76) 99 05/09/18 20:15 60 21 105/70 (82) 98 05/09/18 20:00 97.6 58 29 94/50 (65) 99 05/09/18 20:00 Nasal Cannula 2.0 05/09/18 20:00 71/40 05/09/18 19:45 59 30 71/40 (50) 98 05/09/18 19:30 57 31 93/67 (76) 99 05/09/18 19:15 57 30 79/14 (35) 100 05/09/18 19:00 58 27 88/36 (53) 99 05/09/18 19:00 88/36 05/09/18 18:30 57 27 67/29 (42) 98 05/09/18 18:00 58 33 97/75 (82) 100 05/09/18 18:00 106/50 05/09/18 17:30 56 31 96/61 (73) 98 05/09/18 17:00 57 33 97/75 (82) 100 05/09/18 17:00 94/67 05/09/18 16:20 83/60 05/09/18 16:00 97.0 57 30 126/104 (111) 100 05/09/18 16:00 Nasal Cannula 2.0 05/09/18 15:30 56 28 97/28 (51) 97 05/09/18 15:00 55 25 59/22 (34) 99 05/09/18 14:24 89/49 05/09/18 14:00 56 28 89/49 (62) 99 05/09/18 13:30 56 27 105/64 (78) 99 05/09/18 13:00 55 30 96 05/09/18 12:30 56 30 102/59 (73) 92 05/09/18 12:00 Nasal Cannula 2.0 05/09/18 12:00 97.8 54 31 115/66 (82) 92 05/09/18 11:30 55 33 121/73 (89) 93 05/09/18 11:00 55 30 76/60 (65) 93 05/09/18 10:30 54 29 86/69 (75) 92 05/09/18 10:00 54 28 82/61 (68) 93 05/09/18 10:00 82/61 05/09/18 09:30 54 29 82/65 (71) 100 Height (Feet): 5 Height (Inches): 4.00 Weight (Pounds): 131 HEENT: other - Oxygen by venturi mask Respiratory/Chest: respiratory distress, rhonchi - bilaterally Cardiovascular: normal rate, other - left arm PICC line Abdomen: soft, non tender, other - orogastric tube feeding Extremities: no edema Neurologic/Psychiatric: disoriented, aphasia Laboratory Tests Test 05/10/18 04:00 Sodium Level 145 MMOL/L (136-145) # Potassium Level 4.8 MMOL/L (3.5-5.1) # Chloride Level 117 MMOL/L (98-107) H Carbon Dioxide Level 17 MMOL/L (21-32) L Anion Gap 11 mmol/L (5-15) Blood Urea Nitrogen 64 mg/dL (7-18) H Creatinine 2.1 MG/DL (0.55-1.30) H Estimat Glomerular Filtration Rate mL/min (>60) Glucose Level 135 MG/DL (74-106) H Calcium Level 7.6 MG/DL (8.5-10.1) L Phosphorus Level 4.3 MG/DL (2.5-4.9) Magnesium Level 1.4 MG/DL (1.8-2.4) L Cortisol AM Sample Pending Current Medications Medications (Trade) Dose Ordered Sig/Josephine Route PRN Reason Start Time Stop Time Status Last Admin Dose Admin Acetaminophen (Tylenol) 650 mg DAILY RECTAL 05/07/18 09:00 06/06/18 08:59 05/08/18 08:15 Chlorhexidine Gluconate (Kayla-Hex 2%) 1 applic DAILY@2000 TOPIC 05/07/18 20:00 06/06/18 19:59 05/09/18 21:01 Dextrose (Dextrose 50%) 25 ml Q30M PRN IV Hypoglycemia 05/06/18 13:30 06/05/18 13:29 Dextrose (Dextrose 50%) 50 ml Q30M PRN IV Hypoglycemia 05/06/18 13:30 06/05/18 13:29 05/09/18 12:04 Docusate Sodium (Colace) 250 mg TWICE A DAY ORAL 05/08/18 10:30 06/07/18 10:29 05/08/18 17:46 Dopamine HCl/ Dextrose 250 ml @ 0 mls/hr Q24H IV 05/08/18 21:15 06/07/18 21:14 05/10/18 07:37 Folic Acid 1 mg/ Potassium Chloride 40 meq/ Dextrose 1,020.2 ml @ 150 mls/ hr DAILY IV 05/10/18 09:00 06/09/18 08:59 Haloperidol (Haldol) 1 mg Q6H PRN ORAL Agitation 05/05/18 21:00 06/04/18 20:59 05/08/18 09:39 Heparin Sodium (Porcine) (Heparin 5000 units/ml) 5,000 units EVERY 12 HOURS SUBQ 05/05/18 21:00 06/04/18 20:59 05/09/18 21:03 Insulin Aspart (NovoLOG) BEFORE MEALS AND HS SUBQ 05/06/18 16:30 06/05/18 16:29 05/09/18 06:32 Levetiracetam 100 ml @ 400 mls/hr Q12H IVPB 05/05/18 23:00 06/04/18 22:59 05/09/18 23:52 Lorazepam (Ativan 2mg/ml 1ml) 1 mg Q4H PRN IV Agitation 05/05/18 21:00 05/12/18 20:59 05/08/18 16:17 Meropenem 500 mg/ Sodium Chloride 55 ml @ 110 mls/hr EVERY 12 HOURS IVPB 05/07/18 21:00 05/12/18 20:59 05/09/18 21:02 Pantoprazole (Protonix) 40 mg DAILY IVP 05/06/18 09:00 06/05/18 08:59 05/09/18 08:38 Potassium Chloride 40 meq/ Dextrose 1,020 ml @ 150 mls/hr Q6H48M IV 05/09/18 13:00 06/08/18 12:59 05/10/18 03:13 Sodium Bicarbonate (NaHCO3) 650 mg BID ORAL 05/08/18 10:30 06/07/18 10:29 05/09/18 18:55 Rik Mansfield MD May 10, 2018 09:27
--- NOTE | 2018-05-10 09:36 | Urology Progress Note ---
Assessment/Plan Assessment/Plan 1. Urinary retention. 2. Benign prostatic hypertrophy. 3. Probable neurogenic bladder. 4. Renal insufficiency, acute on chronic. 5. Urinary tract infection. 6. Hematuria. 7. Proteinuria. 8. Hydronephrosis. 9. Renal cysts. keep newsome indwelling hand irrigated and do PRN, patent abx as ordered f/u on blood cx monitor renal fxn consider CT scan cysto later Subjective Allergies: Coded Allergies: No Known Allergies (Unverified , 07/08/16) Subjective all noted Objective Last 24 Hour Vital Signs Date Time Temp Pulse Resp B/P (MAP) Pulse Ox O2 Delivery O2 Flow Rate FiO2 05/10/18 07:37 92/34 05/10/18 07:00 62 27 92/32 (52) 99 05/10/18 06:00 62 27 131/76 (94) 99 05/10/18 05:30 65 22 128/66 (86) 99 05/10/18 05:00 65 28 102/34 (56) 99 05/10/18 04:30 67 30 109/76 (87) 98 05/10/18 04:00 97.2 67 32 132/92 (105) 98 05/10/18 04:00 Nasal Cannula 2.0 05/10/18 03:30 68 33 101/70 (80) 98 05/10/18 03:13 98 Venturi Mask 12.0 50 05/10/18 03:13 Nasal Cannula 2.0 05/10/18 03:00 62 30 102/45 (64) 98 05/10/18 02:30 61 31 98/41 (60) 99 05/10/18 02:00 59 29 112/60 (77) 98 05/10/18 01:30 61 25 147/85 (105) 98 05/10/18 01:00 64 35 129/63 (85) 98 05/10/18 00:30 64 32 105/49 (67) 98 05/10/18 00:00 Nasal Cannula 2.0 05/10/18 00:00 97.4 63 31 103/42 (62) 98 05/09/18 23:30 63 28 100/52 (68) 98 05/09/18 23:00 63 27 105/68 (80) 98 05/09/18 22:30 62 33 117/59 (78) 98 05/09/18 22:15 62 31 81/62 (68) 98 05/09/18 22:00 61 30 78/48 (58) 99 05/09/18 21:45 62 30 78/60 (66) 98 05/09/18 21:40 Nasal Cannula 2.0 05/09/18 21:40 96 Nasal Cannula 2.0 28 05/09/18 21:30 61 26 89/69 (76) 99 05/09/18 21:15 61 28 69/48 (55) 98 05/09/18 21:00 60 30 93/66 (75) 99 05/09/18 21:00 93/66 05/09/18 20:45 61 31 96/72 (80) 99 05/09/18 20:30 61 27 94/67 (76) 99 05/09/18 20:15 60 21 105/70 (82) 98 05/09/18 20:00 97.6 58 29 94/50 (65) 99 05/09/18 20:00 Nasal Cannula 2.0 05/09/18 20:00 71/40 05/09/18 19:45 59 30 71/40 (50) 98 05/09/18 19:30 57 31 93/67 (76) 99 05/09/18 19:15 57 30 79/14 (35) 100 05/09/18 19:00 58 27 88/36 (53) 99 05/09/18 19:00 88/36 05/09/18 18:30 57 27 67/29 (42) 98 05/09/18 18:00 58 33 97/75 (82) 100 05/09/18 18:00 106/50 05/09/18 17:30 56 31 96/61 (73) 98 05/09/18 17:00 57 33 97/75 (82) 100 05/09/18 17:00 94/67 05/09/18 16:20 83/60 05/09/18 16:00 97.0 57 30 126/104 (111) 100 05/09/18 16:00 Nasal Cannula 2.0 05/09/18 15:30 56 28 97/28 (51) 97 05/09/18 15:00 55 25 59/22 (34) 99 05/09/18 14:24 89/49 05/09/18 14:00 56 28 89/49 (62) 99 05/09/18 13:30 56 27 105/64 (78) 99 05/09/18 13:00 55 30 96 05/09/18 12:30 56 30 102/59 (73) 92 05/09/18 12:00 Nasal Cannula 2.0 05/09/18 12:00 97.8 54 31 115/66 (82) 92 05/09/18 11:30 55 33 121/73 (89) 93 05/09/18 11:00 55 30 76/60 (65) 93 05/09/18 10:30 54 29 86/69 (75) 92 05/09/18 10:00 54 28 82/61 (68) 93 05/09/18 10:00 82/61 Intake and Output 05/09/18 05/10/18 19:00 07:00 Intake Total 444498.309 ml 2618.522 ml Output Total 1425 ml 610 ml Balance 082939.309 ml 2008.522 ml Free Water 110 ml IV Total 262213.309 ml 2268.522 ml Tube Feeding 240 ml 240 ml Output Urine Total 1425 ml 610 ml Microbiology Date/Time Source Procedure Growth Status 05/05/18 17:57 Blood Blood Culture - Preliminary NO GROWTH AFTER 4 DAYS Resulted 05/05/18 20:00 Nose MRSA Culture - Final Staphylococcus Aureus - Mrsa Complete 05/05/18 18:07 Urine,Clean Catch Urine Culture - Final Escherichia Coli - Esbl Complete 05/05/18 20:30 Rectum - Final NO CARBAPENEM-RESISTANT ENTEROBACTERI... Complete Current Medications Medications (Trade) Dose Ordered Sig/Josephine Route PRN Reason Start Time Stop Time Status Last Admin Dose Admin Acetaminophen (Tylenol) 650 mg DAILY RECTAL 05/07/18 09:00 06/06/18 08:59 05/08/18 08:15 Chlorhexidine Gluconate (Kayla-Hex 2%) 1 applic DAILY@1999 TOPIC 05/07/18 20:00 06/06/18 19:59 05/09/18 21:01 Dextrose (Dextrose 50%) 25 ml Q30M PRN IV Hypoglycemia 05/06/18 13:30 06/05/18 13:29 Dextrose (Dextrose 50%) 50 ml Q30M PRN IV Hypoglycemia 05/06/18 13:30 06/05/18 13:29 05/09/18 12:04 Docusate Sodium (Colace) 250 mg TWICE A DAY ORAL 05/08/18 10:30 06/07/18 10:29 05/08/18 17:46 Dopamine HCl/ Dextrose 250 ml @ 0 mls/hr Q24H IV 05/08/18 21:15 06/07/18 21:14 05/10/18 07:37 Folic Acid 1 mg/ Potassium Chloride 40 meq/ Dextrose 1,020.2 ml @ 150 mls/ hr DAILY IV 05/10/18 09:00 06/09/18 08:59 Haloperidol (Haldol) 1 mg Q6H PRN ORAL Agitation 05/05/18 21:00 06/04/18 20:59 05/08/18 09:39 Heparin Sodium (Porcine) (Heparin 5000 units/ml) 5,000 units EVERY 12 HOURS SUBQ 05/05/18 21:00 06/04/18 20:59 05/09/18 21:03 Insulin Aspart (NovoLOG) BEFORE MEALS AND HS SUBQ 05/06/18 16:30 06/05/18 16:29 05/09/18 06:32 Levetiracetam 100 ml @ 400 mls/hr Q12H IVPB 05/05/18 23:00 06/04/18 22:59 05/09/18 23:52 Lorazepam (Ativan 2mg/ml 1ml) 1 mg Q4H PRN IV Agitation 05/05/18 21:00 05/12/18 20:59 05/08/18 16:17 Meropenem 500 mg/ Sodium Chloride 55 ml @ 110 mls/hr EVERY 12 HOURS IVPB 05/07/18 21:00 05/12/18 20:59 05/09/18 21:02 Pantoprazole (Protonix) 40 mg DAILY IVP 05/06/18 09:00 06/05/18 08:59 05/09/18 08:38 Potassium Chloride 40 meq/ Dextrose 1,020 ml @ 150 mls/hr Q6H48M IV 05/09/18 13:00 06/08/18 12:59 05/10/18 03:13 Sodium Bicarbonate (NaHCO3) 650 mg BID ORAL 05/08/18 10:30 06/07/18 10:29 05/09/18 18:55 Laboratory Tests 05/10/18 04:00: Sodium Level 145#, Potassium Level 4.8#, Chloride Level 117H, Carbon Dioxide Level 17L, Anion Gap 11, Blood Urea Nitrogen 64H, Creatinine 2.1H, Estimat Glomerular Filtration Rate , Glucose Level 135H, Calcium Level 7.6L, Phosphorus Level 4.3, Magnesium Level 1.4L, Cortisol AM Sample [Pending] Height (Feet): 5 Height (Inches): 4.00 Weight (Pounds): 131 Objective exam stable, urine oswaldo/cloudy Garoshfernando,Niranjan Soliz MD May 10, 2018 09:36
--- NOTE | 2018-05-10 09:38 | General Progress Note ---
Assessment/Plan Problem List: (1) Seizure ICD Codes: R56.9 - Unspecified convulsions SNOMED: 38997820 (2) Sepsis ICD Codes: A41.9 - Sepsis, unspecified organism SNOMED: 45040631 (3) Acute encephalopathy ICD Codes: G93.40 - Encephalopathy, unspecified SNOMED: 9851195 (4) Hypernatremia ICD Codes: E87.0 - Hyperosmolality and hypernatremia SNOMED: 71905357 (5) Renal failure ICD Codes: N19 - Unspecified kidney failure SNOMED: 07830434 Qualifiers: Qualified Codes: N17.9 - Acute kidney failure, unspecified (6) Respiratory distress ICD Codes: R06.03 - Acute respiratory distress SNOMED: 195318840 (7) Dehydration ICD Codes: E86.0 - Dehydration SNOMED: 95781232 (8) SOB (shortness of breath) ICD Codes: R06.02 - Shortness of breath SNOMED: 223448160 (9) UTI (urinary tract infection) ICD Codes: N39.0 - Urinary tract infection, site not specified SNOMED: 00889752 Qualifiers: Qualified Codes: N39.0 - Urinary tract infection, site not specified Status: stable, progressing Assessment/Plan IVF adjusted monitor bmp water flushes dopamine may need pacer feeds dilantin on hold- monitor level o2 resp rx monitor cxr ogt Subjective ROS Limited/Unobtainable: Yes Constitutional: Reports: malaise, weakness HEENT: Reports: no symptoms Cardiovascular: Reports: no symptoms Respiratory: Reports: shortness of breath Gastrointestinal/Abdominal: Reports: no symptoms Genitourinary: Reports: no symptoms Neurologic/Psychiatric: Reports: pre-existing deficit, seizure Endocrine: Reports: no symptoms Hematologic/Lymphatic: Reports: no symptoms Allergies: Coded Allergies: No Known Allergies (Unverified , 07/08/16) All Systems: reviewed and negative except above Subjective remains bradycardic. unable to wean dopamine. remains poorly responsive. EP noted. Objective Last 24 Hour Vital Signs Date Time Temp Pulse Resp B/P (MAP) Pulse Ox O2 Delivery O2 Flow Rate FiO2 05/10/18 07:37 92/34 05/10/18 07:00 62 27 92/32 (52) 99 05/10/18 06:00 62 27 131/76 (94) 99 05/10/18 05:30 65 22 128/66 (86) 99 05/10/18 05:00 65 28 102/34 (56) 99 05/10/18 04:30 67 30 109/76 (87) 98 05/10/18 04:00 97.2 67 32 132/92 (105) 98 05/10/18 04:00 Nasal Cannula 2.0 05/10/18 03:30 68 33 101/70 (80) 98 05/10/18 03:13 98 Venturi Mask 12.0 50 05/10/18 03:13 Nasal Cannula 2.0 05/10/18 03:00 62 30 102/45 (64) 98 05/10/18 02:30 61 31 98/41 (60) 99 05/10/18 02:00 59 29 112/60 (77) 98 05/10/18 01:30 61 25 147/85 (105) 98 05/10/18 01:00 64 35 129/63 (85) 98 05/10/18 00:30 64 32 105/49 (67) 98 05/10/18 00:00 Nasal Cannula 2.0 05/10/18 00:00 97.4 63 31 103/42 (62) 98 05/09/18 23:30 63 28 100/52 (68) 98 05/09/18 23:00 63 27 105/68 (80) 98 05/09/18 22:30 62 33 117/59 (78) 98 05/09/18 22:15 62 31 81/62 (68) 98 05/09/18 22:00 61 30 78/48 (58) 99 05/09/18 21:45 62 30 78/60 (66) 98 05/09/18 21:40 Nasal Cannula 2.0 05/09/18 21:40 96 Nasal Cannula 2.0 28 05/09/18 21:30 61 26 89/69 (76) 99 05/09/18 21:15 61 28 69/48 (55) 98 05/09/18 21:00 60 30 93/66 (75) 99 05/09/18 21:00 93/66 05/09/18 20:45 61 31 96/72 (80) 99 05/09/18 20:30 61 27 94/67 (76) 99 05/09/18 20:15 60 21 105/70 (82) 98 05/09/18 20:00 97.6 58 29 94/50 (65) 99 05/09/18 20:00 Nasal Cannula 2.0 05/09/18 20:00 71/40 05/09/18 19:45 59 30 71/40 (50) 98 05/09/18 19:30 57 31 93/67 (76) 99 05/09/18 19:15 57 30 79/14 (35) 100 05/09/18 19:00 58 27 88/36 (53) 99 05/09/18 19:00 88/36 05/09/18 18:30 57 27 67/29 (42) 98 05/09/18 18:00 58 33 97/75 (82) 100 05/09/18 18:00 106/50 05/09/18 17:30 56 31 96/61 (73) 98 05/09/18 17:00 57 33 97/75 (82) 100 05/09/18 17:00 94/67 05/09/18 16:20 83/60 05/09/18 16:00 97.0 57 30 126/104 (111) 100 05/09/18 16:00 Nasal Cannula 2.0 05/09/18 15:30 56 28 97/28 (51) 97 05/09/18 15:00 55 25 59/22 (34) 99 05/09/18 14:24 89/49 05/09/18 14:00 56 28 89/49 (62) 99 05/09/18 13:30 56 27 105/64 (78) 99 05/09/18 13:00 55 30 96 05/09/18 12:30 56 30 102/59 (73) 92 05/09/18 12:00 Nasal Cannula 2.0 05/09/18 12:00 97.8 54 31 115/66 (82) 92 05/09/18 11:30 55 33 121/73 (89) 93 05/09/18 11:00 55 30 76/60 (65) 93 05/09/18 10:30 54 29 86/69 (75) 92 05/09/18 10:00 54 28 82/61 (68) 93 05/09/18 10:00 82/61 Intake and Output 05/09/18 05/10/18 19:00 07:00 Intake Total 787904.309 ml 2618.522 ml Output Total 1425 ml 610 ml Balance 006209.309 ml 2008.522 ml Free Water 110 ml IV Total 425715.309 ml 2268.522 ml Tube Feeding 240 ml 240 ml Output Urine Total 1425 ml 610 ml Laboratory Tests 05/10/18 04:00: Sodium Level 145#, Potassium Level 4.8#, Chloride Level 117H, Carbon Dioxide Level 17L, Anion Gap 11, Blood Urea Nitrogen 64H, Creatinine 2.1H, Estimat Glomerular Filtration Rate , Glucose Level 135H, Calcium Level 7.6L, Phosphorus Level 4.3, Magnesium Level 1.4L, Cortisol AM Sample [Pending] Height (Feet): 5 Height (Inches): 4.00 Weight (Pounds): 131 Objective General Appearance: WD/WN, lethargic, confused Neck: supple Cardiovascular: regular rhythm Respiratory/Chest: chest wall non-tender, lungs clear, normal breath sounds Abdomen: normal bowel sounds, non tender, soft, no organomegaly Edema: no edema noted Arm (L), no edema noted Arm (R), no edema noted Leg (L), no edema noted Leg (R), no edema noted Pedal (L), no edema noted Pedal (R), no edema noted Generalized Neurologic: disoriented, unresponsive, aphasia Jcarlos David MD May 10, 2018 09:38
[2018-05-10] MEDS ORDERED: D5 1/2NS 1,000 ML IV SCH (09:45)
--- NOTE | 2018-05-10 11:02 | Nephrology Progress Note ---
Assessment/Plan Problem List: (1) UTI (urinary tract infection) (2) History of ESBL E. coli infection (3) Dehydration (4) EBEN (acute kidney injury) (5) Hypernatremia (6) UTI (urinary tract infection) (7) Sepsis (8) Acute encephalopathy (9) Hypomagnesemia Plan continue iv fluids, gradual correction Na, antibiotcs baseline creatinine 0.84 K +Mg replacement Subjective ROS Limited/Unobtainable: Yes Objective Objective Last 24 Hour Vital Signs Date Time Temp Pulse Resp B/P (MAP) Pulse Ox O2 Delivery O2 Flow Rate FiO2 05/10/18 10:29 97/75 05/10/18 07:37 92/34 05/10/18 07:22 97 Venturi Mask 12.0 50 05/10/18 07:22 Nasal Cannula 2.0 28 05/10/18 07:00 62 27 92/32 (52) 99 05/10/18 06:00 62 27 131/76 (94) 99 05/10/18 05:30 65 22 128/66 (86) 99 05/10/18 05:00 65 28 102/34 (56) 99 05/10/18 04:30 67 30 109/76 (87) 98 05/10/18 04:00 97.2 67 32 132/92 (105) 98 05/10/18 04:00 Nasal Cannula 2.0 05/10/18 03:30 68 33 101/70 (80) 98 05/10/18 03:13 98 Venturi Mask 12.0 50 05/10/18 03:13 Nasal Cannula 2.0 05/10/18 03:00 62 30 102/45 (64) 98 05/10/18 02:30 61 31 98/41 (60) 99 05/10/18 02:00 59 29 112/60 (77) 98 05/10/18 01:30 61 25 147/85 (105) 98 05/10/18 01:00 64 35 129/63 (85) 98 05/10/18 00:30 64 32 105/49 (67) 98 05/10/18 00:00 Nasal Cannula 2.0 05/10/18 00:00 97.4 63 31 103/42 (62) 98 05/09/18 23:30 63 28 100/52 (68) 98 05/09/18 23:00 63 27 105/68 (80) 98 05/09/18 22:30 62 33 117/59 (78) 98 05/09/18 22:15 62 31 81/62 (68) 98 05/09/18 22:00 61 30 78/48 (58) 99 05/09/18 21:45 62 30 78/60 (66) 98 05/09/18 21:40 Nasal Cannula 2.0 05/09/18 21:40 96 Nasal Cannula 2.0 28 05/09/18 21:30 61 26 89/69 (76) 99 05/09/18 21:15 61 28 69/48 (55) 98 05/09/18 21:00 60 30 93/66 (75) 99 05/09/18 21:00 93/66 05/09/18 20:45 61 31 96/72 (80) 99 05/09/18 20:30 61 27 94/67 (76) 99 05/09/18 20:15 60 21 105/70 (82) 98 05/09/18 20:00 97.6 58 29 94/50 (65) 99 05/09/18 20:00 Nasal Cannula 2.0 05/09/18 20:00 71/40 05/09/18 19:45 59 30 71/40 (50) 98 05/09/18 19:30 57 31 93/67 (76) 99 05/09/18 19:15 57 30 79/14 (35) 100 05/09/18 19:00 58 27 88/36 (53) 99 05/09/18 19:00 88/36 05/09/18 18:30 57 27 67/29 (42) 98 05/09/18 18:00 58 33 97/75 (82) 100 05/09/18 18:00 106/50 05/09/18 17:30 56 31 96/61 (73) 98 05/09/18 17:00 57 33 97/75 (82) 100 05/09/18 17:00 94/67 05/09/18 16:20 83/60 05/09/18 16:00 97.0 57 30 126/104 (111) 100 05/09/18 16:00 Nasal Cannula 2.0 05/09/18 15:30 56 28 97/28 (51) 97 05/09/18 15:00 55 25 59/22 (34) 99 05/09/18 14:24 89/49 05/09/18 14:00 56 28 89/49 (62) 99 05/09/18 13:30 56 27 105/64 (78) 99 05/09/18 13:00 55 30 96 05/09/18 12:30 56 30 102/59 (73) 92 05/09/18 12:00 Nasal Cannula 2.0 05/09/18 12:00 97.8 54 31 115/66 (82) 92 05/09/18 11:30 55 33 121/73 (89) 93 Intake and Output 05/09/18 05/10/18 19:00 07:00 Intake Total 273610.309 ml 2618.522 ml Output Total 1425 ml 610 ml Balance 675854.309 ml 2008.522 ml Free Water 110 ml IV Total 825381.309 ml 2268.522 ml Tube Feeding 240 ml 240 ml Output Urine Total 1425 ml 610 ml Laboratory Tests 05/10/18 04:00: Sodium Level 145#, Potassium Level 4.8#, Chloride Level 117H, Carbon Dioxide Level 17L, Anion Gap 11, Blood Urea Nitrogen 64H, Creatinine 2.1H, Estimat Glomerular Filtration Rate , Glucose Level 135H, Calcium Level 7.6L, Phosphorus Level 4.3, Magnesium Level 1.4L, Cortisol AM Sample [Pending] Height (Feet): 5 Height (Inches): 4.00 Weight (Pounds): 131 General Appearance: lethargic EENT: normal ENT inspection Neck: normal alignment Cardiovascular: regular rhythm, arrhythmia Respiratory/Chest: rhonchi - bilaterally Abdomen: non tender Extremities: trace edema Neurologic: disoriented Dony Hayes MD May 10, 2018 11:02
[2018-05-10] MEDS: D5 1/2NS 1,000 ML IV SCH ×2 (11:15→18:26)
--- NOTE | 2018-05-10 12:20 | NUR ---
NURSE NOTES: Patient is observed to be contracted, resting bedside, does not follow commands and is non verbal. Patient is 3L/NC Patient has rhonchi heard throughout and with copious secretions. Oral suctioning was performed and oral care was performed. Patient being monitored on the phlebotomy supervisor. OGT is running Nephro at 20 ml/hr. Patient has OMAR PICC with Dopamine running at max dose of 20 mcgs. Patient has a Enriquez draining dark oswaldo urine to gravity. Safety measures are in place with bed locked in the lowest position with side rails padded for seizure precautions. Will continue to monitor and follow plan of care.
[2018-05-10] MEDS: Sodium Bicarbonate 650mg Tab ORAL SCH ×2 (12:46→18:26)
[2018-05-10] MEDS: levETIRAcetam 500mg/NS100ml 100 ML IVPB SCH ×2 (12:47→23:00)
[2018-05-10] MEDS: Pantoprazole Inj IVP SCH (12:47)
[2018-05-10] MEDS: Meropenem 500 MG in NS 55 ML IVPB SCH ×2 (12:47→21:00)
[2018-05-10 13:43] LABS: CKMB 5.5 NG/ML (0.0-3.6)
--- NOTE | 2018-05-10 16:00 | NUR ---
NURSE NOTES: Patient is observed bedside to be tachypneic and is non verbal. Patient is 3L/NC Patient has rhonchi heard throughout and with copious secretions. Oral suctioning was performed and oral care was performed. Patient being monitored on the monitoring specialist and in SB. OGT is running Nephro at 20 ml/hr. Patient has OMAR PICC with Dopamine running at max dose of 20 mcgs. Patient has a Enriquez draining dark oswaldo urine to gravity. Safety measures are in place with bed locked in the lowest position with side rails padded for seizure precautions. Will continue to monitor and follow plan of care.
[2018-05-10] MEDS ORDERED: Tubing IV Secondary IV ONE (16:10)
--- NOTE | 2018-05-10 18:16 | General Progress Note ---
Assessment/Plan Assessment/Plan Assessment - Hypernatremia - improving - hypokalemia - Azotemia - OBS/Encephalopathy - failed swallow evaluation - past h/o PEG placement - G tube has been removed in the past, GT site sealed and closed - Epistaxis at time of NGT trial --> OGT placed - Bradycardia - UTi Recommendations - OGT feeds - Aspiration precautions - elevate HOB - Free water replacement - Abx - Follow labs and mental status - PEG once medically stable Subjective Allergies: Coded Allergies: No Known Allergies (Unverified , 07/08/16) Subjective non verbal d/w RN tolerating OGT feeds less bradycardic breathing with loud ronchi Objective Last 24 Hour Vital Signs Date Time Temp Pulse Resp B/P (MAP) Pulse Ox O2 Delivery O2 Flow Rate FiO2 05/10/18 17:30 66 41 88/21 (43) 96 05/10/18 17:00 66 41 86/12 (36) 96 05/10/18 16:37 72/11 05/10/18 16:30 59 38 93/22 (45) 96 05/10/18 16:00 97.0 59 38 91/20 (43) 96 05/10/18 16:00 Nasal Cannula 2.0 05/10/18 15:30 59 38 97/13 (41) 96 05/10/18 15:00 63 39 95/13 (40) 96 05/10/18 14:30 61 38 98/21 (46) 96 05/10/18 14:00 61 39 93/57 (69) 96 05/10/18 13:30 66 41 101/16 (44) 96 05/10/18 13:00 66 42 94/64 (74) 88 05/10/18 12:30 69 37 80/54 (63) 98 05/10/18 12:00 69 36 93/11 (38) 98 05/10/18 12:00 Nasal Cannula 2.0 05/10/18 11:30 65 41 93/27 (49) 98 05/10/18 11:00 62 31 76/39 (51) 98 05/10/18 10:30 67 31 83/46 (58) 98 05/10/18 10:29 97/75 05/10/18 10:00 63 30 61/16 (31) 98 05/10/18 09:30 62 33 70/13 (32) 98 12/30/18 09:00 59 33 100/58 (72) 98 05/10/18 08:30 59 33 116/59 (78) 98 05/10/18 08:00 98.1 60 34 157/116 (130) 99 05/10/18 08:00 Nasal Cannula 2.0 05/10/18 07:37 92/34 05/10/18 07:30 62 27 92/32 (52) 99 05/10/18 07:22 97 Venturi Mask 12.0 50 05/10/18 07:22 Nasal Cannula 2.0 28 05/10/18 07:00 62 27 92/32 (52) 99 05/10/18 06:00 62 27 131/76 (94) 99 05/10/18 05:30 65 22 128/66 (86) 99 05/10/18 05:00 65 28 102/34 (56) 99 05/10/18 04:30 67 30 109/76 (87) 98 05/10/18 04:00 97.2 67 32 132/92 (105) 98 05/10/18 04:00 Nasal Cannula 2.0 05/10/18 03:30 68 33 101/70 (80) 98 05/10/18 03:13 98 Venturi Mask 12.0 50 05/10/18 03:13 Nasal Cannula 2.0 05/10/18 03:00 62 30 102/45 (64) 98 05/10/18 02:30 61 31 98/41 (60) 99 05/10/18 02:00 59 29 112/60 (77) 98 05/10/18 01:30 61 25 147/85 (105) 98 05/10/18 01:00 64 35 129/63 (85) 98 05/10/18 00:30 64 32 105/49 (67) 98 05/10/18 00:00 Nasal Cannula 2.0 05/10/18 00:00 97.4 63 31 103/42 (62) 98 05/09/18 23:30 63 28 100/52 (68) 98 05/09/18 23:00 63 27 105/68 (80) 98 05/09/18 22:30 62 33 117/59 (78) 98 05/09/18 22:15 62 31 81/62 (68) 98 05/09/18 22:00 61 30 78/48 (58) 99 05/09/18 21:45 62 30 78/60 (66) 98 05/09/18 21:40 Nasal Cannula 2.0 05/09/18 21:40 96 Nasal Cannula 2.0 28 05/09/18 21:30 61 26 89/69 (76) 99 05/09/18 21:15 61 28 69/48 (55) 98 05/09/18 21:00 60 30 93/66 (75) 99 05/09/18 21:00 93/66 05/09/18 20:45 61 31 96/72 (80) 99 05/09/18 20:30 61 27 94/67 (76) 99 05/09/18 20:15 60 21 105/70 (82) 98 05/09/18 20:00 97.6 58 29 94/50 (65) 99 05/09/18 20:00 Nasal Cannula 2.0 05/09/18 20:00 71/40 05/09/18 19:45 59 30 71/40 (50) 98 05/09/18 19:30 57 31 93/67 (76) 99 05/09/18 19:15 57 30 79/14 (35) 100 05/09/18 19:00 58 27 88/36 (53) 99 05/09/18 19:00 88/36 05/09/18 18:30 57 27 67/29 (42) 98 Intake and Output 05/09/18 05/10/18 19:00 07:00 Intake Total 831265.309 ml 2618.522 ml Output Total 1425 ml 610 ml Balance 590846.309 ml 2008.522 ml Free Water 110 ml IV Total 852962.309 ml 2268.522 ml Tube Feeding 240 ml 240 ml Output Urine Total 1425 ml 610 ml Laboratory Tests 05/10/18 04:00: Sodium Level 145#, Potassium Level 4.8#, Chloride Level 117H, Carbon Dioxide Level 17L, Anion Gap 11, Blood Urea Nitrogen 64H, Creatinine 2.1H, Estimat Glomerular Filtration Rate , Glucose Level 135H, Calcium Level 7.6L, Phosphorus Level 4.3, Magnesium Level 1.4L, Cortisol AM Sample [Pending] 05/10/18 12:20: Total Creatine Kinase 165, Creatine Kinase MB 5.5H, Creatine Kinase MB Relative Index 3.3, Troponin I 0.009, Pro-B-Type Natriuretic Peptide 8511H Height (Feet): 5 Height (Inches): 4.00 Weight (Pounds): 131 Objective Thin WM NCAT Supple CTA bradycardic abd soft Yuridia Carlos MD May 10, 2018 18:16
[2018-05-10] MEDS: Dyna-Hex 2% Top Sol 2oz TOPIC SCH (20:00)
--- NOTE | 2018-05-10 23:50 | NUR ---
Received report from Soto/MARGARITA. Pt is C/o SOB. Pt is awake, obtunded. Pt is Open eyes, none verbal, right side of arm and leg were contracted. Pt's general body edema especially on both legs and hands on 2 +. IV/ PICC line at left upper arm with Dopamine drip running. Oral tube in place with Nepro at 20 ml/hr. F/c in place with yellowish urine out put. Skin wound at right knee with dressing intact. Bed at lowest position, will continue to monitor.
[2018-05-11] VITALS (73 sets, daily range): BP systolic 80–129; BP diastolic 41–92
--- NOTE | 2018-05-11 00:50 | NUR ---
Sent for Stool OB.
[2018-05-11] MEDS: D5 1/2NS 1,000 ML IV SCH ×3 (02:43→20:09)
--- NOTE | 2018-05-11 04:00 | NUR ---
NURSE NOTES: Report received from Lianna Stacy RN. Patient noted obtunded, tachypnea noted RR:35-40 with oxygen saturation 97% on 100% non-rebreather. Junctional rhythm on the monitor with rate:60s. Patient has patent and intact left upper arm PICC line with on going IVF of D5 1/2NS at 125 ml/hour and Dopamine drip at 10 mcg/kg/min with current BP108/57. With patent and intact OGT at 56 cm lip level, no residual noted with on going tube feeding of Nepro at 20 ml/hour. With patent and intact indwelling newsome catheter. All extremities elevated with pillows. On SPR mattress. Oral care done. Suctioning done. Placed bed on lowest position. On isolation.
--- NOTE | 2018-05-11 04:40 | NUR ---
NURSE NOTES: Called Dr. David and made aware that patient is noted tachypneic 35-40 RR with oxygen saturation of 93-96% on 100% nonrebreather, noted congested with IVF D51/2NS at 125/hour. Patient still on Dopamine at 10 mcg/kg/minute with current BP:111/56 but pt noted with cyanotic feet. Informed that previous RNs charts patient is GCS 10 pt now noted GCS 6 with spontaneous eye opening, no verbal and no motor response. It was endorsed that patient is Sinus rhythm now accelerated junctional rhythm with rate on 60s. Patient has no lab order today. Asked MD if he would like to order ABG and lab exams. Awaiting for further orders.
[2018-05-11] MEDS: NovoLOG Insulin Flexpen SUBQ SCH ×4 (05:58→21:05)
--- NOTE | 2018-05-11 06:00 | NUR ---
NURSE NOTES: Patient noted lesser congested, suctioning done, thick minimal sarkar colored secretions noted. Remained accelerated junctional on 60s. Call back received from Dr. David, morning labs drawn. Repositioning done.
[2018-05-11 06:24] LABS: HEMATOCRIT 33.2 % (42.0-52.0); HEMOGLOBIN 10.8 G/DL (14.2-18.0); MEAN CORPUSCULAR VOLUME 101 FL (80-99); PLATELET COUNT 55 K/UL (150-450); RED BLOOD COUNT 3.28 M/UL (4.70-6.10); RED CELL DISTRIBUTION WIDTH 15.4 % (11.6-14.8); WHITE BLOOD COUNT 19.9 K/UL (4.8-10.8)
[2018-05-11 07:06] LABS: ALANINE AMINOTRANSFERASE 11 U/L (12-78); ALBUMIN 1.2 G/DL (3.4-5.0); ALBUMIN/GLOBULIN RATIO 0.3 (1.0-2.7); ALKALINE PHOSPHATASE 114 U/L (46-116); ANION GAP 11 mmol/L (5-15); ASPARTATE AMINO TRANSFERASE 29 U/L (15-37); BLOOD UREA NITROGEN 65 mg/dL (7-18); CALCIUM 7.2 MG/DL (8.5-10.1); CARBON DIOXIDE 17 MMOL/L (21-32); CHLORIDE 109 MMOL/L (98-107); CREATININE 2.1 MG/DL (0.55-1.30); POTASSIUM 5.8 MMOL/L (3.5-5.1); SODIUM 137 MMOL/L (136-145)
--- NOTE | 2018-05-11 07:27 | NUR ---
NURSE NOTES: Called Dr. David and made aware of lab results of WBC:19.9 from 9.0, serum potassium:5.8 and ABG result pH:7.413, pCO2:20, pO2:91.6, HCO3:12.5, o2 sat:97.7 with oxygen saturation of 96% while on 100% nonrebreather RR:30s. Still on junctional rhythm 60s.
--- NOTE | 2018-05-11 08:35 | NUR ---
NURSE NOTES: Seen on rounds by Dr. Hayes and MD was made aware of noted congestion at start of shift, patient on IVF of D51/2NS at 125 ml/hour with order to keep IVF at this time. Also made aware of serum potassium: 5.8 and CO2:17 on chem and pCO2::20 and HCO3:12.5 on abg, currently on sodium bicarbonate at 650 mg BID. No new order received at this time with recommendation of pulmo management.
--- NOTE | 2018-05-11 08:39 | Nephrology Progress Note ---
Assessment/Plan Problem List: (1) UTI (urinary tract infection) (2) History of ESBL E. coli infection (3) Dehydration (4) EBEN (acute kidney injury) (5) Hypernatremia (6) UTI (urinary tract infection) (7) Sepsis (8) Acute encephalopathy (9) Hypomagnesemia Plan continue iv fluids, gradual correction Na, antibiotcs baseline creatinine 0.84 K +Mg replacement stop K today Subjective ROS Limited/Unobtainable: Yes Objective Objective Last 24 Hour Vital Signs Date Time Temp Pulse Resp B/P (MAP) Pulse Ox O2 Delivery O2 Flow Rate FiO2 05/11/18 08:00 Non-Rebreather 15.0 05/11/18 07:30 67 21 106/58 (74) 97 05/11/18 07:15 68 32 103/55 (71) 97 05/11/18 07:00 67 32 108/57 (74) 98 05/11/18 06:45 67 32 109/51 (70) 96 05/11/18 06:30 68 33 112/53 (72) 95 05/11/18 06:15 67 34 113/59 (77) 95 05/11/18 06:00 113/59 05/11/18 06:00 68 34 113/59 (77) 95 05/11/18 05:45 67 34 112/55 (74) 94 05/11/18 05:30 67 34 112/55 (74) 94 05/11/18 05:15 65 31 109/58 (75) 94 05/11/18 05:00 116/59 05/11/18 05:00 67 31 116/58 (77) 94 05/11/18 04:45 67 31 118/58 (78) 95 05/11/18 04:30 67 37 111/56 (74) 94 05/11/18 04:15 98.2 05/11/18 04:15 66 40 114/56 (75) 100 05/11/18 04:10 Non-Rebreather 15.0 05/11/18 04:00 65 32 107/65 (79) 100 05/11/18 04:00 111/56 05/11/18 04:00 Nasal Cannula 2.0 05/11/18 03:00 106/63 05/11/18 03:00 67 33 106/63 (77) 100 05/11/18 02:30 66 35 112/62 (79) 100 05/11/18 02:00 68 38 116/60 (78) 100 05/11/18 02:00 116/60 05/11/18 01:00 68 38 112/61 (78) 100 05/11/18 01:00 112/67 05/11/18 00:30 62 32 102/63 (76) 100 05/11/18 00:00 Nasal Cannula 2.0 05/11/18 00:00 105/65 05/11/18 00:00 97.3 63 30 101/62 (75) 100 05/10/18 23:30 63 34 100/61 (74) 99 05/10/18 23:00 57 32 111/71 (84) 100 05/10/18 23:00 111/71 05/10/18 22:30 69 37 111/69 (83) 100 05/10/18 22:00 70 36 106/56 (73) 96 05/10/18 21:30 65 34 94/53 (67) 89 05/10/18 21:00 70 33 109/59 (76) 89 05/10/18 20:30 68 33 103/60 (74) 89 05/10/18 20:00 68 33 83/25 (44) 89 05/10/18 20:00 Nasal Cannula 2.0 05/10/18 19:30 68 33 89/18 (41) 89 05/10/18 19:00 96.8 68 41 86/41 (56) 97 05/10/18 18:50 Venturi Mask 14.0 55 05/10/18 18:50 97 Venturi Mask 14.0 55 05/10/18 18:30 67 41 93/16 (41) 97 05/10/18 18:00 67 39 91/42 (58) 96 05/10/18 17:30 66 41 88/21 (43) 96 05/10/18 17:00 66 41 86/12 (36) 96 05/10/18 16:37 72/11 05/10/18 16:30 59 38 93/22 (45) 96 05/10/18 16:00 97.0 59 38 91/20 (43) 96 05/10/18 16:00 Nasal Cannula 2.0 05/10/18 15:30 59 38 97/13 (41) 96 05/10/18 15:00 63 39 95/13 (40) 96 05/10/18 14:30 61 38 98/21 (46) 96 05/10/18 14:00 61 39 93/57 (69) 96 05/10/18 13:30 66 41 101/16 (44) 96 05/10/18 13:00 66 42 94/64 (74) 88 05/10/18 12:30 69 37 80/54 (63) 98 05/10/18 12:00 69 36 93/11 (38) 98 05/10/18 12:00 Nasal Cannula 2.0 05/10/18 11:30 65 41 93/27 (49) 98 05/10/18 11:00 62 31 76/39 (51) 98 05/10/18 10:30 67 31 83/46 (58) 98 05/10/18 10:29 97/75 05/10/18 10:00 63 30 61/16 (31) 98 05/10/18 09:30 62 33 70/13 (32) 98 05/10/18 09:00 59 33 100/58 (72) 98 Intake and Output 05/10/18 05/11/18 18:59 06:59 Intake Total 640 ml 2380.571 ml Output Total 490 ml 380 ml Balance 150 ml 2000.571 ml IV Total 150 ml 2090.571 ml Tube Feeding 240 ml 240 ml Other 250 ml 50 ml Output Urine Total 490 ml 380 ml # Bowel Movements 2 3 Laboratory Tests 05/10/18 12:20: Total Creatine Kinase 165, Creatine Kinase MB 5.5H, Creatine Kinase MB Relative Index 3.3, Troponin I 0.009, Pro-B-Type Natriuretic Peptide 8511H 05/10/18 23:55: Stool Occult Blood [Pending] 05/11/18 05:10: White Blood Count 19.9H, Red Blood Count 3.28L, Hemoglobin 10.8L, Hematocrit 33.2L, Mean Corpuscular Volume 101H, Mean Corpuscular Hemoglobin 33.0H, Mean Corpuscular Hemoglobin Concent 32.6, Red Cell Distribution Width 15.4H, Platelet Count 55L, Mean Platelet Volume 10.2H, Neutrophils (%) (Auto) , Lymphocytes (%) (Auto) , Monocytes (%) (Auto) , Eosinophils (%) (Auto) , Basophils (%) (Auto) , Neutrophils % (Manual) [Pending], Lymphocytes % (Manual) [Pending], Platelet Estimate [Pending], Platelet Morphology [Pending], Sodium Level 137, Potassium Level 5.8H, Chloride Level 109H, Carbon Dioxide Level 17L, Anion Gap 11, Blood Urea Nitrogen 65H, Creatinine 2.1H, Estimat Glomerular Filtration Rate , Glucose Level 232H, Calcium Level 7.2L, Total Bilirubin 1.0, Aspartate Amino Transf (AST/SGOT) 29, Alanine Aminotransferase (ALT/SGPT) 11L, Alkaline Phosphatase 114, Total Protein 5.5L, Albumin 1.2L, Globulin 4.3, Albumin/Globulin Ratio 0.3L, Phenytoin (Dilantin) Level 23.9H 05/11/18 07:00: Arterial Blood pH 7.413, Arterial Blood Partial Pressure CO2 20.0*L, Arterial Blood Partial Pressure O2 91.6, Arterial Blood HCO3 12.5*L, Arterial Blood Oxygen Saturation 97.7, Arterial Blood Base Excess -10.1*L, Larry Test Positive Height (Feet): 5 Height (Inches): 4.00 Weight (Pounds): 150 General Appearance: lethargic, confused Neck: normal alignment Cardiovascular: regular rhythm Respiratory/Chest: accessory muscle use, rhonchi - bilaterally Abdomen: non tender Neurologic: motor weakness, disoriented Dony Hayes MD May 11, 2018 08:39
--- NOTE | 2018-05-11 08:45 | NUR ---
NURSE NOTES: Seen on rounds by Dr. David and MD made aware of labs again also platelet count of 55, pt is on Heparin with MD ordering to discontinue. Also made clarified with MD if he would like to continue Tylenol suppository daily. MD ordering to discontinue. MD has noted change in alertness and SOB and also made aware that patient still on Dopamine drip slowly being tapered off but noted mottling and cyanosis of feet and left hand. MD will enter further orders.
[2018-05-11] MEDS: Acetaminophen 650 MG SUPP RECTAL SCH (09:00)
[2018-05-11] MEDS: Heparin 5000 units/ml inj SUBQ SCH (09:00)
[2018-05-11] MEDS: Meropenem 500 MG in NS 55 ML IVPB SCH ×2 (09:04→21:04)
[2018-05-11] MEDS: Docusate 250mg cap ORAL SCH ×2 (09:04→18:09)
[2018-05-11] MEDS: Sodium Bicarbonate 650mg Tab ORAL SCH ×2 (09:04→18:09)
[2018-05-11] MEDS: Pantoprazole Inj IVP SCH (09:04)
--- NOTE | 2018-05-11 09:06 | General Progress Note ---
Assessment/Plan Problem List: (1) Seizure ICD Codes: R56.9 - Unspecified convulsions SNOMED: 46640557 (2) Sepsis ICD Codes: A41.9 - Sepsis, unspecified organism SNOMED: 25649655 (3) Acute encephalopathy ICD Codes: G93.40 - Encephalopathy, unspecified SNOMED: 8583040 (4) Hypernatremia ICD Codes: E87.0 - Hyperosmolality and hypernatremia SNOMED: 12639789 (5) Renal failure ICD Codes: N19 - Unspecified kidney failure SNOMED: 19011179 Qualifiers: Qualified Codes: N17.9 - Acute kidney failure, unspecified (6) Respiratory distress ICD Codes: R06.03 - Acute respiratory distress SNOMED: 681524499 (7) Dehydration ICD Codes: E86.0 - Dehydration SNOMED: 26618527 (8) SOB (shortness of breath) ICD Codes: R06.02 - Shortness of breath SNOMED: 397023637 (9) UTI (urinary tract infection) ICD Codes: N39.0 - Urinary tract infection, site not specified SNOMED: 28581192 Qualifiers: Qualified Codes: N39.0 - Urinary tract infection, site not specified Status: deteriorating Assessment/Plan IVF adjusted monitor bmp water flushes dopamine may need pacer feeds dilantin on hold- monitor level o2 resp rx monitor cxr ogt head ct poor prognosis Subjective ROS Limited/Unobtainable: Yes Constitutional: Reports: no symptoms HEENT: Reports: no symptoms Cardiovascular: Reports: no symptoms Respiratory: Reports: shortness of breath Gastrointestinal/Abdominal: Reports: difficulty swallowing Genitourinary: Reports: no symptoms Neurologic/Psychiatric: Reports: pre-existing deficit, seizure Endocrine: Reports: no symptoms Hematologic/Lymphatic: Reports: anemia Allergies: Coded Allergies: No Known Allergies (Unverified , 07/08/16) All Systems: reviewed and negative except above Subjective doing poorly. unresponsive. worsening hypoxemia. remains on pressors for hr and BP Objective Last 24 Hour Vital Signs Date Time Temp Pulse Resp B/P (MAP) Pulse Ox O2 Delivery O2 Flow Rate FiO2 05/11/18 08:00 Non-Rebreather 15.0 05/11/18 07:30 67 21 106/58 (74) 97 05/11/18 07:15 68 32 103/55 (71) 97 05/11/18 07:00 67 32 108/57 (74) 98 05/11/18 06:45 67 32 109/51 (70) 96 05/11/18 06:30 68 33 112/53 (72) 95 05/11/18 06:15 67 34 113/59 (77) 95 05/11/18 06:00 113/59 05/11/18 06:00 68 34 113/59 (77) 95 05/11/18 05:45 67 34 112/55 (74) 94 05/11/18 05:30 67 34 112/55 (74) 94 05/11/18 05:15 65 31 109/58 (75) 94 05/11/18 05:00 116/59 05/11/18 05:00 67 31 116/58 (77) 94 05/11/18 04:45 67 31 118/58 (78) 95 05/11/18 04:30 67 37 111/56 (74) 94 05/11/18 04:15 98.2 05/11/18 04:15 66 40 114/56 (75) 100 05/11/18 04:10 Non-Rebreather 15.0 05/11/18 04:00 65 32 107/65 (79) 100 05/11/18 04:00 111/56 05/11/18 04:00 Nasal Cannula 2.0 05/11/18 03:00 106/63 05/11/18 03:00 67 33 106/63 (77) 100 05/11/18 02:30 66 35 112/62 (79) 100 05/11/18 02:00 68 38 116/60 (78) 100 05/11/18 02:00 116/60 05/11/18 01:00 68 38 112/61 (78) 100 05/11/18 01:00 112/67 05/11/18 00:30 62 32 102/63 (76) 100 05/11/18 00:00 Nasal Cannula 2.0 05/11/18 00:00 105/65 05/11/18 00:00 97.3 63 30 101/62 (75) 100 05/10/18 23:30 63 34 100/61 (74) 99 05/10/18 23:00 57 32 111/71 (84) 100 05/10/18 23:00 111/71 05/10/18 22:30 69 37 111/69 (83) 100 05/10/18 22:00 70 36 106/56 (73) 96 05/10/18 21:30 65 34 94/53 (67) 89 05/10/18 21:00 70 33 109/59 (76) 89 05/10/18 20:30 68 33 103/60 (74) 89 05/10/18 20:00 68 33 83/25 (44) 89 05/10/18 20:00 Nasal Cannula 2.0 05/10/18 19:30 68 33 89/18 (41) 89 05/10/18 19:00 96.8 68 41 86/41 (56) 97 05/10/18 18:50 Venturi Mask 14.0 55 05/10/18 18:50 97 Venturi Mask 14.0 55 05/10/18 18:30 67 41 93/16 (41) 97 05/10/18 18:00 67 39 91/42 (58) 96 05/10/18 17:30 66 41 88/21 (43) 96 05/10/18 17:00 66 41 86/12 (36) 96 05/10/18 16:37 72/11 05/10/18 16:30 59 38 93/22 (45) 96 05/10/18 16:00 97.0 59 38 91/20 (43) 96 05/10/18 16:00 Nasal Cannula 2.0 05/10/18 15:30 59 38 97/13 (41) 96 05/10/18 15:00 63 39 95/13 (40) 96 05/10/18 14:30 61 38 98/21 (46) 96 05/10/18 14:00 61 39 93/57 (69) 96 05/10/18 13:30 66 41 101/16 (44) 96 05/10/18 13:00 66 42 94/64 (74) 88 05/10/18 12:30 69 37 80/54 (63) 98 05/10/18 12:00 69 36 93/11 (38) 98 05/10/18 12:00 Nasal Cannula 2.0 05/10/18 11:30 65 41 93/27 (49) 98 05/10/18 11:00 62 31 76/39 (51) 98 05/10/18 10:30 67 31 83/46 (58) 98 05/10/18 10:29 97/75 05/10/18 10:00 63 30 61/16 (31) 98 05/10/18 09:30 62 33 70/13 (32) 98 Intake and Output 05/10/18 05/11/18 18:59 06:59 Intake Total 640 ml 2380.571 ml Output Total 490 ml 380 ml Balance 150 ml 2000.571 ml IV Total 150 ml 2090.571 ml Tube Feeding 240 ml 240 ml Other 250 ml 50 ml Output Urine Total 490 ml 380 ml # Bowel Movements 2 3 Laboratory Tests 05/10/18 12:20: Total Creatine Kinase 165, Creatine Kinase MB 5.5H, Creatine Kinase MB Relative Index 3.3, Troponin I 0.009, Pro-B-Type Natriuretic Peptide 8511H 05/10/18 23:55: Stool Occult Blood [Pending] 05/11/18 05:10: White Blood Count 19.9H, Red Blood Count 3.28L, Hemoglobin 10.8L, Hematocrit 33.2L, Mean Corpuscular Volume 101H, Mean Corpuscular Hemoglobin 33.0H, Mean Corpuscular Hemoglobin Concent 32.6, Red Cell Distribution Width 15.4H, Platelet Count 55L, Mean Platelet Volume 10.2H, Neutrophils (%) (Auto) , Lymphocytes (%) (Auto) , Monocytes (%) (Auto) , Eosinophils (%) (Auto) , Basophils (%) (Auto) , Differential Total Cells Counted 100, Neutrophils % ( Manual) 75, Lymphocytes % (Manual) 3L, Monocytes % (Manual) 6, Eosinophils % ( Manual) 0, Basophils % (Manual) 0, Band Neutrophils 16H, Platelet Estimate DecreasedL, Platelet Morphology Normal, Hypochromasia 1+, Anisocytosis 1+, Macrocytosis 1+, Sodium Level 137, Potassium Level 5.8H, Chloride Level 109H, Carbon Dioxide Level 17L, Anion Gap 11, Blood Urea Nitrogen 65H, Creatinine 2.1H , Estimat Glomerular Filtration Rate , Glucose Level 232H, Calcium Level 7.2L, Total Bilirubin 1.0, Aspartate Amino Transf (AST/SGOT) 29, Alanine Aminotransferase (ALT/SGPT) 11L, Alkaline Phosphatase 114, Total Protein 5.5L, Albumin 1.2L, Globulin 4.3, Albumin/Globulin Ratio 0.3L, Phenytoin (Dilantin) Level 23.9H 05/11/18 07:00: Arterial Blood pH 7.413, Arterial Blood Partial Pressure CO2 20.0*L, Arterial Blood Partial Pressure O2 91.6, Arterial Blood HCO3 12.5*L, Arterial Blood Oxygen Saturation 97.7, Arterial Blood Base Excess -10.1*L, Larry Test Positive Height (Feet): 5 Height (Inches): 4.00 Weight (Pounds): 150 Objective General Appearance: WD/WN, lethargic, confused Neck: supple Cardiovascular: regular rhythm Respiratory/Chest: chest wall non-tender, lungs clear, normal breath sounds Abdomen: normal bowel sounds, non tender, soft, no organomegaly Edema: no edema noted Arm (L), no edema noted Arm (R), no edema noted Leg (L), no edema noted Leg (R), no edema noted Pedal (L), no edema noted Pedal (R), no edema noted Generalized Neurologic: disoriented, unresponsive, aphasia Jcarlos David MD May 11, 2018 09:06
--- NOTE | 2018-05-11 09:09 | Urology Progress Note ---
Assessment/Plan Assessment/Plan 1. Urinary retention. 2. Benign prostatic hypertrophy. 3. Probable neurogenic bladder. 4. Renal insufficiency, acute on chronic. 5. Urinary tract infection. 6. Hematuria. 7. Proteinuria. 8. Hydronephrosis. 9. Renal cysts. keep newsome indwelling hand irrigated and do PRN, patent abx as ordered monitor renal fxn consider CT scan cysto later Subjective Allergies: Coded Allergies: No Known Allergies (Unverified , 07/08/16) Subjective all noted Objective Last 24 Hour Vital Signs Date Time Temp Pulse Resp B/P (MAP) Pulse Ox O2 Delivery O2 Flow Rate FiO2 05/11/18 08:00 Non-Rebreather 15.0 05/11/18 07:30 67 21 106/58 (74) 97 05/11/18 07:15 68 32 103/55 (71) 97 05/11/18 07:00 67 32 108/57 (74) 98 05/11/18 06:45 67 32 109/51 (70) 96 05/11/18 06:30 68 33 112/53 (72) 95 05/11/18 06:15 67 34 113/59 (77) 95 05/11/18 06:00 113/59 05/11/18 06:00 68 34 113/59 (77) 95 05/11/18 05:45 67 34 112/55 (74) 94 05/11/18 05:30 67 34 112/55 (74) 94 05/11/18 05:15 65 31 109/58 (75) 94 05/11/18 05:00 116/59 05/11/18 05:00 67 31 116/58 (77) 94 05/11/18 04:45 67 31 118/58 (78) 95 05/11/18 04:30 67 37 111/56 (74) 94 05/11/18 04:15 98.2 05/11/18 04:15 66 40 114/56 (75) 100 05/11/18 04:10 Non-Rebreather 15.0 05/11/18 04:00 65 32 107/65 (79) 100 05/11/18 04:00 111/56 05/11/18 04:00 Nasal Cannula 2.0 05/11/18 03:00 106/63 05/11/18 03:00 67 33 106/63 (77) 100 05/11/18 02:30 66 35 112/62 (79) 100 05/11/18 02:00 68 38 116/60 (78) 100 05/11/18 02:00 116/60 05/11/18 01:00 68 38 112/61 (78) 100 05/11/18 01:00 112/67 05/11/18 00:30 62 32 102/63 (76) 100 05/11/18 00:00 Nasal Cannula 2.0 05/11/18 00:00 105/65 05/11/18 00:00 97.3 63 30 101/62 (75) 100 05/10/18 23:30 63 34 100/61 (74) 99 05/10/18 23:00 57 32 111/71 (84) 100 05/10/18 23:00 111/71 05/10/18 22:30 69 37 111/69 (83) 100 05/10/18 22:00 70 36 106/56 (73) 96 05/10/18 21:30 65 34 94/53 (67) 89 05/10/18 21:00 70 33 109/59 (76) 89 05/10/18 20:30 68 33 103/60 (74) 89 05/10/18 20:00 68 33 83/25 (44) 89 05/10/18 20:00 Nasal Cannula 2.0 05/10/18 19:30 68 33 89/18 (41) 89 05/10/18 19:00 96.8 68 41 86/41 (56) 97 05/10/18 18:50 Venturi Mask 14.0 55 05/10/18 18:50 97 Venturi Mask 14.0 55 05/10/18 18:30 67 41 93/16 (41) 97 05/10/18 18:00 67 39 91/42 (58) 96 05/10/18 17:30 66 41 88/21 (43) 96 05/10/18 17:00 66 41 86/12 (36) 96 05/10/18 16:37 72/11 05/10/18 16:30 59 38 93/22 (45) 96 05/10/18 16:00 97.0 59 38 91/20 (43) 96 05/10/18 16:00 Nasal Cannula 2.0 05/10/18 15:30 59 38 97/13 (41) 96 05/10/18 15:00 63 39 95/13 (40) 96 05/10/18 14:30 61 38 98/21 (46) 96 05/10/18 14:00 61 39 93/57 (69) 96 05/10/18 13:30 66 41 101/16 (44) 96 05/10/18 13:00 66 42 94/64 (74) 88 05/10/18 12:30 69 37 80/54 (63) 98 05/10/18 12:00 69 36 93/11 (38) 98 05/10/18 12:00 Nasal Cannula 2.0 05/10/18 11:30 65 41 93/27 (49) 98 05/10/18 11:00 62 31 76/39 (51) 98 05/10/18 10:30 67 31 83/46 (58) 98 05/10/18 10:29 97/75 05/10/18 10:00 63 30 61/16 (31) 98 05/10/18 09:30 62 33 70/13 (32) 98 Intake and Output 05/10/18 05/11/18 18:59 06:59 Intake Total 640 ml 2380.571 ml Output Total 490 ml 380 ml Balance 150 ml 2000.571 ml IV Total 150 ml 2090.571 ml Tube Feeding 240 ml 240 ml Other 250 ml 50 ml Output Urine Total 490 ml 380 ml # Bowel Movements 2 3 Microbiology Date/Time Source Procedure Growth Status 05/05/18 17:57 Blood Blood Culture - Final NO GROWTH AFTER 5 DAYS Complete 05/05/18 20:00 Nose MRSA Culture - Final Staphylococcus Aureus - Mrsa Complete 05/05/18 18:07 Urine,Clean Catch Urine Culture - Final Escherichia Coli - Esbl Complete 05/05/18 20:30 Rectum - Final NO CARBAPENEM-RESISTANT ENTEROBACTERI... Complete Current Medications Medications (Trade) Dose Ordered Sig/Josephine Route PRN Reason Start Time Stop Time Status Last Admin Dose Admin Chlorhexidine Gluconate (Kayla-Hex 2%) 1 applic DAILY@1999 TOPIC 05/07/18 20:00 06/06/18 19:59 05/10/18 20:00 Dextrose (Dextrose 50%) 25 ml Q30M PRN IV Hypoglycemia 05/06/18 13:30 1/25/19 13:29 Dextrose (Dextrose 50%) 50 ml Q30M PRN IV Hypoglycemia 05/06/18 13:30 06/05/18 13:29 05/09/18 12:04 Dextrose/Sodium Chloride 1,000 ml @ 125 mls/hr Q8H IV 05/10/18 11:30 06/09/18 11:29 05/11/18 02:43 Docusate Sodium (Colace) 250 mg TWICE A DAY ORAL 05/08/18 10:30 06/07/18 10:29 05/11/18 09:04 Dopamine HCl/ Dextrose 250 ml @ 0 mls/hr Q24H IV 05/08/18 21:15 06/07/18 21:14 05/10/18 23:00 Haloperidol (Haldol) 1 mg Q6H PRN ORAL Agitation 05/05/18 21:00 06/04/18 20:59 05/08/18 09:39 Insulin Aspart (NovoLOG) BEFORE MEALS AND HS SUBQ 05/06/18 16:30 06/05/18 16:29 05/11/18 05:58 Levetiracetam 100 ml @ 400 mls/hr Q12H IVPB 05/05/18 23:00 06/04/18 22:59 05/10/18 23:00 Lorazepam (Ativan 2mg/ml 1ml) 1 mg Q4H PRN IV Agitation 05/05/18 21:00 05/12/18 20:59 05/08/18 16:17 Meropenem 500 mg/ Sodium Chloride 55 ml @ 110 mls/hr EVERY 12 HOURS IVPB 05/07/18 21:00 05/16/18 20:59 05/11/18 09:04 Pantoprazole (Protonix) 40 mg DAILY IVP 05/06/18 09:00 06/05/18 08:59 05/11/18 09:04 Sodium Bicarbonate (NaHCO3) 650 mg BID ORAL 05/08/18 10:30 06/07/18 10:29 05/11/18 09:04 Laboratory Tests 05/10/18 12:20: Total Creatine Kinase 165, Creatine Kinase MB 5.5H, Creatine Kinase MB Relative Index 3.3, Troponin I 0.009, Pro-B-Type Natriuretic Peptide 8511H 05/10/18 23:55: Stool Occult Blood [Pending] 05/11/18 05:10: White Blood Count 19.9H, Red Blood Count 3.28L, Hemoglobin 10.8L, Hematocrit 33.2L, Mean Corpuscular Volume 101H, Mean Corpuscular Hemoglobin 33.0H, Mean Corpuscular Hemoglobin Concent 32.6, Red Cell Distribution Width 15.4H, Platelet Count 55L, Mean Platelet Volume 10.2H, Neutrophils (%) (Auto) , Lymphocytes (%) (Auto) , Monocytes (%) (Auto) , Eosinophils (%) (Auto) , Basophils (%) (Auto) , Differential Total Cells Counted 100, Neutrophils % ( Manual) 75, Lymphocytes % (Manual) 3L, Monocytes % (Manual) 6, Eosinophils % ( Manual) 0, Basophils % (Manual) 0, Band Neutrophils 16H, Platelet Estimate DecreasedL, Platelet Morphology Normal, Hypochromasia 1+, Anisocytosis 1+, Macrocytosis 1+, Sodium Level 137, Potassium Level 5.8H, Chloride Level 109H, Carbon Dioxide Level 17L, Anion Gap 11, Blood Urea Nitrogen 65H, Creatinine 2.1H , Estimat Glomerular Filtration Rate , Glucose Level 232H, Calcium Level 7.2L, Total Bilirubin 1.0, Aspartate Amino Transf (AST/SGOT) 29, Alanine Aminotransferase (ALT/SGPT) 11L, Alkaline Phosphatase 114, Total Protein 5.5L, Albumin 1.2L, Globulin 4.3, Albumin/Globulin Ratio 0.3L, Phenytoin (Dilantin) Level 23.9H 05/11/18 07:00: Arterial Blood pH 7.413, Arterial Blood Partial Pressure CO2 20.0*L, Arterial Blood Partial Pressure O2 91.6, Arterial Blood HCO3 12.5*L, Arterial Blood Oxygen Saturation 97.7, Arterial Blood Base Excess -10.1*L, Larry Test Positive Height (Feet): 5 Height (Inches): 4.00 Weight (Pounds): 150 Objective exam stable, urine oswaldo/cloudy Bamshad,Niranjan Soliz MD May 11, 2018 09:09
--- NOTE | 2018-05-11 10:02 | NUR ---
CASE MANAGEMENT: REVIEW SI: ACUTE ENCEPHALOPATHY . RESPIRATORY DISTRESS T 98.2 HR 66 RR 40 BP 99/69 SAT 94% NON-REBREATHER 15.0 WBC 19.9 H/H 10.8/33.2 BUN 65 CR 2.1 IS: DOPAMINE IV Q24HR SODIUM BICARB PO BID MEROPENEM IV Q12HR PROTONIX IV QD D5 1/2 NS IVF @125ML/HR OROGASTRIC TUBE FEEDING 20ML/HR ICU STATUS DCP: PATIENT IS FROM [facility]
--- NOTE | 2018-05-11 10:59 | Diagnostic Imaging Report ---
Indication: Shortness of breath Technique: One view of the chest Comparison: 05/07/2018 Findings: There is markedly increased opacification of the right hemithorax. Suspect a significant component of volume loss, as the mediastinum appears shifted to the right. There is also likely some pleural fluid and consolidation. There is some patchy consolidation in the left perihilar region which is new since the prior exam. There is a left arm PICC, tip which projects at the level of the innominate venous confluence. Nasogastric tube remains in stable satisfactory position Impression: Increased opacification of the right hemithorax, probably due to combination of atelectasis, consolidation, pleural fluid Left perihilar infiltrate, new since previous study 05/07/2018
--- NOTE | 2018-05-11 11:08 | NUR ---
NURSE NOTES: Patient still tachypneic 30-40. Juctional rhythm on monitor with rate 60s. BP remained stable and was able to turn off Dopamine drip at 1105.
[2018-05-11] MEDS: levETIRAcetam 500mg/NS100ml 100 ML IVPB SCH ×2 (11:14→23:25)
--- NOTE | 2018-05-11 11:23 | Infectious Diseases Prog Note ---
Assessment/Plan Assessment/Plan antibiotics : meropenem A 1. e.coli UTI 2. shock 3. renal failure improving 4. seizures 5. diabetes mellitus 6. pneumonia 7. leucocytosis increased P 1. continue meropenem 2. will follow up cultures Subjective ROS Limited/Unobtainable: Yes Allergies: Coded Allergies: No Known Allergies (Unverified , 07/08/16) Objective Vital Signs Last 24 Hour Vital Signs Date Time Temp Pulse Resp B/P (MAP) Pulse Ox O2 Delivery O2 Flow Rate FiO2 05/11/18 11:00 113/61 05/11/18 11:00 66 36 113/61 (78) 99 05/11/18 10:45 66 36 115/66 (82) 99 05/11/18 10:30 66 36 122/41 (68) 99 05/11/18 10:15 65 36 118/63 (81) 99 05/11/18 10:00 123/63 05/11/18 10:00 66 36 123/63 (83) 100 05/11/18 09:45 67 36 129/62 (84) 100 05/11/18 09:30 65 36 117/56 (76) 100 05/11/18 09:15 66 38 111/62 (78) 99 05/11/18 09:00 117/56 05/11/18 09:00 64 36 99/69 (79) 99 05/11/18 08:45 65 34 100/61 (74) 95 05/11/18 08:30 64 37 105/55 (72) 95 05/11/18 08:15 63 36 101/49 (66) 95 05/11/18 08:00 62 05/11/18 08:00 99/69 05/11/18 08:00 63 42 92/53 (66) 94 05/11/18 08:00 Non-Rebreather 15.0 05/11/18 07:45 67 42 108/56 (73) 94 05/11/18 07:30 67 21 106/58 (74) 97 05/11/18 07:15 68 32 103/55 (71) 97 05/11/18 07:00 67 32 108/57 (74) 98 05/11/18 07:00 101/49 05/11/18 06:45 67 32 109/51 (70) 96 05/11/18 06:30 68 33 112/53 (72) 95 05/11/18 06:15 67 34 113/59 (77) 95 05/11/18 06:00 113/59 05/11/18 06:00 68 34 113/59 (77) 95 05/11/18 05:45 67 34 112/55 (74) 94 05/11/18 05:30 67 34 112/55 (74) 94 05/11/18 05:15 65 31 109/58 (75) 94 05/11/18 05:00 116/59 05/11/18 05:00 67 31 116/58 (77) 94 05/11/18 04:45 67 31 118/58 (78) 95 05/11/18 04:30 67 37 111/56 (74) 94 05/11/18 04:15 98.2 05/11/18 04:15 66 40 114/56 (75) 100 05/11/18 04:10 Non-Rebreather 15.0 05/11/18 04:00 65 32 107/65 (79) 100 05/11/18 04:00 63 05/11/18 04:00 111/56 05/11/18 04:00 Nasal Cannula 2.0 05/11/18 03:00 106/63 05/11/18 03:00 67 33 106/63 (77) 100 05/11/18 02:30 66 35 112/62 (79) 100 05/11/18 02:00 68 38 116/60 (78) 100 05/11/18 02:00 116/60 05/11/18 01:00 68 38 112/61 (78) 100 05/11/18 01:00 112/67 05/11/18 00:30 62 32 102/63 (76) 100 05/11/18 00:00 Nasal Cannula 2.0 05/11/18 00:00 105/65 05/11/18 00:00 97.3 63 30 101/62 (75) 100 05/10/18 23:30 63 34 100/61 (74) 99 05/10/18 23:00 57 32 111/71 (84) 100 05/10/18 23:00 111/71 05/10/18 22:30 69 37 111/69 (83) 100 05/10/18 22:00 70 36 106/56 (73) 96 05/10/18 21:30 65 34 94/53 (67) 89 05/10/18 21:00 70 33 109/59 (76) 89 05/10/18 20:30 68 33 103/60 (74) 89 05/10/18 20:00 68 33 83/25 (44) 89 05/10/18 20:00 Nasal Cannula 2.0 05/10/18 19:30 68 33 89/18 (41) 89 05/10/18 19:00 96.8 68 41 86/41 (56) 97 05/10/18 18:50 Venturi Mask 14.0 55 05/10/18 18:50 97 Venturi Mask 14.0 55 05/10/18 18:30 67 41 93/16 (41) 97 05/10/18 18:00 67 39 91/42 (58) 96 05/10/18 17:30 66 41 88/21 (43) 96 05/10/18 17:00 66 41 86/12 (36) 96 05/10/18 16:37 72/11 05/10/18 16:30 59 38 93/22 (45) 96 05/10/18 16:00 97.0 59 38 91/20 (43) 96 05/10/18 16:00 Nasal Cannula 2.0 05/10/18 15:30 59 38 97/13 (41) 96 05/10/18 15:00 63 39 95/13 (40) 96 05/10/18 14:30 61 38 98/21 (46) 96 05/10/18 14:00 61 39 93/57 (69) 96 05/10/18 13:30 66 41 101/16 (44) 96 05/10/18 13:00 66 42 94/64 (74) 88 05/10/18 12:30 69 37 80/54 (63) 98 05/10/18 12:00 69 36 93/11 (38) 98 05/10/18 12:00 Nasal Cannula 2.0 05/10/18 11:30 65 41 93/27 (49) 98 Height (Feet): 5 Height (Inches): 4.00 Weight (Pounds): 150 Respiratory/Chest: crackles/rales Cardiovascular: normal rate, regular rhythm, no gallop/murmur Abdomen: soft, non tender Extremities: no edema Laboratory Tests Test 05/10/18 12:20 05/10/18 23:55 05/11/18 05:10 05/11/18 07:00 Total Creatine Kinase 165 U/L (26-308) Creatine Kinase MB 5.5 NG/ML (0.0-3.6) H Creatine Kinase MB Relative Index 3.3 Troponin I 0.009 ng/mL (0.000-0.056) Pro-B-Type Natriuretic Peptide 8511 pg/mL (0-125) H Stool Occult Blood Positive (NEGATIVE) White Blood Count 19.9 K/UL (4.8-10.8) H Red Blood Count 3.28 M/UL (4.70-6.10) L Hemoglobin 10.8 G/DL (14.2-18.0) L Hematocrit 33.2 % (42.0-52.0) L Mean Corpuscular Volume 101 FL (80-99) H Mean Corpuscular Hemoglobin 33.0 PG (27.0-31.0) H Mean Corpuscular Hemoglobin Concent 32.6 G/DL (32.0-36.0) Red Cell Distribution Width 15.4 % (11.6-14.8) H Platelet Count 55 K/UL (150-450) L Mean Platelet Volume 10.2 FL (6.5-10.1) H Neutrophils (%) (Auto) % (45.0-75.0) Lymphocytes (%) (Auto) % (20.0-45.0) Monocytes (%) (Auto) % (1.0-10.0) Eosinophils (%) (Auto) % (0.0-3.0) Basophils (%) (Auto) % (0.0-2.0) Differential Total Cells Counted 100 Neutrophils % (Manual) 75 % (45-75) Lymphocytes % (Manual) 3 % (20-45) L Monocytes % (Manual) 6 % (1-10) Eosinophils % (Manual) 0 % (0-3) Basophils % (Manual) 0 % (0-2) Band Neutrophils 16 % (0-8) H Platelet Estimate Decreased L Platelet Morphology Normal Hypochromasia 1+ Anisocytosis 1+ Macrocytosis 1+ Sodium Level 137 MMOL/L (136-145) Potassium Level 5.8 MMOL/L (3.5-5.1) H Chloride Level 109 MMOL/L (98-107) H Carbon Dioxide Level 17 MMOL/L (21-32) L Anion Gap 11 mmol/L (5-15) Blood Urea Nitrogen 65 mg/dL (7-18) H Creatinine 2.1 MG/DL (0.55-1.30) H Estimat Glomerular Filtration Rate mL/min (>60) Glucose Level 232 MG/DL (74-106) H Calcium Level 7.2 MG/DL (8.5-10.1) L Total Bilirubin 1.0 MG/DL (0.2-1.0) Aspartate Amino Transf (AST/SGOT) 29 U/L (15-37) Alanine Aminotransferase (ALT/SGPT) 11 U/L (12-78) L Alkaline Phosphatase 114 U/L (46-116) Total Protein 5.5 G/DL (6.4-8.2) L Albumin 1.2 G/DL (3.4-5.0) L Globulin 4.3 g/dL Albumin/Globulin Ratio 0.3 (1.0-2.7) L Phenytoin (Dilantin) Level 23.9 ug/mL (10-20) H Arterial Blood pH 7.413 (7.350-7.450) Arterial Blood Partial Pressure CO2 20.0 mmHg (35.0-45.0) *L Arterial Blood Partial Pressure O2 91.6 mmHg (75.0-100.0) Arterial Blood HCO3 12.5 mmol/L (22.0-26.0) *L Arterial Blood Oxygen Saturation 97.7 % (95-100) Arterial Blood Base Excess -10.1 (-2-2) *L Larry Test Positive Test 05/11/18 08:40 Lactic Acid Level 1.90 mmol/L (0.4-2.0) Current Medications Medications (Trade) Dose Ordered Sig/Josephine Route PRN Reason Start Time Stop Time Status Last Admin Dose Admin Chlorhexidine Gluconate (Kayla-Hex 2%) 1 applic DAILY@1999 TOPIC 05/07/18 20:00 06/06/18 19:59 05/10/18 20:00 Dextrose (Dextrose 50%) 25 ml Q30M PRN IV Hypoglycemia 05/06/18 13:30 06/05/18 13:29 Dextrose (Dextrose 50%) 50 ml Q30M PRN IV Hypoglycemia 05/06/18 13:30 06/05/18 13:29 05/09/18 12:04 Dextrose/Sodium Chloride 1,000 ml @ 125 mls/hr Q8H IV 05/10/18 11:30 06/09/18 11:29 05/11/18 10:24 Docusate Sodium (Colace) 250 mg TWICE A DAY ORAL 05/08/18 10:30 06/07/18 10:29 05/11/18 09:04 Dopamine HCl/ Dextrose 250 ml @ 0 mls/hr Q24H IV 05/08/18 21:15 06/07/18 21:14 05/10/18 23:00 Haloperidol (Haldol) 1 mg Q6H PRN ORAL Agitation 05/05/18 21:00 06/04/18 20:59 05/08/18 09:39 Insulin Aspart (NovoLOG) BEFORE MEALS AND HS SUBQ 05/06/18 16:30 06/05/18 16:29 05/11/18 05:58 Levetiracetam 100 ml @ 400 mls/hr Q12H IVPB 05/05/18 23:00 06/04/18 22:59 05/11/18 11:14 Lorazepam (Ativan 2mg/ml 1ml) 1 mg Q4H PRN IV Agitation 05/05/18 21:00 05/12/18 20:59 05/08/18 16:17 Meropenem 500 mg/ Sodium Chloride 55 ml @ 110 mls/hr EVERY 12 HOURS IVPB 05/07/18 21:00 05/16/18 20:59 05/11/18 09:04 Pantoprazole (Protonix) 40 mg DAILY IVP 05/06/18 09:00 06/05/18 08:59 05/11/18 09:04 Sodium Bicarbonate (NaHCO3) 650 mg BID ORAL 05/08/18 10:30 06/07/18 10:29 05/11/18 09:04 Shawn Conteh MD May 11, 2018 11:23
--- NOTE | 2018-05-11 12:25 | NUR ---
NURSE NOTES: Patient was noted congested with oxygen saturation 88-92% while on 100% nonrebreather. Suctioning done but noted dry, patient noted lesser responsive, no grimacing, no moaning as compared to suctioning this morning. Still off of Dopamine. Noted more frequent PVCs. Follow up made on the plan for pulmo consult. MD ordered consult with Dr. Gracia.
--- NOTE | 2018-05-11 12:35 | NUR ---
NURSE NOTES: Called Dr. Gracia and made aware of the consult. Informed of the ABG result while on 100% nonrebreather with current oxygen saturation 88-93%, RR:30-42. Patient remains obtunded.
--- NOTE | 2018-05-11 12:58 | NUR ---
NURSE NOTES: Called Dr. Marquis's office and spoke with Sugar to inform MD that patient has noted EKG: Wide QRS rhythm with frequent and consecutive PVCs with ventricular escape rhythm. Left BBB. Last EKG done 05/05 was noted NSR. Patient was placed back to Dopamine since HR begins to go bradycardic 56 as lowest. Awaiting for further orders.
--- NOTE | 2018-05-11 12:59 | NUR ---
NURSE NOTES: Response received from Dr. Gracia and was made aware that patient was suctioned and placed of BIPAP14/4 FiO2:100% with repeat ABG in 10 minutes. With instruction if stable will wait for ABG result but if patient unstable will proceed to intubation. Current BP:107/42, Junctional rhythm with PVCs rate:60s, oxygen saturation:99%.
--- NOTE | 2018-05-11 13:04 | NUR ---
NURSE NOTES: Call back received from Dr. Marquis and was made aware of the EKG result as compared to previous EKG. MD has no order with instruction to call PMD for possibility that patient is septic.
[2018-05-11] MEDS ORDERED: Sodium Bicarbonate 50ml Carp IV SCH (13:45)
--- NOTE | 2018-05-11 13:45 | NUR ---
NURSE NOTES: Called Dr. Gracia and made aware of the ABG result with order to give 2 amps of bicarbonate and intubate patient. MD will call ERMD to intubate. Called RT Alexis for set up.
[2018-05-11] MEDS: DOPamine 400mg/250ml 250 ML IV SCH (13:54)
--- NOTE | 2018-05-11 14:29 | NUR ---
NURSE NOTES: Patient was intubated with ETT size 8.0 at 24 cm lip level connected to mechanical ventilator with setting of AC 16 TV:600, FiO2:100%, PEEP:5 with oxygen saturation of 100%. Patient now SR 70s. Addendum: 05/11/18 at 1453 by Reanna Triana RN NURSE NOTES: Patient intubated by Dr. Machuca. CXR ordered STAT to confirm placement and ABG after 1 hour.
--- NOTE | 2018-05-11 14:40 | NUR ---
RESPIRATORY NOTE: Assisted Dr Machuca with intubation for the pt. intubation was successful. 8.0 ETT was used. ETT secured at 24cm at the lip. ETT secured with anchor fast. Co2 detector showed color change. Bilateral bs are present. Will monitor pt progress.
--- NOTE | 2018-05-11 15:10 | Diagnostic Imaging Report ---
Indication: Post intubation Technique: One view of the chest Comparison: 7 hours earlier Findings: Interim endotracheal intubation, endotracheal tube tip projecting approximately 3 cm above the kimberly. Stable satisfactory positions of left arm PICC and nasogastric tube. Considerable opacification of the right hemithorax persists with evidence of considerable volume loss. There is persistent hazy opacity in the left lung. Considerable gas is seen throughout the colon which is upper limits of normal in caliber Impression: Satisfactory endotracheal intubation Persistent left lung opacification with volume loss as well as likely pleural fluid and consolidation Other stable findings as described
--- NOTE | 2018-05-11 15:30 | Emergency Room Report ---
History of Present Illness General Chief Complaint: Dyspnea/Respdistress Source: Medical Record Present Illness Allergies: Coded Allergies: No Known Allergies (Unverified , 07/08/16) Nursing Documentation-[facility] Past Medical History: No History, Except For Hx Hypertension: Yes - CAD Hx Diabetes: Yes Hx Cancer: No Hx Neurological Problems: Yes Hx Cerebrovascular Accident: Yes - right side Hx Dementia: Yes Hx Seizures: Yes Hx Epilepsy: Yes Physical Exam Vital Signs Date Time Temp Pulse Resp B/P (MAP) Pulse Ox O2 Delivery O2 Flow Rate FiO2 05/07/18 07:00 98.7 47 22 102/51 (68) 100 05/07/18 07:45 Venturi Mask 12.0 50 Procedures Intubation Intubation : Consent: Emergent Intubation Method: orotracheal Tube Size (cm): 8.0 Medications: Etomidate, Rocuronium Breath Sounds after Intubation: equal Intubation Complications: no complications Post Intubation Xray: Yes Progress/Xray Impression: ET tube appropriately placed, right-sided atelectasis, no obvious acute bon Attempts: One Patient Tolerated: Well Complications: None Progress Patient's kidney function has been elevated therefore rocuronium was used Time out was obtained prior to the procedure, patient procedure identified Respiratory at bedside Patient appears extremely somnolent and has minimal response gag reflex is extremely diminished and patient required airway intubation Medical Decision Making Diagnostic Impression: Primary Impression: Hypernatremia Additional Impressions: Renal failure Qualified Codes: N17.9 - Acute kidney failure, unspecified UTI (urinary tract infection) Respiratory failure Chest X-Ray Diagnostic Results Chest X-Ray Diagnostic Results : Chest X-Ray Ordered: Yes # of Views/Limited/Complete: 1 View Last Vital Signs Date Time Temp Pulse Resp B/P (MAP) Pulse Ox O2 Delivery O2 Flow Rate FiO2 05/11/18 15:15 116 36 97/70 (79) 99 05/11/18 14:40 100 05/11/18 12:40 Non-Rebreather 15.0 05/11/18 04:15 98.2 Disposition: ADMITTED INPATIENT Condition: Serious Referrals: Jcarlos David MD (PCP) Forest Machuca DO May 11, 2018 15:30
--- NOTE | 2018-05-11 15:41 | NUR ---
HAND-OFF: Report given to Mavis Powers RN. Endorsed still waiting for RT to get ABG after intubation. Also endorsed still pending Ct scan of the head. AMARI Parker is also locating to plan for pt.
--- NOTE | 2018-05-11 16:08 | NUR ---
NURSE NOTES: Patient received from MARGARITA Forte. He is intubated due to abnormal ABG labs with tube of 8.0 at 24cm and setting of ac 16, TV: 600, FIO2: 100% and peep of 5, patient is on tube feeding at Nepro 20ml/hr, post intubation ABG drawn and waiting, he is saturating at 87-88% on Fio2 100%.
--- NOTE | 2018-05-11 16:09 | NUR ---
Social Service Note MAGDALENA spoke with [facility] [phone]. Since patient's admission in 2014 patient has been non-represented. SW contacted the public guardian's office [phone] and patient has been referred twice in 1999 and 2015 in both cases, referral was denied and deemed a non-handle. Facility able to meet patient's needs. MAGDALENA completed a skip trace and was unable to locate a next of kin. to document necessity of care and provide consent as needed. Bioethics available if needed. The phone number listed for Tea Dunham has been assigned a new clinical safety specialist and should not be called as the clinical safety specialist of this number doesn't know patient. Patient will continue to require [facility]dc care placement upon discharge. Will monitor and follow up as needed.
--- NOTE | 2018-05-11 16:48 | NUR ---
NURSE NOTES: Dr. Gracai notified regarding, abg results, patient remains saturating 90-91% on FIo2 of 100% with RR of 28 on the ventilator, he remains on tube feeding at 20ml/hr, remains on dopamine at 5mcg/kg/min with HR at 128 and Bp of 105/67. awaiting for call back.
[2018-05-11] MEDS ORDERED: D5 1/2NS 1000ml IV ONE (17:03)
--- NOTE | 2018-05-11 18:00 | NUR ---
NURSE NOTES: EkG completed at request of Dr. Marquis, resulted with A-fibb RVR, Dr. Marquis changed order to Levophed instead of dopamine and increased amiodarone, will follow orders.
--- NOTE | 2018-05-11 18:17 | Cardiology Progress Note ---
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 (3) Respiratory failure (4) Renal failure (5) Hyperkalemia Status: not improved, deteriorating Status Narrative Pt w/ clinical deterioration in respiratory status today. WBC elevated and xr w / R infiltrate. He is also hyperkalemic, and had transient kell, w/ ventricular escape rhythm. This may have been due to hypoxia and hyperkalemia. He is now in rapid AF, on dopamine Assessment/Plan recommend changing dopamine to levophed, as may be less likely to cause rapid HR in AF. Will give amiodarone for rate control, given low bp may need kayexelate Treatment of pneumonia/sepsis, respiratory failure and renal failure per primary team and specialists Overall prognosis poor. / Subjective ROS Limited/Unobtainable: Yes Subjective Cardiac EP Pt had acute deterioration in respiratory status today, required intubation/ mech ventilation. Also, had severe kell, w/ wide qrs ventricular escape rhythm - in setting of acute hyperkalemia Objective Last 24 Hour Vital Signs Date Time Temp Pulse Resp B/P (MAP) Pulse Ox O2 Delivery O2 Flow Rate FiO2 05/11/18 17:01 77 20 100 05/11/18 15:30 126 19 101/70 (80) 100 05/11/18 15:15 116 36 97/70 (79) 99 05/11/18 15:00 119 36 88/59 (69) 99 05/11/18 14:40 76 21 100 05/11/18 14:30 74 36 115/55 (75) 99 05/11/18 14:29 100 05/11/18 14:15 67 36 112/48 (69) 99 05/11/18 14:00 64 36 102/54 (70) 99 05/11/18 13:54 92/49 05/11/18 13:45 64 36 89/49 (62) 99 05/11/18 13:30 67 36 104/49 (67) 99 05/11/18 13:15 67 36 107/52 (70) 99 05/11/18 13:00 68 36 115/72 (86) 99 05/11/18 12:45 67 36 93/44 (60) 99 05/11/18 12:40 93 Non-Rebreather 15.0 100 05/11/18 12:40 88 36 96 Full Face 100 05/11/18 12:40 Non-Rebreather 15.0 100 05/11/18 12:30 67 36 106/48 (67) 99 05/11/18 12:00 72 36 127/57 (80) 99 05/11/18 12:00 Non-Rebreather 15.0 05/11/18 12:00 106/48 05/11/18 11:30 69 36 117/64 (81) 99 05/11/18 11:00 113/61 05/11/18 11:00 66 36 113/61 (78) 99 05/11/18 10:45 66 36 115/66 (82) 99 05/11/18 10:30 66 36 122/41 (68) 99 05/11/18 10:15 65 36 118/63 (81) 99 05/11/18 10:00 123/63 05/11/18 10:00 66 36 123/63 (83) 100 05/11/18 09:45 67 36 129/62 (84) 100 05/11/18 09:30 65 36 117/56 (76) 100 05/11/18 09:15 66 38 111/62 (78) 99 05/11/18 09:00 117/56 05/11/18 09:00 64 36 99/69 (79) 99 05/11/18 08:45 65 34 100/61 (74) 95 05/11/18 08:30 64 37 105/55 (72) 95 05/11/18 08:15 63 36 101/49 (66) 95 05/11/18 08:00 62 05/11/18 08:00 99/69 05/11/18 08:00 63 42 92/53 (66) 94 05/11/18 08:00 Non-Rebreather 15.0 05/11/18 07:45 67 42 108/56 (73) 94 05/11/18 07:30 67 21 106/58 (74) 97 05/11/18 07:15 68 32 103/55 (71) 97 05/11/18 07:00 67 32 108/57 (74) 98 05/11/18 07:00 101/49 05/11/18 06:45 67 32 109/51 (70) 96 05/11/18 06:30 68 33 112/53 (72) 95 05/11/18 06:15 67 34 113/59 (77) 95 05/11/18 06:00 113/59 05/11/18 06:00 68 34 113/59 (77) 95 05/11/18 05:45 67 34 112/55 (74) 94 05/11/18 05:30 67 34 112/55 (74) 94 05/11/18 05:15 65 31 109/58 (75) 94 05/11/18 05:00 116/59 05/11/18 05:00 67 31 116/58 (77) 94 05/11/18 04:45 67 31 118/58 (78) 95 05/11/18 04:30 67 37 111/56 (74) 94 05/11/18 04:15 98.2 05/11/18 04:15 66 40 114/56 (75) 100 05/11/18 04:10 Non-Rebreather 15.0 05/11/18 04:00 65 32 107/65 (79) 100 05/11/18 04:00 63 05/11/18 04:00 111/56 05/11/18 04:00 Nasal Cannula 2.0 05/11/18 03:00 106/63 05/11/18 03:00 67 33 106/63 (77) 100 05/11/18 02:30 66 35 112/62 (79) 100 05/11/18 02:00 68 38 116/60 (78) 100 05/11/18 02:00 116/60 05/11/18 01:00 68 38 112/61 (78) 100 05/11/18 01:00 112/67 05/11/18 00:30 62 32 102/63 (76) 100 05/11/18 00:00 Nasal Cannula 2.0 05/11/18 00:00 105/65 05/11/18 00:00 97.3 63 30 101/62 (75) 100 05/10/18 23:30 63 34 100/61 (74) 99 05/10/18 23:00 57 32 111/71 (84) 100 05/10/18 23:00 111/71 05/10/18 22:30 69 37 111/69 (83) 100 05/10/18 22:00 70 36 106/56 (73) 96 05/10/18 21:30 65 34 94/53 (67) 89 05/10/18 21:00 70 33 109/59 (76) 89 05/10/18 20:30 68 33 103/60 (74) 89 05/10/18 20:00 68 33 83/25 (44) 89 05/10/18 20:00 Nasal Cannula 2.0 05/10/18 19:30 68 33 89/18 (41) 89 05/10/18 19:00 96.8 68 41 86/41 (56) 97 05/10/18 18:50 Venturi Mask 14.0 55 05/10/18 18:50 97 Venturi Mask 14.0 55 05/10/18 18:30 67 41 93/16 (41) 97 General Appearance: cachetic, on vent EENT: PERRL/EOMI, other - et ng tubes in place Neck: supple, no JVD Rhythm: Afib Cardiovascular: no gallop/murmur, tachycardia, irregularly irregular Respiratory/Chest: other - rodolfo rhonchi Abdomen: non tender, soft Extremities: other - flexion contractures of ue, le Intake and Output 05/10/18 05/11/18 19:00 07:00 Intake Total 490 ml 2519.149 ml Output Total 500 ml 360 ml Balance -10 ml 2159.149 ml IV Total 2229.149 ml Tube Feeding 240 ml 240 ml Other 250 ml 50 ml Output Urine Total 500 ml 360 ml # Bowel Movements 2 3 Laboratory Tests Test 05/10/18 23:55 05/11/18 05:10 05/11/18 07:00 05/11/18 08:40 Stool Occult Blood Positive (NEGATIVE) White Blood Count 19.9 K/UL (4.8-10.8) H Red Blood Count 3.28 M/UL (4.70-6.10) L Hemoglobin 10.8 G/DL (14.2-18.0) L Hematocrit 33.2 % (42.0-52.0) L Mean Corpuscular Volume 101 FL (80-99) H Mean Corpuscular Hemoglobin 33.0 PG (27.0-31.0) H Mean Corpuscular Hemoglobin Concent 32.6 G/DL (32.0-36.0) Red Cell Distribution Width 15.4 % (11.6-14.8) H Platelet Count 55 K/UL (150-450) L Mean Platelet Volume 10.2 FL (6.5-10.1) H Neutrophils (%) (Auto) % (45.0-75.0) Lymphocytes (%) (Auto) % (20.0-45.0) Monocytes (%) (Auto) % (1.0-10.0) Eosinophils (%) (Auto) % (0.0-3.0) Basophils (%) (Auto) % (0.0-2.0) Differential Total Cells Counted 100 Neutrophils % (Manual) 75 % (45-75) Lymphocytes % (Manual) 3 % (20-45) L Monocytes % (Manual) 6 % (1-10) Eosinophils % (Manual) 0 % (0-3) Basophils % (Manual) 0 % (0-2) Band Neutrophils 16 % (0-8) H Platelet Estimate Decreased L Platelet Morphology Normal Hypochromasia 1+ Anisocytosis 1+ Macrocytosis 1+ Sodium Level 137 MMOL/L (136-145) Potassium Level 5.8 MMOL/L (3.5-5.1) H Chloride Level 109 MMOL/L (98-107) H Carbon Dioxide Level 17 MMOL/L (21-32) L Anion Gap 11 mmol/L (5-15) Blood Urea Nitrogen 65 mg/dL (7-18) H Creatinine 2.1 MG/DL (0.55-1.30) H Estimat Glomerular Filtration Rate mL/min (>60) Glucose Level 232 MG/DL (74-106) H Calcium Level 7.2 MG/DL (8.5-10.1) L Total Bilirubin 1.0 MG/DL (0.2-1.0) Aspartate Amino Transf (AST/SGOT) 29 U/L (15-37) Alanine Aminotransferase (ALT/SGPT) 11 U/L (12-78) L Alkaline Phosphatase 114 U/L (46-116) Total Protein 5.5 G/DL (6.4-8.2) L Albumin 1.2 G/DL (3.4-5.0) L Globulin 4.3 g/dL Albumin/Globulin Ratio 0.3 (1.0-2.7) L Phenytoin (Dilantin) Level 23.9 ug/mL (10-20) H Arterial Blood pH 7.413 (7.350-7.450) Arterial Blood Partial Pressure CO2 20.0 mmHg (35.0-45.0) *L Arterial Blood Partial Pressure O2 91.6 mmHg (75.0-100.0) Arterial Blood HCO3 12.5 mmol/L (22.0-26.0) *L Arterial Blood Oxygen Saturation 97.7 % (95-100) Arterial Blood Base Excess -10.1 (-2-2) *L Larry Test Positive Lactic Acid Level 1.90 mmol/L (0.4-2.0) Test 05/11/18 13:10 05/11/18 15:55 Arterial Blood pH 7.388 (7.350-7.450) 7.459 (7.350-7.450) Arterial Blood Partial Pressure CO2 23.3 mmHg (35.0-45.0) *L 21.5 mmHg (35.0-45.0) *L Arterial Blood Partial Pressure O2 111.4 mmHg (75.0-100.0) H 109.6 mmHg (75.0-100.0) H Arterial Blood HCO3 13.7 mmol/L (22.0-26.0) *L 14.9 mmol/L (22.0-26.0) *L Arterial Blood Oxygen Saturation 98.0 % (95-100) 98.2 % (95-100) Arterial Blood Base Excess -9.6 (-2-2) *L -7.1 (-2-2) L Larry Test Positive Positive Susi Coburn MD May 11, 2018 18:17
--- NOTE | 2018-05-11 19:06 | General Progress Note ---
Assessment/Plan Assessment/Plan Assessment - Hypernatremia - improving - hypokalemia - Azotemia - OBS/Encephalopathy - failed swallow evaluation - past h/o PEG placement - G tube has been removed in the past, GT site sealed and closed - Epistaxis at time of NGT trial --> OGT placed - Bradycardia - UTi Recommendations - OGT feeds - Aspiration precautions - elevate HOB - Free water replacement - Abx - Follow labs and mental status - Not stable for PEG at this time Subjective Allergies: Coded Allergies: No Known Allergies (Unverified , 07/08/16) Subjective non verbal d/w RN tolerating OGT feeds breathing with loud ronchi Objective Last 24 Hour Vital Signs Date Time Temp Pulse Resp B/P (MAP) Pulse Ox O2 Delivery O2 Flow Rate FiO2 05/11/18 18:53 119 20 100 05/11/18 18:30 111/92 05/11/18 17:01 77 20 100 05/11/18 16:00 Mechanical Ventilator 05/11/18 15:30 126 19 101/70 (80) 100 05/11/18 15:15 116 36 97/70 (79) 99 05/11/18 15:00 119 36 88/59 (69) 99 05/11/18 14:40 76 21 100 05/11/18 14:30 74 36 115/55 (75) 99 05/11/18 14:29 100 05/11/18 14:15 67 36 112/48 (69) 99 05/11/18 14:00 64 36 102/54 (70) 99 05/11/18 13:54 92/49 05/11/18 13:45 64 36 89/49 (62) 99 05/11/18 13:30 67 36 104/49 (67) 99 05/11/18 13:15 67 36 107/52 (70) 99 05/11/18 13:00 68 36 115/72 (86) 99 05/11/18 12:45 67 36 93/44 (60) 99 05/11/18 12:40 93 Non-Rebreather 15.0 100 05/11/18 12:40 88 36 96 Full Face 100 05/11/18 12:40 Non-Rebreather 15.0 100 05/11/18 12:30 67 36 106/48 (67) 99 05/11/18 12:00 72 36 127/57 (80) 99 05/11/18 12:00 Non-Rebreather 15.0 05/11/18 12:00 106/48 05/11/18 11:30 69 36 117/64 (81) 99 05/11/18 11:00 113/61 05/11/18 11:00 66 36 113/61 (78) 99 05/11/18 10:45 66 36 115/66 (82) 99 05/11/18 10:30 66 36 122/41 (68) 99 05/11/18 10:15 65 36 118/63 (81) 99 05/11/18 10:00 123/63 05/11/18 10:00 66 36 123/63 (83) 100 05/11/18 09:45 67 36 129/62 (84) 100 05/11/18 09:30 65 36 117/56 (76) 100 05/11/18 09:15 66 38 111/62 (78) 99 05/11/18 09:00 117/56 05/11/18 09:00 64 36 99/69 (79) 99 05/11/18 08:45 65 34 100/61 (74) 95 05/11/18 08:30 64 37 105/55 (72) 95 05/11/18 08:15 63 36 101/49 (66) 95 05/11/18 08:00 62 05/11/18 08:00 99/69 05/11/18 08:00 63 42 92/53 (66) 94 05/11/18 08:00 Non-Rebreather 15.0 05/11/18 07:45 67 42 108/56 (73) 94 05/11/18 07:30 67 21 106/58 (74) 97 05/11/18 07:15 68 32 103/55 (71) 97 05/11/18 07:00 67 32 108/57 (74) 98 05/11/18 07:00 101/49 05/11/18 06:45 67 32 109/51 (70) 96 05/11/18 06:30 68 33 112/53 (72) 95 05/11/18 06:15 67 34 113/59 (77) 95 05/11/18 06:00 113/59 05/11/18 06:00 68 34 113/59 (77) 95 05/11/18 05:45 67 34 112/55 (74) 94 05/11/18 05:30 67 34 112/55 (74) 94 05/11/18 05:15 65 31 109/58 (75) 94 05/11/18 05:00 116/59 05/11/18 05:00 67 31 116/58 (77) 94 05/11/18 04:45 67 31 118/58 (78) 95 05/11/18 04:30 67 37 111/56 (74) 94 05/11/18 04:15 98.2 05/11/18 04:15 66 40 114/56 (75) 100 05/11/18 04:10 Non-Rebreather 15.0 05/11/18 04:00 65 32 107/65 (79) 100 05/11/18 04:00 63 05/11/18 04:00 111/56 05/11/18 04:00 Nasal Cannula 2.0 05/11/18 03:00 106/63 05/11/18 03:00 67 33 106/63 (77) 100 05/11/18 02:30 66 35 112/62 (79) 100 05/11/18 02:00 68 38 116/60 (78) 100 05/11/18 02:00 116/60 05/11/18 01:00 68 38 112/61 (78) 100 05/11/18 01:00 112/67 05/11/18 00:30 62 32 102/63 (76) 100 05/11/18 00:00 Nasal Cannula 2.0 05/11/18 00:00 105/65 05/11/18 00:00 97.3 63 30 101/62 (75) 100 05/10/18 23:30 63 34 100/61 (74) 99 05/10/18 23:00 57 32 111/71 (84) 100 05/10/18 23:00 111/71 05/10/18 22:30 69 37 111/69 (83) 100 05/10/18 22:00 70 36 106/56 (73) 96 05/10/18 21:30 65 34 94/53 (67) 89 05/10/18 21:00 70 33 109/59 (76) 89 18 20:30 68 33 103/60 (74) 89 05/10/18 20:00 68 33 83/25 (44) 89 05/10/18 20:00 Nasal Cannula 2.0 05/10/18 19:30 68 33 89/18 (41) 89 Intake and Output 05/10/18 05/11/18 19:00 07:00 Intake Total 490 ml 2519.149 ml Output Total 500 ml 360 ml Balance -10 ml 2159.149 ml IV Total 2229.149 ml Tube Feeding 240 ml 240 ml Other 250 ml 50 ml Output Urine Total 500 ml 360 ml # Bowel Movements 2 3 Laboratory Tests 05/10/18 23:55: Stool Occult Blood Positive 05/11/18 05:10: White Blood Count 19.9H, Red Blood Count 3.28L, Hemoglobin 10.8L, Hematocrit 33.2L, Mean Corpuscular Volume 101H, Mean Corpuscular Hemoglobin 33.0H, Mean Corpuscular Hemoglobin Concent 32.6, Red Cell Distribution Width 15.4H, Platelet Count 55L, Mean Platelet Volume 10.2H, Neutrophils (%) (Auto) , Lymphocytes (%) (Auto) , Monocytes (%) (Auto) , Eosinophils (%) (Auto) , Basophils (%) (Auto) , Differential Total Cells Counted 100, Neutrophils % ( Manual) 75, Lymphocytes % (Manual) 3L, Monocytes % (Manual) 6, Eosinophils % ( Manual) 0, Basophils % (Manual) 0, Band Neutrophils 16H, Platelet Estimate DecreasedL, Platelet Morphology Normal, Hypochromasia 1+, Anisocytosis 1+, Macrocytosis 1+, Sodium Level 137, Potassium Level 5.8H, Chloride Level 109H, Carbon Dioxide Level 17L, Anion Gap 11, Blood Urea Nitrogen 65H, Creatinine 2.1H , Estimat Glomerular Filtration Rate , Glucose Level 232H, Calcium Level 7.2L, Total Bilirubin 1.0, Aspartate Amino Transf (AST/SGOT) 29, Alanine Aminotransferase (ALT/SGPT) 11L, Alkaline Phosphatase 114, Total Protein 5.5L, Albumin 1.2L, Globulin 4.3, Albumin/Globulin Ratio 0.3L, Phenytoin (Dilantin) Level 23.9H 05/11/18 07:00: Arterial Blood pH 7.413, Arterial Blood Partial Pressure CO2 20.0*L, Arterial Blood Partial Pressure O2 91.6, Arterial Blood HCO3 12.5*L, Arterial Blood Oxygen Saturation 97.7, Arterial Blood Base Excess -10.1*L, Larry Test Positive 05/11/18 08:40: Lactic Acid Level 1.90 05/11/18 13:10: Arterial Blood pH 7.388, Arterial Blood Partial Pressure CO2 23.3*L, Arterial Blood Partial Pressure O2 111.4H, Arterial Blood HCO3 13.7*L, Arterial Blood Oxygen Saturation 98.0, Arterial Blood Base Excess -9.6*L, Larry Test Positive 05/11/18 15:55: Arterial Blood pH 7.459H, Arterial Blood Partial Pressure CO2 21.5*L, Arterial Blood Partial Pressure O2 109.6H, Arterial Blood HCO3 14.9*L, Arterial Blood Oxygen Saturation 98.2, Arterial Blood Base Excess -7.1L, Larry Test Positive Height (Feet): 5 Height (Inches): 4.00 Weight (Pounds): 150 Objective Thin WM NCAT Supple CTA bradycardic abd soft Yuridia Carlos MD May 11, 2018 19:06
--- NOTE | 2018-05-11 19:29 | NUR ---
HAND-OFF: Report given to MARGARITA Serrano. Patient remains on Levophed at 5mcg/min with HR at 123-127bpm.
--- NOTE | 2018-05-11 19:30 | NUR ---
NURSE NOTES: Report received from MARGARITA Coffman. Patient noted obtunded, intubated with ETT8, 24LL, AC 16, TV 600, Peep7, FiO2 100%. . Afib with H60s. Patient has patent and intact left upper arm PICC line with on going IVF of D5 1/2NS at 125 ml/hour and Dopamine drip has been d/c'ed. Currently on Levophed at 5mcg/min with BP124/83. With patent and intact OGT at 56 cm lip level, no residual noted with on going tube feeding of Nepro at 20 ml/hour. With patent and intact indwelling newsome catheter. All extremities elevated with pillows. On SPR mattress. Oral care done. Suctioning done. Placed bed on lowest position. On isolation.
[2018-05-11] MEDS: Dyna-Hex 2% Top Sol 2oz TOPIC SCH (20:09)
--- NOTE | 2018-05-11 20:45 | Consultation ---
DATE OF CONSULTATION: 05/11/2018 PULMONARY CONSULTATION CONSULTING PHYSICIAN: Arnold Gracia M.D. REFERRING PHYSICIAN: Jcarlos David M.D. REASON FOR CONSULTATION: Respiratory failure. HISTORY OF PRESENT ILLNESS: This is a 72-year-old unfortunate male patient with multiple medical problems including dementia, chronic kidney disease. The patient was transferred from the care home facility when he was noted to be unresponsive. The patient is currently doing poorly, hypoxemic, acidotic, tachypneic, and respiratory distress. I was called to assist to evaluate. The patient was seen earlier. The patient noted to be hypotensive and currently in the ICU. The patient is nonverbal. History was obtained from chart review, discussion with the ICU staff as well as with the other physicians involved. The patient with multiple medical problems with medical issues and apparently acute overall. The patient is seen by multiple consultants at present including Nephrology, Gastroenterology, Urology, and Cardiology. The patient is currently on multiple medications including IV antibiotics and IV hydration as well as DVT prophylaxis. PAST MEDICAL HISTORY: Notable for renal failure, dementia, schizophrenia, diabetes, hypertension, prior strokes, history of G-tube aspiration. MEDICATIONS: Reviewed. ALLERGIES: Reviewed. SOCIAL HISTORY: USP patient, nonsmoker, nondrinker. REVIEW OF SYSTEMS: Unobtainable. PHYSICAL EXAMINATION: GENERAL: Ill-appearing male, hypotensive on 100%. VITAL SIGNS: Blood pressure 115/55, respiratory rate 36, heart rate 74, sats 99%. HEENT: Fairly negative. NECK: Supple. LUNGS: Coarse breath sounds, tachypneic, accessory muscle use. CARDIAC: Tachycardic without murmurs, rubs, gallops. ABDOMEN: Soft, nontender. G-tube noted. EXTREMITIES: No cyanosis or clubbing. NEUROLOGICAL: Poor mental status overall present. SKIN: Noted and reviewed. LABORATORY AND DIAGNOSTIC DATA: Reviewed, white count 19.9, hemoglobin 10.8, platelets 55,000. Blood gases 7.43//91, repeated 7.38//111, which is on 100% oxygen and BiPAP. Chemistries; BUN 65, creatinine 2.1, potassium 5.8, albumin is 1.2. The chest x-ray with evidence of left lung opacification with volume loss as well as pleural effusions, consolidation. IMPRESSION: 1. Respiratory failure, profound hypoxemia and significant AA gradient. 2. Significant respiratory alkalosis with metabolic acidosis. Severe protein-calorie malnutrition. 3. Toxic metabolic encephalopathy. 4. Sepsis. 5. Hyperkalemia, acute on chronic renal failure. 6. Anemia. 7. Thrombocytopenia. RECOMMENDATIONS: Supportive care. Hyperventilate for now. Follow up x-ray imaging. Suction as needed. Antibiotics and supportive care. Blood pressure support as needed. IV hydration with caution, bicarb infusion. DVT prophylaxis in ICU care and management. Prognosis appears to be fairly poor. We will follow clinically for further changes and interventions and ongoing recommendations. Arnold Gracia M.D. DR: MELVI JOB#: [id number] CC: KELBY
[2018-05-11] MEDS ORDERED: Amiodarone 200mg tab NG SCH (21:00)
--- NOTE | 2018-05-11 22:00 | NUR ---
NURSE NOTES: Pt's resting in bed, in no distress. VS stable. Will continue to monitor.
[2018-05-12] VITALS (8 sets, daily range): BP systolic 76–105; BP diastolic 20–60
--- NOTE | 2018-05-12 | NUR ---
NURSE NOTES: Pt's resting in bed, in no acute distress. VS stable. Will continue to monitor.
--- NOTE | 2018-05-12 02:00 | NUR ---
NURSE NOTES: Pt's resting in bed, in no acute distress. VS stable. Will continue to monitor.
--- NOTE | 2018-05-12 04:00 | NUR ---
NURSE NOTES: Noted pt's kell on school lunch monitor HR 30s, SBP 70s, increased Levophed to max 30mcg/min. Paged Dr David. Will continue to monitor
--- NOTE | 2018-05-12 04:09 | NUR ---
NURSE NOTES: Noted pt has no pulse, code blue initiated.
[2018-05-12] MEDS ORDERED: D5 1/2NS 1000ml IV ONE ×2 (04:16)
--- NOTE | 2018-05-12 04:17 | NUR ---
NURSE NOTES: Code blue completed, pt did not survive. Paged and Left message to Dr. David. Called next of kin Tea Dunham as stated on the face sheet, however voice box was full unable to leave message. Will try to call again.
--- NOTE | 2018-05-12 04:20 | NUR ---
NURSE NOTES: [employer] was called and informed the case. [employer] Supervisor office as called x 3, unable to reach due to the holiday. Will try to ledger poster office again.
--- NOTE | 2018-05-12 05:23 | Emergency Room Report ---
History of Present Illness General Chief Complaint: Dyspnea/Respdistress Source: Medical Record Present Illness HPI This is a 72-year-old male who was admitted to the hospital for sepsis and developed septic shock and respiratory failure. He was intubated and central line was placed. I responded to a CODE BLUE tonight. Per nursing staff, he became bradycardic and then asystolic. On my arrival CPR was in progress and he received a dose of atropine and epinephrine. CPR continue and patient received a total of 3 mg of epinephrine without any spontaneous pulse. He remained asystolic. No pulse on the Doppler without CPR. Good pulse with Doppler during CPR. Patient was pronounced at 4:17 AM. Please see the code sheet for further information. I contacted Dr. David to let him know. Allergies: Coded Allergies: No Known Allergies (Unverified , 07/08/16) Nursing Documentation-[facility] Past Medical History: No History, Except For Hx Hypertension: Yes - CAD Hx Diabetes: Yes Hx Cancer: No Hx Neurological Problems: Yes Hx Cerebrovascular Accident: Yes - right side Hx Dementia: Yes Hx Seizures: Yes Hx Epilepsy: Yes Physical Exam Vital Signs Date Time Temp Pulse Resp B/P (MAP) Pulse Ox O2 Delivery O2 Flow Rate FiO2 05/08/18 07:00 51 30 95/63 (74) 99 05/08/18 07:24 Venturi Mask 12.0 50 05/08/18 08:00 97.0 Medical Decision Making Diagnostic Impression: Primary Impression: Hypernatremia Additional Impressions: Renal failure Qualified Codes: N17.9 - Acute kidney failure, unspecified Respiratory failure UTI (urinary tract infection) Cardiac arrest Last Vital Signs Date Time Temp Pulse Resp B/P (MAP) Pulse Ox O2 Delivery O2 Flow Rate FiO2 05/12/18 03:10 67 27 100 05/12/18 03:00 103/58 05/12/18 00:00 Mechanical Ventilator 05/11/18 23:30 100 05/11/18 20:00 98.5 05/11/18 12:40 15.0 Disposition: ADMITTED INPATIENT Condition: Referrals: Jcarlos David MD (PCP) Klever Lindsay MD May 12, 2018 05:23
--- NOTE | 2018-05-14 09:36 | Discharge Summary ---
Discharge Summary Discharge Summary _ SUMMARY DATE OF ADMISSION: 05/05/2018 DATE OF EXPIRATION: 05/12/2018 REASON FOR ADMISSION: 72 years old male with past medical history of diabetes mellitus, coronary artery disease, CVA with right side hemiparesis, dementia, seizure disorder, schizophrenia, presented to emergency department for evaluation due to increased lethargy, weakness, hypoxia and hypotension. Patient was placed on nonrebreathing mask at the snf facility. Laboratory workup revealed no leukocytosis, Sodium 177, BUN and creatinine markedly elevated: 104 and 4.1 respectively. Troponin negative. EKG revealed sinus bradycardia, no acute ischemic changes. Urinalysis was grossly positive for UTI. Lactic acid within normal limits. Chest x-ray revealed no acute cardiopulmonary pathology. Patient started on the IV hydration and broad-spectrum antibiotics and admitted for further management with diagnosis of possible sepsis , UTI, acute renal failure, respiratory failure , hypernatremia , altered mental status, history of CVA, seizure disorder. CONSULTANTS: program coordinator executive education pulmonary Dr. Gracia ID specialist Dr. Conteh GI specialist Dr. Breaux trading specialist Dr. Hayes urologist [facility]: Patient admitted to ICU and started on aggressive fluid resuscitation with hypotonic solution. Nephrology and cardiology consult were requested. Patient started on empiric antibiotic. Volume status and electrolytes were closely monitored along with cardiorenal parameters. Patient was kept initially n.p.o. Seizure precaution maintained. Patient started on anticonvulsant therapy. DVT and GI prophylaxis provided. Blood sugar was managed with sliding scale of insulin ID specialist closely followed. Urine culture revealed E. coli ESBL, blood cultures were negative. Influenza screen test was negative. Initial chest x-ray negative. Laboratory workup on 05/11 revealed significant leukocytosis WBC 19.9. Patient remained afebrile. Chest x-ray on 05/11 revealed increased opacification of the right hemithorax probably due to a combination of atelectasis, consolidation and pleural fluid. Antibiotic regimen optimized as per ID specialist recommendations. Echocardiogram revealed normal left ventricular chamber size, systolic function and wall motion to the extent visualized. Left ventricular ejection fraction estimated to be grossly normal. Serial troponin were negative. Telemetry showed no evidence of acute ischemic changes. Supplemental oxygen provided as needed to keep pulse oximetry above 92% via Venturi mask, nonrebreathing mask and Bipap subsequently,. Pulmonary toilet provided as needed. Bindery Machine Tender followed. Renal ultrasound revealed mild left-sided hydronephrosis, simple appearing renal cyst, distended bladder. Echogenic material in the dependent portion of the left posterior bladder. Possibility of mass was not excluded. Dilatation of the left-sided collecting system , likely related to the degree of obstruction of the left uretero-vesicular junction from the above-described echogenic structure. Electrolytes were closely monitored. Electrolytes corrected as needed. Nephrotoxins were avoided. Sodium down to 137. Renal parameters improved BUN down to 65 ,creatinine down to 2.1 with IV hydration. Bindery Machine Tender closely followed. Urologist recommended to keep Enriquez catheter in and hand irrigate as needed. a Consider CT scan for further evaluation when more stable. Cystoscopy for later was recommended as well. Flomax and Proscar were added to medication regimen.. Patient failed swallow evaluation. GI specialist followed. Patient had a history of PEG in the past ; G tube was removed. G-tube site healed and closed. NG tube inserted for nutritional support. Epistaxis noted at the side of NG tube. NG tube was subsequently changed to oropharyngeal tube. Strict aspiration precautions were maintained. Patient was not stable for PEG placement at this time. Stool for occult blood was positive. Hemoglobin and hematocrit were closely monitored with goal to keep hemoglobin above 7. Last hemoglobin 10.8 Awning Installer recommendation regarding protein supplement implemented in plan of care Patient remained consistently bradycardic with intermittent junctional bradycardia in the 40s. On 05/08/18 blood pressure dropped to 70 (systolic range ). Patient started on pressors /Dopamine to keep mean arterial pressure above 60. Cardiology lithograph designer was consulted for possible pacemaker placement. Patient was severely dehydrated and hypotensive due to intravascular volume depletion as well as sepsis. Patient was severely bradycardic in this setting . Per lithograph designer, patient was not a candidate for pacemaker placement due to infection and overall poor functional status. Government Property Inspector recommended to avoid any negative chronotropic and dromotropic agents and support heart rate if necessary with intravenous dopamine. Patient likely had intrinsic sinus node disease , but at this point he was a poor candidate for invasive intervention. Patient required supplemental oxygen, initially via Venturi mask, then nonrebreathing mask and BiPAP. Patient was followed-up with ABGs. On 05/11 laboratory workup revealed leukocytosis with WBC 19. Platelet count dropped to 55. ABG revealed significant AA gradient and hypoxemia along with metabolic acidosis and significant respiratory alkalosis. Paid Search Marketing Analyst followed. Patient required emergency oral intubation. Chest x-ray confirmed placement of ET tube, and also revealed persistent left lung opacification with volume loss as well as likely pleural fluid and consolidation. Patient developed paroxysmal fibrillation with rapid ventricular response. Dopamine was changed to Levophed as less likely to cause rapid heart rate in atrial fibrillation. Hemodynamic status was closely monitored. Patient started on amiodarone for heart rate control. Dilantin was on hold due to elevated Dilantin level. CODE BLUE was called on 05/12 . Patient initially became bradycardic and then went to asystole. ACLS algorithm initiated , but despite all resuscitative attempts patient demonstrated cardiac unresponsiveness. Patient was pronounced at 4:17 AM on 05/12/2018 . Cause of : Cardiopulmonary arrest FINAL DIAGNOSES: s/p Cardiopulmonary arrest Sepsis with shock E. coli ESBL UTI Probably aspiration pneumonia Acute hypoxemic respiratory failure ( and significant AA gradient) , requiring intubation Acute kidney injury on chronic kidney disease Dehydration Hypernatremia Bradycardia with intermittent junctional bradycardia Seizure disorder Chronic diastolic congestive heart failure Cerebrovascular disease with history of CVA with right hemiparesis Vascular dementia Metabolic and toxic encephalopathy Atrial fibrillation with rapid ventricular response Severe protein calorie malnutrition Dysphagia Significant respiratory alkalosis with metabolic acidosis. BPH Probable neurogenic bladder Hydronephrosis Urinary retention Anemia Thrombocytopenia Diabetes mellitus I have been assigned to dictate discharge summary for this account. I was not involved in the patient's management. Tana Cespedes NP May 14, 2018 09:36
== END 2018-05-12 04:17 | disposition expired | DRG 871 ==
LOC: EDBD 17:52 → EMR 18:18 → ICU 18:44 → EDBEDREQSVC 19:29 → EDBEDREQ 19:29
PROC: B548ZZA Ultrasonography of Superior Vena Cava, Guidance (ICD-10-PCS; principal; 2018-05-07)
PROC: 02HV33Z Insertion of Infusion Device into Superior Vena Cava, Percutaneous Approach (ICD-10-PCS; principal; 2018-05-07)
PROC: 5A1945Z Respiratory Ventilation, 24-96 Consecutive Hours (ICD-10-PCS; 2018-05-11)
PROC: 0BH17EZ Insertion of Endotracheal Airway into Trachea, Via Natural or Artificial Opening (ICD-10-PCS; 2018-05-11)
DX: A41.9 Sepsis, unspecified organism (principal); G93.41 Metabolic encephalopathy; E43 Unspecified severe protein-calorie malnutrition; J69.0 Pneumonitis due to inhalation of food and vomit; R65.21 Severe sepsis with septic shock; N39.0 Urinary tract infection, site not specified; N17.9 Acute kidney failure, unspecified; R64 Cachexia; I13.0 Hypertensive heart and chronic kidney disease with heart failure and stage 1 through stage 4 chronic kidney disease, or unspecified chronic kidney disease; I50.32 Chronic diastolic (congestive) heart failure; E87.0 Hyperosmolality and hypernatremia; N13.30 Unspecified hydronephrosis; E87.3 Alkalosis; I69.951 Hemiplegia and hemiparesis following unspecified cerebrovascular disease affecting right dominant side; E86.0 Dehydration; Z68.25 Body mass index [BMI] 25.0-25.9, adult; G40.909 Epilepsy, unspecified, not intractable, without status epilepticus; F20.9 Schizophrenia, unspecified; E11.22 Type 2 diabetes mellitus with diabetic chronic kidney disease; N18.9 Chronic kidney disease, unspecified; J44.9 Chronic obstructive pulmonary disease, unspecified; B96.20 Unspecified Escherichia coli [E. coli] as the cause of diseases classified elsewhere; R31.9 Hematuria, unspecified; E87.8 Other disorders of electrolyte and fluid balance, not elsewhere classified; F01.50 Vascular dementia, unspecified severity, without behavioral disturbance, psychotic disturbance, mood disturbance, and anxiety; N40.1 Benign prostatic hyperplasia with lower urinary tract symptoms; R33.8 Other retention of urine; R00.1 Bradycardia, unspecified; R13.10 Dysphagia, unspecified; R04.0 Epistaxis; E87.5 Hyperkalemia; D69.6 Thrombocytopenia, unspecified; I48.0 Paroxysmal atrial fibrillation; N31.9 Neuromuscular dysfunction of bladder, unspecified
CPT/HCPCS: 36415; 36569; 36600; 71045; 74018; 76770; 76937; 80048; 80053; 80164; 80185; 81003; 82270; 82533; 82550; 82553; 82607; 82746; 82803; 82962; 83036; 83605; 83735; 83880; 84100; 84443; 84484; 85007; 85025; 86710; 87040; 87081; 87086; 87181; 93005; 93306; 94002; 94003; 94640; 94660; 94664; 94760; 96361; 96365; 99291; J0171; J1165; J1815; J8499